=== PATIENT | female | born 1955 | race Caucasian/White ===

== ENCOUNTER 2017-12-24 10:50 | Inpatient (IN) | payer MEDICARE, MEDICAID, SELFPAY ==
[2017-12-24] VITALS (12 sets, daily range): BP systolic 110–157; BP diastolic 69–71; PULSE 71–90; RESP 15–21; TEMP 36.9–37.1; O2SAT 88–97; BMI 26.0; BMI 26.1
--- NOTE | 2017-12-24 11:08 | EKG12_ITS ---
Test Reason : SOB Blood Pressure : / mmHG Vent. Rate : 075 BPM Atrial Rate : 075 BPM P-R Int : 124 ms QRS Dur : 078 ms QT Int : 378 ms P-R-T Axes : 052 078 102 degrees QTc Int : 422 ms Normal sinus rhythm Normal ECG Confirmed by HOWARD CALDERA, ROCIO ([id number]), film or videotape editor SINDHU SCANLON ([id number]) on 12/30/2017 3:27:12 PM Referred By: HARI Confirmed By:ROCIO LAWRENCE MD
--- NOTE | 2017-12-24 11:08 | RAD_ITS ---
STUDY: X-RAY CHEST REASON FOR EXAM: Female, 62 years old. 3 week history of shortness of breath and productive cough. TECHNIQUE: PA and lateral views of the chest. COMPARISON: Comparison is made with prior study dated October 06, 2015. FINDINGS: EKG markings are seen. Focal infiltrate in the right middle lobe as well as in the lingular segment of the left lobe. There is no demonstrated pleural abnormality. Sternal cerclage wires and vascular clips are present from a prior sternotomy and coronary artery bypass graft procedure (CABG). Normal mediastinum and arlene. Normal visualized pulmonary arteries. Normal visualized aortic arch and descending thoracic aorta. Normal visualized thoracic spine. Normal visualized ribs, clavicles, and shoulders. There is no demonstrated abnormality of the visualized soft tissue structures of the upper abdomen. RAD/Chest PA and Lateral IMPRESSION: Focal infiltrate in the right middle lobe and lingular segment of the left upper lobe. Electronically Signed: Vijay Emerson MD at 12:51 EST Tel [phone], Service support ,
[2017-12-24] MEDS: Albuterol 2.5 MG/3 ML VIAL.NEB. INHALATION ×2 (11:32)
[2017-12-24] MEDS: Ipratropium/Albuterol Sulfate 3 ML AMPUL.NEB INHALATION ×3 (11:32→19:26)
[2017-12-24] MEDS: MethylPREDNISolone 125 MG/2 ML Vial IV (11:50)
[2017-12-24] MEDS: 0.9% Normal Saline 1,000 ML 150 ML IV (11:50)
[2017-12-24 11:52] LABS: Anion Gap 7 (5-15); BUN 44 mg/dL (7-18); BUN/Creat Ratio 18.3 RATIO (10-20); Calcium,Total 8.6 mg/dL (8.5-10.1); Chloride 101 mmol/L (98-107); Creatinine, Serum 2.41 mg/dL (0.55-1.02); EST Glomerular Filtration Rate 22 mL/min (>60); Est Glom Filt Rate - Afr Amer 26 mL/min (>60); Estimated Creatinine Clearance 1.76 ml/min; Glucose 425 mg/dL (74-106); Potassium 3.9 mmol/L (3.5-5.1); Sodium Level 137 mmol/L (136-145)
--- NOTE | 2017-12-24 13:06 | ED.VISSUMM ---
- ER Visit Summary Date of Service: 12/24/17 Chief Complaint: [Shortness of breath] History of Present Illness: The patient is a 62 F [presents to the emergency department with cough for 2-3 weeks. Patient coughing up brown sputum. Patient complains of chest tightness and exertional dyspnea. Patient denies fever. She denies any significant chest pain. Past medical history significant for coronary artery disease, diabetes, hypertension, chronic kidney disease, hyperkalemia.] Physical Examination: [HEENT-PERRLA, EOMI. Cranial nerves II through XII grossly intact. TMs clear. Mucous membranes moist. No adenopathy. Cardiovascular-regular rate and rhythm without murmur or ectopy Lungs-diminished bilaterally with expiratory wheezes bilaterally. There is mild tachypnea. No accessory muscle use or retractions. Abdomen-normoactive bowel sounds, soft, nontender, no rebound or rigidity, no peritoneal signs. Extremities-intact ?4, normal range of motion, normal pulses, atraumatic] Test Results: [CBC with differential pending. Chemistries unremarkable. BUN was 44 and creatinine was 2.41. Glucose is 425. Troponin was less than 0.02. EKG obtained showed a sinus rhythm with a ventricular rate of 75 bpm with no acute is 7 changes. Chest x-ray showed infiltrates right lower lobe and left upper lobe.] Emergency Department Course and Treatment: Patient was given DuoNeb aerosol and Solu-Medrol. Blood cultures ordered and patient was started on Rocephin and Zithromax IV.] Treatment Plan: Admit for hypoxemia and bilateral pneumonia [] Disposition: [Admit] Impression: [Bilateral pneumonia Hypoxemia] This note was generated with [employer] dictation software. It may contain incorrect words, spelling, and punctuation that were not noted in review of the chart prior to signing ED Disposition - Plan for ED Patient: Chief Complaint: Shortness of Breath Referrals: Sergio Maxwell DO [Primary Care Provider] -
[2017-12-24 13:30] LABS: Absolute Lymphocyte Count 0.62 X10^3/ul (0.83-4.51); Absolute Neutrophil Count 15.3 X10^3/uL (2.0-7.7); Basophil# 0.02 X10^3/uL; Basophil% 0.1 % (0-1); Eosinophil# 0.01 X10^3/uL; Eosinophils% 0.1 % (0-5); Hematocrit 36.4 % (37-47); Lymphocyte # 0.62 X10^3/ul (4.0); Lymphocyte % 3.7 % (19-41); Mean Corpuscular Hgb 29.1 pg (27.0-32.0); Mean Corpuscular Volume 88.3 fL (81-99); Mean Platelet Vol. 10.9 fl (6.2-12.0); Monocyte# 0.92 X10^3/uL; Monocyte% 5.4 % (0-10); Neutrophil # 15.27 X10^3/uL (2.7-7.7); Neutrophil % 90.4 % (47-70); Platelet Count 220 K/mm3 (150-450); RBC Distribution Width CV 12.4 % (11.6-14.6); RBC Distribution Width SD 39.3 fl (35.1-43.9); Red Blood Count 4.12 M/mm3 (4.2-5.4); White Blood Count 16.9 K/mm3 (4.4-11.0)
--- NOTE | 2017-12-24 13:30 | HP.PCM_ITS ---
Problem List (1) Coronary artery disease Status: Chronic Comment: Status post CABG in 2005 (2) Diabetes mellitus type 1 Status: Chronic Qualifiers: Diabetes mellitus complication status: without complication Qualified Code( s): E10.9 - Type 1 diabetes mellitus without complications (3) Hypertension Status: Chronic (4) CAD (coronary artery disease) Status: Chronic Qualifiers: Coronary Disease-Associated Artery/Lesion type: unspecified vessel or lesion type [place] vs. transplanted heart: [place] heart Associated angina: without angina Qualified Code(s): I25.10 - Atherosclerotic heart disease of [place] coronary artery without angina pectoris (5) CAP (community acquired pneumonia) Status: Chronic History of Present Illness Date of Admission: 12/24/17 Chief Complaint: SOB, chest pain The patient is a 62 year old F with PMHx of type 1 DM, hypertension, hyperlipidemia, CAD s/p CABG comes in with complaints of cough and shortness of breath, ongoing for 2-3 weeks. She has been coughing up brownish sputum. Also complains of exertional dyspnea with chest tightness which has been ongoing for the same time. She admits to orthopnea and sleeps on a wedge with 4 pillows, PND, but denies any leg swelling. She denies any fever or chills or dizziness or palpitations. Vitals in the ED of 98.7F, heart rate of 84, blood pressure 147/91, respiratory rate of 20, SPO2 is 88% on room air. W BC count of 16.7, hemoglobin of 12.0, platelet 220, BUN is 44, creatinine is 2.41(baseline creatinine is around 2.1). BNPep is 311. Past Medical History Past Medical History (Chronic Problems): Chronic Problems CAD (coronary artery disease) (Chronic) CAP (community acquired pneumonia) (Chronic) Elevated troponin (Chronic) Hypertension (Chronic) Coronary artery disease (Chronic) Status post CABG in 2005 Diabetes mellitus type 1 (Chronic) Hx of CABG (Chronic) Allergies No Known Allergies Allergy (Verified 12/24/17 10:52) Home Medications: Ambulatory Orders Medication Instructions Recorded Aspirin [Aspirin, Baby] 81 mg PO DAILY 04/09/15 Carvedilol [Coreg (Beta Janett)] 3.12 tab PO BID 10/01/15 Furosemide [Lasix] 10 mg PO DAILY 10/01/15 Isosorbide Mononitrate [Imdur] 30 mg PO QHS 10/02/15 Atorvastatin Calcium [Lipitor] 40 mg PO QHS 03/18/17 Insulin Aspart [Novolog Flexpen] 5 units SC LUNCH 03/18/17 Insulin Aspart [Novolog Flexpen] 8 units SC SUPPER 03/18/17 Insulin Aspart [Novolog Flexpen] 23 units SC BREAKFAST 03/18/17 Insulin Detemir [Levemir FlexPen] 4 units SC QHS 03/18/17 Surgical History: coronary bypass surgery, - - carpal tunnel, eye surgery Psychiatric History: No pertinent psych hx HEALTH ADMINISTRATOR History: No pertinent HEALTH ADMINISTRATOR history Lives: Spouse/ Significant Other Smoking Status: Never smoker Tobacco Use: Non-smoker Alcohol: None Drugs: None - *Family History Maternal History Items: No pertinent history Paternal History Items: Stroke Review of Systems Constitutional: Reports: Weakness. Denies: Anorexia, Chills, Fever, Weight Change Eyes: Denies: Blurred vision, Cataracts, Conjunctivae Inflammation, Pain, Redness, Vision Change HEENT: Denies: Difficulty Hearing, Difficulty Swallowing, Head Aches, Hearing Changes, Sinus Congestion, Sinus Drainage Cardiovascular: Reports: Chest Pressure, Orthopnea, Paroxysmal Noc. Dyspnea. Denies: Chest Pain, Edema, Heaviness, Light Headedness, Palpitations, Syncope Respiratory: Reports: Cough, Shortness of breath at rest, Shortness of breath upon exertion. Denies: Pleuritic Pain, Sputum production Gastrointestinal: Reports: Diarrhea - chronic, ongoing for 5 years. Denies: Abdominal Pain, Hematemesis, Hematochezia, Nausea, Vomiting Genitourinary: Denies: Dysuria, Frequency, Incontinence, Nocturia Musculoskeletal: Denies: Joint Pain, Joint swelling, Joint Tenderness Skin: Denies: Dryness, Pruritis, Rash, Wounds Neurological: Denies: Difficulty swallowing, Focal weakness, Numbness, Tingling Psychiatric: Denies: Anxiety, Depression, Homicidal Ideations, Suicidal Ideations Hematologic/ Lymphatic: Denies: Easy Bruising, Easy Bleeding VTE Information - Inpt Only VTE Present on Admission: No VTE Pharm Prophylaxis ordered?: Yes - Physical Exam General: Alert, Oriented x3, Cooperative, No apparent distress, - - looks comfortable, on 3L of oxygen HEENT: Atraumatic, PERRLA, EOMI, Normocephalic Oral: Dry Mucosa, Ulcerations Present - on the lips Neck: Supple Lungs: Diminished, - - Bronchial breath sounds at the lung bases Cardiovascular: Regular rate, Regular Rhythm, Normal S1, Normal S2, No murmurs Abdomen: Bowel Sounds Present, Soft, Non Tender, Non-Distended, No Hepato- splenomegaly Extremities: No edema Skin: No rashes Musculoskeletal: No Tenderness to Palpation of Joints or Extremities Neurological: Cranial nerves II-XII grossly intact Psych/Mental Status: Normal Affect, Appropriate Vital Signs Temp Pulse Resp BP Pulse Ox 98.7 F 71 21 H 147/71 H 94 12/24/17 10:52 12/24/17 11:35 12/24/17 11:35 12/24/17 10:52 12/24/17 10:57 Oxygen Flow Rate 2 Oxygen Delivery Method Nasal Cannula Weight: 4.536 kg Body Mass Index (BMI) 2.1 Finger Stick Blood Glucose 473 Microbiology Past 72 Hours 12/24/17 11:35 Influenza Types A,B Direct FA (NIGEL) - Final Mucosa - Nose Laboratory Tests Past 24 Hrs 12/24/17 12/24/17 12/24/17 11:30 11:30 11:30 WBC Cancelled Corrected WBC Cancelled RBC Cancelled Hgb Cancelled Hct Cancelled MCV Cancelled MCH Cancelled MCHC Cancelled RDW Cancelled RDW Differential Cancelled Plt Count Cancelled MPV Cancelled Immature Gran % (Auto) Cancelled Neut % (Auto) Cancelled Lymph % (Auto) Cancelled [place] % (Auto) Cancelled Eos % (Auto) Cancelled Baso % (Auto) Cancelled Immature Gran # (Auto) Cancelled Absolute Neuts (auto) Cancelled Absolute Lymphs (auto) Cancelled Absolute Monos (auto) Cancelled Total Counted Cancelled Neutrophils % (Manual) Cancelled Band Neutrophils % Cancelled Lymphocytes % (Manual) Cancelled Monocytes % (Manual) Cancelled Eosinophils % (Manual) Cancelled Basophils % (Manual) Cancelled Metamyelocytes % Cancelled Myelocytes % Cancelled Promyelocytes % Cancelled Blast Cells % Cancelled Plasma Cell % (Manual) Cancelled Other Cells % Cancelled Lymphocytes # Cancelled Nucleated RBCs/100 WBC Cancelled Differential Comment Cancelled Diff Path Review Cancelled Hypersegmented Neuts Cancelled Atypical Lymphocytes Cancelled Reactive Lymphocytes Cancelled Smudge Cells Cancelled Eosinophilia # Cancelled Basophilia # Cancelled Toxic Granulation Cancelled Dohle Bodies Cancelled Rafaela Rods Cancelled Platelet Estimate Cancelled Plt Morphology Comment Cancelled RBC Morphology Cancelled Polychromasia Cancelled Hypochromasia Cancelled Poikilocytosis Cancelled Basophilic Stippling Cancelled Anisocytosis Cancelled Microcytosis Cancelled Macrocytosis Cancelled Spherocytes Cancelled Sickle Cells Cancelled Target Cells Cancelled Tear Drop Cells Cancelled Ovalocytes Cancelled Stomatocytes Cancelled [place] Bodies Cancelled Miguelangel Cells Cancelled Bite Cells Cancelled Acanthocytes (Spur) Cancelled Rouleaux Cancelled Schistocytes Cancelled Sodium 137 Potassium 3.9 Chloride 101 Carbon Dioxide 29.0 Anion Gap 7 BUN 44 H Creatinine 2.41 H Estim Creat Clear Calc 1.76 Est GFR (MDRD) Af Amer 26 L Est GFR (MDRD) Non-Af 22 L BUN/Creatinine Ratio 18.3 Glucose 425 H Calcium 8.6 B-Natriuretic Peptide 311.0 H 12/24/17 13:21 WBC Pending Corrected WBC RBC Pending Hgb Pending Hct Pending MCV Pending MCH Pending MCHC Pending RDW Pending RDW Differential Pending Plt Count Pending MPV Immature Gran % (Auto) Neut % (Auto) Pending Lymph % (Auto) [place] % (Auto) Eos % (Auto) Baso % (Auto) Immature Gran # (Auto) Absolute Neuts (auto) Pending Absolute Lymphs (auto) Absolute Monos (auto) Total Counted Pending Neutrophils % (Manual) Band Neutrophils % Lymphocytes % (Manual) Monocytes % (Manual) Eosinophils % (Manual) Basophils % (Manual) Metamyelocytes % Myelocytes % Promyelocytes % Blast Cells % Plasma Cell % (Manual) Other Cells % Lymphocytes # Nucleated RBCs/100 WBC Differential Comment Diff Path Review Hypersegmented Neuts Atypical Lymphocytes Reactive Lymphocytes Smudge Cells Eosinophilia # Basophilia # Toxic Granulation Dohle Bodies Rafaela Rods Platelet Estimate Plt Morphology Comment RBC Morphology Polychromasia Hypochromasia Poikilocytosis Basophilic Stippling Anisocytosis Microcytosis Macrocytosis Spherocytes Sickle Cells Target Cells Tear Drop Cells Ovalocytes Stomatocytes [place] Bodies Miguelangel Cells Bite Cells Acanthocytes (Spur) Rouleaux Schistocytes Sodium Potassium Chloride Carbon Dioxide Anion Gap BUN Creatinine Estim Creat Clear Calc Est GFR (MDRD) Af Amer Est GFR (MDRD) Non-Af BUN/Creatinine Ratio Glucose Calcium B-Natriuretic Peptide Assessment/Plan 62 year old F with PMHx of type 1 DM, hypertension, hyperlipidemia, CAD s/p CABG comes in with complaints of cough and shortness of breath, ongoing for 2-3 weeks. Associated with sputum production without fever or chills and chest tightness and exertional dyspnea. Chest X-ray shows focal infiltrate in the right middle lobe and lingular segment of the left upper lobe. 1. Acute hypoxic respiratory insufficiency secondary to community-acquired pneumonia, patient was found to be hypoxic at 88% on room air Plan: Admit to PCU, continue on oxygen per protocol, continue on breathing treatment, wean off for SPO2 more than 94%, continue IV antibiotics per protocol , incentive spirometer 2. CAP, no signs of sepsis, influenza screen negative, will get respiratory panel, IV ceftriaxone and azithromycin, urine streptococcal and Legionella antigen, continue breathing treatment 3. Hypertension, controlled, continue on carvedilol, monitor vitals closely, with holding parameters 4. Type 1DM, on insulin, last HbA1 C in 2015 was 7.4, check Hgba1c continue home insulin regimen with Accu-Cheks and insulin sliding scale 5. EMPERATRIZ on CKD stage 3, admitting Cr 2.4, will continue on IVF, hold lasix for now, repeat lab in am. 6. CAD s/p CABG, on aspirin, statin, beta-janett 7. Chronic diastolic CHF, pulmonary hypertension(last RVSP 43mmHg), admitting BNPep is 311, clinically in acute exacerbation, on lasix 10mg daily, will hold that for now in light of EMPERATRIZ. 8. DVT PPx - Heparin SC Code Visit Inpatient E&M: 38517 Init Hosp L3
[2017-12-24 13:32] LABS: POSITIVE COUNT NO; POSITIVE DIFFERENTIAL NO; POSITIVE MORPHOLOGY NO
[2017-12-24 16:45] LABS: Bedside Glucose 424 mg/dL (70-110)
[2017-12-24] MEDS: Glucerna Shake 120 ML LIQUID PO (16:54)
[2017-12-24] MEDS: Isosorbide Mononitrate 30 MG Tablet PO (22:46)
[2017-12-24] MEDS: Heparin Injection 5,000 UNITS/ML Syringe 5000 UNITS SC (22:46)
[2017-12-24] MEDS: guaiFENesin 1,200 MG Tablet 1200 MG PO (22:46)
[2017-12-25] VITALS (8 sets, daily range): BP systolic 151–169; BP diastolic 62–121; PULSE 61–108; RESP 16–20; TEMP 36.3–37; O2SAT 92–98
[2017-12-25 00:09] LABS: Glucose 645 mg/dL (74-106)
[2017-12-25 02:31] LABS: Bedside Glucose > 500 mg/dL (70-110)
[2017-12-25 04:11] LABS: Bedside Glucose 441 mg/dL (70-110)
[2017-12-25 05:58] LABS: Absolute Lymphocyte Count 0.45 X10^3/ul (0.83-4.51); Absolute Neutrophil Count 9.4 X10^3/uL (2.0-7.7); Hematocrit 34.1 % (37-47); Hemoglobin 11.2 g/dl (12.0-15.0); Lymphocyte # 0.45 X10^3/ul (4.0); Lymphocyte % 4.3 % (19-41); Mean Corp Hgb Conc 32.8 g/gl (32-36); Mean Corpuscular Hgb 28.9 pg (27.0-32.0); Mean Corpuscular Volume 88.1 fL (81-99); Mean Platelet Vol. 11.3 fl (6.2-12.0); Monocyte# 0.56 X10^3/uL; Monocyte% 5.3 % (0-10); Neutrophil # 9.43 X10^3/uL (2.7-7.7); Platelet Count 207 K/mm3 (150-450); RBC Distribution Width CV 12.2 % (11.6-14.6); Red Blood Count 3.87 M/mm3 (4.2-5.4); White Blood Count 10.5 K/mm3 (4.4-11.0)
[2017-12-25 06:00] LABS: Differential Indicated SCAN CRITERIA MET; POSITIVE COUNT NO; POSITIVE DIFFERENTIAL YES; POSITIVE MORPHOLOGY NO
[2017-12-25 06:04] LABS: Anion Gap 8 (5-15); BUN 53 mg/dL (7-18); Calcium,Total 8.3 mg/dL (8.5-10.1); Chloride 103 mmol/L (98-107); Creatinine, Serum 2.41 mg/dL (0.55-1.02); EST Glomerular Filtration Rate 22 mL/min (>60); Est Glom Filt Rate - Afr Amer 26 mL/min (>60); Estimated Creatinine Clearance 21.15 ml/min; Glucose 450 mg/dL (74-106); Potassium 3.6 mmol/L (3.5-5.1); Sodium Level 136 mmol/L (136-145)
[2017-12-25] MEDS: 0.9% Normal Saline 1,000 ML 50 ML IV (07:00)
[2017-12-25 07:06] LABS: Bedside Glucose > 500 mg/dL (70-110)
[2017-12-25 07:06] LABS: Bedside Glucose > 500 mg/dL (70-110)
[2017-12-25] MEDS: Ipratropium/Albuterol Sulfate 3 ML AMPUL.NEB INHALATION ×4 (07:08→19:51)
[2017-12-25 07:11] LABS: Bedside Glucose 373 mg/dL (70-110)
[2017-12-25] MEDS: Aspirin 81 MG TAB.CHEW PO (08:26)
--- NOTE | 2017-12-25 08:59 | PCM.PN.HOSP ---
Subjective: Patient is a 62-year-old lady with multiple comorbidities including diabetes mellitus type 1 who presented with progressive shortness of breath as well as productive cough over 3 week duration. Imaging studies obtained on admission demonstrated Focal infiltrate in the right middle lobe and lingular segment of the left upper lobe Objective: GENERAL: cooperativevbut ill looking HEENT: Clear conjunctiva, moist oral mucosa NECK; supple, normal thyroid, no distended JVD. CHEST: Diminished to auscultation bilaterally, rales on the right HEART: Regular S1 S2, no audible murmurs ABDOMEN: soft, non-tender, normoactive bowel sounds, RECTAL: deferred EXTREMITIES: No edema, no clubbing, no cyanosis. MENTAL HEALTH WORKER: Awake, a no lateralizing signs. SKIN: No rash Vitals/I&O's: Vital Signs Temp Pulse Resp BP Pulse Ox 98.6 F 108 H 18 157/121 H 92 12/25/17 02:36 12/25/17 07:10 12/25/17 07:10 12/25/17 02:36 12/25/17 07:10 Oxygen Flow Rate 2 Oxygen Delivery Method Nasal Cannula Weight: 55.2 kg Body Mass Index (BMI) 26.0 Intake and Output for Last 24 Hours 12/23/17 12/24/17 12/25/17 23:59 23:59 23:59 Intake Total 1097 / 1097 1133 / 1133 Output Total 300 / 300 Balance 1097 / 1097 833 / 833 Microbiology Past 72 Hours 12/24/17 15:20 Mucosa - Nasopharyngeal Respiratory Panel (PCR) - Final 12/24/17 15:45 Urine, Clean Catch Streptococcus pneumoniae Antigen (M - Final 12/24/17 15:45 Urine, Clean Catch Legionella Antigen - Final Laboratory Results 12/24/17 13:21: WBC 16.9 H, RBC 4.12 L, Hgb 12.0, Hct 36.4 L, MCV 88.3, MCH 29.1, MCHC 33.0, RDW 12.4, RDW Differential 39.3, Plt Count 220, MPV 10.9, Immature Gran % (Auto) 0.300, Neut % (Auto) 90.4 H, Lymph % (Auto) 3.7 L, [place] % (Auto) 5.4, Eos % (Auto) 0.1, Baso % (Auto) 0.1, Absolute Neuts (auto) 15.3 H, Absolute Lymphs (auto) 0.62 L, Total Counted Not Reportable 12/24/17 14:58: Troponin I 0.07 H 12/24/17 16:38: POC Glucose 424 H 12/24/17 22:38: POC Glucose > 500 H* 12/24/17 22:51: POC Glucose > 500 H* 12/24/17 23:36: Glucose 645 H* 12/25/17 02:23: POC Glucose > 500 H* 12/25/17 04:03: POC Glucose 441 H 12/25/17 05:26: WBC 10.5, RBC 3.87 L, Hgb 11.2 L, Hct 34.1 L, MCV 88.1, MCH 28.9, MCHC 32.8, RDW 12.2, RDW Differential 39.0, Plt Count 207, MPV 11.3, Immature Gran % (Auto) 0.400, Neut % (Auto) 90.0 H, Lymph % (Auto) 4.3 L, [place] % (Auto) 5.3, Eos % (Auto) 0.0, Baso % (Auto) 0.0, Absolute Neuts (auto) 9.4 H, Absolute Lymphs (auto) 0.45 L, Total Counted Not Reportable 12/25/17 05:26: Sodium 136, Potassium 3.6, Chloride 103, Carbon Dioxide 25.0, Anion Gap 8, BUN 53 H, Creatinine 2.41 H, Estim Creat Clear Calc 21.15, Est GFR (MDRD) Af Amer 26 L, Est GFR (MDRD) Non-Af 22 L, BUN/Creatinine Ratio 22.0 H, Glucose 450 H, Calcium 8.3 L 12/25/17 05:26: Troponin I 0.04 12/25/17 07:04: POC Glucose 373 H Current Medications Acetaminophen (Tylenol) 650 mg PO Q6H PRN PRN PRN Reason: Mild Pain (1-3)/Temp > 100.7 F Albuterol Sulfate (Ventolin Aerosols) 2.5 mg INHALATION Q2H.RT PRN PRN Reason: SOB &/OR WHEEZING Albuterol/Ipratropium (Duoneb) 3 ml INHALATION Q4HWA.RT MOLLY Last Admin: 12/25/17 07:08 Dose: 3 ml Aspirin (Aspirin, Baby) 81 mg PO DAILY@0800 [facility] Last Admin: 12/25/17 08:26 Dose: 81 mg Atorvastatin Calcium (Lipitor) 40 mg PO QHS [facility] Carvedilol (Coreg) mg PO BID [facility] Dextrose (D50w Syringe) 0 gm IV X1 PRN; Protocol PRN Reason: Hypoglycemia Furosemide (Lasix) 10 mg PO DAILY [facility] Glucagon () 1 mg IM .X1 PRN PRN Reason: Hypoglycemia Guaifenesin (Mucinex) 1,200 mg PO BID [facility] Last Admin: 12/24/17 22:46 Dose: 1,200 mg Heparin Sodium (Porcine) () 5,000 units SC BID [facility] Last Admin: 12/24/17 22:46 Dose: 5,000 units Sodium Chloride () 1,000 mls @ 50 mls/hr IV .Q20H [facility] Stop: 12/26/17 06:32 Last Admin: 12/25/17 07:00 Dose: 50 mls/hr Ceftriaxone Sodium (Rocephin) 1 gm in 50 mls @ 100 mls/hr IV Q24H [facility] Azithromycin 500 mg/ Dextrose 255 mls @ 250 mls/hr IV Q24 [facility] Stop: 12/26/17 11:02 Last Admin: 12/24/17 15:36 Dose: 250 mls/hr Insulin Aspart (Novolog Flexpen (Bkc)) 23 units SC BREAKFAST [facility] Last Admin: 12/25/17 08:22 Dose: 23 u Insulin Aspart (Novolog Flexpen (Bkc)) 0 units SC ACHS [facility] PRN Reason: Protocol Last Admin: 12/25/17 08:23 Dose: 3 units Insulin Aspart (Novolog Flexpen (Bkc)) 15 units SC SUPPER [facility] Insulin Aspart (Novolog Flexpen (Bkc)) 10 units SC LUNCH [facility] Insulin Detemir (Levemir (Bkc)) 15 units SC QHS [facility] Last Admin: 12/25/17 02:44 Dose: 15 units Isosorbide Mononitrate (Imdur) 30 mg PO QHS [facility] Last Admin: 12/24/17 22:46 Dose: 30 mg Magnesium Hydroxide (Milk Of Magnesia) 30 ml PO DAILY PRN PRN PRN Reason: Constipation Nutritional Formula (Lactose Free) (Glucerna Shake) 120 ml PO 4X/DAY [facility] Last Admin: 12/24/17 23:36 Dose: Not Given Ondansetron HCl (Zofran) 4 mg IV Q8H PRN PRN PRN Reason: NAUSEA Sodium Chloride () 5 - 30 ml IV UD PRN PRN Reason: SALINE FLUSH Assessment/Plan Patient is a 62-year-old lady with multiple comorbidities including diabetes mellitus type 1 who presented with progressive shortness of breath as well as productive cough over 3 week duration. Imaging studies obtained on admission demonstrated Focal infiltrate in the right middle lobe and lingular segment of the left upper lobe 1. Acute hypoxic respiratory insufficiency secondary to community-acquired pneumonia: Placed on aerosols, antibiotics - Rocephin and Zithromax; Oxygen titrated to keep pulse ox >90%. Blood and sputum cultures sent results pending 2. Hypertension-blood pressure controlled, home medications continued with dose adjustment as needed 3. CAD with previous CABG 4. Dyslipidemia-patient is on statin therapy, continued at home dose 5. Diabetes mellitus type 1 did continue with home regimen in addition to Accu-Cheks before meals and at bedtime with sliding scale coverage 6. Chronic diastolic congestive heart failure; stable 7. Pulmonary hypertension 8. Chronic kidney disease stage IV secondary to diabetic nephropathy patient kidney function appears to be at baseline 9. DVT prophylaxis SC heparin Clinical Impression(s) from Imaging Studies Chest X-Ray 12/24/17 11:08 IMPRESSION: Focal infiltrate in the right middle lobe and lingular segment of the left upper lobe. Electronically Signed: Vijay Emerson MD at 12:51 EST Tel [phone], Service support , Code Visit Inpatient E&M: 36914 Subs Hosp L3
--- NOTE | 2017-12-25 09:09 | PN_ITS ---
Subjective: Patient is a 62-year-old lady with multiple comorbidities including diabetes mellitus type 1 who presented with progressive shortness of breath as well as productive cough over 3 week duration. Imaging studies obtained on admission demonstrated Focal infiltrate in the right middle lobe and lingular segment of the left upper lobe Objective: GENERAL: cooperativevbut ill looking HEENT: Clear conjunctiva, moist oral mucosa NECK; supple, normal thyroid, no distended JVD. CHEST: Diminished to auscultation bilaterally, rales on the right HEART: Regular S1 S2, no audible murmurs ABDOMEN: soft, non-tender, normoactive bowel sounds, RECTAL: deferred EXTREMITIES: No edema, no clubbing, no cyanosis. 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 SKIN: No rash Vitals/I&O's: Vital Signs Temp Pulse Resp BP Pulse Ox 98.6 F 108 H 18 157/121 H 92 12/25/17 02:36 12/25/17 07:10 12/25/17 07:10 12/25/17 02:36 12/25/17 07:10 Oxygen Flow Rate 2 Oxygen Delivery Method Nasal Cannula Weight: 55.2 kg Body Mass Index (BMI) 26.0 Intake and Output for Last 24 Hours 12/23/17 12/24/17 12/25/17 23:59 23:59 23:59 Intake Total 1097 / 1097 1133 / 1133 Output Total 300 / 300 Balance 1097 / 1097 833 / 833 Microbiology Past 72 Hours 12/24/17 15:20 Mucosa - Nasopharyngeal Respiratory Panel (PCR) - Final 12/24/17 15:45 Urine, Clean Catch Streptococcus pneumoniae Antigen (M - Final 12/24/17 15:45 Urine, Clean Catch Legionella Antigen - Final Laboratory Results 12/24/17 13:21: WBC 16.9 H, RBC 4.12 L, Hgb 12.0, Hct 36.4 L, MCV 88.3, MCH 29.1 , MCHC 33.0, RDW 12.4, RDW Differential 39.3, Plt Count 220, MPV 10.9, Immature Gran % (Auto) 0.300, Neut % (Auto) 90.4 H, Lymph % (Auto) 3.7 L, [place] % (Auto) 5.4, Eos % (Auto) 0.1, Baso % (Auto) 0.1, Absolute Neuts (auto) 15.3 H, Absolute Lymphs (auto) 0.62 L, Total Counted Not Reportable 12/24/17 14:58: Troponin I 0.07 H 12/24/17 16:38: POC Glucose 424 H 12/24/17 22:38: POC Glucose > 500 H* 12/24/17 22:51: POC Glucose > 500 H* 12/24/17 23:36: Glucose 645 H* 12/25/17 02:23: POC Glucose > 500 H* 12/25/17 04:03: POC Glucose 441 H 12/25/17 05:26: WBC 10.5, RBC 3.87 L, Hgb 11.2 L, Hct 34.1 L, MCV 88.1, MCH 28.9 , MCHC 32.8, RDW 12.2, RDW Differential 39.0, Plt Count 207, MPV 11.3, Immature Gran % (Auto) 0.400, Neut % (Auto) 90.0 H, Lymph % (Auto) 4.3 L, [place] % (Auto) 5.3, Eos % (Auto) 0.0, Baso % (Auto) 0.0, Absolute Neuts (auto) 9.4 H, Absolute Lymphs (auto) 0.45 L, Total Counted Not Reportable 12/25/17 05:26: Sodium 136, Potassium 3.6, Chloride 103, Carbon Dioxide 25.0, Anion Gap 8, BUN 53 H, Creatinine 2.41 H, Estim Creat Clear Calc 21.15, Est GFR (MDRD) Af Amer 26 L, Est GFR (MDRD) Non-Af 22 L, BUN/Creatinine Ratio 22.0 H, Glucose 450 H, Calcium 8.3 L 12/25/17 05:26: Troponin I 0.04 12/25/17 07:04: POC Glucose 373 H Current Medications Acetaminophen (Tylenol) 650 mg PO Q6H PRN PRN PRN Reason: Mild Pain (1-3)/Temp > 100.7 F Albuterol Sulfate (Ventolin Aerosols) 2.5 mg INHALATION Q2H.RT PRN PRN Reason: SOB &/OR WHEEZING Albuterol/Ipratropium (Duoneb) 3 ml INHALATION Q4HWA.RT [facility] Last Admin: 12/25/17 07:08 Dose: 3 ml Aspirin (Aspirin, Baby) 81 mg PO DAILY@0800 [facility] Last Admin: 12/25/17 08:26 Dose: 81 mg Atorvastatin Calcium (Lipitor) 40 mg PO QHS [facility] Carvedilol (Coreg) mg PO BID [facility] Dextrose (D50w Syringe) 0 gm IV X1 PRN; Protocol PRN Reason: Hypoglycemia Furosemide (Lasix) 10 mg PO DAILY [facility] Glucagon () 1 mg IM .X1 PRN PRN Reason: Hypoglycemia Guaifenesin (Mucinex) 1,200 mg PO BID [facility] Last Admin: 12/24/17 22:46 Dose: 1,200 mg Heparin Sodium (Porcine) () 5,000 units SC BID [facility] Last Admin: 12/24/17 22:46 Dose: 5,000 units Sodium Chloride () 1,000 mls @ 50 mls/hr IV .Q20H [facility] Stop: 12/26/17 06:32 Last Admin: 12/25/17 07:00 Dose: 50 mls/hr Ceftriaxone Sodium (Rocephin) 1 gm in 50 mls @ 100 mls/hr IV Q24H [facility] Azithromycin 500 mg/ Dextrose 255 mls @ 250 mls/hr IV Q24 [facility] Stop: 12/26/17 11:02 Last Admin: 12/24/17 15:36 Dose: 250 mls/hr Insulin Aspart (Novolog Flexpen (Bkc)) 23 units SC BREAKFAST [facility] Last Admin: 12/25/17 08:22 Dose: 23 u Insulin Aspart (Novolog Flexpen (Bkc)) 0 units SC ACHS [facility] PRN Reason: Protocol Last Admin: 12/25/17 08:23 Dose: 3 units Insulin Aspart (Novolog Flexpen (Bkc)) 15 units SC SUPPER [facility] Insulin Aspart (Novolog Flexpen (Bkc)) 10 units SC LUNCH [facility] Insulin Detemir (Levemir (Bkc)) 15 units SC QHS [facility] Last Admin: 12/25/17 02:44 Dose: 15 units Isosorbide Mononitrate (Imdur) 30 mg PO QHS [facility] Last Admin: 12/24/17 22:46 Dose: 30 mg Magnesium Hydroxide (Milk Of Magnesia) 30 ml PO DAILY PRN PRN PRN Reason: Constipation Nutritional Formula (Lactose Free) (Glucerna Shake) 120 ml PO 4X/DAY [facility] Last Admin: 12/24/17 23:36 Dose: Not Given Ondansetron HCl (Zofran) 4 mg IV Q8H PRN PRN PRN Reason: NAUSEA Sodium Chloride () 5 - 30 ml IV UD PRN PRN Reason: SALINE FLUSH Assessment/Plan Patient is a 62-year-old lady with multiple comorbidities including diabetes mellitus type 1 who presented with progressive shortness of breath as well as productive cough over 3 week duration. Imaging studies obtained on admission demonstrated Focal infiltrate in the right middle lobe and lingular segment of the left upper lobe 1. Acute hypoxic respiratory insufficiency secondary to community-acquired pneumonia: Placed on aerosols, antibiotics - Rocephin and Zithromax; Oxygen titrated to keep pulse ox >90%. Blood and sputum cultures sent results pending 2. Hypertension-blood pressure controlled, home medications continued with dose adjustment as needed 3. CAD with previous CABG 4. Dyslipidemia-patient is on statin therapy, continued at home dose 5. Diabetes mellitus type 1 did continue with home regimen in addition to Accu- Cheks before meals and at bedtime with sliding scale coverage 6. Chronic diastolic congestive heart failure; stable 7. Pulmonary hypertension 8. Chronic kidney disease stage IV secondary to diabetic nephropathy patient kidney function appears to be at baseline 9. DVT prophylaxis SC heparin Clinical Impression(s) from Imaging Studies Chest X-Ray 12/24/17 11:08 IMPRESSION: Focal infiltrate in the right middle lobe and lingular segment of the left upper lobe. Electronically Signed: Vijay Emerson MD at 12:51 EST Tel [phone], Service support , Code Visit Inpatient E&M: 62842 Subs Hosp L3
[2017-12-25] MEDS: Heparin Injection 5,000 UNITS/ML Syringe 5000 UNITS SC ×2 (10:25→21:29)
[2017-12-25] MEDS: Furosemide 20 MG Tablet 10 MG PO (10:26)
[2017-12-25] MEDS: Ceftriaxone 1 GM/50 ML BAG IV (10:27)
[2017-12-25] MEDS: guaiFENesin 1,200 MG Tablet 1200 MG PO ×2 (10:27→22:01)
[2017-12-25] MEDS: Carvedilol 3.125 MG TABLET PO (11:39)
[2017-12-25 11:50] LABS: Bedside Glucose 443 mg/dL (70-110)
--- NOTE | 2017-12-25 13:37 | CASEMGMT ---
RN CM Face to Face with patient for initial transition planning/care coordination assessment. RN CM introduced self and role at [facility]. Patient sitting in chair, alert and oriented. Patient willing to participate in assessment and is able to answer all questions appropriately. Care providers, pharmacy, and demographics verified. See link attached. Patient wishes to discharge home with family, and does not anticipate any need at discharge. Patient has had [facility] in the past. Patient states she has no further needs or concerns at this time. RN CM will continue to monitor patient for need for home oxygen and HHC. CM to follow for discharge planning needs that may arise. Disposition Plan: Patient to discharge home with family support and follow-up plans in place.
[2017-12-25] MEDS: Glucerna Shake 120 ML LIQUID PO ×3 (14:49→21:28)
--- NOTE | 2017-12-25 16:55 | CHAPLAIN ---
Type of Pastoral Visit _x__ Initial Visit ___ Follow-up Visit ___ On-call Visit ___ General Patient Visit ___ Spiritual Assessment ___ Family Conference ___ Bereavement ___ Rapid Response ___ Code Blue ___ Other (describe below) Pastoral Care Referral From _x__ Patient ___ Family ___ Nurse ___ Physician ___ Data Management Consultant ___ Form Setter [employer] Forms ___ Other (describe below) Sacrament/Intervention _x__ Active listening ___ Anointing ___ Jehovah'S Witness ___ Bereavement ___ Communion ___ Jennyfer exploration ___ _x__ Life review _x__ Prayer ___ Reconciliation ___ Sacrament of Sick ___ Supportive presence ___ Wedding ___ Other (describe below) Pastoral Comments
[2017-12-25 17:41] LABS: Bedside Glucose 402 mg/dL (70-110)
--- NOTE | 2017-12-25 18:29 | NURSING ---
sitting up in chair denies any needs at this time.
[2017-12-25 21:11] LABS: Bedside Glucose 381 mg/dL (70-110)
[2017-12-25] MEDS: Atorvastatin Calcium 40 MG Tablet PO (21:29)
[2017-12-25] MEDS: Isosorbide Mononitrate 30 MG Tablet PO (22:01)
[2017-12-26] VITALS (12 sets, daily range): BP systolic 141–186; BP diastolic 54–76; PULSE 65–77; RESP 16–21; TEMP 36.2–36.7; O2SAT 94–99
[2017-12-26] MEDS: 0.9% Normal Saline 1,000 ML 50 ML IV (01:38)
--- NOTE | 2017-12-26 01:46 | NURSING ---
Pt has a very harsh cough. tea given. Resp called for a breathing treatment.
[2017-12-26] MEDS: Ipratropium/Albuterol Sulfate 3 ML AMPUL.NEB INHALATION ×5 (02:09→19:31)
[2017-12-26 06:56] LABS: Bedside Glucose > 500 mg/dL (70-110)
[2017-12-26 07:34] LABS: Glucose 573 mg/dL (74-106)
--- NOTE | 2017-12-26 07:48 | PN_ITS ---
Subjective: Patient seen breathing still remains significantly labored. She also has significant hyperglycemia with blood glucose in the 500s. Her insulin dose subsequently adjusted Objective: GENERAL: cooperative but ill looking HEENT: Clear conjunctiva, moist oral mucosa NECK; supple, normal thyroid, no distended JVD. CHEST: Diminished to auscultation bilaterally, rales on the right HEART: Regular S1 S2, no audible murmurs ABDOMEN: soft, non-tender, normoactive bowel sounds, RECTAL: deferred EXTREMITIES: No edema, no clubbing, no cyanosis. 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 SKIN: No rash Vitals/I&O's: Vital Signs Temp Pulse Resp BP Pulse Ox 97.7 F L 72 18 161/76 H 94 12/26/17 06:13 12/26/17 07:10 12/26/17 07:10 12/26/17 06:13 12/26/17 07:22 Oxygen Flow Rate 2 Oxygen Delivery Method Nasal Cannula Weight: 56.7 kg Body Mass Index (BMI) 26.0 Intake and Output for Last 24 Hours 12/24/17 12/25/17 12/26/17 23:59 23:59 23:59 Intake Total 1097 / 1097 3383 / 3383 415 / 415 Output Total 500 / 500 Balance 1097 / 1097 2883 / 2883 415 / 415 Microbiology Past 72 Hours 12/24/17 15:20 Mucosa - Nasopharyngeal Respiratory Panel (PCR) - Final 12/24/17 15:45 Urine, Clean Catch Streptococcus pneumoniae Antigen (M - Final 12/24/17 15:45 Urine, Clean Catch Legionella Antigen - Final Laboratory Results 12/25/17 11:37: POC Glucose 443 H 12/25/17 16:56: POC Glucose 402 H 12/25/17 20:55: POC Glucose 381 H 12/26/17 06:51: POC Glucose > 500 H* 12/26/17 07:06: Glucose 573 H* Current Medications Acetaminophen (Tylenol) 650 mg PO Q6H PRN PRN PRN Reason: Mild Pain (1-3)/Temp > 100.7 F Albuterol Sulfate (Ventolin Aerosols) 2.5 mg INHALATION Q2H.RT PRN PRN Reason: SOB &/OR WHEEZING Albuterol/Ipratropium (Duoneb) 3 ml INHALATION Q4HWA.RT [facility] Last Admin: 12/26/17 06:49 Dose: 3 ml Aspirin (Aspirin, Baby) 81 mg PO DAILY@0800 [facility] Last Admin: 12/25/17 08:26 Dose: 81 mg Atorvastatin Calcium (Lipitor) 40 mg PO QHS [facility] Last Admin: 12/25/17 21:29 Dose: 40 mg Carvedilol (Coreg) 3.125 mg PO DAILY [facility] Last Admin: 12/25/17 11:39 Dose: 3.125 mg Dextrose (D50w Syringe) 0 gm IV X1 PRN; Protocol PRN Reason: Hypoglycemia Furosemide (Lasix) 10 mg PO DAILY [facility] Last Admin: 12/25/17 10:26 Dose: 10 mg Glucagon () 1 mg IM .X1 PRN PRN Reason: Hypoglycemia Guaifenesin (Mucinex) 1,200 mg PO BID [facility] Last Admin: 12/25/17 22:01 Dose: 1,200 mg Heparin Sodium (Porcine) (Heparin Na) 5,000 unit SC BID [facility] Last Admin: 12/25/17 21:32 Dose: Not Given Ceftriaxone Sodium (Rocephin) 1 gm in 50 mls @ 100 mls/hr IV Q24H [facility] Last Admin: 12/25/17 10:27 Dose: 100 mls/hr Azithromycin 500 mg/ Dextrose 255 mls @ 250 mls/hr IV Q24 [facility] Stop: 12/26/17 11:02 Last Admin: 12/25/17 11:42 Dose: 250 mls/hr Insulin Aspart (Novolog Flexpen (Bkc)) 23 units SC BREAKFAST [facility] Last Admin: 12/25/17 08:22 Dose: 23 u Insulin Aspart (Novolog Flexpen (Bkc)) 0 units SC ACHS [facility] PRN Reason: Protocol Last Admin: 12/25/17 21:31 Dose: 4 units Insulin Aspart (Novolog Flexpen (Bkc)) 15 units SC SUPPER [facility] Last Admin: 12/25/17 17:12 Dose: 15 u Insulin Aspart (Novolog Flexpen (Bkc)) 15 units SC LUNCH [facility] Insulin Detemir (Levemir (Bkc)) 30 units SC BID [facility] Isosorbide Mononitrate (Imdur) 30 mg PO QHS [facility] Last Admin: 12/25/17 22:01 Dose: 30 mg Magnesium Hydroxide (Milk Of Magnesia) 30 ml PO DAILY PRN PRN PRN Reason: Constipation Nutritional Formula (Lactose Free) (Glucerna Shake) 120 ml PO 4X/DAY [facility] Last Admin: 12/25/17 21:28 Dose: 120 ml Ondansetron HCl (Zofran) 4 mg IV Q8H PRN PRN PRN Reason: NAUSEA Sodium Chloride () 5 - 30 ml IV UD PRN PRN Reason: SALINE FLUSH Assessment/Plan Patient is a 62-year-old lady with multiple comorbidities including diabetes mellitus type 1 who presented with progressive shortness of breath as well as productive cough over 3 week duration. Imaging studies obtained on admission demonstrated Focal infiltrate in the right middle lobe and lingular segment of the left upper lobe 1. Acute hypoxic respiratory insufficiency secondary to community-acquired pneumonia: Placed on aerosols, antibiotics - Rocephin and Zithromax; Oxygen titrated to keep pulse ox >90%. Blood and sputum cultures sent results pending 2. Hypertension-blood pressure controlled, home medications continued with dose adjustment as needed 3. CAD with previous CABG 4. Dyslipidemia-patient is on statin therapy, continued at home dose 5. Diabetes mellitus type 1 did continue with home regimen in addition to Accu- Cheks before meals and at bedtime with sliding scale coverage 6. Chronic diastolic congestive heart failure; stable 7. Pulmonary hypertension 8. Chronic kidney disease stage IV secondary to diabetic nephropathy patient kidney function appears to be at baseline 9. DVT prophylaxis SC heparin Clinical Impression(s) from Imaging Studies Chest X-Ray 12/24/17 11:08 IMPRESSION: Focal infiltrate in the right middle lobe and lingular segment of the left upper lobe. Electronically Signed: Vijay Emerson MD at 12:51 EST Tel [phone], Service support , Code Visit Inpatient E&M: 48540 Subs Hosp L3
[2017-12-26 08:28] LABS: Hematocrit 34.8 % (37-47); Hemoglobin 11.4 g/dl (12.0-15.0); Mean Corp Hgb Conc 32.8 g/gl (32-36); Mean Corpuscular Hgb 29.2 pg (27.0-32.0); Mean Corpuscular Volume 89.2 fL (81-99); Mean Platelet Vol. 11.4 fl (6.2-12.0); Platelet Count 222 K/mm3 (150-450); RBC Distribution Width CV 12.3 % (11.6-14.6); RBC Distribution Width SD 39.5 fl (35.1-43.9); White Blood Count 12.3 K/mm3 (4.4-11.0)
[2017-12-26] MEDS: Aspirin 81 MG TAB.CHEW PO (08:28)
[2017-12-26 08:30] LABS: Scan Indicated on CBC? Y/N NO
[2017-12-26 08:38] LABS: Anion Gap 8 (5-15); BUN 59 mg/dL (7-18); BUN/Creat Ratio 26.6 RATIO (10-20); Calcium,Total 8.4 mg/dL (8.5-10.1); Chloride 104 mmol/L (98-107); Creatinine, Serum 2.22 mg/dL (0.55-1.02); EST Glomerular Filtration Rate 24 mL/min (>60); Est Glom Filt Rate - Afr Amer 29 mL/min (>60); Estimated Creatinine Clearance 23.82 ml/min; Glucose 567 mg/dL (74-106); Magnesium 1.7 mg/dL (1.6-2.6); Potassium 4.5 mmol/L (3.5-5.1); Sodium Level 135 mmol/L (136-145)
[2017-12-26] MEDS: Furosemide 20 MG Tablet 10 MG PO (09:25)
[2017-12-26] MEDS: Carvedilol 3.125 MG TABLET PO (09:25)
[2017-12-26] MEDS: Glucerna Shake 120 ML LIQUID PO ×2 (09:25→15:22)
[2017-12-26] MEDS: Ceftriaxone 1 GM/50 ML BAG IV (09:26)
[2017-12-26] MEDS: guaiFENesin 1,200 MG Tablet 1200 MG PO ×2 (09:26→22:55)
[2017-12-26 11:26] LABS: Bedside Glucose > 500 mg/dL (70-110)
[2017-12-26] MEDS: Acetaminophen 325 MG Tablet 650 MG PO (11:31)
[2017-12-26 16:56] LABS: Bedside Glucose 284 mg/dL (70-110)
[2017-12-26] MEDS: Isosorbide Mononitrate 30 MG Tablet PO (22:55)
[2017-12-26] MEDS: Atorvastatin Calcium 40 MG Tablet PO (22:55)
[2017-12-26 23:21] LABS: Bedside Glucose 138 mg/dL (70-110)
[2017-12-27] VITALS (12 sets, daily range): BP systolic 151–183; BP diastolic 58–73; PULSE 71–98; RESP 16–18; TEMP 36.4–36.9; O2SAT 92–98
--- NOTE | 2017-12-27 03:45 | NURSING ---
Pt was up to bathroom with NATHAN Gomez and reported to her that she felt funny. This nurse assessed patient and checked blood sugar, and it registered 36. Four oz of OJ provided, and stat lab back up ordered. Will recheck blood sugar in 15 minutes.
--- NOTE | 2017-12-27 03:53 | NURSING ---
Called lab for stat backup for glucose of 36.
[2017-12-27] MEDS: Dextrose 50%-Water 25 GM/50 ML DISP.SYRIN IV ×2 (04:20→17:46)
[2017-12-27] MEDS: 0.9% NaCl Peripheral Flush Adult/Peds IV ×2 (04:22→17:47)
--- NOTE | 2017-12-27 04:22 | NURSING ---
Addendum entered by Sierra Kruse 12/27/17 04:28: Pt was alert during the hypoglycemia episode. Original Note: Three blood sugar were done as per protocol with OJ given in between first two blood sugars. First blood sugar 36, OJ given, 15 minutes later blood sugar 32, OJ given, and 15 minutes later blood sugar was 35. Dr. Hyde called and ordered D50 IV to be given. This was administered by Lisa Rowe, charge nurse.
[2017-12-27 04:25] LABS: Hemoglobin 12.2 g/dl (12.0-15.0); Mean Corp Hgb Conc 32.1 g/gl (32-36); Mean Corpuscular Hgb 28.7 pg (27.0-32.0); Mean Corpuscular Volume 89.4 fL (81-99); Mean Platelet Vol. 10.9 fl (6.2-12.0); Platelet Count 297 K/mm3 (150-450); RBC Distribution Width CV 12.5 % (11.6-14.6); RBC Distribution Width SD 40.6 fl (35.1-43.9); Red Blood Count 4.25 M/mm3 (4.2-5.4); White Blood Count 14.5 K/mm3 (4.4-11.0)
[2017-12-27 04:29] LABS: Scan Indicated on CBC? Y/N NO
[2017-12-27 04:47] LABS: Anion Gap 7 (5-15); BUN 63 mg/dL (7-18); BUN/Creat Ratio 26.9 RATIO (10-20); Calcium,Total 8.7 mg/dL (8.5-10.1); Chloride 106 mmol/L (98-107); Creatinine, Serum 2.34 mg/dL (0.55-1.02); EST Glomerular Filtration Rate 23 mL/min (>60); Est Glom Filt Rate - Afr Amer 27 mL/min (>60); Glucose 37 mg/dL (74-106); Potassium 3.7 mmol/L (3.5-5.1); Sodium Level 141 mmol/L (136-145)
[2017-12-27 06:26] LABS: Bedside Glucose 172 mg/dL (70-110)
[2017-12-27 06:26] LABS: Bedside Glucose 36 mg/dL (70-110)
[2017-12-27 06:41] LABS: Bedside Glucose 156 mg/dL (70-110)
[2017-12-27 07:06] LABS: Bedside Glucose 35 mg/dL (70-110)
[2017-12-27 07:06] LABS: Bedside Glucose 32 mg/dL (70-110)
[2017-12-27] MEDS: Ipratropium/Albuterol Sulfate 3 ML AMPUL.NEB INHALATION ×4 (07:33→23:46)
--- NOTE | 2017-12-27 08:12 | PCM.PN.HOSP ---
Subjective: Patient evening complicated by episodes of hyper and hypoglycemia did adjust her insulin regimen once again. Objective: GENERAL: cooperative but ill looking HEENT: Clear conjunctiva, moist oral mucosa NECK; supple, normal thyroid, no distended JVD. CHEST: Diminished to auscultation bilaterally, rales on the right HEART: Regular S1 S2, no audible murmurs ABDOMEN: soft, non-tender, normoactive bowel sounds, RECTAL: deferred EXTREMITIES: No edema, no clubbing, no cyanosis. FRONT MAN: Awake, a no lateralizing signs. SKIN: No rash Vitals/I&O's: Vital Signs Temp Pulse Resp BP Pulse Ox 98.0 F 83 18 156/58 H 96 12/27/17 08:07 12/27/17 08:07 12/27/17 08:07 12/27/17 08:07 12/27/17 08:07 Oxygen Flow Rate 1 Oxygen Delivery Method Nasal Cannula Weight: 57.9 kg Body Mass Index (BMI) 26.0 Intake and Output for Last 24 Hours 12/25/17 12/26/17 12/27/17 23:59 23:59 23:59 Intake Total 3383 / 3383 2193 / 2193 873 / 873 Output Total 500 / 500 1800 / 1800 300 / 300 Balance 2883 / 2883 393 / 393 573 / 573 Microbiology Past 72 Hours 12/24/17 13:21 Blood Culture (Wb) #2 - Left Hand Blood Culture - Preliminary No growth in 48 hours. 12/24/17 15:20 Mucosa - Nasopharyngeal Respiratory Panel (PCR) - Final 12/24/17 15:45 Urine, Clean Catch Streptococcus pneumoniae Antigen (M - Final 12/24/17 15:45 Urine, Clean Catch Legionella Antigen - Final Laboratory Results 12/26/17 08:10: WBC 12.3 H, RBC 3.90 L, Hgb 11.4 L, Hct 34.8 L, MCV 89.2, MCH 29.2, MCHC 32.8, RDW 12.3, RDW Differential 39.5, Plt Count 222, MPV 11.4 12/26/17 08:10: Sodium 135 L, Potassium 4.5, Chloride 104, Carbon Dioxide 23.0, Anion Gap 8, BUN 59 H, Creatinine 2.22 H, Estim Creat Clear Calc 23.82, Est GFR (MDRD) Af Amer 29 L, Est GFR (MDRD) Non-Af 24 L, BUN/Creatinine Ratio 26.6 H, Glucose 567 H*, Calcium 8.4 L, Magnesium 1.7 12/26/17 11:18: POC Glucose > 500 H* 12/26/17 16:47: POC Glucose 284 H 12/26/17 22:42: POC Glucose 138 H 12/27/17 03:48: POC Glucose 36 L* 12/27/17 04:05: POC Glucose 32 L* 12/27/17 04:08: WBC 14.5 H, RBC 4.25, Hgb 12.2, Hct 38.0, MCV 89.4, MCH 28.7, MCHC 32.1, RDW 12.5, RDW Differential 40.6, Plt Count 297, MPV 10.9 12/27/17 04:08: Sodium Cancelled, Potassium Cancelled, Chloride Cancelled, Carbon Dioxide Cancelled, Anion Gap Cancelled, BUN Cancelled, Creatinine Cancelled, Estim Creat Clear Calc Cancelled, Est GFR (MDRD) Af Amer Cancelled, Est GFR (MDRD) Non-Af Cancelled, BUN/Creatinine Ratio Cancelled, Glucose Cancelled, Calcium Cancelled 12/27/17 04:08: Sodium 141, Potassium 3.7, Chloride 106, Carbon Dioxide 28.0, Anion Gap 7, BUN 63 H, Creatinine 2.34 H, Estim Creat Clear Calc 22.60, Est GFR (MDRD) Af Amer 27 L, Est GFR (MDRD) Non-Af 23 L, BUN/Creatinine Ratio 26.9 H, Glucose 37 L*, Calcium 8.7 12/27/17 04:15: POC Glucose 35 L* 12/27/17 04:53: POC Glucose 172 H 12/27/17 06:26: POC Glucose 156 H Current Medications Acetaminophen (Tylenol) 650 mg PO Q6H PRN PRN PRN Reason: Mild Pain (1-3)/Temp > 100.7 F Last Admin: 12/26/17 11:31 Dose: 650 mg Albuterol Sulfate (Ventolin Aerosols) 2.5 mg INHALATION Q2H.RT PRN PRN Reason: SOB &/OR WHEEZING Albuterol/Ipratropium (Duoneb) 3 ml INHALATION Q4HWA.RT [facility] Last Admin: 12/27/17 07:33 Dose: 3 ml Aspirin (Aspirin, Baby) 81 mg PO DAILY@0800 [facility] Last Admin: 12/26/17 08:28 Dose: 81 mg Atorvastatin Calcium (Lipitor) 40 mg PO QHS [facility] Last Admin: 12/26/17 22:55 Dose: 40 mg Carvedilol (Coreg) 3.125 mg PO DAILY [facility] Last Admin: 12/26/17 09:25 Dose: 3.125 mg Dextrose (D50w Syringe) 0 gm IV X1 PRN; Protocol PRN Reason: Hypoglycemia Last Admin: 12/27/17 04:20 Dose: 25 gm Furosemide (Lasix) 10 mg PO DAILY [facility] Last Admin: 12/26/17 09:25 Dose: 10 mg Glucagon () 1 mg IM .X1 PRN PRN Reason: Hypoglycemia Guaifenesin (Mucinex) 1,200 mg PO BID [facility] Last Admin: 12/26/17 22:55 Dose: 1,200 mg Heparin Sodium (Porcine) (Heparin Na) 5,000 unit SC BID [facility] Last Admin: 12/26/17 22:54 Dose: 5,000 u Ceftriaxone Sodium (Rocephin) 1 gm in 50 mls @ 100 mls/hr IV Q24H [facility] Last Admin: 12/26/17 09:26 Dose: 100 mls/hr Insulin Aspart (Novolog Flexpen (Bkc)) 23 units SC BREAKFAST [facility] Last Admin: 12/26/17 08:30 Dose: 23 u Insulin Aspart (Novolog Flexpen (Bkc)) 0 units SC ACHS [facility] PRN Reason: Protocol Last Admin: 12/26/17 22:55 Dose: Not Given Insulin Aspart (Novolog Flexpen (Bkc)) 5 units SC LUNCH [facility] Insulin Aspart (Novolog Flexpen (Bkc)) 5 units SC SUPPER [facility] Insulin Detemir (Levemir (Bkc)) 10 units SC BID [facility] Isosorbide Mononitrate (Imdur) 30 mg PO QHS [facility] Last Admin: 12/26/17 22:55 Dose: 30 mg Magnesium Hydroxide (Milk Of Magnesia) 30 ml PO DAILY PRN PRN PRN Reason: Constipation Nutritional Formula (Lactose Free) (Glucerna Shake) 120 ml PO 4X/DAY [facility] Last Admin: 12/26/17 22:55 Dose: Not Given Ondansetron HCl (Zofran) 4 mg IV Q8H PRN PRN PRN Reason: NAUSEA Sodium Chloride () 5 - 30 ml IV UD PRN PRN Reason: SALINE FLUSH Last Admin: 12/27/17 04:22 Dose: 10 ml Assessment/Plan Patient is a 62-year-old lady with multiple comorbidities including diabetes mellitus type 1 who presented with progressive shortness of breath as well as productive cough over 3 week duration. Imaging studies obtained on admission demonstrated Focal infiltrate in the right middle lobe and lingular segment of the left upper lobe 1. Acute hypoxic respiratory insufficiency secondary to community-acquired pneumonia: Placed on aerosols, antibiotics - Rocephin and Zithromax; Oxygen titrated to keep pulse ox >90%. Blood and sputum cultures sent results pending 2. Hypertension-blood pressure controlled, home medications continued with dose adjustment as needed 3. CAD with previous CABG 4. Dyslipidemia-patient is on statin therapy, continued at home dose 5. Diabetes mellitus type 1 did continue with home regimen in addition to Accu-Cheks before meals and at bedtime with sliding scale coverage 6. Chronic diastolic congestive heart failure; stable 7. Pulmonary hypertension 8. Chronic kidney disease stage IV secondary to diabetic nephropathy patient kidney function appears to be at baseline 9. DVT prophylaxis SC heparin Clinical Impression(s) from Imaging Studies Chest X-Ray 12/24/17 11:08 IMPRESSION: Focal infiltrate in the right middle lobe and lingular segment of the left upper lobe. Electronically Signed: Vijay Emerson MD at 12:51 EST Tel [phone], Service support , Code Visit Inpatient E&M: [id number] Subs Hosp L3
[2017-12-27] MEDS: Aspirin 81 MG TAB.CHEW PO (08:18)
[2017-12-27] MEDS: Carvedilol 3.125 MG TABLET PO (08:19)
[2017-12-27] MEDS: Furosemide 20 MG Tablet 10 MG PO (08:19)
[2017-12-27] MEDS: guaiFENesin 1,200 MG Tablet 1200 MG PO ×2 (08:20→21:31)
[2017-12-27] MEDS: Glucerna Shake 120 ML LIQUID PO ×4 (08:22→21:39)
[2017-12-27] MEDS: Acetaminophen 325 MG Tablet 650 MG PO ×2 (08:24→20:24)
[2017-12-27] MEDS: Ceftriaxone 1 GM/50 ML BAG IV (08:24)
[2017-12-27 08:36] LABS: Bedside Glucose 122 mg/dL (70-110)
[2017-12-27 12:06] LABS: Bedside Glucose 120 mg/dL (70-110)
--- NOTE | 2017-12-27 13:22 | EKG12_ITS ---
Test Reason : Blood Pressure : / mmHG Vent. Rate : 077 BPM Atrial Rate : 077 BPM P-R Int : 128 ms QRS Dur : 078 ms QT Int : 372 ms P-R-T Axes : 037 065 091 degrees QTc Int : 420 ms Normal sinus rhythm Normal ECG When compared with ECG of 24-DEC-2017 11:30, MANUAL COMPARISON REQUIRED, DATA IS UNCONFIRMED Confirmed by HOWARD CALDERA, ROCIO ([id number]), avid editor SINDHU SCANLON ([id number]) on 01/07/2018 4:18:29 PM Referred By: TIGRE Confirmed By:ROCIO LAWRENCE MD
[2017-12-27 13:56] LABS: Bedside Glucose 99 mg/dL (70-110)
[2017-12-27 14:48] LABS: D-Dimer Quantitative (DVT/PE) 2.74 FEU/ug/m (0.27-0.49)
--- NOTE | 2017-12-27 14:54 | CT_ITS ---
STUDY: CT CHEST WITHOUT CONTRAST REASON FOR EXAM: Female, 62 years old. Shortness of breath and cough RADIATION DOSAGE (If Supplied By Facility): CTDIvol = ( 11.02 ) mGy, DLP = ( 369.03 ) mGycm TECHNIQUE: Transaxial imaging was performed without the administration of intravenous contrast material. Individualized dose optimization techniques were used for this CT. COMPARISON: December 24, 2017 chest radiograph FINDINGS: Prominent axillary lymph nodes.. Borderline enlarged mediastinal lymph nodes seen. Coronary vascular calcifications. Prior CABG with midline sternotomy wires. Atherosclerotic calcifications of the thoracic aorta is seen. No pneumothorax. Scattered bilateral centrilobular nodules predominantly in the right upper lobe with partially solid and groundglass nodule in the superior segment of the right lower lobe. Infiltrates in the right lower lobe also seen with airspace disease. Patchy groundglass opacities in the right upper lobe also seen. Findings may relate with pneumonia however follow-up imaging after resolution is suggested of the dominant nodule in the superior segment of the right upper lobe measuring approximately 9 Degenerative changes in the cervical spine. Heterogeneous density of the cervical spine noted may relate with osteopenia, marrow infiltrative processes or renal failure which can be assessed with dedicated MR examination. Extensive vascular calcifications of the upper abdominal vasculature seen. Left kidney appear atrophic IMPRESSION: Centrilobular nodules as well as patchy groundglass opacities noted bilaterally predominantly in the right upper lobe with airspace disease in the right lower lobe likely related with bronchiolitis with superimposed pneumonia. Partially solid and groundglass nodule in the right upper lobe which needs further assessment with chest CT in approximately 3-6 months. Borderline-enlarged axillary and mediastinal lymph nodes Electronically Signed: Giancarlo Lee, at 15:51 EST Tel , Service support , CT/Chest without Contrast
--- NOTE | 2017-12-27 14:54 | NURSING ---
lab called as no results for Trop. yet
--- NOTE | 2017-12-27 15:10 | CT_ITS ---
STUDY: CT BRAIN WITHOUT CONTRAST REASON FOR EXAM: Female, 62 years old. Headaches RADIATION DOSAGE (If Supplied By Facility): CTDIvol = ( 44.99 ) mGy, DLP = ( 666.75 ) mGycm TECHNIQUE: Transaxial CT imaging of the brain was performed without administration of intravenous contrast material. Individualized dose optimization techniques were used for this CT. COMPARISON: None. FINDINGS: No evidence for shift of midline structures, mass effect or compression of ventricles noted. No acute intra or extra-axial hemorrhage is seen. No abnormal intracranial fluid collections identified. The ventricular system appears somewhat dilated out of proportion to patient's cerebral fine loss. Normal pressure hydrocephalus is a diagnostic consideration in appropriate clinical setting. Bilateral basal ganglia mineralization is seen. Scattered and confluent areas of low-attenuation in the periventricular and subcortical white matter noted which are nonspecific in imaging appearance however likely related with chronic small vessel disease. The basal cisterns are patent. No discrete mass in the posterior fossa. Extensive atherosclerotic vascular calcifications are seen. Air-fluid levels in the left maxillary sinus may relate with acute on chronic sinusitis. Partial opacification of the ethmoid air cells. Opacification of the left frontal sinus also seen. Partial opacification of the mastoid air cells. CT/Brain/Head without Contrast IMPRESSION: No evidence for acute intracranial hemorrhage, mass effect or acute large territory infarcts. Dilated ventricular system somewhat out of proportion to patient's cerebral fine loss. Mild normal pressure hydrocephalus is a diagnostic consideration in an appropriate clinical setting. Chronic small vessel disease. Intracranial atherosclerotic vascular calcifications. Paranasal sinus disease as described above. Electronically Signed: Giancarlo Lee, at 15:44 EST Tel , Service support ,
[2017-12-27] MEDS: Furosemide 40 MG/4 ML Vial IV (15:42)
[2017-12-27 18:16] LABS: Bedside Glucose 191 mg/dL (70-110)
[2017-12-27 18:16] LABS: Bedside Glucose 43 mg/dL (70-110)
[2017-12-27 18:16] LABS: Bedside Glucose 42 mg/dL (70-110)
[2017-12-27] MEDS: Isosorbide Mononitrate 30 MG Tablet PO (21:32)
[2017-12-27] MEDS: Atorvastatin Calcium 40 MG Tablet PO (21:32)
[2017-12-27 22:26] LABS: Bedside Glucose 255 mg/dL (70-110)
[2017-12-28] VITALS (10 sets, daily range): BP systolic 148–161; BP diastolic 65–89; PULSE 75–99; RESP 16–20; TEMP 36.6–36.7; O2SAT 95–98
[2017-12-28 06:46] LABS: Bedside Glucose 373 mg/dL (70-110)
[2017-12-28 07:08] LABS: Hematocrit 35.6 % (37-47); Hemoglobin 11.4 g/dl (12.0-15.0); Mean Corpuscular Hgb 28.6 pg (27.0-32.0); Mean Corpuscular Volume 89.2 fL (81-99); Mean Platelet Vol. 11.9 fl (6.2-12.0); Platelet Count 226 K/mm3 (150-450); RBC Distribution Width CV 12.9 % (11.6-14.6); RBC Distribution Width SD 41.4 fl (35.1-43.9); Red Blood Count 3.99 M/mm3 (4.2-5.4); White Blood Count 10.3 K/mm3 (4.4-11.0)
[2017-12-28] MEDS: Ipratropium/Albuterol Sulfate 3 ML AMPUL.NEB INHALATION ×4 (07:13→18:58)
--- NOTE | 2017-12-28 07:25 | PCM.PN.HOSP ---
Subjective: Glucose level continues to remain labile. Her clinical condition much improved compared to the day prior. Consultation was placed to nephrology in view of worsening azotemia Objective: GENERAL: cooperative but ill looking HEENT: Clear conjunctiva, moist oral mucosa NECK; supple, normal thyroid, no distended JVD. CHEST: Diminished to auscultation bilaterally, rales on the right HEART: Regular S1 S2, no audible murmurs ABDOMEN: soft, non-tender, normoactive bowel sounds, RECTAL: deferred EXTREMITIES: No edema, no clubbing, no cyanosis. BUS ATTENDANT: Awake, a no lateralizing signs. SKIN: No rash Vitals/I&O's: Vital Signs Temp Pulse Resp BP Pulse Ox 97.9 F 85 16 161/65 H 98 12/28/17 02:08 12/28/17 02:08 12/28/17 02:08 12/28/17 02:08 12/28/17 04:00 Oxygen Flow Rate 1 Oxygen Delivery Method Room Air Weight: 57.6 kg Body Mass Index (BMI) 26.0 Intake and Output for Last 24 Hours 12/26/17 12/27/17 12/28/17 23:59 23:59 23:59 Intake Total 2193 / 2193 1703 / 1703 700 / 700 Output Total 1800 / 1800 950 / 950 1400 / 1400 Balance 393 / 393 753 / 753 -700 / -700 Microbiology Past 72 Hours 12/24/17 13:21 Blood Culture (Wb) #2 - Left Hand Blood Culture - Preliminary No growth in 48 hours. 12/24/17 15:20 Mucosa - Nasopharyngeal Respiratory Panel (PCR) - Final Laboratory Results 12/27/17 08:04: POC Glucose 122 H 12/27/17 11:56: POC Glucose 120 H 12/27/17 13:49: POC Glucose 99 12/27/17 14:25: D-Dimer Quant (PE/DVT) 2.74 H* 12/27/17 14:25: Troponin I 0.03 12/27/17 17:18: POC Glucose 43 L* 12/27/17 17:40: POC Glucose 42 L* 12/27/17 18:09: POC Glucose 191 H 12/27/17 21:30: POC Glucose 255 H 12/28/17 05:03: WBC Pending, RBC Pending, Hgb Pending, Hct Pending, MCV Pending, MCH Pending, MCHC Pending, RDW Pending, RDW Differential Pending, Plt Count Pending 12/28/17 05:03: Sodium Pending, Potassium Pending, Chloride Pending, Carbon Dioxide Pending, Anion Gap Pending, BUN Pending, Creatinine Pending, Est GFR (MDRD) Af Amer Pending, Est GFR (MDRD) Non-Af Pending, BUN/Creatinine Ratio Pending, Glucose Pending, Calcium Pending 12/28/17 06:09: POC Glucose 373 H Current Medications Acetaminophen (Tylenol) 650 mg PO Q6H PRN PRN PRN Reason: Mild Pain (1-3)/Temp > 100.7 F Last Admin: 12/27/17 20:24 Dose: 650 mg Albuterol Sulfate (Ventolin Aerosols) 2.5 mg INHALATION Q2H.RT PRN PRN Reason: SOB &/OR WHEEZING Albuterol/Ipratropium (Duoneb) 3 ml INHALATION Q4HWA.RT [facility] Last Admin: 12/28/17 07:13 Dose: 3 ml Aspirin (Aspirin, Baby) 81 mg PO DAILY@0800 [facility] Last Admin: 12/27/17 08:18 Dose: 81 mg Atorvastatin Calcium (Lipitor) 40 mg PO QHS [facility] Last Admin: 12/27/17 21:32 Dose: 40 mg Carvedilol (Coreg) 3.125 mg PO DAILY [facility] Last Admin: 12/27/17 08:19 Dose: 3.125 mg Dextrose (D50w Syringe) 0 gm IV X1 PRN; Protocol PRN Reason: Hypoglycemia Last Admin: 12/27/17 17:46 Dose: 25 gm Furosemide (Lasix) 10 mg PO DAILY [facility] Last Admin: 12/27/17 08:19 Dose: 10 mg Glucagon () 1 mg IM .X1 PRN PRN Reason: Hypoglycemia Guaifenesin (Mucinex) 1,200 mg PO BID [facility] Last Admin: 12/27/17 21:31 Dose: 1,200 mg Heparin Sodium (Porcine) (Heparin Na) 5,000 unit SC BID [facility] Last Admin: 12/27/17 21:40 Dose: Not Given Hydralazine HCl (Apresoline) 10 mg IV Q4H PRN PRN PRN Reason: blood pressure Last Admin: 12/27/17 20:23 Dose: 10 mg Ceftriaxone Sodium (Rocephin) 1 gm in 50 mls @ 100 mls/hr IV Q24H [facility] Last Admin: 12/27/17 08:24 Dose: 100 mls/hr Insulin Aspart (Novolog Flexpen (Bkc)) 0 units SC ACHS [facility] PRN Reason: Protocol Last Admin: 12/28/17 06:20 Dose: 3 units Insulin Aspart (Novolog Flexpen (Bkc)) 5 units SC LUNCH [facility] Last Admin: 12/27/17 12:02 Dose: 5 units Insulin Aspart (Novolog Flexpen (Bkc)) 5 units SC SUPPER [facility] Last Admin: 12/27/17 17:23 Dose: Not Given Insulin Aspart (Novolog Flexpen (Bkc)) 5 units SC BREAKFAST [facility] Insulin Detemir (Levemir (Bkc)) 10 units SC DAILY [facility] Isosorbide Mononitrate (Imdur) 30 mg PO QHS [facility] Last Admin: 12/27/17 21:32 Dose: 30 mg Magnesium Hydroxide (Milk Of Magnesia) 30 ml PO DAILY PRN PRN PRN Reason: Constipation Nutritional Formula (Lactose Free) (Glucerna Shake) 120 ml PO 4X/DAY [facility] Last Admin: 12/27/17 21:39 Dose: 120 ml Ondansetron HCl (Zofran) 4 mg IV Q8H PRN PRN PRN Reason: NAUSEA Sodium Chloride () 5 - 30 ml IV UD PRN PRN Reason: SALINE FLUSH Last Admin: 12/27/17 17:47 Dose: 10 ml Assessment/Plan Patient is a 62-year-old lady with multiple comorbidities including diabetes mellitus type 1 who presented with progressive shortness of breath as well as productive cough over 3 week duration. Imaging studies obtained on admission demonstrated Focal infiltrate in the right middle lobe and lingular segment of the left upper lobe 1. Acute hypoxic respiratory insufficiency secondary to community-acquired pneumonia: Placed on aerosols, antibiotics - Rocephin and Zithromax (completed 3 days of Zithromax); Oxygen titrated to keep pulse ox >90%. Her clinical progress has rather been slow 2. Hypertension-blood pressure controlled, home medications continued with dose adjustment as needed 3. CAD with previous CABG 4. Dyslipidemia-patient is on statin therapy, continued at home dose 5. Diabetes mellitus type 1 did continue with home regimen in addition to Accu-Cheks before meals and at bedtime with sliding scale coverage 6. Chronic diastolic congestive heart failure; stable 7. Pulmonary hypertension 8. 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 DVT prophylaxis SC heparin 10. Elevated d-dimer patient did receive one therapeutic dose of Lovenox (60 mg which should last for 24 hours) as well as waiting for results of VQ scan and venous duplex ordered the results Clinical Impression(s) from Imaging Studies Chest X-Ray 12/24/17 11:08 IMPRESSION: Focal infiltrate in the right middle lobe and lingular segment of the left upper lobe. Electronically Signed: Vijay Emerson MD at 12:51 EST Tel [phone], Service support , Chest CT 12/27/17 14:[address] 12/27/17 15:10 IMPRESSION: No evidence for acute intracranial hemorrhage, mass effect or acute large territory infarcts. Dilated ventricular system somewhat out of proportion to patient's cerebral fine loss. Mild normal pressure hydrocephalus is a diagnostic consideration in an appropriate clinical setting. Chronic small vessel disease. Intracranial atherosclerotic vascular calcifications. Paranasal sinus disease as described above. Electronically Signed: Giancarlo Lee, at 15:44 EST Tel , Service support , Code Visit Inpatient E&M: 68252 Subs Hosp L2
[2017-12-28 07:30] LABS: Scan Indicated on CBC? Y/N NO
[2017-12-28] MEDS: Aspirin 81 MG TAB.CHEW PO (07:31)
[2017-12-28] MEDS: Carvedilol 3.125 MG TABLET PO (07:31)
[2017-12-28] MEDS: Furosemide 20 MG Tablet 10 MG PO (07:31)
[2017-12-28] MEDS: guaiFENesin 1,200 MG Tablet 1200 MG PO ×2 (07:31→21:36)
[2017-12-28 08:30] LABS: Anion Gap 10 (5-15); BUN 70 mg/dL (7-18); BUN/Creat Ratio 26.7 RATIO (10-20); Calcium,Total 8.2 mg/dL (8.5-10.1); Chloride 105 mmol/L (98-107); Creatinine, Serum 2.62 mg/dL (0.55-1.02); EST Glomerular Filtration Rate 20 mL/min (>60); Est Glom Filt Rate - Afr Amer 24 mL/min (>60); Glucose 360 mg/dL (74-106); Potassium 4.4 mmol/L (3.5-5.1); Sodium Level 140 mmol/L (136-145)
[2017-12-28] MEDS: Glucerna Shake 120 ML LIQUID PO ×2 (10:07→21:35)
[2017-12-28] MEDS: Ceftriaxone 1 GM/50 ML BAG IV (10:07)
--- NOTE | 2017-12-28 10:07 | VDLE_ITS ---
Reason For Study: Elevated D-Dimer RIGHT LEFT GSV is normal. CFV is compressible, spontaneous, phasic, CFV is compressible, spontaneous, phasic, competent, and demonstrates normal competent and demonstrates normal augmentation. augmentation. FV is compressible, spontaneous, phasic, FV is compressible, spontaneous, phasic, competent and demonstrates normal competent and demonstrates normal augmentation. augmentation. POP V is compressible, spontaneous, phasic, POP V is compressible, spontaneous, phasic, competent and demonstrates normal competent and demonstrates normal augmentation. augmentation. T/P Trunk is compressible. T/P Trunk is compressible. PTV is compressible. PTV is compressible. LT PerV is compressible. RT PerV is compressible. LT GSV harvested for CABG. Procedure Exam performed portable in patient room. The study was technically difficult. The exam was diagnostic. A preliminary report was called and/or faxed to [place] 3 charge account identification clerk. Interpretation Summary Deep veins of the lower extremities are bilaterally patent and compressible segmentally. There is no evidence of deep vein thrombosis on either side. Valvular competence appears intact within the proximal deep venous systems bilaterally. The right greater saphenous vein appears patent and compressible segmentally. The left greater saphenous vein is absent, having been previously harvested. Ordering Physician: Chilo Fortune Referring Physician: Sergio Maxwell Performed By: Roshni Underwood, RDCS, RVT
[2017-12-28 11:56] LABS: Bedside Glucose > 500 mg/dL (70-110)
--- NOTE | 2017-12-28 12:02 | NURSING ---
LOVENOX NOT HERE FOR PT ADMINISTRATION-rX NOTIFIED TO SEND
--- NOTE | 2017-12-28 12:02 | NURSING ---
DR FORD NOTIFIED OF ELEVATED BLOOD GLUCOSE OVER 500, STAT LAB BACK UP ORDERED-AWAITING INSULIN ORDER TO COVER
[2017-12-28 12:24] LABS: Glucose 606 mg/dL (74-106)
[2017-12-28] MEDS: Enoxaparin 60 MG/0.6 ML Syringe SC (12:42)
[2017-12-28 12:51] LABS: Bedside Glucose > 500 mg/dL (70-110)
[2017-12-28 14:05] LABS: Bedside Glucose > 500 mg/dL (70-110)
[2017-12-28 15:12] LABS: Glucose 488 mg/dL (74-106)
[2017-12-28 16:16] LABS: Bedside Glucose 237 mg/dL (70-110)
[2017-12-28] MEDS: Isosorbide Mononitrate 30 MG Tablet PO (21:36)
[2017-12-28] MEDS: Atorvastatin Calcium 40 MG Tablet PO (21:36)
[2017-12-28 22:06] LABS: Bedside Glucose 96 mg/dL (70-110)
[2017-12-29] VITALS (8 sets, daily range): BP systolic 145–173; BP diastolic 69–72; PULSE 78–87; RESP 16–21; TEMP 36.6; O2SAT 93–98
[2017-12-29 00:11] LABS: Bedside Glucose 228 mg/dL (70-110)
[2017-12-29] MEDS: Enoxaparin 30 MG/0.3 ML Syringe SC (06:19)
[2017-12-29 06:24] LABS: Anion Gap 9 (5-15); BUN 69 mg/dL (7-18); Calcium,Total 8.7 mg/dL (8.5-10.1); Chloride 105 mmol/L (98-107); Creatinine, Serum 2.38 mg/dL (0.55-1.02); EST Glomerular Filtration Rate 22 mL/min (>60); Est Glom Filt Rate - Afr Amer 27 mL/min (>60); Estimated Creatinine Clearance 22.73 ml/min; Glucose 346 mg/dL (74-106); Potassium 4.7 mmol/L (3.5-5.1); Sodium Level 141 mmol/L (136-145)
[2017-12-29] MEDS: Ipratropium/Albuterol Sulfate 3 ML AMPUL.NEB INHALATION ×3 (06:41→15:13)
[2017-12-29 06:56] LABS: Bedside Glucose 363 mg/dL (70-110)
--- NOTE | 2017-12-29 08:00 | NM_ITS ---
CLINICAL: Female, 62 years old. Hypoxia. Cough. Pneumonia. NUCLEAR VENTILATION/PERFUSION - LUNG TECHNIQUE: The patient was administered 5 mCi of Tc MAA followed by a perfusion lung scan. The patient was administered 50 mCi of Tc DTPA aerosol followed by a ventilation lung scan. Comparison made to prior chest radiograph dated . COMPARISON STUDIES : Comparison is made with prior chest radiograph dated December 29, 2017. FINDINGS: The pulmonary perfusion study demonstrates uniform perfusion throughout both lung klein. There are no demonstrated segmental or subsegmental perfusion defects The ventilation study demonstrates uniform ventilation throughout both lung klein. There are no segmental or subsegmental ventilation abnormalities. NM/Lung Scan Vent/Perf IMPRESSION: Normal 99m Tc MAA pulmonary perfusion ventilation imaging survey, according to revised PIOPED interpretive criteria. Electronically Signed: Vijay Emerson MD at 10:08 EST Tel [phone], Service support ,
--- NOTE | 2017-12-29 08:02 | PCM.PN.HOSP ---
Subjective: 62 y/o female with multiple comorbidities including type I DM, admitted on 12/24/2017 with chest pain, shortness of breath, cough for 3 weeks and managed as acute hypoxic respiratory insufficiency secondary to community-acquired pneumonia. Patient was seen and examined. Going for VQ scan today. Still has cough but denies any fever or chills. Improved, on room air. Vitals/I&O's: Vital Signs Temp Pulse Resp BP Pulse Ox 97.9 F 81 18 151/72 H 93 12/29/17 04:00 12/29/17 07:00 12/29/17 07:00 12/29/17 04:00 12/29/17 07:13 Oxygen Flow Rate 1 Oxygen Delivery Method Room Air Weight: 58 kg Body Mass Index (BMI) 26.0 Intake and Output for Last 24 Hours 12/27/17 12/28/17 12/29/17 23:59 23:59 23:59 Intake Total 1703 / 1703 700 / 700 Output Total 950 / 950 1400 / 1400 Balance 753 / 753 -700 / -700 General: Alert, Oriented x3, Cooperative, No apparent distress, - - appears comfortable on room air HEENT: Atraumatic, PERRLA, EOMI, Normocephalic Oral: Moist Mucosa Neck: Supple Lungs: Normal air movement, Diminished, - - bronchial breathsounds in right lower lung zones Cardiovascular: Regular rate, Regular Rhythm, Normal S1, Normal S2, No murmurs Abdomen: Bowel Sounds Present, Soft, Non Tender, Non-Distended, No Hepato-splenomegaly Extremities: No edema Skin: No rashes Musculoskeletal: No Tenderness to Palpation of Joints or Extremities Lymphatic: No Cervical, Supraclavicular, or Inguinal Adenopathy Neurological: Cranial nerves II-XII grossly intact, Neuro grossly intact Psych/Mental Status: Normal Affect, Appropriate Microbiology Past 72 Hours 12/24/17 13:21 Blood Culture (Wb) #2 - Left Hand Blood Culture - Preliminary No growth in 48 hours. Laboratory Results 12/28/17 05:03: Sodium 140, Potassium 4.4, Chloride 105, Carbon Dioxide 25.0, Anion Gap 10, BUN 70 H, Creatinine 2.62 H, Estim Creat Clear Calc 20.50, Est GFR (MDRD) Af Amer 24 L, Est GFR (MDRD) Non-Af 20 L, BUN/Creatinine Ratio 26.7 H, Glucose 360 H, Calcium 8.2 L 12/28/17 11:49: POC Glucose > 500 H* 12/28/17 12:03: Glucose 606 H* 12/28/17 12:39: POC Glucose > 500 H* 12/28/17 13:59: POC Glucose > 500 H* 12/28/17 14:30: Glucose 488 H* 12/28/17 16:07: POC Glucose 237 H 12/28/17 21:35: POC Glucose 96 12/28/17 23:58: POC Glucose 228 H 12/29/17 05:25: Sodium 141, Potassium 4.7, Chloride 105, Carbon Dioxide 27.0, Anion Gap 9, BUN 69 H, Creatinine 2.38 H, Estim Creat Clear Calc 22.73, Est GFR (MDRD) Af Amer 27 L, Est GFR (MDRD) Non-Af 22 L, BUN/Creatinine Ratio 29.0 H, Glucose 346 H, Calcium 8.7 12/29/17 06:16: POC Glucose 363 H Current Medications Acetaminophen (Tylenol) 650 mg PO Q6H PRN PRN PRN Reason: Mild Pain (1-3)/Temp > 100.7 F Last Admin: 12/27/17 20:24 Dose: 650 mg Albuterol Sulfate (Ventolin Aerosols) 2.5 mg INHALATION Q2H.RT PRN PRN Reason: SOB &/OR WHEEZING Albuterol/Ipratropium (Duoneb) 3 ml INHALATION Q4HWA.RT [facility] Last Admin: 12/29/17 06:41 Dose: 3 ml Aspirin (Aspirin, Baby) 81 mg PO DAILY@0800 [facility] Last Admin: 12/28/17 07:31 Dose: 81 mg Atorvastatin Calcium (Lipitor) 40 mg PO QHS [facility] Last Admin: 12/28/17 21:36 Dose: 40 mg Carvedilol (Coreg) 3.125 mg PO DAILY [facility] Last Admin: 12/28/17 07:31 Dose: 3.125 mg Dextrose (D50w Syringe) 0 gm IV X1 PRN; Protocol PRN Reason: Hypoglycemia Last Admin: 12/27/17 17:46 Dose: 25 gm Enoxaparin Sodium (Lovenox) 30 mg SC DAILY@0600 [facility] Last Admin: 12/29/17 06:19 Dose: 30 mg Furosemide (Lasix) 10 mg PO DAILY [facility] Last Admin: 12/28/17 07:31 Dose: 10 mg Glucagon () 1 mg IM .X1 PRN PRN Reason: Hypoglycemia Guaifenesin (Mucinex) 1,200 mg PO BID [facility] Last Admin: 12/28/17 21:36 Dose: 1,200 mg Hydralazine HCl (Apresoline) 10 mg IV Q4H PRN PRN PRN Reason: blood pressure Last Admin: 12/27/17 20:23 Dose: 10 mg Ceftriaxone Sodium (Rocephin) 1 gm in 50 mls @ 100 mls/hr IV Q24H [facility] Last Admin: 12/28/17 10:07 Dose: 100 mls/hr Insulin Aspart (Novolog Flexpen (Bkc)) 0 units SC ACHS [facility] PRN Reason: Protocol Last Admin: 12/29/17 06:19 Dose: 3 units Insulin Aspart (Novolog Flexpen (Bkc)) 5 units SC LUNCH [facility] Last Admin: 12/28/17 12:10 Dose: 5 units Insulin Aspart (Novolog Flexpen (Bkc)) 5 units SC SUPPER [facility] Last Admin: 12/28/17 17:13 Dose: 5 u Insulin Aspart (Novolog Flexpen (Bkc)) 5 units SC BREAKFAST [facility] Last Admin: 12/28/17 08:10 Dose: 5 u Insulin Detemir (Levemir (Bkc)) 10 units SC DAILY [facility] Last Admin: 12/28/17 10:07 Dose: 10 u Isosorbide Mononitrate (Imdur) 30 mg PO QHS [facility] Last Admin: 12/28/17 21:36 Dose: 30 mg Magnesium Hydroxide (Milk Of Magnesia) 30 ml PO DAILY PRN PRN PRN Reason: Constipation Nutritional Formula (Lactose Free) (Glucerna Shake) 120 ml PO 4X/DAY [facility] Last Admin: 12/28/17 21:35 Dose: 120 ml Ondansetron HCl (Zofran) 4 mg IV Q8H PRN PRN PRN Reason: NAUSEA Sodium Chloride () 5 - 30 ml IV UD PRN PRN Reason: SALINE FLUSH Last Admin: 12/27/17 17:47 Dose: 10 ml Assessment/Plan 62 y/o female with multiple comorbidities including type I DM, admitted on 12/24/2017 with chest pain, shortness of breath, cough for 3 weeks and managed as acute hypoxic respiratory insufficiency secondary to community-acquired pneumonia. 1. Acute hypoxic respiratory insufficiency secondary to community-acquired pneumonia, improved, on room air 2. Elevated D-dimer, given 1 dose of Lovenox, V/Q scan negative 3. Community acquired pneumonia, on day 6 of ceftriaxone, completed azithromycin, would aim for 10 days total of antibiotics considering patient's clinical course in the hospital. Will discharge on augmentin to complete 10 days 4. Hypertension, controlled, 5. Type 1DM, on insulin, labile blood sugars, Levemir 10 units subcu daily, with 5 units NovoLog pre-meal as well as insulin sliding scale with Accu-Cheks and insulin sliding scale 6. EMPERATRIZ on CKD stage 3, admitting Cr 2.4, currently 2.38, nephrology consulted, will follow-up in the outpatient 7. CAD s/p CABG, on aspirin, statin, beta-rufus 8. Chronic diastolic CHF, pulmonary hypertension 9. DVT PPx - Lovenox SC
--- NOTE | 2017-12-29 08:09 | PN_ITS ---
Subjective: 62 y/o female with multiple comorbidities including type I DM, admitted on 12/24 with chest pain, shortness of breath, cough for 3 weeks and managed as acute hypoxic respiratory insufficiency secondary to community-acquired pneumonia. Patient was seen and examined. Going for VQ scan today. Still has cough but denies any fever or chills. Improved, on room air. Vitals/I&O's: Vital Signs Temp Pulse Resp BP Pulse Ox 97.9 F 81 18 151/72 H 93 12/29/17 04:00 12/29/17 07:00 12/29/17 07:00 12/29/17 04:00 12/29/17 07:13 Oxygen Flow Rate 1 Oxygen Delivery Method Room Air Weight: 58 kg Body Mass Index (BMI) 26.0 Intake and Output for Last 24 Hours 12/27/17 12/28/17 12/29/17 23:59 23:59 23:59 Intake Total 1703 / 1703 700 / 700 Output Total 950 / 950 1400 / 1400 Balance 753 / 753 -700 / -700 General: Alert, Oriented x3, Cooperative, No apparent distress, - - appears comfortable on room air HEENT: Atraumatic, PERRLA, EOMI, Normocephalic Oral: Moist Mucosa Neck: Supple Lungs: Normal air movement, Diminished, - - bronchial breathsounds in right lower lung zones Cardiovascular: Regular rate, Regular Rhythm, Normal S1, Normal S2, No murmurs Abdomen: Bowel Sounds Present, Soft, Non Tender, Non-Distended, No Hepato- splenomegaly Extremities: No edema Skin: No rashes Musculoskeletal: No Tenderness to Palpation of Joints or Extremities Lymphatic: No Cervical, Supraclavicular, or Inguinal Adenopathy Neurological: Cranial nerves II-XII grossly intact, Neuro grossly intact Psych/Mental Status: Normal Affect, Appropriate Microbiology Past 72 Hours 12/24/17 13:21 Blood Culture (Wb) #2 - Left Hand Blood Culture - Preliminary No growth in 48 hours. Laboratory Results 12/28/17 05:03: Sodium 140, Potassium 4.4, Chloride 105, Carbon Dioxide 25.0, Anion Gap 10, BUN 70 H, Creatinine 2.62 H, Estim Creat Clear Calc 20.50, Est GFR (MDRD) Af Amer 24 L, Est GFR (MDRD) Non-Af 20 L, BUN/Creatinine Ratio 26.7 H , Glucose 360 H, Calcium 8.2 L 12/28/17 11:49: POC Glucose > 500 H* 12/28/17 12:03: Glucose 606 H* 12/28/17 12:39: POC Glucose > 500 H* 12/28/17 13:59: POC Glucose > 500 H* 12/28/17 14:30: Glucose 488 H* 12/28/17 16:07: POC Glucose 237 H 12/28/17 21:35: POC Glucose 96 12/28/17 23:58: POC Glucose 228 H 12/29/17 05:25: Sodium 141, Potassium 4.7, Chloride 105, Carbon Dioxide 27.0, Anion Gap 9, BUN 69 H, Creatinine 2.38 H, Estim Creat Clear Calc 22.73, Est GFR (MDRD) Af Amer 27 L, Est GFR (MDRD) Non-Af 22 L, BUN/Creatinine Ratio 29.0 H, Glucose 346 H, Calcium 8.7 12/29/17 06:16: POC Glucose 363 H Current Medications Acetaminophen (Tylenol) 650 mg PO Q6H PRN PRN PRN Reason: Mild Pain (1-3)/Temp > 100.7 F Last Admin: 12/27/17 20:24 Dose: 650 mg Albuterol Sulfate (Ventolin Aerosols) 2.5 mg INHALATION Q2H.RT PRN PRN Reason: SOB &/OR WHEEZING Albuterol/Ipratropium (Duoneb) 3 ml INHALATION Q4HWA.RT [facility] Last Admin: 12/29/17 06:41 Dose: 3 ml Aspirin (Aspirin, Baby) 81 mg PO DAILY@0800 [facility] Last Admin: 12/28/17 07:31 Dose: 81 mg Atorvastatin Calcium (Lipitor) 40 mg PO QHS [facility] Last Admin: 12/28/17 21:36 Dose: 40 mg Carvedilol (Coreg) 3.125 mg PO DAILY [facility] Last Admin: 12/28/17 07:31 Dose: 3.125 mg Dextrose (D50w Syringe) 0 gm IV X1 PRN; Protocol PRN Reason: Hypoglycemia Last Admin: 12/27/17 17:46 Dose: 25 gm Enoxaparin Sodium (Lovenox) 30 mg SC DAILY@0600 [facility] Last Admin: 12/29/17 06:19 Dose: 30 mg Furosemide (Lasix) 10 mg PO DAILY [facility] Last Admin: 12/28/17 07:31 Dose: 10 mg Glucagon () 1 mg IM .X1 PRN PRN Reason: Hypoglycemia Guaifenesin (Mucinex) 1,200 mg PO BID [facility] Last Admin: 12/28/17 21:36 Dose: 1,200 mg Hydralazine HCl (Apresoline) 10 mg IV Q4H PRN PRN PRN Reason: blood pressure Last Admin: 12/27/17 20:23 Dose: 10 mg Ceftriaxone Sodium (Rocephin) 1 gm in 50 mls @ 100 mls/hr IV Q24H [facility] Last Admin: 12/28/17 10:07 Dose: 100 mls/hr Insulin Aspart (Novolog Flexpen (Bkc)) 0 units SC ACHS [facility] PRN Reason: Protocol Last Admin: 12/29/17 06:19 Dose: 3 units Insulin Aspart (Novolog Flexpen (Bkc)) 5 units SC LUNCH [facility] Last Admin: 12/28/17 12:10 Dose: 5 units Insulin Aspart (Novolog Flexpen (Bkc)) 5 units SC SUPPER [facility] Last Admin: 12/28/17 17:13 Dose: 5 u Insulin Aspart (Novolog Flexpen (Bkc)) 5 units SC BREAKFAST [facility] Last Admin: 12/28/17 08:10 Dose: 5 u Insulin Detemir (Levemir (Bkc)) 10 units SC DAILY [facility] Last Admin: 12/28/17 10:07 Dose: 10 u Isosorbide Mononitrate (Imdur) 30 mg PO QHS [facility] Last Admin: 12/28/17 21:36 Dose: 30 mg Magnesium Hydroxide (Milk Of Magnesia) 30 ml PO DAILY PRN PRN PRN Reason: Constipation Nutritional Formula (Lactose Free) (Glucerna Shake) 120 ml PO 4X/DAY [facility] Last Admin: 12/28/17 21:35 Dose: 120 ml Ondansetron HCl (Zofran) 4 mg IV Q8H PRN PRN PRN Reason: NAUSEA Sodium Chloride () 5 - 30 ml IV UD PRN PRN Reason: SALINE FLUSH Last Admin: 12/27/17 17:47 Dose: 10 ml Assessment/Plan 62 y/o female with multiple comorbidities including type I DM, admitted on 12/24 with chest pain, shortness of breath, cough for 3 weeks and managed as acute hypoxic respiratory insufficiency secondary to community-acquired pneumonia. 1. Acute hypoxic respiratory insufficiency secondary to community-acquired pneumonia, improved, on room air 2. Elevated D-dimer, given 1 dose of Lovenox, V/Q scan negative 3. Community acquired pneumonia, on day 6 of ceftriaxone, completed azithromycin , would aim for 10 days total of antibiotics considering patient's clinical course in the hospital. Will discharge on augmentin to complete 10 days 4. Hypertension, controlled, 5. Type 1DM, on insulin, labile blood sugars, Levemir 10 units subcu daily, with 5 units NovoLog pre-meal as well as insulin sliding scale with Accu-Cheks and insulin sliding scale 6. EMPERATRIZ on CKD stage 3, admitting Cr 2.4, currently 2.38, nephrology consulted, will follow-up in the outpatient 7. CAD s/p CABG, on aspirin, statin, beta-rufus 8. Chronic diastolic CHF, pulmonary hypertension 9. DVT PPx - Lovenox SC
[2017-12-29] MEDS: Carvedilol 3.125 MG TABLET PO (08:20)
[2017-12-29] MEDS: Glucerna Shake 120 ML LIQUID PO (08:20)
[2017-12-29] MEDS: Furosemide 20 MG Tablet 10 MG PO (08:20)
[2017-12-29] MEDS: Aspirin 81 MG TAB.CHEW PO (08:20)
--- NOTE | 2017-12-29 08:20 | RAD_ITS ---
STUDY: X-RAY CHEST REASON FOR EXAM: Female, 62 years old. 3 week history of cough. TECHNIQUE: Single AP portable view of the chest. COMPARISON: Comparison is made with prior study dated December 24, 2015. FINDINGS: The previously seen infiltrates in the right middle lobe and lingular segment of the left upper lobe have improved. Minimal residual changes persist. There is no demonstrated pleural abnormality. Sternal cerclage wires are present from a prior sternotomy. Normal mediastinum and arlene. Normal visualized pulmonary arteries. Normal visualized aortic arch and descending thoracic aorta. Normal visualized thoracic spine. Normal visualized ribs, clavicles, and shoulders. There is no demonstrated abnormality of the visualized soft tissue structures of the upper abdomen. RAD/Chest 1 View (Portable) IMPRESSION: Since prior study, there has been improved aeration of the right middle lobe and lingular segment of the left upper lobe. Further follow-up is recommended. Electronically Signed: Vijay Emerson MD at 8:44 EST Tel [phone], Service support ,
[2017-12-29] MEDS: guaiFENesin 1,200 MG Tablet 1200 MG PO (08:21)
--- NOTE | 2017-12-29 09:07 | PCM.DC ---
- Discharge Diagnoses Current Active Problems: Current Active and Chronic Problems CAD (coronary artery disease) (Chronic) CAP (community acquired pneumonia) (Chronic) Reason(s) for Visit for Discharge Instructions: COUGH, SHORTNESS OF BREATH You will use the following diet at home:: Calorie/Carbohydrate Controlled (specify 1200, 1400, etc), Cardiac Your food should be the consistency of: Regular Your liquids should be the consistency of: Regular/Thin Discharge Activity: Return to Normal Activity Allergies/Adverse Reactions: Allergies No Known Allergies Allergy (Verified 12/24/17 10:52) Medications to take at Discharge Aspirin [Aspirin, Baby] 81 mg PO DAILY 04/09/15 Furosemide [Lasix] 10 mg PO DAILY 10/01/15 Isosorbide Mononitrate [Imdur] 30 mg PO DAILY 10/02/15 Atorvastatin Calcium [Lipitor] 40 mg PO DAILY 03/18/17 Insulin Aspart [Novolog Flexpen] 5 units SC LUNCH 03/18/17 Carvedilol [Coreg (Beta Janett)] 3.125 mg PO DAILY 12/24/17 Albuterol Inhaler [Ventolin Hfa] 1 puff INHALATION Q4H PRN PRN #1 inhaler 12/29/17 Amoxicillin/Potassium Clav [Augmentin 875-125 Tablet] 1 ea PO BID #10 tab 12/29/17 Guaifenesin [Mucinex] 1,200 mg PO BID #20 tab 12/29/17 Insulin Aspart [Novolog Flexpen] 5 units SC BREAKFAST flexpen 12/29/17 Insulin Aspart [Novolog Flexpen] 5 units SC SUPPER flexpen 12/29/17 Insulin NPH Human [Humulin N Pen] 10 units SC QHS #0 12/29/17 The following prescriptions were given: Amoxicillin/Potassium Clav [Augmentin 875-125 Tablet] 1 ea PO BID #10 tab Guaifenesin [Mucinex] 1,200 mg PO BID #20 tab Primary Care Physician: Sergio Maxwell DO [Primary Care Provider] - Please follow up with your Primary Care Physician in: WITHIN 2 WEEKS Please Follow Up With: Alexis Thibodeaux MD When: within 2 weeks or as scheduled Proposed Discharge Date: 12/29/17
--- NOTE | 2017-12-29 09:11 | DCINST_ITS ---
- Discharge Diagnoses Current Active Problems: Current Active and Chronic Problems CAD (coronary artery disease) (Chronic) CAP (community acquired pneumonia) (Chronic) Reason(s) for Visit for Discharge Instructions: COUGH, SHORTNESS OF BREATH You will use the following diet at home:: Calorie/Carbohydrate Controlled ( specify 1200, 1400, etc), Cardiac Your food should be the consistency of: Regular Your liquids should be the consistency of: Regular/Thin Discharge Activity: Return to Normal Activity Allergies/Adverse Reactions: Allergies No Known Allergies Allergy (Verified 12/24/17 10:52) Medications to take at Discharge Aspirin [Aspirin, Baby] 81 mg PO DAILY 04/09/15 Furosemide [Lasix] 10 mg PO DAILY 10/01/15 Isosorbide Mononitrate [Imdur] 30 mg PO DAILY 10/02/15 Atorvastatin Calcium [Lipitor] 40 mg PO DAILY 03/18/17 Insulin Aspart [Novolog Flexpen] 5 units SC LUNCH 03/18/17 Carvedilol [Coreg (Beta Janett)] 3.125 mg PO DAILY 12/24/17 Albuterol Inhaler [Ventolin Hfa] 1 puff INHALATION Q4H PRN PRN #1 inhaler Amoxicillin/Potassium Clav [Augmentin 875-125 Tablet] 1 ea PO BID #10 tab Guaifenesin [Mucinex] 1,200 mg PO BID #20 tab 12/29/17 Insulin Aspart [Novolog Flexpen] 5 units SC BREAKFAST flexpen 12/29/17 Insulin Aspart [Novolog Flexpen] 5 units SC SUPPER flexpen 12/29/17 Insulin NPH Human [Humulin N Pen] 10 units SC QHS #0 12/29/17 The following prescriptions were given: Amoxicillin/Potassium Clav [Augmentin 875-125 Tablet] 1 ea PO BID #10 tab Guaifenesin [Mucinex] 1,200 mg PO BID #20 tab Primary Care Physician: Sergio Maxwell DO [Primary Care Provider] - Please follow up with your Primary Care Physician in: WITHIN 2 WEEKS Please Follow Up With: Alexis Thibodeaux MD When: within 2 weeks or as scheduled Proposed Discharge Date: 12/29/17
--- NOTE | 2017-12-29 09:11 | PCM.DC.SUM ---
Discharge Date and Diagnosis Date of Admission: 12/24/17 Date of Discharge: 12/29/17 - Primary Discharge Diagnosis CAP - Secondary Discharge Diagnosis Chronic Problems CAD (coronary artery disease) (Chronic) CAP (community acquired pneumonia) (Chronic) Elevated troponin (Chronic) Hypertension (Chronic) Coronary artery disease (Chronic) Status post CABG in 2005 Diabetes mellitus type 1 (Chronic) Hx of CABG (Chronic) Hospital Course and Treatment Imaging Results: 12/29/17 08:00 Lung Scan Vent/Perf [NM] Urgent 12/29/17 08:20 CXR [Chest 1 View (Portable)] [RAD] Urgent Nephrology Operations: None Procedures: None Summary of Care Provided: 62 y/o female with multiple comorbidities including type I DM, admitted on 12/24/2017 with chest pain, shortness of breath, cough for 3 weeks and managed as acute hypoxic respiratory insufficiency secondary to community-acquired pneumonia. 1. Acute hypoxic respiratory insufficiency secondary to community-acquired pneumonia, improved, on room air 2. Elevated D-dimer, given 1 dose of Lovenox, V/Q scan negative 3. Community acquired pneumonia, on day 6 of ceftriaxone, completed azithromycin, would aim for 10 days total of antibiotics considering patient's clinical course in the hospital. Will discharge on augmentin to complete 10 days 4. Hypertension, controlled, 5. Type 1DM, on insulin, labile blood sugars, Levemir 10 units subcu daily, with 5 units NovoLog pre-meal as well as insulin sliding scale with Accu-Cheks and insulin sliding scale 6. EMPERATRIZ on CKD stage 3, admitting Cr 2.4, currently 2.38, nephrology consulted, will follow-up in the outpatient. 7. CAD s/p CABG, on aspirin, statin, beta-janett 8. Chronic diastolic CHF, pulmonary hypertension Discharge Diet: Low fat/ Low Cholesterol, 2000 mg Sodium Diet, Carb Control Diet Discharge Activity: Return to Normal Activity Home Medications: Medications to take at Discharge Aspirin [Aspirin, Baby] 81 mg PO DAILY 04/09/15 Furosemide [Lasix] 10 mg PO DAILY 10/01/15 Isosorbide Mononitrate [Imdur] 30 mg PO DAILY 10/02/15 Atorvastatin Calcium [Lipitor] 40 mg PO DAILY 03/18/17 Insulin Aspart [Novolog Flexpen] 5 units SC LUNCH 03/18/17 Carvedilol [Coreg (Beta Janett)] 3.125 mg PO DAILY 12/24/17 Albuterol Inhaler [Ventolin Hfa] 1 puff INHALATION Q4H PRN PRN #1 inhaler 12/29/17 Amoxicillin/Potassium Clav [Augmentin 875-125 Tablet] 1 ea PO BID #10 tab 12/29/17 Guaifenesin [Mucinex] 1,200 mg PO BID #20 tab 12/29/17 Insulin Aspart [Novolog Flexpen] 5 units SC BREAKFAST flexpen 12/29/17 Insulin Aspart [Novolog Flexpen] 5 units SC SUPPER flexpen 12/29/17 Insulin NPH Human [Humulin N Pen] 10 units SC QHS #0 12/29/17 Following Prescrptions Were Given to Patient: Albuterol Inhaler [Ventolin Hfa] 1 puff INHALATION Q4H PRN PRN #1 inhaler PRN Reason: Sob &/Or Wheezing Amoxicillin/Potassium Clav [Augmentin 875-125 Tablet] 1 ea PO BID #10 tab Guaifenesin [Mucinex] 1,200 mg PO BID #20 tab Primary Care Physician: Sergio Maxwell DO [Primary Care Provider] - Please follow up with your Primary Care Physician in: WITHIN 2 WEEKS Please Follow Up With: Alexis Thibodeaux MD When: within 2 weeks or as scheduled Disposition: Home with Home Health Minutes spent on discharge:: 25 Patient Condition:: Stable Meaningful Use Info Meaningful Use Diagnoses (Choose all that apply): None applicable Code Visit Inpatient E&M: 95812 Disch Hosp
--- NOTE | 2017-12-29 10:15 | CASEMGMT ---
LAWSON OROPEZA received update from nurse that patient is requesting HHC. LAWSON OROPEZA discussed HHC with patient and is requesting [facility] for HHC. LAWSON OROPEZA placed with [facility]. LAWSON OROPEZA will continue to monitor patient and plan for a safe discharge.
--- NOTE | 2017-12-29 10:26 | PCM.CONS.R ---
Problem List (1) Chronic renal failure, stage 4 (severe) Status: Acute Consultation - Renal 12/29/17 PCP/ Referring MD: Requesting physician: Dr kathleen Primary care physician: Sergio Maxwell Reason for Consultation:: CKD stage 4 - History of Present Illness History of Present Illness: The patient is a 62 year old F well known to us. Has known history of CKD stage 4 secondary to diabetes. 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 presented to hospital with c/o dyspnea. Diagnosed and treated for pneumonia. no signs of volume overload. currently breathing is ok no complaints - Allergies Allergies: Allergies No Known Allergies Allergy (Verified 12/24/17 10:52) - Current Medications Current Medications: Current Medications Acetaminophen (Tylenol) 650 mg PO Q6H PRN PRN PRN Reason: Mild Pain (1-3)/Temp > 100.7 F Last Admin: 12/27/17 20:24 Dose: 650 mg Albuterol Sulfate (Ventolin Aerosols) 2.5 mg INHALATION Q2H.RT PRN PRN Reason: SOB &/OR WHEEZING Albuterol/Ipratropium (Duoneb) 3 ml INHALATION Q4HWA.RT [facility] Last Admin: 12/29/17 06:41 Dose: 3 ml Aspirin (Aspirin, Baby) 81 mg PO DAILY@0800 [facility] Last Admin: 12/29/17 08:20 Dose: 81 mg Atorvastatin Calcium (Lipitor) 40 mg PO QHS [facility] Last Admin: 12/28/17 21:36 Dose: 40 mg Carvedilol (Coreg) 3.125 mg PO DAILY [facility] Last Admin: 12/29/17 08:20 Dose: 3.125 mg Dextrose (D50w Syringe) 0 gm IV X1 PRN; Protocol PRN Reason: Hypoglycemia Last Admin: 12/27/17 17:46 Dose: 25 gm Enoxaparin Sodium (Lovenox) 30 mg SC DAILY@0600 [facility] Last Admin: 12/29/17 06:19 Dose: 30 mg Furosemide (Lasix) 10 mg PO DAILY [facility] Last Admin: 12/29/17 08:20 Dose: 10 mg Glucagon () 1 mg IM .X1 PRN PRN Reason: Hypoglycemia Guaifenesin (Mucinex) 1,200 mg PO BID [facility] Last Admin: 12/29/17 08:21 Dose: 1,200 mg Hydralazine HCl (Apresoline) 10 mg IV Q4H PRN PRN PRN Reason: blood pressure Last Admin: 12/27/17 20:23 Dose: 10 mg Ceftriaxone Sodium (Rocephin) 1 gm in 50 mls @ 100 mls/hr IV Q24H [facility] Last Admin: 12/28/17 10:07 Dose: 100 mls/hr Insulin Aspart (Novolog Flexpen (Bkc)) 0 units SC ACHS [facility] PRN Reason: Protocol Last Admin: 12/29/17 06:19 Dose: 3 units Insulin Aspart (Novolog Flexpen (Bkc)) 5 units SC LUNCH [facility] Last Admin: 12/28/17 12:10 Dose: 5 units Insulin Aspart (Novolog Flexpen (Bkc)) 5 units SC SUPPER [facility] Last Admin: 12/28/17 17:13 Dose: 5 u Insulin Aspart (Novolog Flexpen (Bkc)) 5 units SC BREAKFAST [facility] Last Admin: 12/29/17 08:20 Dose: 5 u Insulin Detemir (Levemir (Bkc)) 10 units SC DAILY [facility] Last Admin: 12/29/17 08:21 Dose: 10 u Isosorbide Mononitrate (Imdur) 30 mg PO QHS [facility] Last Admin: 12/28/17 21:36 Dose: 30 mg Magnesium Hydroxide (Milk Of Magnesia) 30 ml PO DAILY PRN PRN PRN Reason: Constipation Nutritional Formula (Lactose Free) (Glucerna Shake) 120 ml PO 4X/DAY [facility] Last Admin: 12/29/17 08:20 Dose: 120 ml Ondansetron HCl (Zofran) 4 mg IV Q8H PRN PRN PRN Reason: NAUSEA Sodium Chloride () 5 - 30 ml IV UD PRN PRN Reason: SALINE FLUSH Last Admin: 12/27/17 17:47 Dose: 10 ml - Past Medical History Past Medical History (Chronic Problems): Chronic Problems CAD (coronary artery disease) (Chronic) CAP (community acquired pneumonia) (Chronic) Elevated troponin (Chronic) Hypertension (Chronic) Coronary artery disease (Chronic) Status post CABG in 2005 Diabetes mellitus type 1 (Chronic) Hx of CABG (Chronic) - Past Surgical History Surgical History: coronary bypass surgery, - - carpal tunnel, eye surgery - Social History Smoking Status: Never smoker Alcohol: None Drugs: None - Family History Maternal History Items: No pertinent history Paternal History Items: Stroke Review of Systems Constitutional: Denies: Chills, Fever, Weight Change HEENT: Denies: Head Aches, Sinus Congestion, Sinus Drainage Cardiovascular: Denies: Chest Pain, Palpitations Respiratory: Denies: Cough, Shortness of breath at rest, Sputum production Gastrointestinal: Denies: Abdominal Pain, Nausea, Vomiting Genitourinary: Denies: Dysuria Musculoskeletal: Denies: Joint Pain, Joint Tenderness Skin: Denies: Rash, Wounds Neurological: Denies: Numbness, Tingling, Focal weakness Psychiatric: Denies: Anxiety, Depression, Homicidal Ideations, Suicidal Ideations Hematologic/ Lymphatic: Denies: Easy Bruising, Easy Bleeding - Physical Exam General: Alert, Oriented x3, Cooperative HEENT: Atraumatic, PERRLA, EOMI, Normocephalic Neck: Supple, No JVD, Negative Carotid Bruits Lungs: Clear to auscultation, Normal air movement Cardiovascular: Regular rate, No murmurs Abdomen: Bowel Sounds Present, Soft, Non Tender Extremities: No edema, Capillary Refill Less than 3 Seconds Skin: No rashes, No breakdown Musculoskeletal: No Tenderness to Palpation of Joints or Extremities Neurological: Cranial nerves II-XII grossly intact Psych/Mental Status: Normal Affect, Appropriate Vital Signs Temp Pulse Resp BP Pulse Ox 97.8 F 87 20 H 173/72 H 98 12/29/17 08:20 12/29/17 08:20 12/29/17 08:20 12/29/17 08:20 12/29/17 08:20 Oxygen Flow Rate 1 Oxygen Delivery Method Room Air Weight: 58 kg Body Mass Index (BMI) 26.0 Intake and Output for Last 24 Hours 12/27/17 12/28/17 12/29/17 23:59 23:59 23:59 Intake Total 1703 / 1703 700 / 700 Output Total 950 / 950 1400 / 1400 Balance 753 / 753 -700 / -700 Microbiology Past 72 Hours 12/24/17 13:21 Blood Culture - Preliminary Blood Culture (Wb) #2 - Left Hand No growth in 48 hours. Laboratory Tests Past 24 Hrs 12/28/17 12/28/17 12/29/17 12:03 14:30 05:25 Sodium 141 Potassium 4.7 Chloride 105 Carbon Dioxide 27.0 Anion Gap 9 BUN 69 H Creatinine 2.38 H Estim Creat Clear Calc 22.73 Est GFR (MDRD) Af Amer 27 L Est GFR (MDRD) Non-Af 22 L BUN/Creatinine Ratio 29.0 H Glucose 606 H* 488 H* 346 H Calcium 8.7 POC Glucose 12/29/17 12/28/17 12/28/17 06:16 23:58 21:35 POC Glucose 363 H 228 H 96 12/28/17 12/28/17 12/28/17 16:07 13:59 12:39 POC Glucose 237 H > 500 H* > 500 H* 12/28/17 11:49 POC Glucose > 500 H* Assessment/Plan CKD stage 4. Baseline creatinine is around 2.4. Related to diabetic nephropathy. Proteinuria. Neuropathy. Current creatinine values are close to baseline. HTN. BP values are on higher side. Ok to increase lasix to 20 mg daily which is the home dose Proteinuria. currently not on ACEi due to history of hyperkalemia and fluctuating renal function. will start as outpatient
[2017-12-29] MEDS: 0.9% NaCl Peripheral Flush Adult/Peds IV (10:27)
[2017-12-29] MEDS: Ceftriaxone 1 GM/50 ML BAG IV (10:27)
--- NOTE | 2017-12-29 10:35 | CON.PCM_ITS ---
Problem List (1) Chronic renal failure, stage 4 (severe) Status: Acute Consultation - Renal 12/29/17 PCP/ Referring MD: Requesting physician: Dr kathleen Primary care physician: Sergio Maxwell Reason for Consultation:: CKD stage 4 - History of Present Illness History of Present Illness: The patient is a 62 year old F well known to us. Has known history of CKD stage 4 secondary to diabetes. 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 presented to hospital with c/o dyspnea. Diagnosed and treated for pneumonia. no signs of volume overload. currently breathing is ok no complaints - Allergies Allergies: Allergies No Known Allergies Allergy (Verified 12/24/17 10:52) - Current Medications Current Medications: Current Medications Acetaminophen (Tylenol) 650 mg PO Q6H PRN PRN PRN Reason: Mild Pain (1-3)/Temp > 100.7 F Last Admin: 12/27/17 20:24 Dose: 650 mg Albuterol Sulfate (Ventolin Aerosols) 2.5 mg INHALATION Q2H.RT PRN PRN Reason: SOB &/OR WHEEZING Albuterol/Ipratropium (Duoneb) 3 ml INHALATION Q4HWA.RT [facility] Last Admin: 12/29/17 06:41 Dose: 3 ml Aspirin (Aspirin, Baby) 81 mg PO DAILY@0800 [facility] Last Admin: 12/29/17 08:20 Dose: 81 mg Atorvastatin Calcium (Lipitor) 40 mg PO QHS [facility] Last Admin: 12/28/17 21:36 Dose: 40 mg Carvedilol (Coreg) 3.125 mg PO DAILY [facility] Last Admin: 12/29/17 08:20 Dose: 3.125 mg Dextrose (D50w Syringe) 0 gm IV X1 PRN; Protocol PRN Reason: Hypoglycemia Last Admin: 12/27/17 17:46 Dose: 25 gm Enoxaparin Sodium (Lovenox) 30 mg SC DAILY@0600 [facility] Last Admin: 12/29/17 06:19 Dose: 30 mg Furosemide (Lasix) 10 mg PO DAILY [facility] Last Admin: 12/29/17 08:20 Dose: 10 mg Glucagon () 1 mg IM .X1 PRN PRN Reason: Hypoglycemia Guaifenesin (Mucinex) 1,200 mg PO BID [facility] Last Admin: 12/29/17 08:21 Dose: 1,200 mg Hydralazine HCl (Apresoline) 10 mg IV Q4H PRN PRN PRN Reason: blood pressure Last Admin: 12/27/17 20:23 Dose: 10 mg Ceftriaxone Sodium (Rocephin) 1 gm in 50 mls @ 100 mls/hr IV Q24H [facility] Last Admin: 12/28/17 10:07 Dose: 100 mls/hr Insulin Aspart (Novolog Flexpen (Bkc)) 0 units SC ACHS MOLLY PRN Reason: Protocol Last Admin: 12/29/17 06:19 Dose: 3 units Insulin Aspart (Novolog Flexpen (Bkc)) 5 units SC LUNCH [facility] Last Admin: 12/28/17 12:10 Dose: 5 units Insulin Aspart (Novolog Flexpen (Bkc)) 5 units SC SUPPER [facility] Last Admin: 12/28/17 17:13 Dose: 5 u Insulin Aspart (Novolog Flexpen (Bkc)) 5 units SC BREAKFAST [facility] Last Admin: 12/29/17 08:20 Dose: 5 u Insulin Detemir (Levemir (Bkc)) 10 units SC DAILY [facility] Last Admin: 12/29/17 08:21 Dose: 10 u Isosorbide Mononitrate (Imdur) 30 mg PO QHS [facility] Last Admin: 12/28/17 21:36 Dose: 30 mg Magnesium Hydroxide (Milk Of Magnesia) 30 ml PO DAILY PRN PRN PRN Reason: Constipation Nutritional Formula (Lactose Free) (Glucerna Shake) 120 ml PO 4X/DAY [facility] Last Admin: 12/29/17 08:20 Dose: 120 ml Ondansetron HCl (Zofran) 4 mg IV Q8H PRN PRN PRN Reason: NAUSEA Sodium Chloride () 5 - 30 ml IV UD PRN PRN Reason: SALINE FLUSH Last Admin: 12/27/17 17:47 Dose: 10 ml - Past Medical History Past Medical History (Chronic Problems): Chronic Problems CAD (coronary artery disease) (Chronic) CAP (community acquired pneumonia) (Chronic) Elevated troponin (Chronic) Hypertension (Chronic) Coronary artery disease (Chronic) Status post CABG in 2005 Diabetes mellitus type 1 (Chronic) Hx of CABG (Chronic) - Past Surgical History Surgical History: coronary bypass surgery, - - carpal tunnel, eye surgery - Social History Smoking Status: Never smoker Alcohol: None Drugs: None - Family History Maternal History Items: No pertinent history Paternal History Items: Stroke Review of Systems Constitutional: Denies: Chills, Fever, Weight Change HEENT: Denies: Head Aches, Sinus Congestion, Sinus Drainage Cardiovascular: Denies: Chest Pain, Palpitations Respiratory: Denies: Cough, Shortness of breath at rest, Sputum production Gastrointestinal: Denies: Abdominal Pain, Nausea, Vomiting Genitourinary: Denies: Dysuria Musculoskeletal: Denies: Joint Pain, Joint Tenderness Skin: Denies: Rash, Wounds Neurological: Denies: Numbness, Tingling, Focal weakness Psychiatric: Denies: Anxiety, Depression, Homicidal Ideations, Suicidal Ideations Hematologic/ Lymphatic: Denies: Easy Bruising, Easy Bleeding - Physical Exam General: Alert, Oriented x3, Cooperative HEENT: Atraumatic, PERRLA, EOMI, Normocephalic Neck: Supple, No JVD, Negative Carotid Bruits Lungs: Clear to auscultation, Normal air movement Cardiovascular: Regular rate, No murmurs Abdomen: Bowel Sounds Present, Soft, Non Tender Extremities: No edema, Capillary Refill Less than 3 Seconds Skin: No rashes, No breakdown Musculoskeletal: No Tenderness to Palpation of Joints or Extremities Neurological: Cranial nerves II-XII grossly intact Psych/Mental Status: Normal Affect, Appropriate Vital Signs Temp Pulse Resp BP Pulse Ox 97.8 F 87 20 H 173/72 H 98 12/29/17 08:20 12/29/17 08:20 12/29/17 08:20 12/29/17 08:20 12/29/17 08:20 Oxygen Flow Rate 1 Oxygen Delivery Method Room Air Weight: 58 kg Body Mass Index (BMI) 26.0 Intake and Output for Last 24 Hours 12/27/17 12/28/17 12/29/17 23:59 23:59 23:59 Intake Total 1703 / 1703 700 / 700 Output Total 950 / 950 1400 / 1400 Balance 753 / 753 -700 / -700 Microbiology Past 72 Hours 12/24/17 13:21 Blood Culture - Preliminary Blood Culture (Wb) #2 - Left Hand No growth in 48 hours. Laboratory Tests Past 24 Hrs 12/28/17 12/28/17 12/29/17 12:03 14:30 05:25 Sodium 141 Potassium 4.7 Chloride 105 Carbon Dioxide 27.0 Anion Gap 9 BUN 69 H Creatinine 2.38 H Estim Creat Clear Calc 22.73 Est GFR (MDRD) Af Amer 27 L Est GFR (MDRD) Non-Af 22 L BUN/Creatinine Ratio 29.0 H Glucose 606 H* 488 H* 346 H Calcium 8.7 POC Glucose 12/29/17 12/28/17 12/28/17 06:16 23:58 21:35 POC Glucose 363 H 228 H 96 12/28/17 12/28/17 12/28/17 16:07 13:59 12:39 POC Glucose 237 H > 500 H* > 500 H* 12/28/17 11:49 POC Glucose > 500 H* Assessment/Plan CKD stage 4. Baseline creatinine is around 2.4. Related to diabetic nephropathy. Proteinuria. Neuropathy. Current creatinine values are close to baseline. HTN. BP values are on higher side. Ok to increase lasix to 20 mg daily which is the home dose Proteinuria. currently not on ACEi due to history of hyperkalemia and fluctuating renal function. will start as outpatient
--- NOTE | 2017-12-29 13:47 | CASEMGMT ---
Received call from Bernice at [facility] that they are able to accept the patient. LAWSON OROPEZA updated RN and patient. LAWSON Connor updated that nurse that patient did not qualify for home oxygen. LAWSON OROPEZA will remain available and plan for a safe discharge.
[2017-12-30 07:10] LABS: Bedside Glucose 451 mg/dL (70-110)
[2017-12-30 07:10] LABS: Bedside Glucose 472 mg/dL (70-110)
== END 2017-12-29 17:06 | disposition home health service (06) | DRG 194 ==
LOC: ED 13:40 → MS3 13:46
PROVIDERS: Internal Medicine; Admitting Provider Internal Medicine; Emergency Provider Emergency Medicine; Family Provider Preventive Medicine Occupational Medicine; PCP Preventive Medicine Occupational Medicine; Visit Provider Internal Medicine
DX: J18.9 Pneumonia, unspecified organism (principal); N17.9 Acute kidney failure, unspecified; E10.22 Type 1 diabetes mellitus with diabetic chronic kidney disease; I27.20 Pulmonary hypertension, unspecified; I13.0 Hypertensive heart and chronic kidney disease with heart failure and stage 1 through stage 4 chronic kidney disease, or unspecified chronic kidney disease; I50.32 Chronic diastolic (congestive) heart failure; N18.3 Chronic kidney disease, stage 3 (moderate); I25.10 Atherosclerotic heart disease of native coronary artery without angina pectoris; R09.02 Hypoxemia; Z79.4 Long term (current) use of insulin; R06.89 Other abnormalities of breathing; Z95.1 Presence of aortocoronary bypass graft; E78.5 Hyperlipidemia, unspecified
CPT/HCPCS: 36415; 70450; 71045; 71046; 71250; 78582; 80048; 82947; 82962; 83735; 83880; 84484; 85025; 85027; 85379; 87040; 87449; 87633; 87804; 93005; 93970; 94640; 97110; 97116; 97162; 97166; 97530; 97535; 97802; 99251; 99285; A9500; J7030; A4216; G0463; J1940

== ENCOUNTER 2018-01-06 13:07 | Outpatient (RCR) | payer MEDICARE, SELFPAY ==
[2018-01-06 13:54] LABS: Anion Gap 9 (5-15); BUN 41 mg/dL (7-18); Calcium,Total 8.4 mg/dL (8.5-10.1); Chloride 104 mmol/L (98-107); Creatinine, Serum 2.05 mg/dL (0.55-1.02); EST Glomerular Filtration Rate 26 mL/min (>60); Est Glom Filt Rate - Afr Amer 32 mL/min (>60); Glucose 349 mg/dL (74-106); Potassium 4.4 mmol/L (3.5-5.1); Sodium Level 138 mmol/L (136-145)
== END 2018-01-24 23:59 ==
LOC: HHLAB 13:07
PROVIDERS: Family Provider Preventive Medicine Occupational Medicine; PCP Preventive Medicine Occupational Medicine; Visit Provider Internal Medicine Cardiovascular Disease
DX: R15.9 Full incontinence of feces (principal); N39.41 Urge incontinence; R30.0 Dysuria
CPT/HCPCS: 80048

== ENCOUNTER 2018-03-20 16:29 | Inpatient (IN) | payer MEDICARE, MEDICAID, SELFPAY ==
[2018-03-20 16:30] VITALS: BP 185/70; PULSE 70; RESP 16; TEMP 36.8; O2SAT 97; BMI 21.9
--- NOTE | 2018-03-20 17:01 | ED.VISSUMM ---
- ER Visit Summary Date of Service: 03/20/18 Chief Complaint: Low blood sugar History of Present Illness: The patient is a 62 F who is been having problems with intermittent low blood sugars. 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 Sister reportedly called EMS today for decreased level of consciousness. Her blood sugar was noted to be 36. She was given an amp of D50 at the time EMS report was called to the hospital her blood sugar was 181. Physical Examination: Blood pressure is 185/70, otherwise vitals are normal. Patient sitting upright in bed no acute distress. Heart is regular rate and rhythm. Lung sounds are clear. Abdomen is soft nontender. Neuro exam is unremarkable. Test Results: BGT at the time of my examination is 84. This is approximately half hour after EMS called in report. CBC is significant only for hemoglobin 11.5. Chemistry studies are significant for glucose of 68, BUN 38, creatinine 2.28. The renal failure is approximately her baseline. Emergency Department Course and Treatment: Repeat blood sugar drops down to 60 and she was given half amp D50 and D5 normal saline was started at 100/h. Most recent check a blood sugar reveals a value of 145. At this time patient be admitted for further treatment. Treatment Plan: [] Disposition: Admit Impression: Hypoglycemia This note was generated with [employer] dictation software. It may contain incorrect words, spelling, and punctuation that were not noted in review of the chart prior to signing ED Disposition - Plan for ED Patient: Chief Complaint: Hypoglycemia Referrals: Sergio Maxwell DO [Primary Care Provider] -
[2018-03-20] MEDS: Dextrose 50%-Water 25 GM/50 ML DISP.SYRIN IV (17:44)
[2018-03-20 17:45] LABS: Absolute Lymphocyte Count 0.92 X10^3/ul (0.83-4.51); Absolute Neutrophil Count 7.6 X10^3/uL (2.0-7.7); Basophil# 0.02 X10^3/uL; Basophil% 0.2 % (0-1); Eosinophil# 0.21 X10^3/uL; Eosinophils% 2.3 % (0-5); Hematocrit 36.4 % (37-47); Hemoglobin 11.5 g/dl (12.0-15.0); Lymphocyte # 0.92 X10^3/ul (4.0); Lymphocyte % 10.1 % (19-41); Mean Corp Hgb Conc 31.6 g/gl (32-36); Mean Corpuscular Hgb 28.8 pg (27.0-32.0); Mean Corpuscular Volume 91.2 fL (81-99); Mean Platelet Vol. 10.2 fl (6.2-12.0); Monocyte# 0.34 X10^3/uL; Monocyte% 3.7 % (0-10); Neutrophil # 7.58 X10^3/uL (2.7-7.7); Neutrophil % 83.5 % (47-70); Platelet Count 200 K/mm3 (150-450); RBC Distribution Width CV 13.9 % (11.6-14.6); RBC Distribution Width SD 46.2 fl (35.1-43.9); Red Blood Count 3.99 M/mm3 (4.2-5.4); White Blood Count 9.1 K/mm3 (4.4-11.0)
[2018-03-20 17:46] LABS: POSITIVE COUNT NO; POSITIVE DIFFERENTIAL NO; POSITIVE MORPHOLOGY NO
[2018-03-20 17:46] LABS: Bedside Glucose 60 mg/dL (70-110)
[2018-03-20] MEDS: Dextrose 5%/0.9% NaCl 1,000 ML 100 ML IV (18:14)
[2018-03-20 18:15] LABS: Anion Gap 8 (5-15); BUN 38 mg/dL (7-18); BUN/Creat Ratio 16.7 RATIO (10-20); Calcium,Total 8.6 mg/dL (8.5-10.1); Chloride 113 mmol/L (98-107); Creatinine, Serum 2.28 mg/dL (0.55-1.02); EST Glomerular Filtration Rate 23 mL/min (>60); Est Glom Filt Rate - Afr Amer 28 mL/min (>60); Estimated Creatinine Clearance 22.38 ml/min; Glucose 68 mg/dL (74-106); Potassium 4.5 mmol/L (3.5-5.1); Sodium Level 145 mmol/L (136-145)
[2018-03-20 19:06] VITALS: PULSE 78; RESP 20; O2SAT 96
[2018-03-20 19:11] LABS: Bedside Glucose 145 mg/dL (70-110)
[2018-03-20 19:12] LABS: Mucous, Urine 0 SEEN /hpf (<or=2+)
[2018-03-20 19:13] LABS: Color, Urine Yellow (Yellow); Glucose, Dipstick Normal (Normal); Ketone-Dipstick Negative (Negative); Leukocyte Esterase-Dipstick 25 /ul (Negative); Nitrite-Dipstick Negative (Negative); Occult Blood-Urine 10 /ul (Negative); Protein-Dipstick 30 mg/dl (Negative); Specific Gravity, Urine 1.015 (1.002-1.030); Urine Bilirubin Dipstick Negative (Negative); Urine Clarity Clear (Clear); Urine Urobilinogen Normal (Normal)
[2018-03-20 19:20] LABS: Bacteria RARE /hpf (None Seen); Red Blood Cells-Urine 0-5 SEEN /hpf (0-5); Squamous Epithelial Cells - UA 0-5 SEEN /hpf (5-10); White Blood Cells 0-5 SEEN /hpf (0-5)
[2018-03-20 19:29] VITALS: BP 161/72; PULSE 91; RESP 18; O2SAT 96
--- NOTE | 2018-03-20 19:39 | HP.PCM_ITS ---
Problem List (1) Hypoglycemia Status: Acute (2) Anemia of chronic disease Status: Chronic (3) Chronic renal failure, stage 4 (severe) Status: Chronic (4) CAD (coronary artery disease) Status: Chronic Qualifiers: Coronary Disease-Associated Artery/Lesion type: unspecified vessel or lesion type Solomon vs. transplanted heart: ione heart Associated angina: without angina Qualified Code(s): I25.10 - Atherosclerotic heart disease of ione coronary artery without angina pectoris (5) Coronary artery disease Status: Chronic Comment: Status post CABG in 2005 (6) Hx of CABG Status: Chronic (7) Hypertension Status: Chronic (8) Interstitial lung disease Status: Chronic (9) Uncontrolled type I diabetes mellitus Status: Chronic Qualifiers: Diabetes mellitus complication status: with unspecified complications Qualified Code(s): E10.8 - Type 1 diabetes mellitus with unspecified complications; E10.65 - Type 1 diabetes mellitus with hyperglycemia (10) Diabetes mellitus type 1 Status: Chronic Qualifiers: Diabetes mellitus complication status: without complication Qualified Code( s): E10.9 - Type 1 diabetes mellitus without complications History of Present Illness Date of Admission: 03/20/18 Chief Complaint: Encephalopathy The patient is a 62 y/o F w/ PMHx: CAD s/p CABG, AOCD, CKD stage IV, HTN, HLD, Interstitial Lung Disease, Diabetes mellitus type I who presents to the [facility] ED on 03/20/18 with history of recent treatment for acute bronchitis on oral antibiotic therapy as well as nasal steroid regimen with improvement with history of difficulties ongoing with labile blood sugars following with public health nutritionist in the [place] with recent decrease of her home insulin regimen however despite this she had onset of weakness, fatigue with unresponsive event with hypoglycemia witnessed per her sister while seated. Patient had noted onset of the symptoms with attempt per sister to encourage oral intake but prior to this ability she had unresponsive event secondary to severity of the hypoglycemia. Patient blood sugar less than 60 per EMS evaluation with administration of dextrose amp per EMS with repeat blood sugar 180 in the ED however repeat testing decreased again to 60. In the ED workup included T 98.2 , heart rate 70, BP 161/72, respiratory rate 18, 96% on room air, CBC with WBC 9.1, hemoglobin 11.5, platelet 200 with mild shift, BMP with chloride 113, BUN/ creatinine 38/2.28, glucose 68, urinalysis not market appearing. In the ED patient was administered additional dextrose amp as well as initiated on D5 NS drip. Patient noted mild improvement in the emergency room but still notes fatigue and weakness as well as malaise. Past Medical History Past Medical History (Chronic Problems): Chronic Problems CAD (coronary artery disease) (Chronic) CAP (community acquired pneumonia) (Chronic) Anemia of chronic disease (Chronic) Uncontrolled type I diabetes mellitus (Chronic) Elevated troponin (Chronic) Hypertension (Chronic) Coronary artery disease (Chronic) Status post CABG in 2005 Diabetes mellitus type 1 (Chronic) Hx of CABG (Chronic) Interstitial lung disease (Chronic) Chronic renal failure, stage 4 (severe) (Chronic) Allergies No Known Allergies Allergy (Verified 12/24/17 10:52) Home Medications: Ambulatory Orders Medication Instructions Recorded Aspirin [Aspirin, Baby] 81 mg PO DAILY 04/09/15 Isosorbide Mononitrate [Imdur] 30 mg PO DAILY 10/02/15 Atorvastatin Calcium [Lipitor] 40 mg PO QHS 03/18/17 Insulin Aspart [Novolog Flexpen] 0 units SC ACHS 03/18/17 Albuterol Inhaler [Ventolin Hfa] 1 puff INHALATION Q4H PRN PRN #1 12/29/17 inhaler Carvedilol [Coreg (Beta Janett)] 3.125 mg PO BID #30 12/29/17 Alendronate Sodium 35 mg PO WE 03/20/18 Furosemide [Lasix] 20 mg PO BID 03/20/18 Guaifenesin [Mucinex] 1,200 mg PO BID 03/20/18 Potassium Chloride 10 meq PO BID 03/20/18 Triamcinolone Acetonide [Nasacort] 10.8 ml NS DAILY 03/20/18 traZODone [Desyrel] 50 - 100 mg PO QHS 03/20/18 Surgical History: - - CABG ?4, bilateral carpal tunnel surgery, eye surgery. Psychiatric History: No pertinent psych hx [employer] History: No pertinent [employer] history Lives: With Family Smoking Status: Never smoker Tobacco Use: Non-smoker Alcohol: None Drugs: None - *Family History Maternal History Items: Heart Disease, Hypertension Paternal History Items: Heart Disease, Hypertension, Stroke Review of Systems Constitutional: Reports: Malaise, Weakness, Fatigue. Denies: Chills, Fever, Weight Change HEENT: Denies: Head Aches, Sinus Congestion, Sinus Drainage Cardiovascular: Reports: Edema, Light Headedness, - - Unresponsive event secondary to hypoglycemia.. Denies: Chest Pain, Palpitations Respiratory: Reports: Cough, Shortness of Breath, Sputum production. Denies: Shortness of breath at rest Gastrointestinal: Reports: Nausea. Denies: Abdominal Pain, Vomiting Genitourinary: Denies: Dysuria Musculoskeletal: Denies: Joint Pain, Joint Tenderness Skin: Denies: Rash, Wounds Neurological: Denies: Numbness, Tingling, Focal weakness Psychiatric: Denies: Anxiety, Depression, Homicidal Ideations, Suicidal Ideations Hematologic/ Lymphatic: Reports: Anemia. Denies: Easy Bruising, Easy Bleeding VTE Information - Inpt Only VTE Present on Admission: No VTE Mechan Device Prophylaxis: SCD's VTE Pharm Prophylaxis ordered?: Yes Patient Problems: Active and Suspected Problems Hypoglycemia (Acute) Subjective: Seated upright in the ED bed, fatigued appearance. Objective: Physical Examination: General: awake, alert, oriented x 3 and cooperative, seated upright in the ED bed, fatigued appearance. Skin: normal color, turgor, no icterus, cyanosis. HEENT: AT/NC, EOMI, PERRLA, moderately dry MM, no carotid bruits or JVD noted. Lungs: CTA bilaterally, moderate effort, mild decrease BL bases, no rales, ronchi or wheezing. Heart: regular rate and rhythm; no gallop, rub audible. Abdomen: soft, NTTP, ND, normal BS, no HSM. Extremities: no cyanosis, clubbing, bilateral lower extremity ankle to distal jose 2+ edema with tenderness to palpation. Neurological: patient awake, alert, oriented x 3; cognitive function intact; pupils equally reactive to light and accomodation; cranial nerves II-XII grossly normal, moving all 4 extremities, no focal deficits, strength severely globally decreased secondary to acute presentation. Psychiatric: affect appears fatigued, mildly lethargic, no acute evidence of depressive or anxiety feelings. - Physical Exam Vital Signs Temp Pulse Resp BP Pulse Ox 98.2 F 91 18 161/72 H 96 03/20/18 16:30 03/20/18 19:29 03/20/18 19:29 03/20/18 19:29 03/20/18 19:29 Oxygen Delivery Method Room Air Weight: 128 lb Body Mass Index (BMI) 21.9 Finger Stick Blood Glucose 80 Laboratory Tests Past 24 Hrs 03/20/18 03/20/18 03/20/18 16:47 17:00 17:00 WBC Cancelled Corrected WBC Cancelled RBC Cancelled Hgb Cancelled Hct Cancelled MCV Cancelled MCH Cancelled MCHC Cancelled RDW Cancelled RDW Differential Cancelled Plt Count Cancelled MPV Cancelled Immature Gran % (Auto) Cancelled Neut % (Auto) Cancelled Lymph % (Auto) Cancelled Placer % (Auto) Cancelled Eos % (Auto) Cancelled Baso % (Auto) Cancelled Immature Gran # (Auto) Cancelled Absolute Neuts (auto) Cancelled Absolute Lymphs (auto) Cancelled Absolute Monos (auto) Cancelled Total Counted Cancelled Neutrophils % (Manual) Cancelled Band Neutrophils % Cancelled Lymphocytes % (Manual) Cancelled Monocytes % (Manual) Cancelled Eosinophils % (Manual) Cancelled Basophils % (Manual) Cancelled Metamyelocytes % Cancelled Myelocytes % Cancelled Promyelocytes % Cancelled Blast Cells % Cancelled Plasma Cell % (Manual) Cancelled Other Cells % Cancelled Lymphocytes # Cancelled Nucleated RBCs/100 WBC Cancelled Differential Comment Cancelled Diff Path Review Cancelled Hypersegmented Neuts Cancelled Atypical Lymphocytes Cancelled Reactive Lymphocytes Cancelled Smudge Cells Cancelled Eosinophilia # Cancelled Basophilia # Cancelled Toxic Granulation Cancelled Dohle Bodies Cancelled Rafaela Rods Cancelled Platelet Estimate Cancelled Plt Morphology Comment Cancelled RBC Morphology Cancelled Polychromasia Cancelled Hypochromasia Cancelled Poikilocytosis Cancelled Basophilic Stippling Cancelled Anisocytosis Cancelled Microcytosis Cancelled Macrocytosis Cancelled Spherocytes Cancelled Sickle Cells Cancelled Target Cells Cancelled Tear Drop Cells Cancelled Ovalocytes Cancelled Stomatocytes Cancelled Rojas-[place]ch[place] Bodies Cancelled Gobles Cells Cancelled Bite Cells Cancelled Acanthocytes (Spur) Cancelled Rouleaux Cancelled Schistocytes Cancelled Sodium Cancelled Potassium Cancelled Chloride Cancelled Carbon Dioxide Cancelled Anion Gap Cancelled BUN Cancelled Creatinine Cancelled Estim Creat Clear Calc Cancelled Est GFR (MDRD) Af Amer Cancelled Est GFR (MDRD) Non-Af Cancelled BUN/Creatinine Ratio Cancelled Glucose Cancelled Calcium Cancelled Urine Color Yellow Urine Clarity Clear Urine pH 6.0 Ur Specific Transfer 1.015 Urine Protein 30 H Urine Glucose (UA) Normal Urine Ketones Negative Urine Occult Blood 10 H Urine Nitrite Negative Urine Bilirubin Negative Urine Urobilinogen Normal Ur Leukocyte Esterase 25 H Urine RBC 0-5 SEEN Urine WBC 0-5 SEEN Ur Squamous Epith Cells 0-5 SEEN Urine Bacteria RARE Urine Mucus 0 SEEN 03/20/18 03/20/18 17:35 17:35 WBC 9.1 Corrected WBC RBC 3.99 L Hgb 11.5 L Hct 36.4 L MCV 91.2 MCH 28.8 MCHC 31.6 L RDW 13.9 RDW Differential 46.2 H Plt Count 200 MPV 10.2 Immature Gran % (Auto) 0.200 Neut % (Auto) 83.5 H Lymph % (Auto) 10.1 L Placer % (Auto) 3.7 Eos % (Auto) 2.3 Baso % (Auto) 0.2 Immature Gran # (Auto) Absolute Neuts (auto) 7.6 Absolute Lymphs (auto) 0.92 Absolute Monos (auto) Total Counted Not Reportable Neutrophils % (Manual) Band Neutrophils % Lymphocytes % (Manual) Monocytes % (Manual) Eosinophils % (Manual) Basophils % (Manual) Metamyelocytes % Myelocytes % Promyelocytes % Blast Cells % Plasma Cell % (Manual) Other Cells % Lymphocytes # Nucleated RBCs/100 WBC Differential Comment Diff Path Review Hypersegmented Neuts Atypical Lymphocytes Reactive Lymphocytes Smudge Cells Eosinophilia # Basophilia # Toxic Granulation Dohle Bodies Rafaela Rods Platelet Estimate Plt Morphology Comment RBC Morphology Polychromasia Hypochromasia Poikilocytosis Basophilic Stippling Anisocytosis Microcytosis Macrocytosis Spherocytes Sickle Cells Target Cells Tear Drop Cells Ovalocytes Stomatocytes Rojas-[place] Bodies Miguelangel Cells Bite Cells Acanthocytes (Spur) Rouleaux Schistocytes Sodium 145 Potassium 4.5 Chloride 113 H Carbon Dioxide 24.0 Anion Gap 8 BUN 38 H Creatinine 2.28 H Estim Creat Clear Calc 22.38 Est GFR (MDRD) Af Amer 28 L Est GFR (MDRD) Non-Af 23 L BUN/Creatinine Ratio 16.7 Glucose 68 L Calcium 8.6 Urine Color Urine Clarity Urine pH Ur Specific Transfer Urine Protein Urine Glucose (UA) Urine Ketones Urine Occult Blood Urine Nitrite Urine Bilirubin Urine Urobilinogen Ur Leukocyte Esterase Urine RBC Urine WBC Ur Squamous Epith Cells Urine Bacteria Urine Mucus POC Glucose 03/20/18 03/20/18 18:34 17:32 POC Glucose 145 H 60 L Assessment/Plan Active and Suspected Problems Hypoglycemia (Acute) The patient is a 62 y/o F w/ PMHx: CAD s/p CABG, AOCD, CKD stage IV, HTN, HLD, Interstitial Lung Disease, Diabetes mellitus type I who presents to the [facility] ED on 03/20/18 with history of recent treatment for acute bronchitis on oral antibiotic therapy as well as nasal steroid regimen with improvement with history of difficulties ongoing with labile blood sugars following with public health nutritionist in the [place] with recent decrease of her home insulin regimen however despite this she had onset of weakness, fatigue with unresponsive event with hypoglycemia witnessed per her sister while seated. (1) Acute Encephalopathy and Unresponsive Event secondary to Severe Hypoglycemia w/ Labile Diabetes mellitus type I: We will admit to [facility] with telemetry monitoring, hold insulin regimen with noted recent transition from 24 units to 20 units however poor historian with pending patient reconciliation especially as this does not correspond to her prior admission usage, maintain on D5 NS drip, obtain q4 BS assessment given decreased BS despite dextrose amp administrations prior, fall precautions, aspiration precautions w/ ISS. (2) Recent Acute Bronchitis: Will continue recent oral abx augmentin regimen, encourage HOB, IS, flonase, PRN albuterol. (3) CAD: s/p CABG x 4, continue home regimen asa, statin, BB. (4) Hypertension: Continue home regimen including Coreg, Lasix, Imdur, PRN hydralazine. (5) Hyperlipidemia: Continue home statin regimen. (6) Chronic Kidney Disease Stage IV: Admission BUN/Cr 38/2.28, baseline renal function 2.2-2.5, repeat BMP in AM. (7) Chronic normocytic anemia, AOCD: Admission Hgb 11.5, stable, trend. (8) BL LE Edema, Pain: Noted several day history of BL LE edema and tenderness, especially with palpation, DVT US BL LE pending. (9) DVT Prophylaxis: SCDs, heparin. Code Visit Inpatient E&M: [id number] Init Hosp L3
[2018-03-20 20:18] VITALS: BMI 28.7
[2018-03-20 20:19] VITALS: BMI 28.7
[2018-03-20 20:36] VITALS: BP 168/63; PULSE 81; RESP 16; TEMP 36.8; O2SAT 95
[2018-03-20 20:52] LABS: Magnesium 1.6 mg/dL (1.6-2.6); Thyroid Stim Hormone (TSH) 2.07 uIU/mL (0.358-3.74)
[2018-03-20 21:11] LABS: Bedside Glucose 205 mg/dL (70-110)
[2018-03-20 21:35] VITALS: PULSE 108
[2018-03-20] MEDS: Mag Hydrox/Al Hydrox/Simeth 30 ML UDC PO (22:44)
[2018-03-20 22:47] VITALS: BP 167/62; PULSE 86; RESP 16; O2SAT 96
[2018-03-20] MEDS: Glucerna Shake 120 ML LIQUID PO (22:56)
[2018-03-20] MEDS: Carvedilol 3.125 MG TABLET PO (22:57)
[2018-03-20] MEDS: Heparin Injection (Vial) 5,000 UNIT/ML VIAL 5000 UNIT SC (22:57)
[2018-03-20] MEDS: guaiFENesin 1,200 MG Tablet 1200 MG PO (22:57)
[2018-03-20] MEDS: Amox/Clavulanate 500 MG Tablet PO (22:57)
[2018-03-20] MEDS: traZODone 50 MG Tablet PO (22:57)
[2018-03-20] MEDS: Fluticasone 0.05% 1 SPRAY NASAL.SRY NASAL (22:57)
[2018-03-20] MEDS: Insulin Lispro 100 UNIT/ML INSULN.PEN SC (22:58)
--- NOTE | 2018-03-20 23:25 | NURSING ---
pt c/o burning in throat after eating. vitals WNL. Mylanta given effective
[2018-03-21] VITALS (17 sets, daily range): BP systolic 127–169; BP diastolic 56–67; PULSE 60–96; RESP 16–18; TEMP 36.6–37.1; O2SAT 94–98
[2018-03-21 01:00] LABS: Bedside Glucose 458 mg/dL (70-110)
--- NOTE | 2018-03-21 01:11 | NURSING ---
lab notified of stat lab back up for glucose over 450
[2018-03-21] MEDS: Insulin Lispro 100 UNIT/ML INSULN.PEN 15 UNIT SC (01:36)
[2018-03-21] MEDS: 0.9% Normal Saline 1,000 ML 100 ML IV (01:38)
[2018-03-21 02:01] LABS: Glucose 490 mg/dL (74-106)
[2018-03-21] MEDS: Insulin Lispro 100 UNIT/ML INSULN.PEN SC ×6 (05:14→22:38)
[2018-03-21 06:11] LABS: Bedside Glucose 392 mg/dL (70-110)
[2018-03-21 07:03] LABS: Absolute Lymphocyte Count 0.86 X10^3/ul (0.83-4.51); Absolute Neutrophil Count 4.8 X10^3/uL (2.0-7.7); Basophil# 0.05 X10^3/uL; Basophil% 0.8 % (0-1); Eosinophil# 0.22 X10^3/uL; Eosinophils% 3.3 % (0-5); Hematocrit 31.5 % (37-47); Hemoglobin 9.9 g/dl (12.0-15.0); Lymphocyte # 0.86 X10^3/ul (4.0); Lymphocyte % 13.1 % (19-41); Mean Corp Hgb Conc 31.4 g/gl (32-36); Mean Corpuscular Hgb 29.4 pg (27.0-32.0); Mean Corpuscular Volume 93.5 fL (81-99); Mean Platelet Vol. 11.1 fl (6.2-12.0); Monocyte% 9.1 % (0-10); Neutrophil # 4.83 X10^3/uL (2.7-7.7); Neutrophil % 73.5 % (47-70); Platelet Count 175 K/mm3 (150-450); RBC Distribution Width CV 13.9 % (11.6-14.6); RBC Distribution Width SD 45.9 fl (35.1-43.9); Red Blood Count 3.37 M/mm3 (4.2-5.4); White Blood Count 6.6 K/mm3 (4.4-11.0)
[2018-03-21 07:06] LABS: POSITIVE COUNT NO; POSITIVE DIFFERENTIAL NO; POSITIVE MORPHOLOGY NO
[2018-03-21 07:35] LABS: Anion Gap 5 (5-15); BUN 36 mg/dL (7-18); BUN/Creat Ratio 17.5 RATIO (10-20); Calcium,Total 8.1 mg/dL (8.5-10.1); Chloride 113 mmol/L (98-107); Creatinine, Serum 2.06 mg/dL (0.55-1.02); EST Glomerular Filtration Rate 26 mL/min (>60); Est Glom Filt Rate - Afr Amer 31 mL/min (>60); Estimated Creatinine Clearance 26.33 ml/min; Glucose 323 mg/dL (74-106); Potassium 4.2 mmol/L (3.5-5.1); Sodium Level 141 mmol/L (136-145)
--- NOTE | 2018-03-21 07:38 | PCM.PN.HOSP ---
Patient Problems: Active and Suspected Problems Hypoglycemia (Acute) Subjective: Patient with no acute events overnight per self and per nursing report. She does note that she still has discomfort bilateral lower extremity with pending DVT ultrasound this morning. She does state that she feels improved as far as from a hypoglycemic standpoint and actually has now had elevated blood sugars with transition off dextrose fluids. Discussed plan of care and she is amenable to start of before meals and at bedtime Accu-Cheks with only low-dose scheduled short acting insulin with continued evaluation. Patient with very labile blood sugar therefore plan for continued evaluation in the hospital into tomorrow to assure no hypoglycemia overnight or in bad cloth checker. Patient denies fevers, chills, nausea, emesis, abdominal pain, chest pain or dyspnea. Objective: Physical Examination: General: awake, alert, oriented x 3 and cooperative, seated upright in the bed, improved appearance. Skin: normal color, turgor, no icterus, cyanosis. HEENT: AT/NC, EOMI, PERRLA, improved MMM. Lungs: CTA bilaterally, moderate effort, mild decrease BL bases, no rales, ronchi or wheezing. Heart: Regular rate and rhythm; no gallop, rub audible. Abdomen: soft, NTTP, ND, normal BS. Extremities: no cyanosis, clubbing, bilateral lower extremity ankle to distal jose 2+ edema with tenderness to palpation ongoing, unchanged. Neurological: patient awake, alert, oriented x 3; cognitive function intact; pupils equally reactive to light and accomodation; cranial nerves II-XII grossly normal, moving all 4 extremities, no focal deficits, strength improved, mild to moderately globally decreased secondary to acute presentation. Psychiatric: affect appears normal, no acute evidence of depressive or anxiety feelings. Vitals/I&O's: Vital Signs Temp Pulse Resp BP Pulse Ox 98.0 F 76 16 160/56 H 94 03/21/18 01:45 03/21/18 02:30 03/21/18 01:45 03/21/18 01:45 03/21/18 05:00 Oxygen Delivery Method Room Air Weight: 128 lb 3.2 oz Body Mass Index (BMI) 28.7 Intake and Output for Last 24 Hours 03/19/18 03/20/18 03/21/18 23:59 23:59 23:59 Intake Total 1273 / 1273 Balance 1273 / 1273 Laboratory Results 03/20/18 21:08: POC Glucose 205 H 03/21/18 00:52: POC Glucose 458 H* 03/21/18 01:26: Glucose 490 H* 03/21/18 05:12: POC Glucose 392 H 03/21/18 06:37: WBC 6.6, RBC 3.37 L, Hgb 9.9 L, Hct 31.5 L, MCV 93.5, MCH 29.4, MCHC 31.4 L, RDW 13.9, RDW Differential 45.9 H, Plt Count 175, MPV 11.1, Immature Gran % (Auto) 0.200, Neut % (Auto) 73.5 H, Lymph % (Auto) 13.1 L, [place] % (Auto) 9.1, Eos % (Auto) 3.3, Baso % (Auto) 0.8, Absolute Neuts (auto) 4.8, Absolute Lymphs (auto) 0.86, Total Counted Not Reportable 03/21/18 06:37: Sodium 141, Potassium 4.2, Chloride 113 H, Carbon Dioxide 23.0, Anion Gap 5, BUN 36 H, Creatinine 2.06 H, Estim Creat Clear Calc 26.33, Est GFR (MDRD) Af Amer 31 L, Est GFR (MDRD) Non-Af 26 L, BUN/Creatinine Ratio 17.5, Glucose 323 H, Calcium 8.1 L Current Medications Al Hydroxide/Mg Hydroxide (Mylanta Ii) 30 ml PO Q6H PRN PRN PRN Reason: Gastric burning Last Admin: 03/20/18 22:44 Dose: 30 ml Albuterol Sulfate (Ventolin Aerosols) 2.5 mg INHALATION Q2H PRN PRN PRN Reason: dyspnea, wheezing Amoxicillin/Clavulanate Potassium (Augmentin Tablet) 500 mg PO BID [facility] Last Admin: 03/20/18 22:57 Dose: 500 mg Aspirin (Aspirin, Baby) 81 mg PO DAILYCM [facility] Atorvastatin Calcium (Lipitor) 40 mg PO DAILY [facility] Carvedilol (Coreg) 3.125 mg PO BID [facility] Last Admin: 03/20/18 22:57 Dose: 3.125 mg Fluticasone Propionate (Flonase Nasal [place]) 1 spray NASAL BID [facility] Last Admin: 03/20/18 22:57 Dose: 1 spray Furosemide (Lasix) 20 mg PO BIDLX [facility] Guaifenesin (Mucinex) 1,200 mg PO BID [facility] Last Admin: 03/20/18 22:57 Dose: 1,200 mg Heparin Sodium (Porcine) (Heparin Na) 5,000 unit SC Q12 [facility] Last Admin: 03/20/18 22:57 Dose: 5,000 u Insulin Human Lispro (Humalog Kwikpen (Bkc)) 0 unit SC ACHS [facility] PRN Reason: Protocol Insulin Human Lispro (Humalog Kwikpen (Bkc)) 5 unit SC TIDAC [facility] Isosorbide Mononitrate (Imdur) 30 mg PO DAILY [facility] Magnesium Hydroxide (Milk Of Magnesia) 30 ml PO DAILY PRN PRN PRN Reason: Constipation Non-Formulary Medication (Alendronate Sodium [Alendronate Sodium]) 35 mg PO DAILY [facility] Nutritional Formula (Lactose Free) (Glucerna Shake) 120 ml PO 4X/DAY [facility] Last Admin: 03/20/18 22:56 Dose: 120 ml Ondansetron HCl (Zofran) 4 mg IV Q8H PRN PRN PRN Reason: NAUSEA Potassium Chloride (K-Dur) 10 meq PO BID [facility] Last Admin: 03/20/18 22:57 Dose: 10 meq Sodium Chloride () 5 - 30 ml IV UD PRN PRN Reason: SALINE FLUSH Trazodone HCl (Desyrel) 50 - 100 mg PO QHS [facility] Last Admin: 03/20/18 22:57 Dose: 100 mg Medical Necessity - Tobacco Use Smoking Status: Never smoker Tobacco Use: Non-smoker Assessment/Plan Active and Suspected Problems Hypoglycemia (Acute) The patient is a 62 y/o F w/ PMHx: CAD s/p CABG, AOCD, CKD stage IV, HTN, HLD, Interstitial Lung Disease, Diabetes mellitus type I who presents to the [facility] ED on 03/20/18 with history of recent treatment for acute bronchitis on oral antibiotic therapy as well as nasal steroid regimen with improvement with history of difficulties ongoing with labile blood sugars following with apprentice photographer in the [place] with recent decrease of her home insulin regimen however despite this she had onset of weakness, fatigue with unresponsive event with hypoglycemia witnessed per her sister while seated. (1) Acute Encephalopathy and Unresponsive Event secondary to Severe Hypoglycemia w/ Labile Diabetes mellitus type I: Admitted to [place], maintained on telemetry monitoring given unresponsive event, held insulin regimen w/ recent outpatient changes although notably more elevated than prior admissions from review. Now elevated BS, although has been labile. Given improved status, IVFs d/c dextrose component, will transition to ACHS accu checks, will transition to only 5 u short acting insulin TID w/ meals and continue to monitor given severity of lability and need to assure does not have hypoglycemic recurrent event prior to discharge. If maintains appropriate BS, would plan discharge only only short-acting lower TID dose only w/ ISS as needed w/ follow-up with Endocrinology. (2) Recent Acute Bronchitis: Will continue recent oral abx augmentin regimen, encourage HOB, IS, flonase, PRN albuterol. (3) CAD: s/p CABG x 4, continue home regimen asa, statin, BB. (4) Hypertension: Continue home regimen including Coreg, Lasix, Imdur, PRN hydralazine. (5) Hyperlipidemia: Continue home statin regimen. (6) Chronic Kidney Disease Stage IV: Admission BUN/Cr 38/2.28, baseline renal function 2.2-2.5, 03/21/18 BUN/Cr 36/2.06. (7) Chronic normocytic anemia, AOCD: Admission Hgb 11.5, repeat 03/21/18 Hgb 9.9 following hydration, trend. (8) BL LE Edema, Pain: Noted several day history of BL LE edema and tenderness, especially with palpation, DVT US BL LE pending. (9) DVT Prophylaxis: SCDs, heparin. Code Visit Inpatient E&M: 48673 Subs Hosp L2
--- NOTE | 2018-03-21 07:41 | PN_ITS ---
Patient Problems: Active and Suspected Problems Hypoglycemia (Acute) Subjective: Patient with no acute events overnight per self and per nursing report. She does note that she still has discomfort bilateral lower extremity with pending DVT ultrasound this morning. She does state that she feels improved as far as from a hypoglycemic standpoint and actually has now had elevated blood sugars with transition off dextrose fluids. Discussed plan of care and she is amenable to start of before meals and at bedtime Accu-Cheks with only low-dose scheduled short acting insulin with continued evaluation. 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 Patient denies fevers, chills, nausea, emesis, abdominal pain, chest pain or dyspnea. Objective: Physical Examination: General: awake, alert, oriented x 3 and cooperative, seated upright in the bed, improved appearance. Skin: normal color, turgor, no icterus, cyanosis. HEENT: AT/NC, EOMI, PERRLA, improved MMM. Lungs: CTA bilaterally, moderate effort, mild decrease BL bases, no rales, ronchi or wheezing. Heart: Regular rate and rhythm; no gallop, rub audible. Abdomen: soft, NTTP, ND, normal BS. Extremities: no cyanosis, clubbing, bilateral lower extremity ankle to distal jose 2+ edema with tenderness to palpation ongoing, unchanged. Neurological: patient awake, alert, oriented x 3; cognitive function intact; pupils equally reactive to light and accomodation; cranial nerves II-XII grossly normal, moving all 4 extremities, no focal deficits, strength improved, mild to moderately globally decreased secondary to acute presentation. Psychiatric: affect appears normal, no acute evidence of depressive or anxiety feelings. Vitals/I&O's: Vital Signs Temp Pulse Resp BP Pulse Ox 98.0 F 76 16 160/56 H 94 03/21/18 01:45 03/21/18 02:30 03/21/18 01:45 03/21/18 01:45 03/21/18 05:00 Oxygen Delivery Method Room Air Weight: 128 lb 3.2 oz Body Mass Index (BMI) 28.7 Intake and Output for Last 24 Hours 03/19/18 03/20/18 03/21/18 23:59 23:59 23:59 Intake Total 1273 / 1273 Balance 1273 / 1273 Laboratory Results 03/20/18 21:08: POC Glucose 205 H 03/21/18 00:52: POC Glucose 458 H* 03/21/18 01:26: Glucose 490 H* 03/21/18 05:12: POC Glucose 392 H 03/21/18 06:37: WBC 6.6, RBC 3.37 L, Hgb 9.9 L, Hct 31.5 L, MCV 93.5, MCH 29.4, MCHC 31.4 L, RDW 13.9, RDW Differential 45.9 H, Plt Count 175, MPV 11.1, Immature Gran % (Auto) 0.200, Neut % (Auto) 73.5 H, Lymph % (Auto) 13.1 L, [place] % (Auto) 9.1, Eos % (Auto) 3.3, Baso % (Auto) 0.8, Absolute Neuts (auto) 4.8, Absolute Lymphs (auto) 0.86, Total Counted Not Reportable 03/21/18 06:37: Sodium 141, Potassium 4.2, Chloride 113 H, Carbon Dioxide 23.0, Anion Gap 5, BUN 36 H, Creatinine 2.06 H, Estim Creat Clear Calc 26.33, Est GFR (MDRD) Af Amer 31 L, Est GFR (MDRD) Non-Af 26 L, BUN/Creatinine Ratio 17.5, Glucose 323 H, Calcium 8.1 L Current Medications Al Hydroxide/Mg Hydroxide (Mylanta Ii) 30 ml PO Q6H PRN PRN PRN Reason: Gastric burning Last Admin: 03/20/18 22:44 Dose: 30 ml Albuterol Sulfate (Ventolin Aerosols) 2.5 mg INHALATION Q2H PRN PRN PRN Reason: dyspnea, wheezing Amoxicillin/Clavulanate Potassium (Augmentin Tablet) 500 mg PO BID [facility] Last Admin: 03/20/18 22:57 Dose: 500 mg Aspirin (Aspirin, Baby) 81 mg PO DAILYCM [facility] Atorvastatin Calcium (Lipitor) 40 mg PO DAILY [facility] Carvedilol (Coreg) 3.125 mg PO BID [facility] Last Admin: 03/20/18 22:57 Dose: 3.125 mg Fluticasone Propionate (Flonase Nasal [place]) 1 spray NASAL BID [facility] Last Admin: 03/20/18 22:57 Dose: 1 spray Furosemide (Lasix) 20 mg PO BIDLX [facility] Guaifenesin (Mucinex) 1,200 mg PO BID [facility] Last Admin: 03/20/18 22:57 Dose: 1,200 mg Heparin Sodium (Porcine) (Heparin Na) 5,000 unit SC Q12 [facility] Last Admin: 03/20/18 22:57 Dose: 5,000 u Insulin Human Lispro (Humalog Kwikpen (Bkc)) 0 unit SC ACHS [facility] PRN Reason: Protocol Insulin Human Lispro (Humalog Kwikpen (Bkc)) 5 unit SC TIDAC [facility] Isosorbide Mononitrate (Imdur) 30 mg PO DAILY [facility] Magnesium Hydroxide (Milk Of Magnesia) 30 ml PO DAILY PRN PRN PRN Reason: Constipation Non-Formulary Medication (Alendronate Sodium [Alendronate Sodium]) 35 mg PO DAILY [facility] Nutritional Formula (Lactose Free) (Glucerna Shake) 120 ml PO 4X/DAY [facility] Last Admin: 03/20/18 22:56 Dose: 120 ml Ondansetron HCl (Zofran) 4 mg IV Q8H PRN PRN PRN Reason: NAUSEA Potassium Chloride (K-Dur) 10 meq PO BID [facility] Last Admin: 03/20/18 22:57 Dose: 10 meq Sodium Chloride () 5 - 30 ml IV UD PRN PRN Reason: SALINE FLUSH Trazodone HCl (Desyrel) 50 - 100 mg PO QHS [facility] Last Admin: 03/20/18 22:57 Dose: 100 mg Medical Necessity - Tobacco Use Smoking Status: Never smoker Tobacco Use: Non-smoker Assessment/Plan Active and Suspected Problems Hypoglycemia (Acute) The patient is a 62 y/o F w/ PMHx: CAD s/p CABG, AOCD, CKD stage IV, HTN, HLD, Interstitial Lung Disease, Diabetes mellitus type I who presents to the [facility] ED on 03/20/18 with history of recent treatment for acute bronchitis on oral antibiotic therapy as well as nasal steroid regimen with improvement with history of difficulties ongoing with labile blood sugars 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 (1) Acute Encephalopathy and Unresponsive Event secondary to Severe Hypoglycemia w/ Labile Diabetes mellitus type I: Admitted to [place], maintained on telemetry monitoring given unresponsive event, held insulin regimen w/ recent outpatient changes although notably more elevated than prior admissions from review. Now elevated BS, although has been labile. Given improved status, IVFs d /c dextrose component, will transition to ACHS accu checks, will transition to only 5 u short acting insulin TID w/ meals and continue to monitor given severity of lability and need to assure does not have hypoglycemic recurrent event prior to discharge. If maintains appropriate BS, would plan discharge only only short-acting lower TID dose only w/ ISS as needed w/ follow-up with Endocrinology. (2) Recent Acute Bronchitis: Will continue recent oral abx augmentin regimen, encourage HOB, IS, flonase, PRN albuterol. (3) CAD: s/p CABG x 4, continue home regimen asa, statin, BB. (4) Hypertension: Continue home regimen including Coreg, Lasix, Imdur, PRN hydralazine. (5) Hyperlipidemia: Continue home statin regimen. (6) Chronic Kidney Disease Stage IV: Admission BUN/Cr 38/2.28, baseline renal function 2.2-2.5, 03/21/18 BUN/Cr 36/2.06. (7) Chronic normocytic anemia, AOCD: Admission Hgb 11.5, repeat 03/21/18 Hgb 9.9 following hydration, trend. (8) BL LE Edema, Pain: Noted several day history of BL LE edema and tenderness, especially with palpation, DVT US BL LE pending. (9) DVT Prophylaxis: SCDs, heparin. Code Visit Inpatient E&M: [id number] Subs Hosp L2
[2018-03-21] MEDS: Amox/Clavulanate 500 MG Tablet PO ×2 (08:39→22:36)
[2018-03-21] MEDS: Glucerna Shake 120 ML LIQUID PO ×4 (08:39→22:35)
[2018-03-21] MEDS: guaiFENesin 1,200 MG Tablet 1200 MG PO ×2 (08:39→22:37)
[2018-03-21] MEDS: Aspirin 81 MG TAB.CHEW PO (08:39)
[2018-03-21] MEDS: Carvedilol 3.125 MG TABLET PO ×2 (08:40→22:36)
[2018-03-21] MEDS: Furosemide 20 MG Tablet PO ×2 (08:40→18:15)
[2018-03-21] MEDS: Isosorbide Mononitrate 30 MG Tablet PO (08:41)
[2018-03-21] MEDS: 0.9% NaCl Peripheral Flush Adult/Peds IV (08:41)
--- NOTE | 2018-03-21 09:34 | CASEMGMT ---
Social Work Referral: Limited Support Reviewed chart. Spoke with patient in room. Patient reporting to live with patient mother in a 2-story farm house with a 1st floor set up. Patient reporting to that patient mother does not need assistance but that patient lives with mother to offer companionship and assistance if needed. Patient reporting to have multiple siblings that check in with both patient and patient mother day. Patient reporting that family is able to provide 24hr care to either patient and patient mother if needed. Patient reporting that [facility] in [place] is primary pharmacy. Patient reporting to have a 3 wheeled rollaider at home and to utilize at times but not all the time. Patient reporting to be mostly independent prior to hospitalization. Patient reporting no transportation concerns. Patient reporting to have had home health services through [facility] back in 2017. Patient not interested in any home health therapies at this time and reporting to be planning to discharge back home with mother at time of discharge with family for support. Patient currently SBA with staff with mobility. Anticipating no needs. Support given. PLAN: Discharge home with mother and family for support. 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
[2018-03-21] MEDS: Heparin Injection (Vial) 5,000 UNIT/ML VIAL 5000 UNIT SC ×2 (10:34→22:38)
[2018-03-21] MEDS: Fluticasone 0.05% 1 SPRAY NASAL.SRY NASAL ×2 (10:34→22:35)
[2018-03-21] MEDS: Atorvastatin Calcium 40 MG Tablet PO (10:36)
[2018-03-21 11:01] LABS: Bedside Glucose 80 mg/dL (70-110)
[2018-03-21 11:01] LABS: Bedside Glucose 84 mg/dL (70-110)
[2018-03-21 11:06] LABS: Bedside Glucose 424 mg/dL (70-110)
[2018-03-21 14:36] LABS: Bedside Glucose 458 mg/dL (70-110)
[2018-03-21] MEDS: Insulin Lispro 100 UNIT/ML INSULN.PEN 10 UNIT SC (14:47)
[2018-03-21 16:35] LABS: Bedside Glucose 397 mg/dL (70-110)
[2018-03-21] MEDS: traZODone 50 MG Tablet PO (22:43)
[2018-03-21 22:56] LABS: Bedside Glucose 272 mg/dL (70-110)
[2018-03-22] VITALS (10 sets, daily range): BP systolic 149–173; BP diastolic 54–75; PULSE 68–80; RESP 16–18; TEMP 36.4–37; O2SAT 93–100
[2018-03-22] MEDS: Carvedilol 3.125 MG TABLET PO (05:01)
[2018-03-22] MEDS: Isosorbide Mononitrate 30 MG Tablet PO (05:02)
[2018-03-22 07:00] LABS: Bedside Glucose 413 mg/dL (70-110)
[2018-03-22 07:38] LABS: Absolute Lymphocyte Count 1.01 X10^3/ul (0.83-4.51); Absolute Neutrophil Count 4.8 X10^3/uL (2.0-7.7); Basophil# 0.04 X10^3/uL; Basophil% 0.6 % (0-1); Differential Indicated SCAN CRITERIA MET; Eosinophil# 0.36 X10^3/uL; Eosinophils% 5.4 % (0-5); Hematocrit 30.8 % (37-47); Hemoglobin 9.6 g/dl (12.0-15.0); Lymphocyte # 1.01 X10^3/ul (4.0); Lymphocyte % 15.1 % (19-41); Mean Corp Hgb Conc 31.2 g/gl (32-36); Mean Corpuscular Volume 93.1 fL (81-99); Mean Platelet Vol. 10.8 fl (6.2-12.0); Monocyte# 0.43 X10^3/uL; Monocyte% 6.4 % (0-10); Neutrophil # 4.81 X10^3/uL (2.7-7.7); Neutrophil % 72.2 % (47-70); POSITIVE COUNT NO; POSITIVE DIFFERENTIAL NO; POSITIVE MORPHOLOGY YES; Platelet Count 174 K/mm3 (150-450); RBC Distribution Width CV 13.9 % (11.6-14.6); RBC Distribution Width SD 47.1 fl (35.1-43.9); Red Blood Count 3.31 M/mm3 (4.2-5.4); White Blood Count 6.7 K/mm3 (4.4-11.0)
[2018-03-22] MEDS: Aspirin 81 MG TAB.CHEW PO (07:53)
[2018-03-22] MEDS: Insulin Lispro 100 UNIT/ML INSULN.PEN SC ×8 (07:54→16:51)
[2018-03-22] MEDS: Amox/Clavulanate 500 MG Tablet PO (07:54)
[2018-03-22] MEDS: guaiFENesin 1,200 MG Tablet 1200 MG PO (07:55)
[2018-03-22] MEDS: Furosemide 20 MG Tablet PO ×2 (07:55→16:59)
[2018-03-22] MEDS: Glucerna Shake 120 ML LIQUID PO (07:56)
[2018-03-22 08:01] LABS: Anion Gap 7 (5-15); BUN 39 mg/dL (7-18); BUN/Creat Ratio 18.2 RATIO (10-20); Calcium,Total 8.4 mg/dL (8.5-10.1); Chloride 110 mmol/L (98-107); Creatinine, Serum 2.14 mg/dL (0.55-1.02); EST Glomerular Filtration Rate 25 mL/min (>60); Est Glom Filt Rate - Afr Amer 30 mL/min (>60); Estimated Creatinine Clearance 25.34 ml/min; Glucose 422 mg/dL (74-106); Sodium Level 136 mmol/L (136-145)
[2018-03-22 08:16] LABS: Differential Comment SCANNED
[2018-03-22] MEDS: Acetaminophen 325 MG Tablet 650 MG PO (09:20)
[2018-03-22] MEDS: Fluticasone 0.05% 1 SPRAY NASAL.SRY NASAL (09:20)
[2018-03-22] MEDS: Heparin Injection (Vial) 5,000 UNIT/ML VIAL 5000 UNIT SC (09:21)
[2018-03-22] MEDS: Atorvastatin Calcium 40 MG Tablet PO (09:21)
--- NOTE | 2018-03-22 09:47 | PCM.DC ---
- Discharge Diagnoses Current Active Problems: Current Active and Chronic Problems (1) Acute Encephalopathy and Unresponsive Event secondary to Severe Hypoglycemia w/ Labile Diabetes mellitus type I (2) Recent Acute Bronchitis, Resolved (3) CAD s/p CABG x 4 (4) Hypertension (5) Hyperlipidemia (6) Chronic Kidney Disease Stage IV (7) Chronic normocytic anemia, AOCD (8) BL LE Edema, Pain, Chronic (negative DVT US) You will use the following diet at home:: Cardiac Your food should be the consistency of: Regular Your liquids should be the consistency of: Regular/Thin Discharge Activity: Return to Normal Activity May resume sexual activity in: No Restrictions Weight Bearing Status: Weight bearing as tolerated Call your doctor if you observe: Fever of 101 or Higher, Inability to urinate, Inability to have a bowel movement, Shortness of breath, Dizziness, Fainting spells, Chest pain, Uncontrolled pain, - - Uncontrolled blood sugars including low and high. Continue to keep log and bring with you to your endocrinology visits. Instructions: Hypoglycemia (Low Blood Sugar), What is Type 1 Diabetes?, Types of Insulin Additional Instructions: Contact your Endocrinology office upon discharge. Notify them of recent decrease in insulin amounts secondary to severe hypoglycemia with unresponsive event and hospital admission. You may slowly need to increase the regimen again. The regimen noted has been decreased broadly. Allergies/Adverse Reactions: Allergies No Known Allergies Allergy (Verified 12/24/17 10:52) Medications to take at Discharge Aspirin [Aspirin, Baby] 81 mg PO DAILY 04/09/15 Isosorbide Mononitrate [Imdur] 30 mg PO DAILY 10/02/15 Atorvastatin Calcium [Lipitor] 40 mg PO QHS 03/18/17 Albuterol Inhaler [Ventolin Hfa] 1 puff INHALATION Q4H PRN PRN #1 inhaler 12/29/17 Carvedilol [Coreg (Beta Janett)] 3.125 mg PO BID #30 12/29/17 Alendronate Sodium 35 mg PO WE 03/20/18 Furosemide [Lasix] 20 mg PO BID 03/20/18 Insulin Aspart [Novolog Flexpen] 5 units SC LUNCH 03/20/18 Potassium Chloride 10 meq PO BID 03/20/18 Triamcinolone Acetonide [Nasacort] 1 spray NS DAILY 03/20/18 traZODone [Desyrel] 50 - 100 mg PO QHS 03/20/18 Fluticasone 0.05% [Flonase Nasal [place]] 1 spray NASAL BID nasal.sry 03/22/18 Insulin Aspart [Novolog Flexpen] 5 units SC BREAKFAST #0 03/22/18 Insulin Aspart [Novolog Flexpen] 5 units SC DINNER #0 03/22/18 Insulin NPH Human Isophane [Novolin N] 3 units SC QHS #0 03/22/18 Primary Care Physician: Sergio Maxwell DO [Primary Care Provider] - Please follow up with your Primary Care Physician in: Follow-up with your PCP within 3-5 days to review admission. Please Follow Up With: Endocrinology When: Please contact their office and notify of admit, follow-up within 1 week. Proposed Discharge Date: 03/22/18
--- NOTE | 2018-03-22 10:07 | PCM.DC.SUM ---
Discharge Date and Diagnosis - Problem List Patient Problems: Active and Suspected Problems Hypoglycemia (Acute) Date of Admission: 03/20/18 Date of Discharge: 03/22/18 - Primary Discharge Diagnosis Active and Suspected Problems (1) Acute Encephalopathy and Unresponsive Event secondary to Severe Hypoglycemia w/ Labile Diabetes mellitus type I (2) Recent Acute Bronchitis, Resolved (3) CAD s/p CABG x 4 (4) Hypertension (5) Hyperlipidemia (6) Chronic Kidney Disease Stage IV (7) Chronic normocytic anemia, AOCD (8) BL LE Edema, Pain, Chronic (negative DVT US) - Secondary Discharge Diagnosis Chronic Problems CAD (coronary artery disease) (Chronic) CAP (community acquired pneumonia) (Chronic) Anemia of chronic disease (Chronic) Uncontrolled type I diabetes mellitus (Chronic) Elevated troponin (Chronic) Hypertension (Chronic) Coronary artery disease (Chronic) Status post CABG in 2005 Diabetes mellitus type 1 (Chronic) Hx of CABG (Chronic) Interstitial lung disease (Chronic) Chronic renal failure, stage 4 (severe) (Chronic) Hospital Course and Treatment Operations: None Procedures: EKG Summary of Care Provided: The patient is a 62 y/o F w/ PMHx: CAD s/p CABG, AOCD, CKD stage IV, HTN, HLD, Interstitial Lung Disease, Diabetes mellitus type I who presented to the [facility] ED on 03/20/18 with history of recent treatment for acute bronchitis on oral antibiotic therapy as well as nasal steroid regimen with improvement with history of difficulties ongoing with labile blood sugars 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 Admitted to [place], maintained on telemetry monitoring given unresponsive event, held insulin regimen w/ recent outpatient changes although notably more elevated than prior admissions from review. Improved w/ then elevated BS, although was noted to have been labile. Given improved status, IVFs d/c dextrose component, transitioned to ACHS accu checks and then to only 5 u short acting insulin TID w/ meals and continue to monitor given severity of lability and need to assure does not have hypoglycemic recurrent event prior to discharge. BS remains stable in AM as well, thus following discussions maintained on Novolin 3 u q HS (prior 6 u) and TID 5 u aspart insulin. Instructed her upon discharge to contact her endocrinology office to arrange follow-up and note recent decrease in regimen w/ possible need for slow upward increase based on her BS log. Also, requested staff to leave VM on endocrinology VM about admission and regimen changes. Patient completed recent abx for recent acute bronchitis thus discontinued upon discharge. Patient noted ongoing chronic mild BL LE edema, discomfort, DVT US negative, encouraged ALBA hose, elevation with PCP follow-up. Patient discharged to home in stable, improved condition w/ PCP and Endocrinology follow-up. DAY OF DISCHARGE PROGRESS NOTE: Subjective: Patient without acute event overnight per self and nursing report. She had no recurrent hypoglycemic events and BS remained 100-200 overnight into AM with recent changes. Patient denies fever, chills, nausea, emesis, abdominal pain, chest pain or dyspnea. Reviewed negative BL LE DVT US. Patient agreeable to discharge to home given stable BS. Patient will be discharged with follow-up with primary care physician within 3-5 days in addition to Endocrinology follow-up and office notification. Objective: T 98.3, heart rate 73, BP 156/75, respiratory rate 18, 93% on room air. Physical Examination: General: awake, alert, oriented x 3 and cooperative, seated upright in the bed, improved appearance. Skin: normal color, turgor, no icterus, cyanosis. HEENT: AT/NC, EOMI, PERRLA, improved MMM. Lungs: CTA bilaterally, moderate effort, mild decrease BL bases, no rales, ronchi or wheezing. Heart: Regular rate and rhythm; no gallop, rub audible. Abdomen: soft, NTTP, ND, normal BS. Extremities: no cyanosis, clubbing, bilateral lower extremity ankle to distal jose decreased edema, elevated, negative DVT US. Neurological: patient awake, alert, oriented x 3; cognitive function intact; pupils equally reactive to light and accomodation; cranial nerves II-XII grossly normal, moving all 4 extremities, no focal deficits, strength improved, mildly decreased. Psychiatric: affect appears normal, no acute evidence of depressive or anxiety feelings. Assessment and Plan: Please see hospital summary above. Discharge Activity: Return to Normal Activity May resume sexual activity in: No Restrictions Weight Bearing Status: Weight bearing as tolerated Call your doctor if you observe: Fever of 101 or Higher, Inability to urinate, Inability to have a bowel movement, Shortness of breath, Dizziness, Fainting spells, Chest pain, Uncontrolled pain, - - Uncontrolled blood sugars including low and high. Continue to keep log and bring with you to your endocrinology visits. Home Medications: Medications to take at Discharge Aspirin [Aspirin, Baby] 81 mg PO DAILY 04/09/15 Isosorbide Mononitrate [Imdur] 30 mg PO DAILY 10/02/15 Atorvastatin Calcium [Lipitor] 40 mg PO QHS 03/18/17 Albuterol Inhaler [Ventolin Hfa] 1 puff INHALATION Q4H PRN PRN #1 inhaler 12/29/17 Carvedilol [Coreg (Beta Janett)] 3.125 mg PO BID #30 12/29/17 Alendronate Sodium 35 mg PO WE 03/20/18 Furosemide [Lasix] 20 mg PO BID 03/20/18 Insulin Aspart [Novolog Flexpen] 5 units SC LUNCH 03/20/18 Potassium Chloride 10 meq PO BID 03/20/18 Triamcinolone Acetonide [Nasacort] 1 spray NS DAILY 03/20/18 traZODone [Desyrel] 50 - 100 mg PO QHS 03/20/18 Fluticasone 0.05% [Flonase Nasal [place]] 1 spray NASAL BID nasal.sry 03/22/18 Insulin Aspart [Novolog Flexpen] 5 units SC BREAKFAST #0 03/22/18 Insulin Aspart [Novolog Flexpen] 5 units SC DINNER #0 03/22/18 Insulin NPH Human Isophane [Novolin N] 3 units SC QHS #0 03/22/18 Primary Care Physician: Sergio Maxwell DO [Primary Care Provider] - Please follow up with your Primary Care Physician in: Follow-up with your PCP within 3-5 days to review admission. Please Follow Up With: Endocrinology When: Please contact their office and notify of admit, follow-up within 1 week. Patient Instructions: Hypoglycemia (Low Blood Sugar), What is Type 1 Diabetes?, Types of Insulin Disposition: Home Minutes spent on discharge:: 35 Patient Condition:: Fair Medical Necessity - Tobacco Use Smoking Status: Never smoker Tobacco Use: Non-smoker Meaningful Use Info Meaningful Use Diagnoses (Choose all that apply): None applicable Code Visit Inpatient E&M: 19946 Disch Hosp
--- NOTE | 2018-03-22 10:14 | DS.PCM_ITS ---
Discharge Date and Diagnosis - Problem List Patient Problems: Active and Suspected Problems Hypoglycemia (Acute) Date of Admission: 03/20/18 Date of Discharge: 03/22/18 - Primary Discharge Diagnosis Active and Suspected Problems (1) Acute Encephalopathy and Unresponsive Event secondary to Severe Hypoglycemia w/ Labile Diabetes mellitus type I (2) Recent Acute Bronchitis, Resolved (3) CAD s/p CABG x 4 (4) Hypertension (5) Hyperlipidemia (6) Chronic Kidney Disease Stage IV (7) Chronic normocytic anemia, AOCD (8) BL LE Edema, Pain, Chronic (negative DVT US) - Secondary Discharge Diagnosis Chronic Problems CAD (coronary artery disease) (Chronic) CAP (community acquired pneumonia) (Chronic) Anemia of chronic disease (Chronic) Uncontrolled type I diabetes mellitus (Chronic) Elevated troponin (Chronic) Hypertension (Chronic) Coronary artery disease (Chronic) Status post CABG in 2005 Diabetes mellitus type 1 (Chronic) Hx of CABG (Chronic) Interstitial lung disease (Chronic) Chronic renal failure, stage 4 (severe) (Chronic) Hospital Course and Treatment Operations: None Procedures: EKG Summary of Care Provided: The patient is a 62 y/o F w/ PMHx: CAD s/p CABG, AOCD, CKD stage IV, HTN, HLD, Interstitial Lung Disease, Diabetes mellitus type I who presented to the [facility] ED on 03/20/18 with history of recent treatment for acute bronchitis on oral antibiotic therapy as well as nasal steroid regimen with improvement with history of difficulties ongoing with labile blood sugars 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 Admitted to [place], maintained on telemetry monitoring given unresponsive event, held insulin regimen w/ recent outpatient changes although notably more elevated than prior admissions from review. Improved w/ then elevated BS, although was noted to have been labile. Given improved status, IVFs d/c dextrose component, transitioned to ACHS accu checks and then to only 5 u short acting insulin TID w / meals and continue to monitor given severity of lability and need to assure does not have hypoglycemic recurrent event prior to discharge. BS remains stable in AM as well, thus following discussions maintained on Novolin 3 u q HS (prior 6 u) and TID 5 u aspart insulin. Instructed her upon discharge to contact her endocrinology office to arrange follow-up and note recent decrease in regimen w/ possible need for slow upward increase based on her BS log. Also, requested staff to leave VM on endocrinology VM about admission and regimen changes. Patient completed recent abx for recent acute bronchitis thus discontinued upon discharge. Patient noted ongoing chronic mild BL LE edema, discomfort, DVT US negative, encouraged ALBA hose, elevation with PCP follow-up. Patient discharged to home in stable, improved condition w/ PCP and Endocrinology follow-up. DAY OF DISCHARGE PROGRESS NOTE: Subjective: Patient without acute event overnight per self and nursing report. She had no recurrent hypoglycemic events and BS remained 100-200 overnight into AM with recent changes. Patient denies fever, chills, nausea, emesis, abdominal pain, chest pain or dyspnea. Reviewed negative BL LE DVT US. Patient agreeable to discharge to home given stable BS. Patient will be discharged with follow-up with primary care physician within 3-5 days in addition to Endocrinology follow- up and office notification. Objective: T 98.3, heart rate 73, BP 156/75, respiratory rate 18, 93% on room air. Physical Examination: General: awake, alert, oriented x 3 and cooperative, seated upright in the bed, improved appearance. Skin: normal color, turgor, no icterus, cyanosis. HEENT: AT/NC, EOMI, PERRLA, improved MMM. Lungs: CTA bilaterally, moderate effort, mild decrease BL bases, no rales, ronchi or wheezing. Heart: Regular rate and rhythm; no gallop, rub audible. Abdomen: soft, NTTP, ND, normal BS. Extremities: no cyanosis, clubbing, bilateral lower extremity ankle to distal jose decreased edema, elevated, negative DVT US. Neurological: patient awake, alert, oriented x 3; cognitive function intact; pupils equally reactive to light and accomodation; cranial nerves II-XII grossly normal, moving all 4 extremities, no focal deficits, strength improved, mildly decreased. Psychiatric: affect appears normal, no acute evidence of depressive or anxiety feelings. Assessment and Plan: Please see hospital summary above. Discharge Activity: Return to Normal Activity May resume sexual activity in: No Restrictions Weight Bearing Status: Weight bearing as tolerated Call your doctor if you observe: Fever of 101 or Higher, Inability to urinate, Inability to have a bowel movement, Shortness of breath, Dizziness, Fainting spells, Chest pain, Uncontrolled pain, - - Uncontrolled blood sugars including low and high. Continue to keep log and bring with you to your endocrinology visits. Home Medications: Medications to take at Discharge Aspirin [Aspirin, Baby] 81 mg PO DAILY 04/09/15 Isosorbide Mononitrate [Imdur] 30 mg PO DAILY 10/02/15 Atorvastatin Calcium [Lipitor] 40 mg PO QHS 03/18/17 Albuterol Inhaler [Ventolin Hfa] 1 puff INHALATION Q4H PRN PRN #1 inhaler Carvedilol [Coreg (Beta Janett)] 3.125 mg PO BID #30 12/29/17 Alendronate Sodium 35 mg PO WE 03/20/18 Furosemide [Lasix] 20 mg PO BID 03/20/18 Insulin Aspart [Novolog Flexpen] 5 units SC LUNCH 03/20/18 Potassium Chloride 10 meq PO BID 03/20/18 Triamcinolone Acetonide [Nasacort] 1 spray NS DAILY 03/20/18 traZODone [Desyrel] 50 - 100 mg PO QHS 03/20/18 Fluticasone 0.05% [Flonase Nasal [place]] 1 spray NASAL BID nasal.sry 03/22/18 Insulin Aspart [Novolog Flexpen] 5 units SC BREAKFAST #0 03/22/18 Insulin Aspart [Novolog Flexpen] 5 units SC DINNER #0 03/22/18 Insulin NPH Human Isophane [Novolin N] 3 units SC QHS #0 03/22/18 Primary Care Physician: Sergio Maxwell DO [Primary Care Provider] - Please follow up with your Primary Care Physician in: Follow-up with your PCP within 3-5 days to review admission. Please Follow Up With: Endocrinology When: Please contact their office and notify of admit, follow-up within 1 week. Patient Instructions: Hypoglycemia (Low Blood Sugar), What is Type 1 Diabetes? , Types of Insulin Disposition: Home Minutes spent on discharge:: 35 Patient Condition:: Fair Medical Necessity - Tobacco Use Smoking Status: Never smoker Tobacco Use: Non-smoker Meaningful Use Info Meaningful Use Diagnoses (Choose all that apply): None applicable Code Visit Inpatient E&M: 30581 Disch Hosp
[2018-03-22 10:51] LABS: Bedside Glucose > 500 mg/dL (70-110)
[2018-03-22] MEDS: Insulin NPH Human 100 UNITS/ML PEN SC (11:22)
[2018-03-22 15:46] LABS: Bedside Glucose 424 mg/dL (70-110)
[2018-03-22 16:35] LABS: Bedside Glucose 440 mg/dL (70-110)
[2018-03-22 18:16] LABS: Bedside Glucose 314 mg/dL (70-110)
--- NOTE | 2018-03-26 15:51 | CASEMGMT ---
LAWSON OROPEZA Discharge Follow-up Phone Call: JES: Elaina Strata: 3 Call Date: 03/26/18 Discharge Date: 03/22/18 Time of Call: 1551 Duration: 5 Min Admitting Diagnosis: Encephalopathy, Hypoglycemia LAWSON OROPEZA completed follow-up phone call after recent hospitalization. Patient states that she is doing ok. Patient had no questions regarding discharge instructions. 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 LAWSON OROPEZA provided number for [facility]. Patient has not scheduled to PCP and was reminded to schedule appt with Dr. Lee.
== END 2018-03-22 18:58 | disposition home or self-care (01) | DRG 637 ==
LOC: ED 17:20 → MS3 19:51
PROVIDERS: Internal Medicine; Admitting Provider Family Medicine; Emergency Provider Emergency Medicine; Family Provider Preventive Medicine Occupational Medicine; PCP Preventive Medicine Occupational Medicine; Visit Provider Family Medicine
DX: E10.649 Type 1 diabetes mellitus with hypoglycemia without coma (principal); G93.41 Metabolic encephalopathy; J84.9 Interstitial pulmonary disease, unspecified; E10.22 Type 1 diabetes mellitus with diabetic chronic kidney disease; I12.9 Hypertensive chronic kidney disease with stage 1 through stage 4 chronic kidney disease, or unspecified chronic kidney disease; N18.4 Chronic kidney disease, stage 4 (severe); D63.8 Anemia in other chronic diseases classified elsewhere; E10.65 Type 1 diabetes mellitus with hyperglycemia; I25.10 Atherosclerotic heart disease of native coronary artery without angina pectoris; E78.5 Hyperlipidemia, unspecified; J20.9 Acute bronchitis, unspecified; Z79.4 Long term (current) use of insulin; Z79.82 Long term (current) use of aspirin; Z79.899 Other long term (current) drug therapy; Z87.01 Personal history of pneumonia (recurrent); Z95.1 Presence of aortocoronary bypass graft
CPT/HCPCS: 36415; 80048; 81001; 82947; 82962; 83735; 84443; 85025; 93970; 97802; 99285; J7030; A4216

== ENCOUNTER → 2018-05-21 09:28 | Outpatient (CLI) | payer MEDICARE, MEDICAID, SELFPAY ==
--- NOTE | 2018-05-27 08:37 | LEAS ---
Arterial Study - Arterial Study Arterial Study: Date of scan 05/21/[address] Louis History patient with known claudication and peripheral vascular disease. With a history of diabetes hypertension coronary artery disease. Next Interpretation: Right lower extremity has fairly normal pulsatile waveform noted at the ankle out through the digits. Duplex appears to be more biphasic flow of both vessels. With an JOHNATHAN 1.22 at the PT and 1.14 the DP. Digit brachial index 0.46. Next Left lower extremity with adequate waveform noted at the ankle out through the digits duplex again is biphasic flow both vessels. With an JOHNATHAN 0.6 and the PT 0.84 the DP. Digit brachial index 0.33. Impression: 1. Right lower extremity with normal JOHNATHAN at rest and 1.22. The flow is decreased with a poor biphasic waveform almost a monophasic waveform noted. May wish further means of evaluation as these may be falsely elevated. 2. Left lower extremity with mild arterial occlusive disease at rest at rest with an JOHNATHAN 0.84 and biphasic flow. 3. Bilateral lower extremities with evidence of small vascular disease with the digit brachial index 0.46 on the right 0.33 on the left.
--- NOTE | 2018-05-27 08:40 | LEAS_ITS ---
Arterial Study - Arterial Study Arterial Study: Date of scan 05/21/[address] Louis History patient with known claudication and peripheral vascular disease. With a history of diabetes hypertension coronary artery disease. Next Interpretation: Right lower extremity has fairly normal pulsatile waveform noted at the ankle out through the digits. Duplex appears to be more biphasic flow of both vessels. With an JOHNATHAN 1.22 at the PT and 1.14 the DP. Digit brachial index 0.46. Next Left lower extremity with adequate waveform noted at the ankle out through the digits duplex again is biphasic flow both vessels. With an JOHNATHAN 0.6 and the PT 0.84 the DP. Digit brachial index 0.33. Impression: 1. Right lower extremity with normal JOHNATHAN at rest and 1.22. The flow is decreased with a poor biphasic waveform almost a monophasic waveform noted. May wish further means of evaluation as these may be falsely elevated. 2. Left lower extremity with mild arterial occlusive disease at rest at rest with an JOHNATHAN 0.84 and biphasic flow. 3. Bilateral lower extremities with evidence of small vascular disease with the digit brachial index 0.46 on the right 0.33 on the left.
== END ==
PROVIDERS: Family Provider Preventive Medicine Occupational Medicine; PCP Preventive Medicine Occupational Medicine; Visit Provider Surgery Vascular Surgery
DX: I70.213 Atherosclerosis of native arteries of extremities with intermittent claudication, bilateral legs (principal); I51.9 Heart disease, unspecified; E11.9 Type 2 diabetes mellitus without complications; I10 Essential (primary) hypertension
CPT/HCPCS: 93922

== ENCOUNTER 2018-10-28 19:26 | Emergency (ER) | payer MEDICARE, MEDICAID, SELFPAY ==
[2018-10-28 19:28] VITALS: BP 145/103; PULSE 103; PULSE 104; RESP 17; TEMP 36.8; O2SAT 96; BMI 23.7
[2018-10-28 20:16] LABS: Bedside Glucose 299 mg/dL (70-110)
[2018-10-28 22:03] LABS: Mucous, Urine 0 SEEN /hpf (<or=2+); Red Blood Cells-Urine 0 SEEN /hpf (0-5)
[2018-10-28 22:07] LABS: Color, Urine Yellow (Yellow); Glucose, Dipstick Normal (Normal); Ketone-Dipstick 5 mg/dl (Negative); Leukocyte Esterase-Dipstick 500 /ul (Negative); Nitrite-Dipstick Negative (Negative); Occult Blood-Urine 25 /ul (Negative); Protein-Dipstick 100 mg/dl (Negative); Urine Bilirubin Dipstick Negative (Negative); Urine Clarity Sl. Cloudy (Clear); Urine Urobilinogen Normal (Normal)
[2018-10-28] MEDS: 0.9% Normal Saline 1,000 ML 1000 ML IV (22:14)
[2018-10-28 22:21] LABS: Transitional Epithelial - Ur 0-5 SEEN /hpf (0-5)
[2018-10-28 22:22] LABS: Squamous Epithelial Cells - UA 0-5 SEEN /hpf (5-10); White Blood Cells 25-50 SEEN /hpf (0-5)
[2018-10-28 22:24] LABS: Bacteria RARE /hpf (None Seen); Fine Granular Cast- Urine 0-5 SEEN /lpf (0-5)
[2018-10-28] MEDS: Ondansetron 4 MG/2 ML Vial IV (22:24)
[2018-10-28 23:36] VITALS: BP 139/59; PULSE 103; RESP 17; TEMP 37.3; O2SAT 95
[2018-10-28 23:44] LABS: Absolute Lymphocyte Count 0.49 X10^3/ul (0.83-4.51); Absolute Neutrophil Count 9.5 X10^3/uL (2.0-7.7); Basophil# 0.03 X10^3/uL; Basophil% 0.3 % (0-1); Eosinophil# 0.01 X10^3/uL; Eosinophils% 0.1 % (0-5); Hemoglobin 10.9 g/dl (12.0-15.0); Lymphocyte # 0.49 X10^3/ul (4.0); Lymphocyte % 4.5 % (19-41); Mean Corp Hgb Conc 32.1 g/gl (32-36); Mean Corpuscular Hgb 29.4 pg (27.0-32.0); Mean Corpuscular Volume 91.6 fL (81-99); Mean Platelet Vol. 11.2 fl (6.2-12.0); Monocyte# 0.78 X10^3/uL; Monocyte% 7.2 % (0-10); Neutrophil # 9.47 X10^3/uL (2.7-7.7); Neutrophil % 87.6 % (47-70); Platelet Count 169 K/mm3 (150-450); RBC Distribution Width CV 12.6 % (11.6-14.6); Red Blood Count 3.71 M/mm3 (4.2-5.4); White Blood Count 10.8 K/mm3 (4.4-11.0)
[2018-10-28] MEDS: 0.9% Normal Saline 1,000 ML 150 ML IV (23:46)
[2018-10-28 23:51] LABS: Differential Indicated SCAN CRITERIA MET; POSITIVE COUNT NO; POSITIVE DIFFERENTIAL YES; POSITIVE MORPHOLOGY NO
[2018-10-28 23:55] LABS: Anion Gap 15 (5-15); BUN 59 mg/dL (7-18); BUN/Creat Ratio 20.8 RATIO (10-20); Calcium,Total 7.6 mg/dL (8.5-10.1); Chloride 108 mmol/L (98-107); Creatinine, Serum 2.83 mg/dL (0.55-1.02); EST Glomerular Filtration Rate 18 mL/min (>60); Est Glom Filt Rate - Afr Amer 22 mL/min (>60); Estimated Creatinine Clearance 14.99 ml/min; Glucose 301 mg/dL (74-106); Potassium 3.6 mmol/L (3.5-5.1); Sodium Level 139 mmol/L (136-145)
--- NOTE | 2018-10-29 00:33 | ED.VISSUMM ---
- ER Visit Summary Date of Service: 10/29/18 Chief Complaint: Nausea, vomiting, diarrhea History of Present Illness: The patient is a 62 F reports nausea, vomiting, and diarrhea last evening. Today she has had nausea and vomiting all day. She denies fever. She states her abdomen feels queasy but she does not really have significant abdominal pain. Past history significant for coronary disease, diabetes, hypertension, chronic renal failure. Physical Examination: Vital signs significant only for heart rate of 103. Patient is afebrile. Patient sitting upright in bed no acute distress. She is nontoxic appearing. Head neck examination is unremarkable. Heart is regular rate and rhythm. Lung sounds are clear. Abdomen is soft and nontender. Hypoactive bowel sounds are noted throughout. Test Results: CBC was normal white count with hemoglobin 10.9. Chemistry studies reveal glucose of 301, BUN 59, creatinine 2.83. Renal function is only slightly worsened over baseline. Urinalysis does show 25-50 white cells with rare bacteria. Emergency Department Course and Treatment: Patient was given Zofran and IV fluids. On repeat evaluation she is tolerating p.o. Urine culture will be sent and she will be treated with a course of Keflex. Prescriptions for Keflex and Zofran have been written. Treatment Plan: [] Disposition: Discharge Impression: 1. Vomiting, improved 2. Cystitis This note was generated with [employer] dictation software. It may contain incorrect words, spelling, and punctuation that were not noted in review of the chart prior to signing ED Disposition - Plan for ED Patient: Disposition: Home or Assisted Living Chief Complaint: Nausea/Vomiting/Diarrhea Instructions: ED Diet Vomiting Diarrhea, ED UTI Cystitis Female Prescriptions: Ondansetron [Zofran Odt] 4 mg PO Q8H PRN PRN #10 tablet PRN Reason: Nausea Cephalexin [Keflex] 500 mg PO Q6 #20 capsule Referrals: Sergio Maxwell DO [Primary Care Provider] - 1 Week
--- NOTE | 2018-10-29 00:36 | DCINST.ED_ITS ---
ED Disposition - Plan for ED Patient: Disposition: Home or Assisted Living Chief Complaint: Nausea/Vomiting/Diarrhea Instructions: ED Diet Vomiting Diarrhea, ED UTI Cystitis Female Prescriptions: Ondansetron [Zofran Odt] 4 mg PO Q8H PRN PRN #10 tablet PRN Reason: Nausea Cephalexin [Keflex] 500 mg PO Q6 #20 capsule Referrals: Sergio Maxwell DO [Primary Care Provider] - 1 Week
[2018-10-29] MEDS: Cephalexin 250 MG Capsule 500 MG PO (00:42)
[2018-10-29] MEDS: Ondansetron ODT 4 MG Tablet PO (01:02)
[2018-10-29 01:08] VITALS: BP 147/61; PULSE 100; RESP 17; O2SAT 94
== END 2018-10-29 01:10 | disposition home or self-care (01) ==
PROVIDERS: Emergency Provider Emergency Medicine; Family Provider Preventive Medicine Occupational Medicine; PCP Preventive Medicine Occupational Medicine
DX: R11.2 Nausea with vomiting, unspecified (principal); N30.90 Cystitis, unspecified without hematuria; R19.7 Diarrhea, unspecified; I25.10 Atherosclerotic heart disease of native coronary artery without angina pectoris; E11.22 Type 2 diabetes mellitus with diabetic chronic kidney disease; I12.9 Hypertensive chronic kidney disease with stage 1 through stage 4 chronic kidney disease, or unspecified chronic kidney disease; N18.9 Chronic kidney disease, unspecified; Z79.82 Long term (current) use of aspirin; Z79.4 Long term (current) use of insulin; Z79.899 Other long term (current) drug therapy
CPT/HCPCS: 80048; 81001; 82962; 85025; 87077; 87086; 87088; 87186; 96361; 96374; 99285; J7030; A4216; J2405

== ENCOUNTER → 2019-08-05 10:07 | Outpatient (CLI) | payer MEDICARE, MEDICAID, SELFPAY ==
--- NOTE | 2019-08-05 10:10 | ADU_ITS ---
Reason For Study: Atherosclerosis Right Velocities Left Velocities Ext. Iliac Artery, dist = 119.8 cm./sec. Ext Iliac Artery, dist = 139.5 cm./sec. Common Femoral Artery, mid = 92.4 cm./sec. Common Femoral Artery, mid = 172.6 cm./sec. Supf Femoral Artery, prox = 77.8 cm./sec. Supf. Femoral Artery, prox = 114.3 cm./sec. Supf Femoral Artery, mid = 92.4 cm./sec. Supf. Femoral Artery, mid = 139.9 cm./sec. Supf Femoral Artery, dist. = 75.7 cm./sec. Supf. Femoral Artery, dist = 146.2 cm./sec. Profunda Femoral Artery = 61.4 cm./sec. Profunda Femoral Artery = 88.8 cm./sec. Popliteal Artery, prox. = 89.2 cm./sec. Popliteal Artery, proximal, = 111.1 cm./sec. Popliteal Artery, mid = 72 cm./sec. Popliteal Artery, mid = 80.9 cm./sec. Popliteal Artery, dist = 90.4 cm./sec. Popliteal Artery, distal = 78.7 cm./sec. Post. Tibial Artery, prox = 125.8 cm./sec. Unable to demonstrate flow in the INDUSTRIAL SERVICER and PeroA. Unable to demonstrate flow in the INDUSTRIAL SERVICER mid-distal Ant.Tibial Artery, prox = 62.2 cm./sec. and PeroA. Ant Tibial Artery, mid = 101.6 cm./sec. Ant. Tibial Artery, prox = 97.9 cm./sec. Ant. Tibial Artery, distal = 50.1 cm./sec. Ant. Tibial Artery, mid = 37.6 cm./sec. Ant. Tibial Artery, dist = 108.8 cm./sec. Procedure Exam performed in department. Interpretation Summary 1. Bilateral triphasic flow through popliteal artery with biphasic flow through anterior tibial artery. No significant stenosis seen. 2. Bilateral peroneal and posterior tibial occluded. Ordering Physician: Arturo Louis Referring Physician: MD Sergio Maxwell Performed By: Elda Velazco RVT
--- NOTE | 2019-08-05 10:11 | ART_ITS ---
Reason For Study: Atherosclerosis Procedure A bilateral lower extremity continuous wave Doppler with analog waveform analysis and ankle brachial indexes. Left Segmental Pressures Left brachial= 163mmHg. Left posterior tibial artery = 252mmHg. Left dorsalis pedis artery = 133mmHg. Left digit = 52 mmHg. The left dorsalis pedis waveforms are monophasic. The left posterior tibial artery waveforms are monophasic. Right Segmental Pressures Right brachial= 151mmHg. Right posterior tibial artery = 101mmHg. Right dorsalis pedis artery = 169mmHg. Right digit = 55 mmHg. The right dorsalis pedis waveforms are monophasic. The right posterior tibial artery waveforms are monophasic. Indices The right ankle brachial index by the dorsalis pedis is 1.04. The right ankle brachial index by the posterior tibial artery is 0.62. The right digital-brachial index is 0.34. The left ankle brachial index by the dorsalis pedis is 0.82. The left ankle brachial index by the posterior tibial artery is 1.55. The left digital-brachial index is 0.32. Interpretation Summary 1. Bilateral with biphasic flow and JOHNATHAN 1.04/1.55. This may be falsely elevated. Ordering Physician: Arturo Louis Referring Physician: MD Sergio Maxwell Performed By: Elda Velazco RVT
== END ==
PROVIDERS: Family Provider Preventive Medicine Occupational Medicine; PCP Preventive Medicine Occupational Medicine; Referring Provider Surgery Vascular Surgery; Visit Provider Surgery Vascular Surgery
DX: I70.213 Atherosclerosis of native arteries of extremities with intermittent claudication, bilateral legs (principal); I11.9 Hypertensive heart disease without heart failure; G62.9 Polyneuropathy, unspecified; E11.9 Type 2 diabetes mellitus without complications
CPT/HCPCS: 93922; 93925

== ENCOUNTER 2020-10-03 11:08 | Inpatient (IN) | payer MEDICARE, MEDICAID, SELFPAY ==
[2020-10-03] VITALS (12 sets, daily range): BP systolic 145–169; BP diastolic 66–104; PULSE 92–108; RESP 18–38; TEMP 35.9–36.7; O2SAT 86–100; BMI 24.4
--- NOTE | 2020-10-03 11:30 | EKG12_ITS ---
Test Reason : MORNING EKG Blood Pressure : / mmHG Vent. Rate : 087 BPM Atrial Rate : 087 BPM P-R Int : 148 ms QRS Dur : 094 ms QT Int : 394 ms P-R-T Axes : 063 011 180 degrees QTc Int : 474 ms Normal sinus rhythm ST & T wave abnormality, consider inferolateral ischemia Prolonged QT Abnormal ECG Confirmed by NUBIA CALDERA, DAVIS ([id number]), assignment desk editor TATIANA KIMBROUGH ([id number]) on 10/10/2020 12:42:21 PM Referred By: SURESH Confirmed By:DAVIS DELACRUZ MD
--- NOTE | 2020-10-03 11:32 | ED.DCSUM_ITS ---
History of Present Illness Chief Complaint: Shortness of Breath Informant: Patient Narrative: Patient presenting for evaluation secondary to worsening shortness of breath. Patient has an underlying history of coronary artery disease status post CABG, congestive heart failure, type 1 diabetes, and stage IV kidney disease. Patient tells me that for quite some time but worse recently she has been having issues with peripheral edema, and dyspnea. She reports that she is short of breath at all times, it is worse with laying flat. She denies any chest pain. She denies any recent infectious signs or symptoms such as fever cough nausea or vomiting. She does report that she chronically has loose stools secondary to a medication that she is on. Review of systems otherwise negative. Past Medical History - Allergies and Home Meds Allergies/Adverse Reactions: Allergies No Known Allergies Allergy (Verified 10/28/18 19:27) Primary Care Physician: Sergio Maxwell DO [Primary Care Provider] - Prior records reviewed: Yes Past Medical History: - - Coronary artery disease, congestive heart failure, anemia of chronic disease, stage IV kidney disease, type 1 diabetes Surgical History: - - CABG ?4, bilateral carpal tunnel surgery, eye surgery. Smoking Status: Never smoker Alcohol: None Drugs: None - Family History Maternal Family History: Reports: Heart Disease, Hypertension Paternal Family History: Reports: Heart Disease, Hypertension, Stroke Review of Systems All systems negative except as indicated General: Denies: Chills, Fever, Sweats Eyes: Denies: Visual changes - bilaterally, Diplopia ENT: Denies: Rhinorrhea, Sore throat Cardiovascular: Denies: Chest pain, Palpitations Respiratory: Reports: Dyspnea Gastrointestinal: Denies: Abdominal pain, Nausea, Vomiting, Diarrhea, Melena, Hematochezia Genitourinary: Denies: Dysuria, Hematuria, Frequency Musculoskeletal: Reports: Swelling Skin: Denies: Rash, Wounds Neurological: Denies: Headache, Weakness, Numbness Physical Exam Vital Signs/Narrative: Vital Signs Temp Pulse Resp BP Pulse Ox 10/03/20 11:08 97.8 F 100 20 H 145/104 H 95 Inital Vital Signs reviewed: Yes General: Well nourished, Well developed, No Acute Distress Head: Normocephalic, Atraumatic Eyes: Perrl, EOMI ENT: Moist mucous membranes, No rhinorrhea Neck: Supple, Nontender Cardiovascular: Regular rate, Regular rhythm, No murmurs, - - +1 radial pulses bilaterally symmetric Respiratory: Chest nontender, - - Patient does have mildly increased respiratory efforts, with not overt respiratory distress. There is evidence of rales in the left lung base. No retractions. Abdomen: Soft, Nontender, Nondistended, Normal bowel sounds Back: Nontender, Normal Inspection Extremities: Nontender, Edema - Patient has +2 pitting edema of the entirety of the bilateral lower extremities going all the way up to the proximal thighs Skin: Normal color, No rash Neurological: Alert, Oriented x3, Cranial nerves II-XII grossly intact, Normal Strength, Normal Sensation Psychological: Normal affect, Normal Mood Diagnostic/Tx/Re-eval Clinical Impression(s) from Imaging Studies Chest X-Ray 10/03/20 12:27 IMPRESSION: Status post CABG. Borderline cardiac megaly. Findings in keeping with the CHF and blunting of both clustering angles with atelectasis and/or infiltrate at the left lung base. Electronically Signed: Vijay Majorclinton, at 12:48 EST , Service support , Laboratory Data 10/03/20 10/03/20 10/03/20 12:58 12:58 12:58 WBC 10.4 RBC 3.44 L Hgb 9.6 L Hct 31.6 L MCV 91.9 MCH 27.9 MCHC 30.4 L RDW Std Deviation 50.9 H RDW Coeff of Andrzej 15.2 H Plt Count 239 MPV 10.2 Immature Gran % (Auto) 0.400 Neut % (Auto) 83.8 H Lymph % (Auto) 5.5 L Union % (Auto) 7.9 Eos % (Auto) 1.8 Baso % (Auto) 0.6 Absolute Neuts (auto) 8.7 H Absolute Lymphs (auto) 0.57 L Nucleated RBC % 0 Sodium 142 Potassium 4.7 Chloride 111 H Carbon Dioxide 23.0 Anion Gap 8 BUN 62 H Creatinine 3.31 H Estim Creat Clear Calc 12.50 Est GFR (MDRD) Af Amer 18 L Est GFR (MDRD) Non-Af 15 L BUN/Creatinine Ratio 18.7 Glucose 103 Calcium 8.5 Troponin I 0.446 H B-Natriuretic Peptide 2820.9 H - EKG Initial EKG Interpretation: - - Sinus rhythm [address] changes laterally in leads V5 and V6 that appear new from a prior EKG in 2018. - Medical Decision Making Patient presented with symptomatology that was concerning for CHF exacerbation. EKG demonstrates new potential ischemic changes. Chest x-ray by my personal review as well as radiology seems to show evidence of congestive heart failure. CBC demonstrates the patient to have some mild worsening of her chronic anemia with a hemoglobin 9. Chemistry shows acute kidney injury with elevation of the patient's creatinine above 3. Patient's troponin was found to be elevated to a positive level at 0.4 which could potentially be from congestive heart failure or could potentially be from the patient's renal insufficiency. BNP was also elevated. I discussed patient's case with cardiology, patient is not having active chest pain and it is uncertain of the chronicity of this elevated trop onin and EKG changes we do not feel that this is really a presentation of a NSTEMI or acute coronary syndrome but likely more evidence of renal insufficiency and congestive heart failure. Patient will not be anticoagulated. Patient will require admission however, I discussed this with the hospitalist. ED Disposition - Plan for ED Patient: Disposition: Acute Care Hospital [facility] Diagnosis: CHF exacerbation, Acute electrocardiogram changes, Elevated troponin, EMPERATRIZ (acute kidney injury)
--- NOTE | 2020-10-03 12:27 | RAD_ITS ---
STUDY: X-RAY CHEST REASON FOR EXAM: Female, 64 years old. Chest pain, shortness of breath TECHNIQUE: PA and lateral views of the chest. COMPARISON: Comparison is made with prior study dated 12/29/2017. FINDINGS: EKG electrodes are seen. Is evidence of vascular congestion and CHF. There is blunting of both costophrenic angles with the atelectasis and/or infiltrate in the left lower lobe. Sternal cerclage wires and vascular clips are present from a prior sternotomy and coronary artery bypass graft procedure (CABG). Borderline cardiomegaly. Normal mediastinum and arlene. Normal visualized pulmonary arteries. Normal visualized aortic arch and descending thoracic aorta. Normal visualized thoracic spine. Normal visualized ribs, clavicles, and shoulders. There is no demonstrated abnormality of the visualized soft tissue structures of the upper abdomen. RAD/Chest PA and Lateral IMPRESSION: Status post CABG. Borderline cardiac megaly. Findings in keeping with the CHF and blunting of both clustering angles with atelectasis and/or infiltrate at the left lung base. Electronically Signed: Vijay Emerson, at 12:48 EST , Service support ,
[2020-10-03 13:12] LABS: Absolute Lymphocyte Count 0.57 X10^3/uL (0.83-4.51); Absolute Neutrophil Count 8.7 X10^3/uL (2.0-7.7); Basophil# 0.06 X10^3/uL; Basophil% 0.6 % (0-1); Eosinophil# 0.19 X10^3/uL; Eosinophils% 1.8 % (0-5); Hematocrit 31.6 % (37-47); Hemoglobin 9.6 g/dL (12.0-15.0); Lymphocyte # 0.57 X10^3/ul (4.0); Lymphocyte % 5.5 % (19-41); Mean Corp Hgb Conc 30.4 g/dL (32-36); Mean Corpuscular Hgb 27.9 pg (27.0-32.0); Mean Corpuscular Volume 91.9 fL (81-99); Mean Platelet Vol. 10.2 fl (6.2-12.0); Monocyte# 0.82 X10^3/uL; Monocyte% 7.9 % (0-10); NRBC Flagged by Analyzer 0 % (0-5); Neutrophil # 8.68 X10^3/uL (2.7-7.7); Neutrophil % 83.8 % (47-70); POSITIVE DIFFERENTIAL YES; Platelet Count 239 K/mm3 (150-450); RBC Distribution Width CV 15.2 % (11.6-14.6); RBC Distribution Width SD 50.9 fl (35.1-43.9); Red Blood Count 3.44 M/mm3 (4.2-5.4); White Blood Count 10.4 K/mm3 (4.4-11.0)
[2020-10-03 13:15] LABS: Differential Indicated SCAN CRITERIA MET
[2020-10-03 13:31] LABS: BNP,B-Type NATRIURETIC PEPTIDE 2820.9 pg/mL (0-100)
[2020-10-03 13:32] LABS: Anion Gap 8 (5-15); BUN 62 mg/dL (7-18); BUN/Creat Ratio 18.7 RATIO (10-20); Calcium,Total 8.5 mg/dL (8.5-10.1); Chloride 111 mmol/L (98-107); Creatinine, Serum 3.31 mg/dL (0.55-1.02); EST Glomerular Filtration Rate 15 mL/min (>60); Est Glom Filt Rate - Afr Amer 18 mL/min (>60); Glucose 103 mg/dL (74-106); Potassium 4.7 mmol/L (3.5-5.1); Sodium Level 142 mmol/L (136-145)
--- NOTE | 2020-10-03 14:31 | HP.PCM_ITS ---
<Mitzi Johnson LIGHT ARMORED VEHICLE OFFICER - Last Filed: 10/03/20 15:33> Problem List (1) Anemia of chronic disease Status: Chronic (2) Chronic renal failure, stage 4 (severe) Status: Chronic (3) Coronary artery disease Status: Chronic Comment: Status post CABG in 2005 (4) Diabetes mellitus type 1 Status: Chronic Qualifiers: Diabetes mellitus complication status: without complication Qualified Code(s): E10.9 - Type 1 diabetes mellitus without complications (5) Elevated troponin Status: Acute (6) Hx of CABG Status: Chronic (7) Hypertension Status: Chronic (8) Interstitial lung disease Status: Chronic (9) Uncontrolled type I diabetes mellitus Status: Chronic History of Present Illness Date of Admission: 10/03/20 Chief Complaint: Shortness of breath. The patient is a 64 year old F who presents to the emergency room due to shortness of breath. Patient states she has had shortness of breath for the past several weeks. Also reports increased lower extremity swelling. Reports productive cough. Denies fever, chills. She does not weigh herself routinely so unknown weight gain. Patient states her sister and another family member tested positive for Covid approximately 3 weeks ago. She denies loss of taste and smell. Denies other associated symptoms. Patient follows with [facility] in [place] and states she has upcoming follow-up. She has a past medical history of CAD with history of CABG, hypertension, hyperlipidemia, chronic kidney disease stage IV, anemia of chronic disease, interstitial lung disease, type 1 diabetes mellitus Past Medical History Past Medical History (Chronic Problems): Chronic Problems Anemia of chronic disease (Chronic) CHF exacerbation (Chronic) Uncontrolled type I diabetes mellitus (Chronic) Hypertension (Chronic) Coronary artery disease (Chronic) Status post CABG in 2005 Diabetes mellitus type 1 (Chronic) Hx of CABG (Chronic) Interstitial lung disease (Chronic) Chronic renal failure, stage 4 (severe) (Chronic) Allergies No Known Allergies Allergy (Verified 10/28/18 19:27) Home Medications: Ambulatory Orders Medication Instructions Recorded Aspirin [Aspirin, Baby] 81 mg PO DAILY 04/09/15 Isosorbide Mononitrate [Imdur] 60 mg PO DAILY 10/02/15 Insulin Aspart [Novolog Flexpen] 3 units SC LUNCH 03/20/18 Insulin Aspart [Novolog Flexpen] 15 units SC BREAKFAST 10/28/18 Insulin NPH Human Isophane 5 units SC QHS 10/28/18 [Novolin N] Atorvastatin Calcium 40 mg PO DAILY 10/03/20 Carvedilol [Coreg (Beta Janett)] 6.25 mg PO BID 10/03/20 Guaifenesin [Mucinex] 1,200 mg PO BID 10/03/20 Insulin Aspart [Novolog Flexpen 5 units SC DINNER 10/03/20 ([facility])] Surgical History: - - CABG ?4, bilateral carpal tunnel surgery, eye surgery. Psychiatric History: No pertinent psych hx DIRECTOR OF STRATEGIC SALES History: No pertinent DIRECTOR OF STRATEGIC SALES history Lives: With Family Smoking Status: Never smoker Alcohol: None Drugs: None - *Family History Maternal History Items: Heart Disease, Hypertension Paternal History Items: Heart Disease, Hypertension, Stroke Review of Systems Constitutional: Denies: Chills, Fever, Weight Change HEENT: Denies: Head Aches, Sinus Congestion, Sinus Drainage Cardiovascular: Reports: Edema - Lower extremity. Denies: Chest Pain, Light Headedness, Palpitations, Syncope Respiratory: Reports: Cough, Shortness of Breath, Sputum production Gastrointestinal: Denies: Abdominal Pain, Nausea, Vomiting Genitourinary: Denies: Dysuria Musculoskeletal: Denies: Joint Pain, Joint Tenderness Skin: Denies: Rash, Wounds Neurological: Denies: Numbness, Tingling, Focal weakness Psychiatric: Denies: Anxiety, Depression, Homicidal Ideations, Suicidal Ideations Hematologic/ Lymphatic: Denies: Easy Bruising, Easy Bleeding VTE Information - Inpt Only VTE Present on Admission: No VTE Mechan Device Prophylaxis: None VTE Pharm Prophylaxis ordered?: Yes Patient Problems: Active and Suspected Problems Acute electrocardiogram changes (Acute) Elevated troponin (Acute) EMPERATRIZ (acute kidney injury) (Acute) Elevated troponin (Acute) - Physical Exam Vitals/I&O's: Vital Signs Temp Pulse Resp BP Pulse Ox 97.8 F 97 30 H 165/80 H 96 10/03/20 11:08 10/03/20 13:05 10/03/20 13:05 10/03/20 13:05 10/03/20 13:07 Oxygen Flow Rate (L/min) 2 Oxygen Delivery Method Nasal Cannula Weight: 125 lb Body Mass Index (BMI) 24.4 Finger Stick Blood Glucose 80 General: Alert, Oriented x3, Cooperative HEENT: Atraumatic, PERRLA, EOMI, Normocephalic Neck: Supple, No JVD, Negative Carotid Bruits Lungs: Diminished, Rales Cardiovascular: Regular rate, No murmurs Abdomen: Bowel Sounds Present, Soft, Non Tender, Non-Distended Extremities: No clubbing, No cyanosis, Capillary Refill Less than 3 Seconds, Edema - Bilateral lower extremity Skin: No rashes, No breakdown Musculoskeletal: No Tenderness to Palpation of Joints or Extremities Neurological: Cranial nerves II-XII grossly intact, Neuro grossly intact Psych/Mental Status: Normal Affect, Appropriate Laboratory Results 10/03/20 12:58: WBC 10.4, RBC 3.44 L, Hgb 9.6 L, Hct 31.6 L, MCV 91.9, MCH 27.9, MCHC 30.4 L, RDW Std Deviation 50.9 H, RDW Coeff of Andrzej 15.2 H, Plt Count 239, MPV 10.2, Immature Gran % (Auto) 0.400, Neut % (Auto) 83.8 H, Lymph % (Auto) 5.5 L, Flagler % (Auto) 7.9, Eos % (Auto) 1.8, Baso % (Auto) 0.6, Absolute Neuts (auto) 8.7 H, Absolute Lymphs (auto) 0.57 L, Nucleated RBC % 0 10/03/20 12:58: Sodium 142, Potassium 4.7, Chloride 111 H, Carbon Dioxide 23.0, Anion Gap 8, BUN 62 H, Creatinine 3.31 H, Estim Creat Clear Calc 12.50, Est GFR (MDRD) Af Amer 18 L, Est GFR (MDRD) Non-Af 15 L, BUN/Creatinine Ratio 18.7, Glucose 103, Calcium 8.5, Troponin I 0.446 H 10/03/20 12:58: B-Natriuretic Peptide 2820.9 H Assessment/Plan All Active Problems Acute electrocardiogram changes (Acute) Elevated troponin (Acute) EMPERATRIZ (acute kidney injury) (Acute) Elevated troponin (Acute) 1. Acute hypoxic respiratory insufficiency secondary to acute heart failure with preserved ejection fraction-BNP 2820. Chest x-ray consistent with CHF. Prior echo 2014 with EF 60%. IV Lasix. Strict I&O. Daily weight. Repeat echocardiogram. Continue supplement oxygen to maintain O2 at above 90%. 2. Recent Covid exposure-Covid PCR pending. 3. Elevated troponin-suspect demand ischemia related to #1. Trend enzymes. 4. Acute kidney injury on chronic kidney disease stage IV-plan for diuresis, trend BMP. 5. CAD with history of CABG-on aspirin, carvedilol, isosorbide. 6. Hypertension-stable, continue home regimen. 7. Hyperlipidemia-not on statin. 8. Anemia of chronic disease-at baseline, trend BMP. 9. Interstitial lung disease 10. Type 1 diabetes [id number] with sliding scale insulin. Continue home insulin regimen. DVT prophylaxis-Heparin subcu This patient was seen by JASON Elias under the supervision of Dr. Nunez. <Leesa Nunez - Last Filed: 10/03/20 21:02> History of Present Illness The patient is a 64 year old F [] Past Medical History Allergies No Known Allergies Allergy (Verified 10/28/18 19:27) - Physical Exam Vitals/I&O's: Vital Signs Temp Pulse Resp BP Pulse Ox 96.8 F L 92 25 H 150/77 H 100 10/03/20 14:49 10/03/20 14:49 10/03/20 14:49 10/03/20 14:49 10/03/20 14:49 Oxygen Flow Rate (L/min) 2 Oxygen Delivery Method Room Air Weight: 56.699 kg Body Mass Index (BMI) 24.4 Finger Stick Blood Glucose 80 Laboratory Results 10/03/20 12:58: WBC 10.4, RBC 3.44 L, Hgb 9.6 L, Hct 31.6 L, MCV 91.9, MCH 27.9, MCHC 30.4 L, RDW Std Deviation 50.9 H, RDW Coeff of Andrzej 15.2 H, Plt Count 239, MPV 10.2, Immature Gran % (Auto) 0.400, Neut % (Auto) 83.8 H, Lymph % (Auto) 5.5 L, Flagler % (Auto) 7.9, Eos % (Auto) 1.8, Baso % (Auto) 0.6, Absolute Neuts (auto) 8.7 H, Absolute Lymphs (auto) 0.57 L, Nucleated RBC % 0 10/03/20 12:58: Sodium 142, Potassium 4.7, Chloride 111 H, Carbon Dioxide 23.0, Anion Gap 8, BUN 62 H, Creatinine 3.31 H, Estim Creat Clear Calc 12.50, Est GFR (MDRD) Af Amer 18 L, Est GFR (MDRD) Non-Af 15 L, BUN/Creatinine Ratio 18.7, Glucose 103, Calcium 8.5, Troponin I 0.446 H 10/03/20 12:58: B-Natriuretic Peptide 2820.9 H 10/03/20 14:55: COVID-19 (PIETER) Pending Assessment/Plan This patient was seen in conjunction with Mitzi Johnson NP. I have i ndependently interviewed and examined the patient and reviewed pertinent historical, laboratory, and other data. Please refer to her note for patient's presentation, findings, and recommendations. 64-year-old female with past medical history of type I DM, hypertension, CAD status post CABG comes in with shortness of breath ongoing for more than 2 weeks, lower extremity swelling, and cough. Patient had a sick contact with COVID-19. COVID-19 PCR was negative Her vitals are stable, on 2 L of oxygen Physical Exam: Gen: Looks in some discomfort, not pale, not jaundiced, alert oriented x3 CVS:HS I +II, regular, no murmurs RESP: Diminished at lung bases GI: BS present and normal, nontender, no palpable organs EXT:Bilateral pitting pedal edema to the thighs, +2-3 Labs reviewed: ASSESSMENT: 1. Acute hypoxic respiratory failure secondary to acute CHF with preserved EF 2. Acute on chronic CHF with preserved EF 3. Evaded troponin likely secondary demand ischemia 4. EMPERATRIZ on CKD stage IV 5. CAD status post CABG 6. Hypertension 7. Hyperlipidemia 8. Anemia of chronic disease 9. Interstitial lung disease Meds reviewed Plan: Continue to trend troponin Continue Lasix therapy CHF protocol Continue with home insulin regimen Consider cardiology consult if troponin continues to be elevated Inpatient E&M: [id number] Init Hosp L3
--- NOTE | 2020-10-03 14:34 | NURSING ---
PCU CHF EXAC, EMPERATRIZ, ELEVATED TROP PAINTSIL
--- NOTE | 2020-10-03 14:41 | NURSING ---
PCU PAINTSIL CHF EXAC, EMPERATRIZ, ELEVATED TROP
--- NOTE | 2020-10-03 16:36 | ED.RN ---
Spoke with pt's sister, jaleesa and updated about admission.
--- NOTE | 2020-10-03 16:47 | ECHOCS_ITS ---
Version 2 Reason For Study: CHF Procedure This was a 2D Doppler, Color Flow transthoracic echocardiogram. The study was technically difficult. Contrast injection was performed. Exam performed portable in patient room. Left Ventricle Normal LV size. Moderate segmental systolic dysfunction (see wall motion). The estimated ejection fraction is 37 %. Infero-Basal: Akinetic. Basal inferoseptal: Akinetic. The rest of the wall segments are hypokinetic. Right Ventricle Normal RV size. Normal systolic function. Mitral Valve Moderate focal mitral valve calcification of the posterior leaflet. Mild (1+) eccentric mitral valve insufficiency. Tricuspid Valve Normal tricuspid valve. Mild (1+) tricuspid valve insufficiency. Pulmonary artery systolic pressure is 40 mmHg. Aortic Valve Trisinus/trileaflet aortic valve. Pulmonic Valve Normal pulmonic valve. Great Vessels Normal aortic root. The pulmonary artery is normal size. Normal inferior vena cava. Pericardium/Pleural No pericardial effusion. Moderate size left pleural effusion. Medication Diluted definity 2ml given slow IV push to enhance endocardial definition. MMode/2D Measurements & Calculations LVIDd: 3.7 cm IVSd: 1.4 cm Ao root diam: 2.6 cm LVIDs: 3.1 cm LVPWd: 1.6 cm LA dimension: 3.0 cm FS: 16.9 % LAV(MOD-bp): 43.6 ml LA A4 area: 16.2 cm2 RA A4 area: 10.6 cm2 LAV(MOD-bp) Indexed: 28.6 ml/m2 LAV(MOD-sp2): 37.8 ml LAV(MOD-sp4): 41.2 ml Time Measurements MV dec time: 0.16 sec Doppler Measurements & Calculations MV E max anoop: 141.5 cm/sec Lat Peak E' Anoop: 6.8 cm/sec Med Peak E' Anoop: 2.9 cm/sec MV A max anoop: 126.0 cm/sec E/E' lat: 20.9 E/E' med: 48.7 MV E/A: 1.1 MV V2 max: 165.7 cm/sec MV P1/2t max anoop: 165.7 cm/sec Ao V2 max: 146.4 cm/sec MV max P.0 mmHg MV P1/2t: 59.0 msec Ao max P.6 mmHg MV V2 mean: 100.4 cm/sec MV dec slope: 822.5 cm/sec2 MV mean P.9 mmHg MVA(P1/2t): 3.7 cm2 MV V2 VTI: 29.3 cm LV V1 max: 100.8 cm/sec MR max anoop: 484.9 cm/sec PA V2 max: 128.1 cm/sec LV V1 max P.1 mmHg MR max P.0 mmHg TR max anoop: 301.9 cm/sec TR max P.4 mmHg Interpretation Summary Normal LV size. Moderate segmental systolic dysfunction (see wall motion). The estimated ejection fraction is 37 %. Mild (1+) tricuspid valve insufficiency. Pulmonary artery systolic pressure is 40 mmHg. Moderate size left pleural effusion. Contrast injection was performed. Ordering Physician: Mitzi Johnson Referring Physician: Sergio Maxwell Performed By: Humberto Meza RCS
[2020-10-03] MEDS: 0.9% Saline Lock 10 ML Syringe IV ×2 (18:11→21:27)
[2020-10-03] MEDS: Furosemide 40 MG/4 ML Vial IV ×2 (18:11→21:27)
[2020-10-03 18:15] LABS: Bedside Glucose 163 mg/dL (70-110)
[2020-10-03] MEDS: Insulin Lispro 100 UNIT/ML INSULN.PEN SC ×2 (18:22→21:27)
--- NOTE | 2020-10-03 19:32 | NURSING ---
updated sister ernestina per patient request
[2020-10-03] MEDS: Atorvastatin Calcium 40 MG Tablet PO (21:27)
[2020-10-03] MEDS: Heparin Injection (Vial) 5,000 UNIT/ML VIAL 5000 UNIT SC (21:27)
[2020-10-03] MEDS: Carvedilol 6.25 MG Tablet PO (21:27)
[2020-10-03] MEDS: Insulin NPH Human 100 UNITS/ML PEN SC (21:28)
[2020-10-03 22:31] LABS: Bedside Glucose 314 mg/dL (70-110)
[2020-10-04] VITALS (7 sets, daily range): BP systolic 133–143; BP diastolic 45–74; PULSE 68–104; RESP 18; TEMP 36.7–36.8; O2SAT 92–97
[2020-10-04] MEDS: 0.9% Saline Lock 10 ML Syringe IV ×2 (05:35→14:02)
[2020-10-04] MEDS: Furosemide 40 MG/4 ML Vial IV ×2 (05:35→14:02)
[2020-10-04 05:45] LABS: Absolute Neutrophil Count 8.1 X10^3/uL (2.0-7.7); Basophil# 0.06 X10^3/uL; Basophil% 0.6 % (0-1); Eosinophil# 0.17 X10^3/uL; Eosinophils% 1.8 % (0-5); Hematocrit 27.1 % (37-47); Hemoglobin 8.6 g/dL (12.0-15.0); Lymphocyte % 6.2 % (19-41); Mean Corp Hgb Conc 31.7 g/dL (32-36); Mean Corpuscular Hgb 29.2 pg (27.0-32.0); Mean Corpuscular Volume 91.9 fL (81-99); Monocyte# 0.67 X10^3/uL; NRBC Flagged by Analyzer 0 % (0-5); Neutrophil # 8.06 X10^3/uL (2.7-7.7); Neutrophil % 83.9 % (47-70); POSITIVE DIFFERENTIAL YES; Platelet Count 235 K/mm3 (150-450); RBC Distribution Width SD 50.4 fl (35.1-43.9); Red Blood Count 2.95 M/mm3 (4.2-5.4); White Blood Count 9.6 K/mm3 (4.4-11.0)
[2020-10-04 06:10] LABS: Differential Indicated SCAN CRITERIA MET
[2020-10-04 06:12] LABS: Differential Comment SCANNED; Platelet Estimate ADEQUATE (ADEQ)
[2020-10-04 06:31] LABS: ALB/GLOB Ratio 0.6 RATIO (0.9-2.4); AST(SGOT) 20 U/L (15-37); Alanine Aminotransfer ALT/SGPT 20 U/L (13-56); Albumin, Serum 2.2 g/dL (3.2-5.0); Alkaline Phosphatase 72 U/L (45-117); Anion Gap 8 (5-15); BUN 69 mg/dL (7-18); BUN/Creat Ratio 19.4 RATIO (10-20); Calcium,Total 7.9 mg/dL (8.5-10.1); Chloride 107 mmol/L (98-107); Creatinine, Serum 3.55 mg/dL (0.55-1.02); EST Glomerular Filtration Rate 14 mL/min (>60); Est Glom Filt Rate - Afr Amer 17 mL/min (>60); Estimated Creatinine Clearance 14.44 ml/min; Globulin 3.9 g/dL (2.2-4.2); Glucose 345 mg/dL (74-106); Potassium 3.8 mmol/L (3.5-5.1); Protein, Total 6.1 g/dL (6.4-8.2); Sodium Level 139 mmol/L (136-145)
[2020-10-04] MEDS: Insulin Lispro 100 UNIT/ML INSULN.PEN SC ×6 (08:24→21:27)
[2020-10-04] MEDS: Insulin Lispro 100 UNIT/ML INSULN.PEN 15 UNIT SC (08:25)
[2020-10-04] MEDS: Aspirin 81 MG TAB.CHEW PO (08:27)
[2020-10-04 08:36] LABS: Bedside Glucose 324 mg/dL (70-110)
[2020-10-04] MEDS: Carvedilol 6.25 MG Tablet PO ×2 (11:51→21:26)
[2020-10-04] MEDS: Isosorbide Mononitrate 60 MG Tablet PO (11:51)
[2020-10-04] MEDS: Heparin Injection (Vial) 5,000 UNIT/ML VIAL 5000 UNIT SC ×2 (11:52→21:26)
[2020-10-04] MEDS: Acetaminophen 325 MG Tablet 650 MG PO (14:08)
--- NOTE | 2020-10-04 15:05 | CHAPLAIN ---
Type of Pastoral Visit _x__ Initial Visit ___ Follow-up Visit ___ On-call Visit ___ General Patient Visit ___ Spiritual Assessment ___ Family Conference ___ Bereavement ___ Rapid Response ___ Code Blue ___ Other (describe below) Pastoral Care Referral From _x__ Patient ___ Family ___ Nurse ___ Physician ___ Energy Conservation Engineer ___ Furniture Shampooer ___ Other (describe below) Sacrament/Intervention _x__ Active listening ___ Anointing ___ Anabaptism ___ Bereavement ___ Communion _x__ Jennyfer exploration ___ ___ Life review _x__ Prayer ___ Reconciliation ___ Sacrament of Sick _x__ Supportive presence ___ Wedding ___ Other (describe below) Pastoral Comments patient mentioned her reactions to people and spiritual concerns; prayer welcomed
--- NOTE | 2020-10-04 16:15 | CASEMGMT ---
RN CM POSTMASTER RELIEF CM to room to meet with patient for initial transition planning/care coordination assessment. RN JOHNNA introduced self and role at [facility]. Pt voices understanding and consents to assessment at this time. Pt sitting up in chair in no distress at this time. Pt is A/O at this time and answers all questions appropriately. Care providers, pharmacy, and demographics verified/updated at this time. PCP: Dr Sergio Maxwell Specialists: Was seeing Dr Aron Moon--cardiology. Has not seen regional liaison since, but has an appt with new regional liaison in [place] 10/13--she doesn't remember his name [facility]erred [facility]acy: [facility] Insurance: [employer] [facility], [facility] Prescription Benefit: Yes Living Will/HPOA: Has both LW and Healthcare POA, who is her sister, Guadalupe. Pt made aware these are not on file @ [facility] LNOK: 3 sisters. Living Arrangements: Lives w/her sister, Guadalupe, and their mom. Pt/Guadalupe help take care of their mom. They live in a 2-story home w/no steps to enter. [facility] is an option if needed. Independent w/ ADL's. Guadalupe/pt share home mgmt tasks. Transportation: Guadalupe or another sister. DME: States has the following DME: raised toilet seat, rails/grab bars, glucometer. Has available/but does not use: shower chair, BSC, walker. Pt states no need for further DME at this time. Does not have home O2. Provided list of local DME companies. Denies preference of DME company if qualifies for O2 @ dc HHC/SNF: No hx of SNF. Has had [facility]HC in the past. She states she would like [facility]HC at discharge. Inquired about a 2nd choice of HHC agencies [facility] and she states has no preference. Discussed option of [facility] after HHC completed and pt states would be interested. Call placed to Chuy @ [facility] and referral made. She was made aware anticipate HHC at discharge. Pt wishes to return home with HHC and states has no concerns with going home at time of discharge. CM to follow for home oxygen needs and any further discharge planning/needs. Pt voices no further concerns/needs at this time. Advised pt to ask for CM if any further questions/concerns/needs arise. Voices understanding. PLAN: Home w/HHC. Pts prefers [facility]HC. Will need referral. Follow for O2 needs at d/c. [facility] referral also made. Shadi MOURAN RN CM
[2020-10-04 16:25] LABS: Bedside Glucose 342 mg/dL (70-110)
[2020-10-04 17:40] LABS: Bedside Glucose 380 mg/dL (70-110)
--- NOTE | 2020-10-04 19:00 | PCS.PANDOC ---
PANDEMIC DOCUMENTATION INITIATED: Date: 10/04/20 Time: 1899
--- NOTE | 2020-10-04 21:06 | PCM.PN.HOSP ---
Patient Problems: Active and Suspected Problems Acute electrocardiogram changes (Acute) Elevated troponin (Acute) EMPERATRIZ (acute kidney injury) (Acute) Elevated troponin (Acute) Subjective: Doing well, no issues overnight. Still on 2 L nasal cannula Vitals/I&O's: Vital Signs Temp Pulse Resp BP Pulse Ox 98.2 F 95 18 133/45 H 97 10/04/20 19:45 10/04/20 19:45 10/04/20 19:45 10/04/20 19:45 10/04/20 19:45 Oxygen Flow Rate (L/min) 2 Oxygen Delivery Method Nasal Cannula Weight: 124 lb 5.451 oz Body Mass Index (BMI) 24.4 Finger Stick Blood Glucose 80 Intake and Output for Last 24 Hours 10/02/20 10/03/20 10/04/20 23:59 23:59 23:59 Intake Total 360 / 360 1130 / 1130 Output Total 150 / 150 1025 / 1025 Balance 210 / 210 105 / 105 General: Alert, Oriented x3, Cooperative, No apparent distress HEENT: Atraumatic, PERRLA, EOMI, Normocephalic Oral: Moist Mucosa Neck: Supple, No JVD Lungs: Normal air movement, Diminished, Rales Cardiovascular: Regular rate, Regular Rhythm, Normal S1, Normal S2, No murmurs Abdomen: Soft, Non Tender, Non-Distended, No Hepato-splenomegaly Extremities: Capillary Refill Less than 3 Seconds, Edema Skin: No rashes, No breakdown Neurological: Neuro grossly intact, Sensory exam intact to light touch and pain Psych/Mental Status: Normal Affect, Appropriate Laboratory Results 10/03/20 21:17: POC Glucose 314 H 10/03/20 23:20: Troponin I 0.395 H 10/04/20 05:15: WBC 9.6, RBC 2.95 L, Hgb 8.6 L, Hct 27.1 L, MCV 91.9, MCH 29.2, MCHC 31.7 L, RDW Std Deviation 50.4 H, RDW Coeff of Andrzej 15.0 H, Plt Count 235, MPV 11.0, Immature Gran % (Auto) 0.500, Neut % (Auto) 83.9 H, Lymph % (Auto) 6.2 L, [place] % (Auto) 7.0, Eos % (Auto) 1.8, Baso % (Auto) 0.6, Absolute Neuts (auto) 8.1 H, Absolute Lymphs (auto) 0.60 L, Nucleated RBC % 0, Differential Comment SCANNED, Platelet Estimate ADEQUATE 10/04/20 05:15: Sodium 139, Potassium 3.8, Chloride 107, Carbon Dioxide 24.0, Anion Gap 8, BUN 69 H, Creatinine 3.55 H, Estim Creat Clear Calc 14.44, Est GFR (MDRD) Af Amer 17 L, Est GFR (MDRD) Non-Af 14 L, BUN/Creatinine Ratio 19.4, Glucose 345 H, Calcium 7.9 L, Total Bilirubin 0.50, AST 20, ALT 20, Alkaline Phosphatase 72, Total Protein 6.1 L, Albumin 2.2 L, Globulin 3.9, Albumin/Globulin Ratio 0.6 L 10/04/20 08:23: POC Glucose 324 H 10/04/20 12:00: POC Glucose 342 H 10/04/20 17:29: POC Glucose 380 H Current Medications Acetaminophen (Acetaminophen 325 Mg Tablet) 650 mg PO Q6H PRN PRN PRN Reason: Pain Score 1-10/Temp > 100.7 F Last Admin: 10/04/20 14:08 Dose: 650 mg Documented by: Albuterol Sulfate (Albuterol 2.5 Mg/3 Ml Vial.Neb.) 2.5 mg INHALATION Q2H PRN PRN PRN Reason: SOB/Wheezing Aspirin (Aspirin 81 Mg Tab.Chew) 81 mg PO DAILYCM [facility] Last Admin: 10/04/20 08:27 Dose: 81 mg Documented by: Atorvastatin Calcium (Atorvastatin Calcium 40 Mg Tablet) 40 mg PO DAILY@2200 [facility] Last Admin: 10/03/20 21:27 Dose: 40 mg Documented by: Carvedilol (Carvedilol 6.25 Mg Tablet) 6.25 mg PO BID [facility] Last Admin: 10/04/20 11:51 Dose: 6.25 mg Documented by: Dextrose (Dextrose 50%-Water 25 Gm/50 Ml Disp.Syrin) 0 gm IV X1 PRN; Protocol PRN Reason: Hypoglycemia Furosemide (Furosemide 40 Mg/4 Ml Vial) 40 mg IV Q8 [facility] Last Admin: 10/04/20 14:02 Dose: 40 mg Documented by: Glucagon (Glucagon 1 Mg/Ml Syringe) 1 mg IM .X1 PRN PRN Reason: Hypoglycemia Heparin Sodium (Porcine) (Heparin Injection (Vial) 5,000 Unit/Ml Vial) 5,000 unit SC Q12 [facility] Last Admin: 10/04/20 11:52 Dose: 5,000 unit Documented by: Insulin Human Lispro (Insulin Lispro 100 Unit/Ml Insuln.Pen) 0 unit SC ACHS [facility]; Protocol Last Admin: 10/04/20 17:31 Dose: 4 unit Documented by: Insulin Human Lispro (Insulin Lispro 100 Unit/Ml Insuln.Pen) 3 unit SC LUNCH [facility] Last Admin: 10/04/20 12:01 Dose: 3 units Documented by: Insulin Human Lispro (Insulin Lispro 100 Unit/Ml Insuln.Pen) 15 unit SC BREAKFAST [facility] Last Admin: 10/04/20 08:25 Dose: 15 units Documented by: Insulin Human Lispro (Insulin Lispro 100 Unit/Ml Insuln.Pen) 5 unit SC DINNER [facility] Last Admin: 10/04/20 17:32 Dose: 5 units Documented by: Insulin Human NPH (Insulin Nph Human 100 Units/Ml Pen) 5 units SC QHS [facility] Last Admin: 10/03/20 21:28 Dose: 5 u Documented by: Isosorbide Mononitrate (Isosorbide Mononitrate 60 Mg Tablet) 60 mg PO DAILY [facility] Last Admin: 10/04/20 11:51 Dose: 60 mg Documented by: Nitroglycerin (Nitroglycerin (Inpatient Use) 0.4 Mg Tab.Subl) 0.4 mg SUBLINGUAL Q5M PRN PRN Reason: CARDIAC/CHEST PAIN Ondansetron HCl (Ondansetron 4 Mg/2 Ml Vial) 4 mg IV Q8H PRN PRN PRN Reason: NAUSEA/VOMITING Sodium Chloride (0.9% Saline Lock 10 Ml Syringe) 10 - 40 ml IV UD PRN PRN Reason: SALINE FLUSH Last Admin: 10/04/20 14:02 Dose: 20 ml Documented by: STROKE Vital Signs/Narrative: Vital Signs Temp Pulse Resp BP Pulse Ox 10/04/20 19:45 98.2 F 95 18 133/45 H 97 10/04/20 19:10 96 Medical Necessity - Tobacco Use Smoking Status: Never smoker Assessment/Plan All Active Problems Acute electrocardiogram changes (Acute) Elevated troponin (Acute) EMPERATRIZ (acute kidney injury) (Acute) Elevated troponin (Acute) 1. Acute hypoxic respiratory insufficiency secondary to acute on chronic systolic and diastolic CHF/elevated troponin/HTN/HLD/CAD status post CABG/EMPERATRIZ on CKD 4 -Continue with aggressive diuresis. Echocardiogram was obtained with an EF of 37% and a pulmonary artery pressure of 40 mmHg -Troponin is trending down -Continue with her home blood pressure medications, her blood pressure is stable -Continue with Lipitor -Baseline creatinine is around 2.5, creatinine today is 3.55 up from 3.31 that she was on admission, Will transition her Lasix to twice daily instead of 3 times daily dosing 2. Type 1 diabetes -We will continue with her home insulin and make adjustments as necessary 3. Anemia of chronic disease -Hemoglobin is stable and at baseline -We will continue to monitor DVT: Heparin Inpatient E&M: 57660 Subs Hosp L2
[2020-10-04] MEDS: Atorvastatin Calcium 40 MG Tablet PO (21:26)
[2020-10-04] MEDS: Insulin NPH Human 100 UNITS/ML PEN SC (21:27)
[2020-10-04 21:35] LABS: Bedside Glucose 468 mg/dL (70-110)
[2020-10-04] MEDS: Insulin NPH Human 100 UNITS/ML PEN 10 UNITS SC (22:01)
[2020-10-04] MEDS: Insulin Lispro 100 UNIT/ML INSULN.PEN 10 UNIT SC (22:02)
[2020-10-05] VITALS (9 sets, daily range): BP systolic 105–153; BP diastolic 43–73; PULSE 70–100; RESP 16–20; TEMP 36.4–37.1; O2SAT 94–97
[2020-10-05 06:35] LABS: Absolute Lymphocyte Count 0.79 X10^3/uL (0.83-4.51); Absolute Neutrophil Count 9.6 X10^3/uL (2.0-7.7); Basophil# 0.04 X10^3/uL; Basophil% 0.3 % (0-1); Eosinophil# 0.36 X10^3/uL; Eosinophils% 3.1 % (0-5); Hematocrit 28.7 % (37-47); Hemoglobin 9.1 g/dL (12.0-15.0); Lymphocyte # 0.79 X10^3/ul (4.0); Lymphocyte % 6.8 % (19-41); Mean Corp Hgb Conc 31.7 g/dL (32-36); Mean Corpuscular Hgb 28.7 pg (27.0-32.0); Mean Corpuscular Volume 90.5 fL (81-99); Monocyte% 6.1 % (0-10); NRBC Flagged by Analyzer 0 % (0-5); Neutrophil # 9.61 X10^3/uL (2.7-7.7); Neutrophil % 83.1 % (47-70); Platelet Count 256 K/mm3 (150-450); RBC Distribution Width CV 14.6 % (11.6-14.6); RBC Distribution Width SD 49.3 fl (35.1-43.9); Red Blood Count 3.17 M/mm3 (4.2-5.4); White Blood Count 11.6 K/mm3 (4.4-11.0)
[2020-10-05 07:04] LABS: Anion Gap 7 (5-15); BUN 84 mg/dL (7-18); Calcium,Total 8.1 mg/dL (8.5-10.1); Chloride 107 mmol/L (98-107); EST Glomerular Filtration Rate 12 mL/min (>60); Est Glom Filt Rate - Afr Amer 15 mL/min (>60); Estimated Creatinine Clearance 12.48 ml/min; Glucose 150 mg/dL (74-106); Potassium 3.9 mmol/L (3.5-5.1); Sodium Level 139 mmol/L (136-145)
[2020-10-05 08:26] LABS: Bedside Glucose 166 mg/dL (70-110)
[2020-10-05] MEDS: Insulin Lispro 100 UNIT/ML INSULN.PEN 15 UNIT SC (09:31)
[2020-10-05] MEDS: Insulin Lispro 100 UNIT/ML INSULN.PEN SC ×5 (09:32→21:30)
[2020-10-05] MEDS: Aspirin 81 MG TAB.CHEW PO (09:32)
[2020-10-05] MEDS: Carvedilol 6.25 MG Tablet PO ×2 (09:32→21:22)
[2020-10-05] MEDS: Heparin Injection (Vial) 5,000 UNIT/ML VIAL 5000 UNIT SC ×2 (09:33→21:22)
[2020-10-05] MEDS: Isosorbide Mononitrate 60 MG Tablet PO (09:33)
--- NOTE | 2020-10-05 10:12 | PCM.PN.HOSP ---
Patient Problems: Active and Suspected Problems Acute electrocardiogram changes (Acute) Elevated troponin (Acute) EMPERATRIZ (acute kidney injury) (Acute) Elevated troponin (Acute) Subjective: Doing well. Still with some shortness of breath but denies any chest pain. No issues overnight Vitals/I&O's: Vital Signs Temp Pulse Resp BP Pulse Ox 98.5 F 95 16 128/59 H 95 10/05/20 09:30 10/05/20 09:30 10/05/20 09:30 10/05/20 09:30 10/05/20 09:30 Oxygen Flow Rate (L/min) 2 Oxygen Delivery Method Room Air Weight: 121 lb 0.54 oz Body Mass Index (BMI) 24.4 Finger Stick Blood Glucose 80 Intake and Output for Last 24 Hours 10/03/20 10/04/20 10/05/20 23:59 23:59 23:59 Intake Total 360 / 360 1130 / 1130 370 / 370 Output Total 150 / 150 1025 / 1025 Balance 210 / 210 105 / 105 370 / 370 General: Alert, Oriented x3, Cooperative, No apparent distress HEENT: Atraumatic, PERRLA, EOMI, Normocephalic Oral: Moist Mucosa Neck: Supple, No JVD Lungs: Normal air movement, Diminished, no Rales, no wheezes, no rhonchi Cardiovascular: Regular rate, Regular Rhythm, Normal S1, Normal S2, No murmurs Abdomen: Soft, Non Tender, Non-Distended, No Hepato-splenomegaly Extremities: Capillary Refill Less than 3 Seconds, no edema Skin: No rashes, No breakdown Neurological: Neuro grossly intact, Sensory exam intact to light touch and pain Psych/Mental Status: Normal Affect, Appropriate Laboratory Results 10/04/20 12:00: POC Glucose 342 H 10/04/20 17:29: POC Glucose 380 H 10/04/20 21:25: POC Glucose 468 H* 10/05/20 05:55: WBC 11.6 H, RBC 3.17 L, Hgb 9.1 L, Hct 28.7 L, MCV 90.5, MCH 28.7, MCHC 31.7 L, RDW Std Deviation 49.3 H, RDW Coeff of Andrzej 14.6, Plt Count 256, MPV 11.0, Immature Gran % (Auto) 0.600, Neut % (Auto) 83.1 H, Lymph % (Auto) 6.8 L, [place] % (Auto) 6.1, Eos % (Auto) 3.1, Baso % (Auto) 0.3, Absolute Neuts (auto) 9.6 H, Absolute Lymphs (auto) 0.79 L, Nucleated RBC % 0 10/05/20 05:55: Sodium 139, Potassium 3.9, Chloride 107, Carbon Dioxide 25.0, Anion Gap 7, BUN 84 H, Creatinine 4.00 H, Estim Creat Clear Calc 12.48, Est GFR (MDRD) Af Amer 15 L, Est GFR (MDRD) Non-Af 12 L, BUN/Creatinine Ratio 21.0 H, Glucose 150 H, Calcium 8.1 L 10/05/20 08:08: POC Glucose 166 H Current Medications Acetaminophen (Acetaminophen 325 Mg Tablet) 650 mg PO Q6H PRN PRN PRN Reason: Pain Score 1-10/Temp > 100.7 F Last Admin: 10/04/20 14:08 Dose: 650 mg Documented by: Albuterol Sulfate (Albuterol 2.5 Mg/3 Ml Vial.Neb.) 2.5 mg INHALATION Q2H PRN PRN PRN Reason: SOB/Wheezing Aspirin (Aspirin 81 Mg Tab.Chew) 81 mg PO DAILYCM [facility] Last Admin: 10/05/20 09:32 Dose: 81 mg Documented by: Atorvastatin Calcium (Atorvastatin Calcium 40 Mg Tablet) 40 mg PO DAILY@2200 [facility] Last Admin: 10/04/20 21:26 Dose: 40 mg Documented by: Carvedilol (Carvedilol 6.25 Mg Tablet) 6.25 mg PO BID [facility] Last Admin: 10/05/20 09:32 Dose: 6.25 mg Documented by: Dextrose (Dextrose 50%-Water 25 Gm/50 Ml Disp.Syrin) 0 gm IV X1 PRN; Protocol PRN Reason: Hypoglycemia Glucagon (Glucagon 1 Mg/Ml Syringe) 1 mg IM .X1 PRN PRN Reason: Hypoglycemia Heparin Sodium (Porcine) (Heparin Injection (Vial) 5,000 Unit/Ml Vial) 5,000 unit SC Q12 [facility] Last Admin: 10/05/20 09:33 Dose: 5,000 unit Documented by: Insulin Human Lispro (Insulin Lispro 100 Unit/Ml Insuln.Pen) 0 unit SC [facility]; Protocol Last Admin: 10/05/20 09:32 Dose: 1 unit Documented by: Insulin Human Lispro (Insulin Lispro 100 Unit/Ml Insuln.Pen) 3 unit SC LUNCH [facility] Last Admin: 10/04/20 12:01 Dose: 3 units Documented by: Insulin Human Lispro (Insulin Lispro 100 Unit/Ml Insuln.Pen) 15 unit SC BREAKFAST [facility] Last Admin: 10/05/20 09:31 Dose: 15 units Documented by: Insulin Human Lispro (Insulin Lispro 100 Unit/Ml Insuln.Pen) 5 unit SC DINNER [facility] Last Admin: 10/04/20 17:32 Dose: 5 units Documented by: Insulin Human NPH (Insulin Nph Human 100 Units/Ml Pen) 10 units SC QHS [facility] Last Admin: 10/04/20 22:01 Dose: 5 units Documented by: Isosorbide Mononitrate (Isosorbide Mononitrate 60 Mg Tablet) 60 mg PO DAILY [facility] Last Admin: 10/05/20 09:33 Dose: 60 mg Documented by: Nitroglycerin (Nitroglycerin (Inpatient Use) 0.4 Mg Tab.Subl) 0.4 mg SUBLINGUAL Q5M PRN PRN Reason: CARDIAC/CHEST PAIN Ondansetron HCl (Ondansetron 4 Mg/2 Ml Vial) 4 mg IV Q8H PRN PRN PRN Reason: NAUSEA/VOMITING Sodium Chloride (0.9% Saline Lock 10 Ml Syringe) 10 - 40 ml IV UD PRN PRN Reason: SALINE FLUSH Last Admin: 10/04/20 14:02 Dose: 20 ml Documented by: STROKE Vital Signs/Narrative: Vital Signs Temp Pulse Resp BP Pulse Ox 10/05/20 09:30 98.5 F 95 16 128/59 H 95 10/05/20 07:02 94 Medical Necessity - Tobacco Use Smoking Status: Never smoker Assessment/Plan All Active Problems Acute electrocardiogram changes (Acute) Elevated troponin (Acute) EMPERATRIZ (acute kidney injury) (Acute) Elevated troponin (Acute) 1. Acute hypoxic respiratory insufficiency secondary to acute on chronic systolic and diastolic CHF/elevated troponin/HTN/HLD/CAD status post CABG/EMPERATRIZ on CKD 4 -Continue with aggressive diuresis. Echocardiogram was obtained with an EF of 37% and a pulmonary artery pressure of 40 mmHg -Troponin is trending down, BNP elevation is confounded by her chronic kidney disease -Continue with her home blood pressure medications, her blood pressure is stable -Continue with Lipitor -Baseline creatinine is around 2.5, creatinine has risen to about 4 -With rising creatinine unable to continue diuresis and given her new reduced EF, will consult cardiology for evaluation and possible intervention 2. Type 1 diabetes -We will continue with her home insulin and make adjustments as necessary 3. Anemia of chronic disease -Hemoglobin is stable and at baseline -We will continue to monitor DVT: Heparin Inpatient E&M: 22894 Subs Hosp L2
[2020-10-05 11:20] LABS: Bedside Glucose 285 mg/dL (70-110)
--- NOTE | 2020-10-05 15:40 | PCM.CONS.C ---
Reason for Consult Date of Consultation: 10/05/20 Reason for Consultation: CAD, CHF History of Present Illness: 64-year-old female with past medical history of coronary artery disease status post CABG in 2005 (SIMS to LAD, sequential SVG to OM and PL circumflex, SVG to diagonal), CKD coming to [facility] with shortness of breath that was going on for several weeks. She follows with a weigher production in [facility] and also with a environmental emergencies assistant in [place]. Patient was admitted to the hospital and diuresed. Her creatinine went up to 4 and her Lasix was held. Her troponin went up slightly and her EF was found to be around 37%. This is new decrease in LVEF. An echo from 2015 mentions preserved EF. Patient has noticed significant improvement after coming to the hospital. Her edema has gone down significantly and her shortness of breath is better. Review of systems: All systems reviewed. All else is negative except that in HPI Past Medical History Allergies/Adverse Reactions: Allergies No Known Allergies Allergy (Verified 10/28/18 19:27) Home Medications: Ambulatory Orders Medication Instructions Recorded Aspirin [Aspirin, Baby] 81 mg PO DAILY 04/09/15 Isosorbide Mononitrate [Imdur] 60 mg PO DAILY 10/02/15 Insulin Aspart [Novolog Flexpen] 3 units SC LUNCH 03/20/18 Insulin Aspart [Novolog Flexpen] 15 units SC BREAKFAST 10/28/18 Insulin NPH Human Isophane 5 units SC QHS 10/28/18 [Novolin N] Atorvastatin Calcium 40 mg PO DAILY 10/03/20 Carvedilol [Coreg (Beta Janett)] 6.25 mg PO BID 10/03/20 Guaifenesin [Mucinex] 1,200 mg PO BID 10/03/20 Insulin Aspart [Novolog Flexpen 5 units SC DINNER 10/03/20 ([facility])] Past Medical History (Chronic Problems): Chronic Problems Anemia of chronic disease (Chronic) CHF exacerbation (Chronic) Uncontrolled type I diabetes mellitus (Chronic) Hypertension (Chronic) Coronary artery disease (Chronic) Status post CABG in 2005 Diabetes mellitus type 1 (Chronic) Hx of CABG (Chronic) Interstitial lung disease (Chronic) Chronic renal failure, stage 4 (severe) (Chronic) Surgical History: - - CABG ?4, bilateral carpal tunnel surgery, eye surgery. Psychiatric History: No pertinent psych hx ORTHOPEDIC SHOE FITTER History: No pertinent ORTHOPEDIC SHOE FITTER history - *Family History Maternal History Items: Heart Disease, Hypertension Paternal History Items: Heart Disease, Hypertension, Stroke Lives: With Family Smoking Status: Never smoker Alcohol: None Drugs: None Objective: Vital Signs Temp Pulse Resp BP Pulse Ox 98.5 F 95 16 128/59 H 97 10/05/20 09:30 10/05/20 09:30 10/05/20 09:30 10/05/20 09:30 10/05/20 13:43 Oxygen Flow Rate (L/min) 2 Oxygen Delivery Method Room Air Weight: 121 lb 0.54 oz Body Mass Index (BMI) 24.4 Finger Stick Blood Glucose 80 Intake and Output for Last 24 Hours 10/03/20 10/04/20 10/05/20 23:59 23:59 23:59 Intake Total 360 / 360 1130 / 1130 770 / 770 Output Total 150 / 150 1025 / 1025 525 / 525 Balance 210 / 210 105 / 105 245 / 245 General: Awake, Alert, Oriented x 3 HEENT: Atraumatic Oral: Moist Mucosa Neck: Supple Lungs: Clear to auscultation Cardiovascular: Regular Rhythm Abdomen: Soft Extremities: No edema Skin: No Rashes 10/05/20 05:55: WBC 11.6 H, RBC 3.17 L, Hgb 9.1 L, Hct 28.7 L, MCV 90.5, MCH 28.7, MCHC 31.7 L, Plt Count 256, MPV 11.0, Immature Gran % (Auto) 0.600, Neut % (Auto) 83.1 H, Lymph % (Auto) 6.8 L, [place] % (Auto) 6.1, Eos % (Auto) 3.1, Baso % (Auto) 0.3, Absolute Neuts (auto) 9.6 H, Nucleated RBC % 0 10/05/20 05:55: Sodium 139, Potassium 3.9, Chloride 107, Carbon Dioxide 25.0, Anion Gap 7, BUN 84 H, Creatinine 4.00 H, Est GFR (MDRD) Af Amer 15 L, Est GFR (MDRD) Non-Af 12 L, BUN/Creatinine Ratio 21.0 H, Glucose 150 H, Calcium 8.1 L Rhythm: EKG: ECHO: Stress Test: Cardiac Cath: PCI: CT Surgery: Holter monitor: EPS: PPM: CXR: Chest CT Scan: Assessment/Plan 1. Congestive heart failure: Patient came in with decompensated heart failure with possibly new LV systolic dysfunction. The last echo we have in our system is from 2014. Patient was following up with a environmental emergencies assistant at [place]. If this drop in EF is indeed new then she would benefit from coronary angiography to evaluate this further. However patient has significant CKD and may end up with worsening kidney function requiring dialysis if he proceed with coronary angiography at this time. Her creatinine has gone up slightly since admission. We will hold her Lasix and see if creatinine improves. It will be reasonable to consult patient's weigher production as well. Coronary angiography could potentially be done as an outpatient. Continue Coreg. Not on ANA due to CKD. 2. Coronary artery disease: Status post CABG in 2005. As mentioned, if the LV dysfunction has not been evaluated further in the past with repeat coronary angiography then patient will likely need coronary angiography after consultation with weigher production and optimizing her kidney function. It would be reasonable to start the patient on Plavix.
[2020-10-05 16:45] LABS: Bedside Glucose 149 mg/dL (70-110)
[2020-10-05] MEDS: Insulin NPH Human 100 UNITS/ML PEN 10 UNITS SC (21:23)
[2020-10-05] MEDS: Atorvastatin Calcium 40 MG Tablet PO (21:33)
[2020-10-05 21:40] LABS: Bedside Glucose 278 mg/dL (70-110)
[2020-10-06] VITALS (16 sets, daily range): BP systolic 114–152; BP diastolic 42–74; PULSE 72–101; RESP 18; TEMP 36.4–37.1; O2SAT 90–98
[2020-10-06 05:14] LABS: Absolute Lymphocyte Count 1.09 X10^3/uL (0.83-4.51); Absolute Neutrophil Count 5.7 X10^3/uL (2.0-7.7); Basophil# 0.03 X10^3/uL; Basophil% 0.4 % (0-1); Eosinophil# 0.45 X10^3/uL; Eosinophils% 5.6 % (0-5); Hematocrit 28.5 % (37-47); Hemoglobin 8.8 g/dL (12.0-15.0); Lymphocyte # 1.09 X10^3/ul (4.0); Lymphocyte % 13.6 % (19-41); Mean Corp Hgb Conc 30.9 g/dL (32-36); Mean Corpuscular Hgb 28.6 pg (27.0-32.0); Mean Corpuscular Volume 92.5 fL (81-99); Mean Platelet Vol. 10.9 fl (6.2-12.0); Monocyte# 0.72 X10^3/uL; NRBC Flagged by Analyzer 0 % (0-5); Neutrophil # 5.67 X10^3/uL (2.7-7.7); Neutrophil % 70.9 % (47-70); Platelet Count 238 K/mm3 (150-450); RBC Distribution Width CV 15.1 % (11.6-14.6); RBC Distribution Width SD 51.1 fl (35.1-43.9); Red Blood Count 3.08 M/mm3 (4.2-5.4)
[2020-10-06 05:43] LABS: Anion Gap 7 (5-15); BUN 86 mg/dL (7-18); BUN/Creat Ratio 20.4 RATIO (10-20); Calcium,Total 8.3 mg/dL (8.5-10.1); Chloride 111 mmol/L (98-107); Creatinine, Serum 4.21 mg/dL (0.55-1.02); EST Glomerular Filtration Rate 11 mL/min (>60); Est Glom Filt Rate - Afr Amer 14 mL/min (>60); Estimated Creatinine Clearance 11.85 ml/min; Glucose 130 mg/dL (74-106); Potassium 4.1 mmol/L (3.5-5.1); Sodium Level 143 mmol/L (136-145); Thyroid Stim Hormone (TSH) 2.27 uIU/mL (0.358-3.74)
[2020-10-06 06:56] LABS: Bedside Glucose 127 mg/dL (70-110)
--- NOTE | 2020-10-06 08:11 | PCM.CONS.R ---
Problem List (1) Chronic renal failure, stage 4 (severe) Status: Chronic Consultation - Renal 10/06/20 PCP/ Referring MD: Requesting physician: [] Primary care physician: Dr. Sergio Maxwell DO Reason for Consultation:: CKD 4 EMPERATRIZ - History of Present Illness History of Present Illness: The patient is a 64 year old F who presented to the hospital with complaints of shortness of breath. She is well-known to us. Sees one of my associates in the office. Known history of diabetes, CKD stage IV/V, proteinuria of about 1.6 g. She was last seen in our office in July. At that time her creatinine was around 3.3. She sees a stained glass joiner in [facility]. We were in the process of access placement to start dialysis. Presented to the hospital with complaints of shortness of breath, fluid overload. Found to have decreased ejection fraction which is new. Troponins are elevated. Reviewed cardiology note. Received Lasix IV since admission. Feels better. Edema is better. No urinary complaints. - Allergies Allergies: Allergies No Known Allergies Allergy (Verified 10/28/18 19:27) - Current Medications Current Medications: Current Medications Acetaminophen (Acetaminophen 325 Mg Tablet) 650 mg PO Q6H PRN PRN PRN Reason: Pain Score 1-10/Temp > 100.7 F Last Admin: 10/04/20 14:08 Dose: 650 mg Documented by: Albuterol Sulfate (Albuterol 2.5 Mg/3 Ml Vial.Neb.) 2.5 mg INHALATION Q2H PRN PRN PRN Reason: SOB/Wheezing Aspirin (Aspirin 81 Mg Tab.Chew) [facility] Last Admin: 10/05/20 09:32 Dose: 81 mg Documented by: Atorvastatin Calcium (Atorvastatin Calcium 40 Mg Tablet) 40 mg PO DAILY@2200 [facility] Last Admin: 10/05/20 21:33 Dose: 40 mg Documented by: Carvedilol (Carvedilol 6.25 Mg Tablet) 6.25 mg PO BID [facility] Last Admin: 10/05/20 21:22 Dose: 6.25 mg Documented by: Clopidogrel Bisulfate (Clopidogrel Bisulfate 75 Mg Tablet) 75 mg PO DAILY [facility] Dextrose (Dextrose 50%-Water 25 Gm/50 Ml Disp.Syrin) 0 gm IV X1 PRN; Protocol PRN Reason: Hypoglycemia Glucagon (Glucagon 1 Mg/Ml Syringe) 1 mg IM .X1 PRN PRN Reason: Hypoglycemia Heparin Sodium (Porcine) (Heparin Injection (Vial) 5,000 Unit/Ml Vial) 5,000 unit SC Q12 [facility] Last Admin: 10/05/20 21:22 Dose: 5,000 unit Documented by: Insulin Human Lispro (Insulin Lispro 100 Unit/Ml Insuln.Pen) 0 unit SC ACHS [facility]; Protocol Last Admin: 10/05/20 21:30 Dose: 2 unit Documented by: Insulin Human Lispro (Insulin Lispro 100 Unit/Ml Insuln.Pen) 3 unit SC LUNCH [facility] Last Admin: 10/05/20 12:02 Dose: 3 units Documented by: Insulin Human Lispro (Insulin Lispro 100 Unit/Ml Insuln.Pen) 15 unit SC BREAKFAST [facility] Last Admin: 10/05/20 09:31 Dose: 15 units Documented by: Insulin Human Lispro (Insulin Lispro 100 Unit/Ml Insuln.Pen) 5 unit SC DINNER [facility] Last Admin: 10/05/20 17:24 Dose: 5 units Documented by: Insulin Human NPH (Insulin Nph Human 100 Units/Ml Pen) 10 units SC QHS [facility] Last Admin: 10/05/20 21:23 Dose: 10 units Documented by: Isosorbide Mononitrate (Isosorbide Mononitrate 60 Mg Tablet) 60 mg PO DAILY [facility] Last Admin: 10/05/20 09:33 Dose: 60 mg Documented by: Nitroglycerin (Nitroglycerin (Inpatient Use) 0.4 Mg Tab.Subl) 0.4 mg SUBLINGUAL Q5M PRN PRN Reason: CARDIAC/CHEST PAIN Ondansetron HCl (Ondansetron 4 Mg/2 Ml Vial) 4 mg IV Q8H PRN PRN PRN Reason: NAUSEA/VOMITING Sodium Chloride (0.9% Saline Lock 10 Ml Syringe) 10 - 40 ml IV UD PRN PRN Reason: SALINE FLUSH Last Admin: 10/04/20 14:02 Dose: 20 ml Documented by: - Past Medical History Past Medical History (Chronic Problems): Chronic Problems Anemia of chronic disease (Chronic) CHF exacerbation (Chronic) Uncontrolled type I diabetes mellitus (Chronic) Hypertension (Chronic) Coronary artery disease (Chronic) Status post CABG in 2005 Diabetes mellitus type 1 (Chronic) Hx of CABG (Chronic) Interstitial lung disease (Chronic) Chronic renal failure, stage 4 (severe) (Chronic) - Past Surgical History Surgical History: - - CABG ?4, bilateral carpal tunnel surgery, eye surgery. - Social History Smoking Status: Never smoker Alcohol: None Drugs: None - Family History Maternal History Items: Heart Disease, Hypertension Paternal History Items: Heart Disease, Hypertension, Stroke Review of Systems Constitutional: Denies: Chills, Fever, Weight Change HEENT: Denies: Head Aches, Sinus Congestion, Sinus Drainage Cardiovascular: Denies: Chest Pain, Palpitations Respiratory: Denies: Cough, Shortness of breath at rest, Sputum production Gastrointestinal: Denies: Abdominal Pain, Nausea, Vomiting Genitourinary: Denies: Dysuria Musculoskeletal: Denies: Joint Pain, Joint Tenderness Skin: Denies: Rash, Wounds Neurological: Denies: Numbness, Tingling, Focal weakness Psychiatric: Denies: Anxiety, Depression, Homicidal Ideations, Suicidal Ideations Hematologic/ Lymphatic: Denies: Easy Bruising, Easy Bleeding Patient Problems: Active and Suspected Problems Acute electrocardiogram changes (Acute) Elevated troponin (Acute) EMPERATRIZ (acute kidney injury) (Acute) Elevated troponin (Acute) - Physical Exam Vitals/I&O's: Vital Signs Temp Pulse Resp BP Pulse Ox 98.0 F 93 18 131/52 H 93 10/06/20 03:20 10/06/20 07:00 10/06/20 03:20 10/06/20 03:20 10/06/20 03:20 Oxygen Flow Rate (L/min) 2 Oxygen Delivery Method Room Air Weight: 54.9 kg Body Mass Index (BMI) 24.4 Finger Stick Blood Glucose 80 Intake and Output for Last 24 Hours 10/04/20 10/05/20 10/06/20 23:59 23:59 23:59 Intake Total 1130 / 1130 1010 / 1010 Output Total 1025 / 1025 525 / 525 Balance 105 / 105 485 / 485 General: Alert, Oriented x3, Cooperative HEENT: Atraumatic, PERRLA, EOMI, Normocephalic Neck: Supple, No JVD, Negative Carotid Bruits Lungs: Clear to auscultation, Normal air movement Cardiovascular: Regular rate, No murmurs Abdomen: Bowel Sounds Present, Soft, Non Tender Extremities: No edema, Capillary Refill Less than 3 Seconds Skin: No rashes, No breakdown Musculoskeletal: No Tenderness to Palpation of Joints or Extremities Neurological: Cranial nerves II-XII grossly intact Psych/Mental Status: Normal Affect, Appropriate Laboratory Results 10/05/20 08:08: POC Glucose 166 H 10/05/20 11:14: POC Glucose 285 H 10/05/20 16:34: POC Glucose 149 H 10/05/20 21:29: POC Glucose 278 H 10/06/20 05:00: WBC 8.0, RBC 3.08 L, Hgb 8.8 L, Hct 28.5 L, MCV 92.5, MCH 28.6, MCHC 30.9 L, RDW Std Deviation 51.1 H, RDW Coeff of Andrzej 15.1 H, Plt Count 238, MPV 10.9, Immature Gran % (Auto) 0.500, Neut % (Auto) 70.9 H, Lymph % (Auto) 13.6 L, [place] % (Auto) 9.0, Eos % (Auto) 5.6 H, Baso % (Auto) 0.4, Absolute Neuts (auto) 5.7, Absolute Lymphs (auto) 1.09, Nucleated RBC % 0 10/06/20 05:00: Sodium 143, Potassium 4.1, Chloride 111 H, Carbon Dioxide 25.0, Anion Gap 7, BUN 86 H, Creatinine 4.21 H, Estim Creat Clear Calc 11.85, Est GFR (MDRD) Af Amer 14 L, Est GFR (MDRD) Non-Af 11 L, BUN/Creatinine Ratio 20.4 H, Glucose 130 H, Calcium 8.3 L, Troponin I 1.070 H*, TSH 2.27 10/06/20 06:50: POC Glucose 127 H Current Medications Acetaminophen (Acetaminophen 325 Mg Tablet) 650 mg PO Q6H PRN PRN PRN Reason: Pain Score 1-10/Temp > 100.7 F Last Admin: 10/04/20 14:08 Dose: 650 mg Documented by: Albuterol Sulfate (Albuterol 2.5 Mg/3 Ml Vial.Neb.) 2.5 mg INHALATION Q2H PRN PRN PRN Reason: SOB/Wheezing Aspirin (Aspirin 81 Mg Tab.Chew) 81 mg PO DAILYCM [facility] Last Admin: 10/05/20 09:32 Dose: 81 mg Documented by: Atorvastatin Calcium (Atorvastatin Calcium 40 Mg Tablet) 40 mg PO DAILY@2200 [facility] Last Admin: 10/05/20 21:33 Dose: 40 mg Documented by: Carvedilol (Carvedilol 6.25 Mg Tablet) 6.25 mg PO BID [facility] Last Admin: 10/05/20 21:22 Dose: 6.25 mg Documented by: Clopidogrel Bisulfate (Clopidogrel Bisulfate 75 Mg Tablet) 75 mg PO DAILY [facility] Dextrose (Dextrose 50%-Water 25 Gm/50 Ml Disp.Syrin) 0 gm IV X1 PRN; Protocol PRN Reason: Hypoglycemia Glucagon (Glucagon 1 Mg/Ml Syringe) 1 mg IM .X1 PRN PRN Reason: Hypoglycemia Heparin Sodium (Porcine) (Heparin Injection (Vial) 5,000 Unit/Ml Vial) 5,000 unit SC Q12 [facility] Last Admin: 10/05/20 21:22 Dose: 5,000 unit Documented by: Insulin Human Lispro (Insulin Lispro 100 Unit/Ml Insuln.Pen) 0 unit SC ACHS [facility]; Protocol Last Admin: 10/05/20 21:30 Dose: 2 unit Documented by: Insulin Human Lispro (Insulin Lispro 100 Unit/Ml Insuln.Pen) 3 unit SC LUNCH [facility] Last Admin: 10/05/20 12:02 Dose: 3 units Documented by: Insulin Human Lispro (Insulin Lispro 100 Unit/Ml Insuln.Pen) 15 unit SC BREAKFAST [facility] Last Admin: 10/05/20 09:31 Dose: 15 units Documented by: Insulin Human Lispro (Insulin Lispro 100 Unit/Ml Insuln.Pen) 5 unit SC DINNER [facility] Last Admin: 10/05/20 17:24 Dose: 5 units Documented by: Insulin Human NPH (Insulin Nph Human 100 Units/Ml Pen) 10 units SC QHS [facility] Last Admin: 10/05/20 21:23 Dose: 10 units Documented by: Isosorbide Mononitrate (Isosorbide Mononitrate 60 Mg Tablet) 60 mg PO DAILY [facility] Last Admin: 10/05/20 09:33 Dose: 60 mg Documented by: Nitroglycerin (Nitroglycerin (Inpatient Use) 0.4 Mg Tab.Subl) 0.4 mg SUBLINGUAL Q5M PRN PRN Reason: CARDIAC/CHEST PAIN Ondansetron HCl (Ondansetron 4 Mg/2 Ml Vial) 4 mg IV Q8H PRN PRN PRN Reason: NAUSEA/VOMITING Sodium Chloride (0.9% Saline Lock 10 Ml Syringe) 10 - 40 ml IV UD PRN PRN Reason: SALINE FLUSH Last Admin: 10/04/20 14:02 Dose: 20 ml Documented by: Assessment/Plan All Active Problems Acute electrocardiogram changes (Acute) Elevated troponin (Acute) EMPERATRIZ (acute kidney injury) (Acute) Elevated troponin (Acute) Acute renal failure CKD stage IV Congestive heart failure History of diabetic nephropathy Baseline creatinine is around 3.3-3.5. Sustained acute renal failure in the setting of congestive heart failure and Lasix use. Blood pressure is acceptable. We were in the process of initiating dialysis as outpatient. She was supposed to see a surgeon for a PD catheter placement. I reviewed her old information from [facility]. She had an echocardiogram in 2018 which showed an ejection fraction of 60% with grade 1 diastolic dysfunction. Current echocardiogram shows significantly reduced ejection fraction. Most likely she will need coronary angiogram. She was in the process of starting dialysis anyway within the next few months, coronary angiogram if indicated can be done this admission. Depending on her clinical course after, will plan for dialysis. Explained this to the patient. She is agreeable. I will also reach out to her sister who usually manages her medical issues We will discuss with cardiology Discussed with hospitalist
--- NOTE | 2020-10-06 09:02 | CASEMGMT ---
According to the [facility] website, the following are in-network tertiary facilities: [facility], [facility], [facility], [facility], and . Fatoumata PATHAK CM
--- NOTE | 2020-10-06 09:10 | PN.CARD_ITS ---
Subjectve: Shortness of breath is better. Objective: Vital Signs Temp Pulse Resp BP Pulse Ox 98.0 F 93 18 131/52 H 93 10/06/20 03:20 10/06/20 07:00 10/06/20 03:20 10/06/20 03:20 10/06/20 03:20 Oxygen Flow Rate (L/min) 2 Oxygen Delivery Method Room Air Weight: 121 lb 0.54 oz Body Mass Index (BMI) 24.4 Finger Stick Blood Glucose 80 Intake and Output for Last 24 Hours 10/04/20 10/05/20 10/06/20 23:59 23:59 23:59 Intake Total 1130 / 1130 1010 / 1010 Output Total 1025 / 1025 525 / 525 Balance 105 / 105 485 / 485 General: Awake, Alert, Oriented x 3 HEENT: Atraumatic Oral: Moist Mucosa Neck: Supple Lungs: Rales - Right Base Cardiovascular: Regular Rhythm Abdomen: Soft Extremities: No edema 10/06/20 05:00: WBC 8.0, RBC 3.08 L, Hgb 8.8 L, Hct 28.5 L, MCV 92.5, MCH 28.6, MCHC 30.9 L, Plt Count 238, MPV 10.9, Immature Gran % (Auto) 0.500, Neut % (Auto) 70.9 H, Lymph % (Auto) 13.6 L, [place] % (Auto) 9.0, Eos % (Auto) 5.6 H, Baso % (Auto) 0.4, Absolute Neuts (auto) 5.7, Nucleated RBC % 0 10/06/20 05:00: Sodium 143, Potassium 4.1, Chloride 111 H, Carbon Dioxide 25.0, Anion Gap 7, BUN 86 H, Creatinine 4.21 H, Est GFR (MDRD) Af Amer 14 L, Est GFR (MDRD) Non-Af 11 L, BUN/Creatinine Ratio 20.4 H, Glucose 130 H, Calcium 8.3 L, Troponin I 1.070 H* Rhythm: EKG: ECHO: Stress Test: Cardiac Cath: PCI: CT Surgery: Holter monitor: EPS: PPM: CXR: Chest CT Scan: Medical Necessity - Tobacco Use Smoking Status: Never smoker Assessment/Plan 1. Congestive heart failure: Patient came in with decompensated heart failure with possibly new LV systolic dysfunction. The last echo we have in our system is from 2014. Patient was seen by her steam and gas turbine assembler who was able to look at her echo at [facility] from 2018. That also showed preserved EF. Patient was following up with a kilnman at [facility]. Patient's steam and gas turbine assembler feels that she is headed for dialysis whether we proceed with coronary angiography or not. We will proceed with coronary angiography to evaluate the new significant drop in LVEF. Continue Coreg. Not on ANA due to CKD. 2. Coronary artery disease: Status post CABG in 2005. Patient's troponin went up a little bit overnight. We will proceed with coronary angiography today.
[2020-10-06] MEDS: Aspirin 81 MG TAB.CHEW PO (09:20)
[2020-10-06] MEDS: Isosorbide Mononitrate 60 MG Tablet PO (09:21)
[2020-10-06] MEDS: Carvedilol 6.25 MG Tablet PO ×2 (09:21→21:49)
[2020-10-06] MEDS: Clopidogrel Bisulfate 75 MG Tablet PO (09:21)
--- NOTE | 2020-10-06 12:15 | EKG12_ITS ---
Test Reason : CHEST PRESSURE Blood Pressure : / mmHG Vent. Rate : 103 BPM Atrial Rate : 103 BPM P-R Int : 142 ms QRS Dur : 130 ms QT Int : 380 ms P-R-T Axes : 059 266 108 degrees QTc Int : 497 ms Sinus tachycardia Non-specific intra-ventricular conduction block T wave abnormality, consider lateral ischemia Abnormal ECG Confirmed by NUBIA CALDERA, DAVIS ([id number]), film and video editor TATIANA KIMBROUGH ([id number]) on 10/10/2020 12:42:40 PM Referred By: SURESH Confirmed By:DAVIS DELACRUZ MD
--- NOTE | 2020-10-06 12:36 | CL.D_ITS ---
Patient Name: KONRAD CAI Study Date: 10/06/2020 Performing: Jairon Snowden MD Ht: 60 inches 152 cm : 1955 Wt: 119.2 lbs 54 kg Age: 64 Gender: female BSA: 1.49 PROCEDURE(S) PERFORMED PN14-HKO/COR CLINICAL PROFILE AND INDICATIONS Indications: LV Dysfunction, ACS > 24 hrs Heart Failure: NYHA Class: 3, Newly Diagnosed: Yes, Heart Failure Type: Systolic Stress/Imaging Stress/Image Study Performed: No CAD Presentations: Non-STEMI. Symptom onset Date/Time: Time Not Available CONCLUSIONS severe [place] CAD as described. Patent 4/4 bypass grafts. 80% stenosis of R external iliac artery RECOMMENDATIONS Pt. should follow up in our office for her PAD DESCRIPTION OF PROCEDURE The patient arrived to the procedure lab. The risks and benefits of the procedure as well as a full d escription of our services here and current unavailability of surgical backup were fully explained to the patient and/or their significant other prior to the catheterization. The Timeout was completed, verifying the correct patient and procedure. The patient's procedural site was prepped and draped in the usual fashion. Local anesthetic was given subcutaneously to right groin region with Lidocaine 2%. Using a modified Seldinger technique, arterial access was obtained via the right femoral artery, a 5 Fr sheath was inserted. Left Coronary Artery selective angiography was performed in multiple views u sing a 5 Fr. JL4 catheter. Right Coronary Artery selective angiography was then performed in multiple views using a 5 Fr. JR 4 catheter. Saphenous Vein graft to the sequential LPL circ, om selective ang iography was performed in multiple views using a 5 Fr. JR 4 catheter. Saphenous Vein graft to the DIAG 1 selective angiography was performed in multiple views using a 5 Fr. JR 4 catheter. Left internal mammary artery graft to the LAD selective angiography was performed in multiple views using a 5 Fr. IM catheter.Contrast was injected through the sheath and the Right Iliac and Femoral artery were assessed for possible closure device.The arterial sheath was pulled and manual compression appli ed until hemostasis is achieved. CORONARY ANGIOGRAPHY DOMINANCE: Right Dominant LEFT MAIN: 40-50 % Stenosis LEFT ANTERIOR DESCENDING ARTERY: MID LAD: 100 % Stenosis CIRCUMFLEX ARTERY: PROX CIRC: 100 % Stenosis RIGHT CORONARY ARTERY: MID RCA: 99 % Stenosis. Severe diffuse disease in the distal RCA and RPDA GRAFTS: SIMS graft to the LAD is patent Saphenous Vein graft to the 1st OM is patent. Sequential graft from the OM1 to the PL LCx is patent Saphenous Vein graft to the 1st Diagonal is patent COMPLICATIONS No Complications PROCEDURE MEDICATIONS Versed 1 mg IV Dilaudid 50 mg IV Oxygen: 2 L/min via nasal cannula SUMMARY OF HEMODYNAMIC DATA Time AIR REST ECG 10:42:16 AO 125/75 (97) SA 10:58:18 Signed By Jairon Snowden MD On 10/06/2020 12:35:09 Jairon Snowden MD
[2020-10-06] MEDS: Insulin Lispro 100 UNIT/ML INSULN.PEN SC ×5 (12:43→21:48)
[2020-10-06 12:50] LABS: Bedside Glucose 217 mg/dL (70-110)
--- NOTE | 2020-10-06 13:38 | PCM.CONS.GEN ---
Problem List (1) EMPERATRIZ (acute kidney injury) Status: Acute Reason for Consult Date of Consultation: 10/06/20 Reason for Consultation: Need for vascular access for dialysis History of Present Illness: The patient is a 64 year old F had a heart catheterization today for possible NSTEMI. The patient was given a dose of aspirin and Plavix. Patient has no current complaints and is eating comfortably. Past Medical History Past Medical History (Chronic Problems): Chronic Problems Anemia of chronic disease (Chronic) CHF exacerbation (Chronic) Uncontrolled type I diabetes mellitus (Chronic) Hypertension (Chronic) Coronary artery disease (Chronic) Status post CABG in 2005 Diabetes mellitus type 1 (Chronic) Hx of CABG (Chronic) Interstitial lung disease (Chronic) Chronic renal failure, stage 4 (severe) (Chronic) Allergies No Known Allergies Allergy (Verified 10/28/18 19:27) Home Medications: Ambulatory Orders Medication Instructions Recorded Aspirin [Aspirin, Baby] 81 mg PO DAILY 04/09/15 Isosorbide Mononitrate [Imdur] 60 mg PO DAILY 10/02/15 Insulin Aspart [Novolog Flexpen] 3 units SC LUNCH 03/20/18 Insulin Aspart [Novolog Flexpen] 15 units SC BREAKFAST 10/28/18 Insulin NPH Human Isophane 5 units SC QHS 10/28/18 [Novolin N] Atorvastatin Calcium 40 mg PO DAILY 10/03/20 Carvedilol [Coreg (Beta Janett)] 6.25 mg PO BID 10/03/20 Guaifenesin [Mucinex] 1,200 mg PO BID 10/03/20 Insulin Aspart [Novolog Flexpen 5 units SC DINNER 10/03/20 ([facility])] Surgical History: - - CABG ?4, bilateral carpal tunnel surgery, eye surgery. 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 Lives: With Family Smoking Status: Never smoker Alcohol: None Drugs: None - *Family History Maternal History Items: Heart Disease, Hypertension Paternal History Items: Heart Disease, Hypertension, Stroke Review of Systems Constitutional: Denies: Anorexia, Fever HEENT: Denies: Difficulty Swallowing Respiratory: Denies: Cough, Shortness of Breath Gastrointestinal: Denies: Abdominal Pain, Nausea, Vomiting Genitourinary: Denies: Dysuria Musculoskeletal: Denies: Joint Tenderness Skin: Denies: Jaundice Patient Problems: Active and Suspected Problems Acute electrocardiogram changes (Acute) Elevated troponin (Acute) EMPERATRIZ (acute kidney injury) (Acute) Elevated troponin (Acute) - Physical Exam Vitals/I&O's: Vital Signs Temp Pulse Resp BP Pulse Ox 97.6 F L 85 18 136/53 H 96 10/06/20 11:45 10/06/20 12:46 10/06/20 12:46 10/06/20 12:46 10/06/20 12:46 Oxygen Flow Rate (L/min) 2 Oxygen Delivery Method Nasal Cannula Weight: 119 lb 7.849 oz Body Mass Index (BMI) 24.4 Finger Stick Blood Glucose 80 Intake and Output for Last 24 Hours 10/04/20 10/05/20 10/06/20 23:59 23:59 23:59 Intake Total 1130 / 1130 1010 / 1010 0 / 0 Output Total 1025 / 1025 525 / 525 Balance 105 / 105 485 / 485 0 / 0 General: Alert, Oriented x3 Neck: No JVD Lungs: Normal air movement Cardiovascular: Regular rate, Regular Rhythm Abdomen: Soft, Non Tender, Non-Distended Extremities: No clubbing Musculoskeletal: No Muscle Wasting Neurological: Cranial nerves II-XII grossly intact Psych/Mental Status: Normal Affect Laboratory Results 10/05/20 16:34: POC Glucose 149 H 10/05/20 21:29: POC Glucose 278 H 10/06/20 05:00: WBC 8.0, RBC 3.08 L, Hgb 8.8 L, Hct 28.5 L, MCV 92.5, MCH 28.6, MCHC 30.9 L, RDW Std Deviation 51.1 H, RDW Coeff of Andrzej 15.1 H, Plt Count 238, MPV 10.9, Immature Gran % (Auto) 0.500, Neut % (Auto) 70.9 H, Lymph % (Auto) 13.6 L, [place] % (Auto) 9.0, Eos % (Auto) 5.6 H, Baso % (Auto) 0.4, Absolute Neuts (auto) 5.7, Absolute Lymphs (auto) 1.09, Nucleated RBC % 0 10/06/20 05:00: Sodium 143, Potassium 4.1, Chloride 111 H, Carbon Dioxide 25.0, Anion Gap 7, BUN 86 H, Creatinine 4.21 H, Estim Creat Clear Calc 11.85, Est GFR (MDRD) Af Amer 14 L, Est GFR (MDRD) Non-Af 11 L, BUN/Creatinine Ratio 20.4 H, Glucose 130 H, Calcium 8.3 L, Troponin I 1.070 H*, TSH 2.27 10/06/20 06:50: POC Glucose 127 H 10/06/20 12:32: POC Glucose 217 H Current Medications Acetaminophen (Acetaminophen 325 Mg Tablet) 650 mg PO Q6H PRN PRN PRN Reason: Pain Score 1-10/Temp > 100.7 F Last Admin: 10/04/20 14:08 Dose: 650 mg Documented by: Albuterol Sulfate (Albuterol 2.5 Mg/3 Ml Vial.Neb.) 2.5 mg INHALATION Q2H PRN PRN PRN Reason: SOB/Wheezing Aspirin (Aspirin 81 Mg Tab.Chew) 81 mg PO DAILYCM [facility] Last Admin: 10/06/20 09:20 Dose: 81 mg Documented by: Atorvastatin Calcium (Atorvastatin Calcium 40 Mg Tablet) 40 mg PO DAILY@2200 [facility] [place] Last Admin: 10/05/20 21:33 Dose: 40 mg Documented by: Atropine Sulfate (Atropine Sulfate 1 Mg/10 Ml Syringe) 0.5 mg IV UD PRN PRN Reason: HR <50 bpm Carvedilol (Carvedilol 6.25 Mg Tablet) 6.25 mg PO BID [facility] [place] Last Admin: 10/06/20 09:21 Dose: 6.25 mg Documented by: Clopidogrel Bisulfate (Clopidogrel Bisulfate 75 Mg Tablet) 75 mg PO DAILY [facility] [place] Last Admin: 10/06/20 09:21 Dose: 75 mg Documented by: Dextrose (Dextrose 50%-Water 25 Gm/50 Ml Disp.Syrin) 0 gm IV X1 PRN; Protocol PRN Reason: Hypoglycemia Glucagon (Glucagon 1 Mg/Ml Syringe) 1 mg IM .X1 PRN PRN Reason: Hypoglycemia Heparin Sodium (Porcine) (Heparin Injection (Vial) 5,000 Unit/Ml Vial) 5,000 unit SC Q12 [facility] [place] Last Admin: 10/06/20 09:21 Dose: Not Given Documented by: Insulin Human Lispro (Insulin Lispro 100 Unit/Ml Insuln.Pen) 0 unit SC ACHS [facility] [place]; Protocol Last Admin: 10/06/20 12:43 Dose: 1 unit Documented by: Insulin Human Lispro (Insulin Lispro 100 Unit/Ml Insuln.Pen) 3 unit SC LUNCH [facility] [place] Last Admin: 10/06/20 12:44 Dose: 3 units Documented by: Insulin Human Lispro (Insulin Lispro 100 Unit/Ml Insuln.Pen) 15 unit SC BREAKFAST [facility] [place] Last Admin: 10/06/20 09:21 Dose: Not Given Documented by: Insulin Human Lispro (Insulin Lispro 100 Unit/Ml Insuln.Pen) 5 unit SC DINNER [facility] [place] Last Admin: 10/05/20 17:24 Dose: 5 units Documented by: Insulin Human NPH (Insulin Nph Human 100 Units/Ml Pen) 10 units SC QHS [facility] [place] Last Admin: 10/05/20 21:23 Dose: 10 units Documented by: Isosorbide Mononitrate (Isosorbide Mononitrate 60 Mg Tablet) 60 mg PO DAILY [facility] [place] Last Admin: 10/06/20 09:21 Dose: 60 mg Documented by: Labetalol HCl (Labetalol (Prefilled) 20 Mg/4 Ml) 5 mg IV X1 PRN PRN Reason: SBP >160 when pulling sheath Stop: 10/08/20 12:12 Nitroglycerin (Nitroglycerin (Inpatient Use) 0.4 Mg Tab.Subl) 0.4 mg SUBLINGUAL Q5M PRN PRN Reason: CARDIAC/CHEST PAIN Ondansetron HCl (Ondansetron 4 Mg/2 Ml Vial) 4 mg IV Q8H PRN PRN PRN Reason: NAUSEA/VOMITING Sodium Chloride (0.9% Saline Lock 10 Ml Syringe) 10 - 40 ml IV UD PRN PRN Reason: SALINE FLUSH Last Admin: 10/04/20 14:02 Dose: 20 ml Documented by: Sodium Chloride (0.9% Normal Saline 500 Ml Iv.Soln.) 500 ml IV BOLUS PRN PRN Reason: VASO-VAGAL PROTOCOL Assessment/Plan All Active Problems Acute electrocardiogram changes (Acute) Elevated troponin (Acute) EMPERATRIZ (acute kidney injury) (Acute) Elevated troponin (Acute) 64-year-old female with acute kidney injury 1. I was consulted for temporary dialysis catheter placement in a tunnel fashion. I discussed this with the patient in detail. I discussed placement of tunneled dialysis catheter in the operating room with mild anesthesia. I discussed removal in the office once her kidney function has returned. I discussed the risks of bleeding, infection, pneumothorax.I also explained that the patient was at an increased risk for bleeding due to Plavix and aspirin she is on. The patient understands all the risks and she is willing to proceed tomorrow morning. Plan for tunneled temporary dialysis catheter placement on the right tomorrow morning. I have made the patient n.p.o. after midnight and ordered antibiotics for the procedure. Josh Blanco MD Pager: [facility] [address] [place] [address] [address] [place] [address] Office:
[2020-10-06 16:41] LABS: Bedside Glucose 305 mg/dL (70-110)
--- NOTE | 2020-10-06 17:13 | PCM.PN.HOSP ---
Patient Problems: Active and Suspected Problems Acute electrocardiogram changes (Acute) Elevated troponin (Acute) EMPERATRIZ (acute kidney injury) (Acute) Elevated troponin (Acute) Subjective: This of breath has resolved, however she did have a rise in her troponin today. No issues overnight Vitals/I&O's: Vital Signs Temp Pulse Resp BP Pulse Ox 97.7 F L 75 18 123/42 H 94 10/06/20 14:54 10/06/20 14:54 10/06/20 14:54 10/06/20 14:54 10/06/20 14:54 Oxygen Flow Rate (L/min) 2 Oxygen Delivery Method Nasal Cannula Weight: 119 lb 7.849 oz Body Mass Index (BMI) 24.4 Finger Stick Blood Glucose 80 Intake and Output for Last 24 Hours 10/04/20 10/05/20 10/06/20 23:59 23:59 23:59 Intake Total 1130 / 1130 1010 / 1010 0 / 0 Output Total 1025 / 1025 525 / 525 Balance 105 / 105 485 / 485 0 / 0 General: Alert, Oriented x3, Cooperative, No apparent distress HEENT: Atraumatic, PERRLA, EOMI, Normocephalic Oral: Moist Mucosa Neck: Supple, No JVD Lungs: Normal air movement, Diminished, no Rales, no wheezes, no rhonchi Cardiovascular: Regular rate, Regular Rhythm, Normal S1, Normal S2, No murmurs Abdomen: Soft, Non Tender, Non-Distended, No Hepato-splenomegaly Extremities: Capillary Refill Less than 3 Seconds, no edema Skin: No rashes, No breakdown Neurological: Neuro grossly intact, Sensory exam intact to light touch and pain Psych/Mental Status: Normal Affect, Appropriate Laboratory Results 10/05/20 21:29: POC Glucose 278 H 10/06/20 05:00: WBC 8.0, RBC 3.08 L, Hgb 8.8 L, Hct 28.5 L, MCV 92.5, MCH 28.6, MCHC 30.9 L, RDW Std Deviation 51.1 H, RDW Coeff of Andrzej 15.1 H, Plt Count 238, MPV 10.9, Immature Gran % (Auto) 0.500, Neut % (Auto) 70.9 H, Lymph % (Auto) 13.6 L, [place] % (Auto) 9.0, Eos % (Auto) 5.6 H, Baso % (Auto) 0.4, Absolute Neuts (auto) 5.7, Absolute Lymphs (auto) 1.09, Nucleated RBC % 0 10/06/20 05:00: Sodium 143, Potassium 4.1, Chloride 111 H, Carbon Dioxide 25.0, Anion Gap 7, BUN 86 H, Creatinine 4.21 H, Estim Creat Clear Calc 11.85, Est GFR (MDRD) Af Amer 14 L, Est GFR (MDRD) Non-Af 11 L, BUN/Creatinine Ratio 20.4 H, Glucose 130 H, Calcium 8.3 L, Troponin I 1.070 H*, TSH 2.27 10/06/20 06:50: POC Glucose 127 H 10/06/20 12:32: POC Glucose 217 H 10/06/20 16:30: POC Glucose 305 H Current Medications Acetaminophen (Acetaminophen 325 Mg Tablet) 650 mg PO Q6H PRN PRN PRN Reason: Pain Score 1-10/Temp > 100.7 F Last Admin: 10/04/20 14:08 Dose: 650 mg Documented by: Albuterol Sulfate (Albuterol 2.5 Mg/3 Ml Vial.Neb.) 2.5 mg INHALATION Q2H PRN PRN PRN Reason: SOB/Wheezing Aspirin (Aspirin 81 Mg Tab.Chew) 81 mg PO DAILYCM [facility] Last Admin: 10/06/20 09:20 Dose: 81 mg Documented by: Atorvastatin Calcium (Atorvastatin Calcium 40 Mg Tablet) 40 mg PO DAILY@2200 [facility] Last Admin: 10/05/20 21:33 Dose: 40 mg Documented by: Atropine Sulfate (Atropine Sulfate 1 Mg/10 Ml Syringe) 0.5 mg IV UD PRN PRN Reason: HR <50 bpm Carvedilol (Carvedilol 6.25 Mg Tablet) 6.25 mg PO BID [facility] Last Admin: 10/06/20 09:21 Dose: 6.25 mg Documented by: Clopidogrel Bisulfate (Clopidogrel Bisulfate 75 Mg Tablet) 75 mg PO DAILY [facility] Last Admin: 10/06/20 09:21 Dose: 75 mg Documented by: Dextrose (Dextrose 50%-Water 25 Gm/50 Ml Disp.Syrin) 0 gm IV X1 PRN; Protocol PRN Reason: Hypoglycemia Glucagon (Glucagon 1 Mg/Ml Syringe) 1 mg IM .X1 PRN PRN Reason: Hypoglycemia Heparin Sodium (Porcine) (Heparin Injection (Vial) 5,000 Unit/Ml Vial) 5,000 unit SC Q12 [facility] Last Admin: 10/06/20 09:21 Dose: Not Given Documented by: Cefazolin Sodium 2 gm/ Sodium (Chloride) 110 mls @ 150 mls/hr IV SEND TO OR W/PATIENT ONE Stop: 10/07/20 07:43 Insulin Human Lispro (Insulin Lispro 100 Unit/Ml Insuln.Pen) 0 unit SC ACHS [facility]; Protocol Last Admin: 10/06/20 16:32 Dose: 3 unit Documented by: Insulin Human Lispro (Insulin Lispro 100 Unit/Ml Insuln.Pen) 3 unit SC LUNCH [facility] Last Admin: 10/06/20 12:44 Dose: 3 units Documented by: Insulin Human Lispro (Insulin Lispro 100 Unit/Ml Insuln.Pen) 15 unit SC BREAKFAST [facility] Last Admin: 10/06/20 09:21 Dose: Not Given Documented by: Insulin Human Lispro (Insulin Lispro 100 Unit/Ml Insuln.Pen) 5 unit SC DINNER [facility] Last Admin: 10/06/20 16:32 Dose: 5 units Documented by: Insulin Human NPH (Insulin Nph Human 100 Units/Ml Pen) 10 units SC QHS [facility] Last Admin: 10/05/20 21:23 Dose: 10 units Documented by: Isosorbide Mononitrate (Isosorbide Mononitrate 60 Mg Tablet) 60 mg PO DAILY [facility] Last Admin: 10/06/20 09:21 Dose: 60 mg Documented by: Labetalol HCl (Labetalol (Prefilled) 20 Mg/4 Ml) 5 mg IV X1 PRN PRN Reason: SBP >160 when pulling sheath Stop: 10/08/20 12:12 Nitroglycerin (Nitroglycerin (Inpatient Use) 0.4 Mg Tab.Subl) 0.4 mg SUBLINGUAL Q5M PRN PRN Reason: CARDIAC/CHEST PAIN Ondansetron HCl (Ondansetron 4 Mg/2 Ml Vial) 4 mg IV Q8H PRN PRN PRN Reason: NAUSEA/VOMITING Sodium Chloride (0.9% Saline Lock 10 Ml Syringe) 10 - 40 ml IV UD PRN PRN Reason: SALINE FLUSH Last Admin: 10/04/20 14:02 Dose: 20 ml Documented by: Sodium Chloride (0.9% Normal Saline 500 Ml Iv.Soln.) 500 ml IV BOLUS PRN PRN Reason: VASO-VAGAL PROTOCOL STROKE Vital Signs/Narrative: Vital Signs Temp Pulse Resp BP Pulse Ox 10/06/20 14:54 97.7 F L 75 18 123/42 H 94 10/06/20 14:51 97.9 F 86 18 123/42 H 97 10/06/20 13:45 84 18 132/56 H 98 10/06/20 13:15 83 18 114/49 L 96 Medical Necessity - Tobacco Use Smoking Status: Never smoker Assessment/Plan All Active Problems Acute electrocardiogram changes (Acute) Elevated troponin (Acute) EMPERATRIZ (acute kidney injury) (Acute) Elevated troponin (Acute) 1. Acute hypoxic respiratory insufficiency secondary to acute on chronic systolic and diastolic CHF/elevated troponin/HTN/HLD/CAD status post CABG/EMPERATRIZ on CKD 4 -Continue with aggressive diuresis. Echocardiogram was obtained with an EF of 37% and a pulmonary artery pressure of 40 mmHg -Pending simin to over 1 today, BNP elevation is confounded by her chronic kidney disease -Continue with her home blood pressure medications, her blood pressure is stable -Continue with Lipitor -Baseline creatinine is around 2.5, creatinine has risen to about 4 -With rising creatinine unable to continue diuresis and given her new reduced EF, will consult cardiology for evaluation and possible intervention -For heart cath today which was positive for [facility]a CAD with 80% stenosis of her right external iliac -Nephrology plans on having a tunneled dialysis catheter placed tomorrow to initiate dialysis 2. Type 1 diabetes -We will continue with her home insulin and make adjustments as necessary 3. Anemia of chronic disease -Hemoglobin is stable and at baseline -We will continue to monitor DVT: Heparin Inpatient E&M: 36847 Subs Hosp L2
[2020-10-06] MEDS: Insulin NPH Human 100 UNITS/ML PEN 15 UNITS SC (21:48)
[2020-10-06] MEDS: Atorvastatin Calcium 40 MG Tablet PO (21:49)
[2020-10-06 21:55] LABS: Bedside Glucose 409 mg/dL (70-110)
[2020-10-06] MEDS: Heparin Injection (Vial) 5,000 UNIT/ML VIAL 5000 UNIT SC (22:23)
--- NOTE | 2020-10-06 22:57 | NURSING ---
Verbal report received from Karen Armenta RN. This RN resuming care at this time.
[2020-10-07] VITALS (16 sets, daily range): BP systolic 95–157; BP diastolic 41–76; PULSE 71–98; RESP 16–24; TEMP 36.3–37; O2SAT 93–100; BMI 23.8
[2020-10-07] MEDS: Cefazolin 2 GM in 0.9% Normal Saline 100 ML IV (07:28)
[2020-10-07 07:35] LABS: International Normalized Ratio 1.1; Prothrombin Time (Protime)PT. 13.6 SECONDS (11.7-14.9)
[2020-10-07 07:36] LABS: Partial Thromboplast Time 30.7 Seconds (24.1-36.2)
[2020-10-07 07:38] LABS: Hematocrit 30.2 % (37-47); Hemoglobin 9.3 g/dL (12.0-15.0); Mean Corp Hgb Conc 30.8 g/dL (32-36); Mean Corpuscular Hgb 28.5 pg (27.0-32.0); Mean Corpuscular Volume 92.6 fL (81-99); Mean Platelet Vol. 11.3 fl (6.2-12.0); Platelet Count 243 K/mm3 (150-450); RBC Distribution Width CV 15.2 % (11.6-14.6); RBC Distribution Width SD 50.8 fl (35.1-43.9); Red Blood Count 3.26 M/mm3 (4.2-5.4); White Blood Count 8.4 K/mm3 (4.4-11.0)
--- NOTE | 2020-10-07 07:38 | NURSING ---
07:20 Report called to Irma. Pt sent to surgery with antibiotic and chart.
[2020-10-07] MEDS: Lidocaine 1% /Epi 1:100 (20ml) 20 ML Vial (07:47)
[2020-10-07] MEDS: Heparin 10,000 UNITS/10 ML Vial 10000 UNITS (07:50)
[2020-10-07 07:51] LABS: Hemoglobin A1c 6.4 % (3.8-5.6)
[2020-10-07 07:58] LABS: ALB/GLOB Ratio 0.5 RATIO (0.9-2.4); AST(SGOT) 16 U/L (15-37); Alanine Aminotransfer ALT/SGPT 17 U/L (13-56); Albumin, Serum 2.4 g/dL (3.2-5.0); Alkaline Phosphatase 72 U/L (45-117); Anion Gap 6 (5-15); BUN 90 mg/dL (7-18); BUN/Creat Ratio 21.6 RATIO (10-20); Calcium,Total 8.7 mg/dL (8.5-10.1); Chloride 112 mmol/L (98-107); Creatinine, Serum 4.17 mg/dL (0.55-1.02); EST Glomerular Filtration Rate 11 mL/min (>60); Est Glom Filt Rate - Afr Amer 14 mL/min (>60); Estimated Creatinine Clearance 12.03 ml/min; Globulin 4.4 g/dL (2.2-4.2); Glucose 276 mg/dL (74-106); Potassium 4.6 mmol/L (3.5-5.1); Protein, Total 6.8 g/dL (6.4-8.2); Sodium Level 141 mmol/L (136-145)
--- NOTE | 2020-10-07 08:43 | RAD_ITS ---
STUDY: X-RAY CHEST REASON FOR EXAM: Female, 64 years old. LINE PLACEMENT TECHNIQUE: Single AP portable view of the chest. COMPARISON: 10/03/2020 FINDINGS: Interval placement of a tunneled right internal jugular dialysis catheter with tip of the catheter overlying the superior vena cava and no pneumothorax. Status post median sternotomy. The lungs are clear and expanded. Small left pleural effusion. There is moderate cardiac enlargement. Normal mediastinum and arlene. Normal visualized pulmonary arteries. Normal visualized aortic arch and descending thoracic aorta. Normal visualized thoracic spine. Normal visualized ribs, clavicles, and shoulders. There is no demonstrated abnormality of the visualized soft tissue structures of the upper abdomen. RAD/CXR for Line Placement IMPRESSION: Interval placement of tunneled right internal jugular dialysis catheter with tip the catheter overlying the superior vena cava and no pneumothorax. Electronically Signed: Ulices Soto MD at 10:46 EST Tel , Service support ,
--- NOTE | 2020-10-07 09:15 | PCM.OPRPT ---
Problem List (1) EMPERATRIZ (acute kidney injury) Status: Acute Report of Operation Date of Procedure: 10/07/20 Pre-Operative Diagnosis: Acute kidney injury Post-Operative Diagnosis: Same Surgery/Procedure Performed:: Ultrasound and fluoroscopy guided right tunneled temporary dialysis catheter placement utilizing right IJ Description of Procedure: Patient was brought back to the operating room and moderate sedation was initiated. The patient's right neck and chest was prepped and draped in the usual sterile fashion. Ultrasound was used to localize the right IJ. An area of the skin was anesthetized over the right IJ as well as over the right chest and a tunnel between the 2. Small incision was made in the right chest as well as over the right IJ. A needle was placed into the right IJ under direct ultrasound visualization. Guidewire was placed without resistance and under fluoroscopy guidance. The needle was removed and serial dilators were placed over the guidewire and then the peel-away sheath was placed over the guidewire. The guidewire was removed and next the catheter was tunneled from the lower incision to the neck incision. The cuff was placed under the skin. The catheter was then placed through the peel-away sheath and the peel-away sheath was removed leaving the catheter in place. Fluoroscopy confirmed this and confirm that it was not kinked. The catheter was drawn and flushed and bryan and flushed easily. Then 1.5 cc of heparin were placed into each catheter. The skin incision was closed with 2 interrupted 3-0 Vicryl sutures and the catheter was sutured to the chest skin using 3-0 nylon suture. Dressings were applied and the patient was taken to PACU in chest x-ray will be obtained. Grafts/Implants Used: 19 cm curved palindrome temporary dialysis catheter - Admit VTE Documentation VTE Mechan Device Prophylaxis: SCD's
[2020-10-07 09:25] LABS: Bedside Glucose 250 mg/dL (70-110)
--- NOTE | 2020-10-07 10:00 | EKG12_ITS ---
Test Reason : AM EKG Blood Pressure : / mmHG Vent. Rate : 090 BPM Atrial Rate : 090 BPM P-R Int : 152 ms QRS Dur : 128 ms QT Int : 394 ms P-R-T Axes : 061 -75 112 degrees QTc Int : 481 ms Normal sinus rhythm Left axis deviation Non-specific intra-ventricular conduction block T wave abnormality, consider lateral ischemia Abnormal ECG Confirmed by NUBIA CALDERA, DAVIS ([id number]), editor farm journal TATIANA KIMBROUGH ([id number]) on 10/10/2020 12:34:42 PM Referred By: SURESH Confirmed By:DAVIS DELACRUZ MD
--- NOTE | 2020-10-07 11:46 | PCM.PN.HOSP ---
Patient Problems: Active and Suspected Problems Acute electrocardiogram changes (Acute) Elevated troponin (Acute) EMPERATRIZ (acute kidney injury) (Acute) Elevated troponin (Acute) Subjective: She had a tunneled dialysis catheter placed today on the right. Hopefully she can start dialysis today. She will need outpatient dialysis set up before she can be discharged Vitals/I&O's: Vital Signs Temp Pulse Resp BP Pulse Ox 98.3 F 92 20 H 147/59 H 94 10/07/20 09:13 10/07/20 09:13 10/07/20 09:13 10/07/20 09:13 10/07/20 10:09 Oxygen Flow Rate (L/min) 2 Oxygen Delivery Method Nasal Cannula Weight: 121 lb 11.123 oz Body Mass Index (BMI) 23.8 Finger Stick Blood Glucose 80 Intake and Output for Last 24 Hours 10/05/20 10/06/20 10/07/20 23:59 23:59 23:59 Intake Total 1010 / 1010 480 / 480 110 / 110 Output Total 525 / 525 Balance 485 / 485 480 / 480 110 / 110 General: Alert, Oriented x3, Cooperative, No apparent distress HEENT: Atraumatic, PERRLA, EOMI, Normocephalic Oral: Moist Mucosa Neck: Supple, No JVD Lungs: Normal air movement, Diminished, no Rales, no wheezes, no rhonchi Cardiovascular: Regular rate, Regular Rhythm, Normal S1, Normal S2, No murmurs Abdomen: Soft, Non Tender, Non-Distended, No Hepato-splenomegaly Extremities: Capillary Refill Less than 3 Seconds, no edema Skin: No rashes, No breakdown Neurological: Neuro grossly intact, Sensory exam intact to light touch and pain Psych/Mental Status: Normal Affect, Appropriate Laboratory Results 10/06/20 12:32: POC Glucose 217 H 10/06/20 16:30: POC Glucose 305 H 10/06/20 21:46: POC Glucose 409 H 10/07/20 06:55: WBC 8.4, RBC 3.26 L, Hgb 9.3 L, Hct 30.2 L, MCV 92.6, MCH 28.5, MCHC 30.8 L, RDW Std Deviation 50.8 H, RDW Coeff of Andrzej 15.2 H, Plt Count 243, MPV 11.3 10/07/20 06:55: Sodium 141, Potassium 4.6, Chloride 112 H, Carbon Dioxide 23.0, Anion Gap 6, BUN 90 H, Creatinine 4.17 H, Estim Creat Clear Calc 12.03, Est GFR (MDRD) Af Amer 14 L, Est GFR (MDRD) Non-Af 11 L, BUN/Creatinine Ratio 21.6 H, Glucose 276 H, Calcium 8.7, Total Bilirubin 0.30, AST 16, ALT 17, Alkaline Phosphatase 72, Total Protein 6.8, Albumin 2.4 L, Globulin 4.4 H, Albumin/Globulin Ratio 0.5 L 10/07/20 06:55: PT 13.6, INR 1.1, APTT 30.7 10/07/20 06:55: Hemoglobin A1c 6.4 H 10/07/20 09:12: POC Glucose 250 H Current Medications Acetaminophen (Acetaminophen 325 Mg Tablet) 650 mg PO Q6H PRN PRN PRN Reason: Pain Score 1-10/Temp > 100.7 F Last Admin: 10/04/20 14:08 Dose: 650 mg Documented by: Albuterol Sulfate (Albuterol 2.5 Mg/3 Ml Vial.Neb.) 2.5 mg INHALATION Q2H PRN PRN PRN Reason: SOB/Wheezing Aspirin (Aspirin 81 Mg Tab.Chew) 81 mg PO DAILYCM [facility] Last Admin: 10/06/20 09:20 Dose: 81 mg Documented by: Atorvastatin Calcium (Atorvastatin Calcium 40 Mg Tablet) 40 mg PO DAILY@2200 [facility] Last Admin: 10/06/20 21:49 Dose: 40 mg Documented by: Atropine Sulfate (Atropine Sulfate 1 Mg/10 Ml Syringe) 0.5 mg IV UD PRN PRN Reason: HR <50 bpm Carvedilol (Carvedilol 6.25 Mg Tablet) 6.25 mg PO BID [facility] Last Admin: 10/06/20 21:49 Dose: 6.25 mg Documented by: Clopidogrel Bisulfate (Clopidogrel Bisulfate 75 Mg Tablet) 75 mg PO DAILY [facility] Last Admin: 10/06/20 09:21 Dose: 75 mg Documented by: Dextrose (Dextrose 50%-Water 25 Gm/50 Ml Disp.Syrin) 0 gm IV X1 PRN; Protocol PRN Reason: Hypoglycemia Glucagon (Glucagon 1 Mg/Ml Syringe) 1 mg IM .X1 PRN PRN Reason: Hypoglycemia Heparin Sodium (Porcine) (Heparin Injection (Vial) 5,000 Unit/Ml Vial) 5,000 unit SC Q12 [facility] Last Admin: 10/06/20 22:23 Dose: 5,000 unit Documented by: Heparin Sodium (Porcine) (Heparin 10,000 Units/10 Ml Vial) 0 - 10,000 units IV X1 [facility] Stop: 10/07/20 23:59 Insulin Human Lispro (Insulin Lispro 100 Unit/Ml Insuln.Pen) 0 unit SC ACHS [facility]; Protocol Last Admin: 10/07/20 11:07 Dose: Not Given Documented by: Insulin Human Lispro (Insulin Lispro 100 Unit/Ml Insuln.Pen) 3 unit SC LUNCH [facility] Last Admin: 10/06/20 12:44 Dose: 3 units Documented by: Insulin Human Lispro (Insulin Lispro 100 Unit/Ml Insuln.Pen) 15 unit SC BREAKFAST [facility] Last Admin: 10/07/20 11:08 Dose: Not Given Documented by: Insulin Human Lispro (Insulin Lispro 100 Unit/Ml Insuln.Pen) 5 unit SC DINNER [facility] Last Admin: 10/06/20 16:32 Dose: 5 units Documented by: Insulin Human NPH (Insulin Nph Human 100 Units/Ml Pen) 15 units SC QHS [facility] Last Admin: 10/06/20 21:48 Dose: 15 u Documented by: Isosorbide Mononitrate (Isosorbide Mononitrate 60 Mg Tablet) 60 mg PO DAILY [facility] Last Admin: 10/06/20 09:21 Dose: 60 mg Documented by: Labetalol HCl (Labetalol (Prefilled) 20 Mg/4 Ml) 5 mg IV X1 PRN PRN Reason: SBP >160 when pulling sheath Stop: 10/08/20 12:12 Nitroglycerin (Nitroglycerin (Inpatient Use) 0.4 Mg Tab.Subl) 0.4 mg SUBLINGUAL Q5M PRN PRN Reason: CARDIAC/CHEST PAIN Ondansetron HCl (Ondansetron 4 Mg/2 Ml Vial) 4 mg IV Q8H PRN PRN PRN Reason: NAUSEA/VOMITING Sodium Chloride (0.9% Saline Lock 10 Ml Syringe) 10 - 40 ml IV UD PRN PRN Reason: SALINE FLUSH Last Admin: 10/04/20 14:02 Dose: 20 ml Documented by: Sodium Chloride (0.9% Normal Saline 500 Ml Iv.Soln.) 500 ml IV BOLUS PRN PRN Reason: VASO-VAGAL PROTOCOL STROKE Vital Signs/Narrative: Vital Signs Temp Pulse Resp BP Pulse Ox 10/07/20 10:09 94 10/07/20 09:13 98.3 F 92 20 H 147/59 H 94 10/07/20 08:30 97.7 F L 91 18 136/62 H 100 10/07/20 08:25 91 18 154/67 H 98 10/07/20 08:20 94 18 152/69 H 93 10/07/20 08:15 81 18 151/71 H 100 10/07/20 08:10 97.3 F L 98 18 157/76 H 97 Medical Necessity - Tobacco Use Smoking Status: Never smoker Assessment/Plan All Active Problems Acute electrocardiogram changes (Acute) Elevated troponin (Acute) EMPERATRIZ (acute kidney injury) (Acute) Elevated troponin (Acute) 1. Acute hypoxic respiratory insufficiency secondary to acute on chronic systolic and diastolic CHF/elevated troponin/HTN/HLD/CAD status post CABG/EMPERATRIZ on CKD 4 -Continue with aggressive diuresis. Echocardiogram was obtained with an EF of 37% and a pulmonary artery pressure of 40 mmHg -Troponin simin to over 1 today, BNP elevation is confounded by her chronic kidney disease -Continue with her home blood pressure medications, her blood pressure is stable -Continue with Lipitor -Baseline creatinine is around 2.5, creatinine has risen to about 4 -With rising creatinine unable to continue diuresis and given her new reduced EF, preceded cardiology input and assistance -For heart cath today which was positive for [place] CAD with 80% stenosis of her right external iliac -Tunneled dialysis catheter placed today. Can likely initiate dialysis later this afternoon -Discussed with case management and will need to set up outpatient dialysis prior to discharge 2. Type 1 diabetes -We will continue with her home insulin and make adjustments as necessary -A1c was obtained and 6.4 3. Anemia of chronic disease -Hemoglobin is stable and at baseline -We will continue to monitor DVT: Heparin Inpatient E&M: 19759 Subs Hosp L2
--- NOTE | 2020-10-07 11:48 | PN.CARD_ITS ---
Subjectve: This patient is seen today at bedside along with the nursing staff. She will start hemodialysis today Patient denied any symptoms of chest pain. She 64-year-old patient to have history of CAD with aorto coronary bypass surgery in 2005. She underwent cardiac catheterization by which revealed patency of her bypass graft with severe [place] coronary artery atherosclerosis. Patency of SIMS to LAD and sequential SVG graft to OM1/posterolateral branch and SVG graft to diagonal branch. Also noted she had reduced LV systolic function with ejection fraction calculated around 37% and anteroseptal hypokinesia. . Cardiac recommendations; 1. I reviewed and discussed the current medication will continue current treatment 2. Patient currently on hemodialysis. 3. This patient has severe peripheral vascular disease with high-grade stenosis of the right common femoral artery and recommendation is to evaluate further with CTA aortogram runoff once she is stable which can be set up as an outpatient. 4. Continue to monitor and follow-up as clinically. During this admission. Objective: Vital Signs Temp Pulse Resp BP Pulse Ox 98.3 F 92 20 H 147/59 H 94 10/07/20 09:13 10/07/20 09:13 10/07/20 09:13 10/07/20 09:13 10/07/20 10:09 Oxygen Flow Rate (L/min) 2 Oxygen Delivery Method Nasal Cannula Weight: 121 lb 11.123 oz Body Mass Index (BMI) 23.8 Finger Stick Blood Glucose 80 Intake and Output for Last 24 Hours 10/05/20 10/06/20 10/07/20 23:59 23:59 23:59 Intake Total 1010 / 1010 480 / 480 110 / 110 Output Total 525 / 525 Balance 485 / 485 480 / 480 110 / 110 10/07/20 06:55: WBC 8.4, RBC 3.26 L, Hgb 9.3 L, Hct 30.2 L, MCV 92.6, MCH 28.5, MCHC 30.8 L, Plt Count 243, MPV 11.3 10/07/20 06:55: Sodium 141, Potassium 4.6, Chloride 112 H, Carbon Dioxide 23.0, Anion Gap 6, BUN 90 H, Creatinine 4.17 H, Est GFR (MDRD) Af Amer 14 L, Est GFR (MDRD) Non-Af 11 L, BUN/Creatinine Ratio 21.6 H, Glucose 276 H, Calcium 8.7, Total Bilirubin 0.30 10/07/20 06:55: PT 13.6, INR 1.1, APTT 30.7 10/07/20 06:55: Hemoglobin A1c 6.4 H Rhythm: EKG: ECHO: Stress Test: Cardiac Cath: PCI: CT Surgery: Holter monitor: EPS: PPM: CXR: Chest CT Scan: Medical Necessity - Tobacco Use Smoking Status: Never smoker
[2020-10-07 13:01] LABS: Bedside Glucose 208 mg/dL (70-110)
[2020-10-07 14:00] LABS: Hepatitis B Surface Antibody Non-Reactive; Hepatitis B Surface Antigen Non-Reactive (Nonreactive)
--- NOTE | 2020-10-07 14:16 | DIALYSIS ---
Pt tolerated 2hr HD tx well. Hepatitis labs drawn and sent. Net UF EVEN. See flow record for tx data.
[2020-10-07] MEDS: Aspirin 81 MG TAB.CHEW PO (14:17)
[2020-10-07] MEDS: Carvedilol 6.25 MG Tablet PO (14:17)
[2020-10-07] MEDS: Heparin Injection (Vial) 5,000 UNIT/ML VIAL 5000 UNIT SC ×2 (14:17→21:11)
[2020-10-07] MEDS: Isosorbide Mononitrate 60 MG Tablet PO (14:18)
[2020-10-07] MEDS: Clopidogrel Bisulfate 75 MG Tablet PO (14:18)
[2020-10-07] MEDS: Heparin 10,000 UNITS/10 ML Vial IV (14:18)
[2020-10-07 16:41] LABS: Bedside Glucose 249 mg/dL (70-110)
[2020-10-07] MEDS: Insulin Lispro 100 UNIT/ML INSULN.PEN SC ×3 (17:24→21:11)
[2020-10-07] MEDS: Acetaminophen 325 MG Tablet 650 MG PO (17:27)
--- NOTE | 2020-10-07 17:38 | PN.RENAL_ITS ---
Patient Problems: Active and Suspected Problems Acute electrocardiogram changes (Acute) Elevated troponin (Acute) EMPERATRIZ (acute kidney injury) (Acute) Elevated troponin (Acute) Subjective: No SOB No chest pain edema is better had 1st HD Session earlier today - Physical Exam Vitals/I&O's: Vital Signs Temp Pulse Resp BP Pulse Ox 98.6 F 97 20 H 129/54 H 96 10/07/20 15:10 10/07/20 15:10 10/07/20 15:10 10/07/20 15:10 10/07/20 15:10 Oxygen Flow Rate (L/min) 2 Oxygen Delivery Method Nasal Cannula Weight: 55.2 kg Body Mass Index (BMI) 23.8 Finger Stick Blood Glucose 80 Intake and Output for Last 24 Hours 10/05/20 10/06/20 10/07/20 23:59 23:59 23:59 Intake Total 1010 / 1010 480 / 480 230 / 230 Output Total 525 / 525 0 / 0 Balance 485 / 485 480 / 480 230 / 230 General: Alert, Oriented x3 HEENT: Atraumatic Oral: Moist Mucosa Neck: Supple, No JVD Lungs: Clear to auscultation, Normal air movement, No rhonchi Cardiovascular: Regular rate, Regular Rhythm, Normal S1 Abdomen: Bowel Sounds Present, Soft, Non Tender, Non-Distended Extremities: No clubbing, No cyanosis, No edema Skin: No rashes Musculoskeletal: No Tenderness to Palpation of Joints or Extremities Lymphatic: No Cervical, Supraclavicular, or Inguinal Adenopathy Neurological: Cranial nerves II-XII grossly intact, Neuro grossly intact Psych/Mental Status: Appropriate Laboratory Results 10/06/20 21:46: POC Glucose 409 H 10/07/20 06:55: WBC 8.4, RBC 3.26 L, Hgb 9.3 L, Hct 30.2 L, MCV 92.6, MCH 28.5, MCHC 30.8 L, RDW Std Deviation 50.8 H, RDW Coeff of Andrzej 15.2 H, Plt Count 243, MPV 11.3 10/07/20 06:55: Sodium 141, Potassium 4.6, Chloride 112 H, Carbon Dioxide 23.0, Anion Gap 6, BUN 90 H, Creatinine 4.17 H, Estim Creat Clear Calc 12.03, Est GFR (MDRD) Af Amer 14 L, Est GFR (MDRD) Non-Af 11 L, BUN/Creatinine Ratio 21.6 H, Glucose 276 H, Calcium 8.7, Total Bilirubin 0.30, AST 16, ALT 17, Alkaline Phosphatase 72, Total Protein 6.8, Albumin 2.4 L, Globulin 4.4 H, Albumin/Globulin Ratio 0.5 L 10/07/20 06:55: PT 13.6, INR 1.1, APTT 30.7 10/07/20 06:55: Hemoglobin A1c 6.4 H 10/07/20 09:12: POC Glucose 250 H 10/07/20 11:45: Hep B Core Total Ab Pending 10/07/20 11:45: Hep Bs Antigen Non-Reactive, Hep Bs Antibody Non-Reactive 10/07/20 12:56: POC Glucose 208 H 10/07/20 16:37: POC Glucose 249 H Current Medications Acetaminophen (Acetaminophen 325 Mg Tablet) 650 mg PO Q6H PRN PRN PRN Reason: Pain Score 1-10/Temp > 100.7 F Last Admin: 10/07/20 17:27 Dose: 650 mg Documented by: Albuterol Sulfate (Albuterol 2.5 Mg/3 Ml Vial.Neb.) 2.5 mg INHALATION Q2H PRN PRN PRN Reason: SOB/Wheezing Aspirin (Aspirin 81 Mg Tab.Chew) 81 mg PO DAILYCM [facility] Last Admin: 10/07/20 14:17 Dose: 81 mg Documented by: Atorvastatin Calcium (Atorvastatin Calcium 40 Mg Tablet) 40 mg PO DAILY@2200 [facility] Last Admin: 10/06/20 21:49 Dose: 40 mg Documented by: Atropine Sulfate (Atropine Sulfate 1 Mg/10 Ml Syringe) 0.5 mg IV UD PRN PRN Reason: HR <50 bpm Carvedilol (Carvedilol 6.25 Mg Tablet) 6.25 mg PO BID [facility] Last Admin: 10/07/20 14:17 Dose: 6.25 mg Documented by: Clopidogrel Bisulfate (Clopidogrel Bisulfate 75 Mg Tablet) 75 mg PO DAILY [facility] Last Admin: 10/07/20 14:18 Dose: 75 mg Documented by: Dextrose (Dextrose 50%-Water 25 Gm/50 Ml Disp.Syrin) 0 gm IV X1 PRN; Protocol PRN Reason: Hypoglycemia Glucagon (Glucagon 1 Mg/Ml Syringe) 1 mg IM .X1 PRN PRN Reason: Hypoglycemia Heparin Sodium (Porcine) (Heparin Injection (Vial) 5,000 Unit/Ml Vial) 5,000 unit SC Q12 [facility] Last Admin: 10/07/20 14:17 Dose: 5,000 unit Documented by: Heparin Sodium (Porcine) (Heparin 10,000 Units/10 Ml Vial) 0 - 10,000 units IV X1 [facility] Stop: 10/07/20 23:59 Last Admin: 10/07/20 14:18 Dose: 3,200 units Documented by: Insulin Human Lispro (Insulin Lispro 100 Unit/Ml Insuln.Pen) 0 unit SC ACHS [facility]; Protocol Last Admin: 10/07/20 17:24 Dose: 2 unit Documented by: Insulin Human Lispro (Insulin Lispro 100 Unit/Ml Insuln.Pen) 3 unit SC LUNCH [facility] Last Admin: 10/07/20 13:01 Dose: Not Given Documented by: Insulin Human Lispro (Insulin Lispro 100 Unit/Ml Insuln.Pen) 15 unit SC BREAKFAST [facility] Last Admin: 10/07/20 11:08 Dose: Not Given Documented by: Insulin Human Lispro (Insulin Lispro 100 Unit/Ml Insuln.Pen) 5 unit SC DINNER [facility] Last Admin: 10/07/20 17:24 Dose: 5 units Documented by: Insulin Human NPH (Insulin Nph Human 100 Units/Ml Pen) 15 units SC QHS [facility] Last Admin: 10/06/20 21:48 Dose: 15 u Documented by: Isosorbide Mononitrate (Isosorbide Mononitrate 60 Mg Tablet) 60 mg PO DAILY [facility] Last Admin: 10/07/20 14:18 Dose: 60 mg Documented by: Labetalol HCl (Labetalol (Prefilled) 20 Mg/4 Ml) 5 mg IV X1 PRN PRN Reason: SBP >160 when pulling sheath Stop: 10/08/20 12:12 Nitroglycerin (Nitroglycerin (Inpatient Use) 0.4 Mg Tab.Subl) 0.4 mg SUBLINGUAL Q5M PRN PRN Reason: CARDIAC/CHEST PAIN Ondansetron HCl (Ondansetron 4 Mg/2 Ml Vial) 4 mg IV Q8H PRN PRN PRN Reason: NAUSEA/VOMITING Sodium Chloride (0.9% Saline Lock 10 Ml Syringe) 10 - 40 ml IV UD PRN PRN Reason: SALINE FLUSH Last Admin: 10/04/20 14:02 Dose: 20 ml Documented by: Sodium Chloride (0.9% Normal Saline 500 Ml Iv.Soln.) 500 ml IV BOLUS PRN PRN Reason: VASO-VAGAL PROTOCOL Medical Necessity - Tobacco Use Smoking Status: Never smoker Assessment/Plan All Active Problems Acute electrocardiogram changes (Acute) Elevated troponin (Acute) EMPERATRIZ (acute kidney injury) (Acute) Elevated troponin (Acute) 1- EMPERATRIZ on CKD stage 4 from DNP EMPERATRIZ is likely from CKD progression VS CRS S/P tunneled cath placement . Patient initiated on HD today Will arrange for 2nd HD session Friday 2- HTN: BP better. continue same medication 3- CHF exacerbation. newly reduced EF s/p cardiac cath today which reveal patent grafts Continue diuretics and UF with HD Will continue to follow
[2020-10-07] MEDS: Insulin NPH Human 100 UNITS/ML PEN 15 UNITS SC (21:12)
[2020-10-07] MEDS: Atorvastatin Calcium 40 MG Tablet PO (21:12)
[2020-10-07 22:18] LABS: Bedside Glucose 338 mg/dL (70-110)
[2020-10-08] VITALS (16 sets, daily range): BP systolic 127–157; BP diastolic 47–70; PULSE 73–104; RESP 16–18; TEMP 36.6–37.1; O2SAT 94–99
[2020-10-08 05:53] LABS: Anion Gap 6 (5-15); BUN 62 mg/dL (7-18); BUN/Creat Ratio 16.4 RATIO (10-20); Calcium,Total 8.3 mg/dL (8.5-10.1); Chloride 107 mmol/L (98-107); Creatinine, Serum 3.79 mg/dL (0.55-1.02); EST Glomerular Filtration Rate 13 mL/min (>60); Est Glom Filt Rate - Afr Amer 15 mL/min (>60); Estimated Creatinine Clearance 13.24 ml/min; Glucose 229 mg/dL (74-106); Potassium 4.5 mmol/L (3.5-5.1); Sodium Level 139 mmol/L (136-145)
[2020-10-08] MEDS: Heparin Injection (Vial) 5,000 UNIT/ML VIAL 5000 UNIT SC ×2 (08:14→21:38)
[2020-10-08] MEDS: Aspirin 81 MG TAB.CHEW PO (08:14)
[2020-10-08] MEDS: Carvedilol 6.25 MG Tablet PO ×2 (08:14→21:38)
[2020-10-08] MEDS: Clopidogrel Bisulfate 75 MG Tablet PO (08:14)
[2020-10-08] MEDS: Isosorbide Mononitrate 60 MG Tablet PO (08:14)
[2020-10-08 08:30] LABS: Bedside Glucose 161 mg/dL (70-110)
[2020-10-08] MEDS: Insulin Lispro 100 UNIT/ML INSULN.PEN SC ×6 (09:25→21:39)
[2020-10-08] MEDS: Acetaminophen 325 MG Tablet 650 MG PO (09:25)
[2020-10-08] MEDS: Insulin Lispro 100 UNIT/ML INSULN.PEN 15 UNIT SC (09:26)
--- NOTE | 2020-10-08 10:00 | EKG12_ITS ---
Test Reason : ABNL EKG Blood Pressure : / mmHG Vent. Rate : 076 BPM Atrial Rate : 076 BPM P-R Int : 134 ms QRS Dur : 090 ms QT Int : 400 ms P-R-T Axes : 058 029 199 degrees QTc Int : 450 ms Normal sinus rhythm ST & T wave abnormality, consider inferolateral ischemia Abnormal ECG Confirmed by NUBIA CALDERA, DAVIS ([id number]), managing editor TATIANA KIMBROUGH ([id number]) on 10/10/2020 12:43:25 PM Referred By: SIMONE Confirmed By:DAVIS DELACRUZ MD
--- NOTE | 2020-10-08 11:25 | PCM.PN.HOSP ---
Patient Problems: Active and Suspected Problems Acute electrocardiogram changes (Acute) Elevated troponin (Acute) EMPERATRIZ (acute kidney injury) (Acute) Elevated troponin (Acute) Subjective: Feels well today. She was seen while she was combing her hair standing at the bathroom with physical therapy. She was able to tolerate her dialysis yesterday pretty well Vitals/I&O's: Vital Signs Temp Pulse Resp BP Pulse Ox 98.6 F 94 16 157/62 H 94 10/08/20 08:22 10/08/20 08:22 10/08/20 08:22 10/08/20 08:22 10/08/20 11:03 Oxygen Flow Rate (L/min) 2 Oxygen Delivery Method Room Air Weight: 128 lb 1.417 oz Body Mass Index (BMI) 23.8 Finger Stick Blood Glucose 80 Intake and Output for Last 24 Hours 10/06/20 10/07/20 10/08/20 23:59 23:59 23:59 Intake Total 480 / 480 450 / 650 400 / 400 Output Total 0 / 0 Balance 480 / 480 450 / 650 400 / 400 General: Alert, Oriented x3, Cooperative, No apparent distress HEENT: Atraumatic, PERRLA, EOMI, Normocephalic Oral: Moist Mucosa Neck: Supple, No JVD Lungs: Normal air movement, Diminished, no Rales, no wheezes, no rhonchi Cardiovascular: Regular rate, Regular Rhythm, Normal S1, Normal S2, No murmurs Abdomen: Soft, Non Tender, Non-Distended, No Hepato-splenomegaly Extremities: Capillary Refill Less than 3 Seconds, no edema Skin: No rashes, No breakdown Neurological: Neuro grossly intact, Sensory exam intact to light touch and pain Psych/Mental Status: Normal Affect, Appropriate Laboratory Results 10/07/20 11:45: Hep B Core Total Ab Pending 10/07/20 11:45: Hep Bs Antigen Non-Reactive, Hep Bs Antibody Non-Reactive 10/07/20 12:56: POC Glucose 208 H 10/07/20 16:37: POC Glucose 249 H 10/07/20 21:09: POC Glucose 338 H 10/08/20 05:16: Sodium 139, Potassium 4.5, Chloride 107, Carbon Dioxide 26.0, Anion Gap 6, BUN 62 H, Creatinine 3.79 H, Estim Creat Clear Calc 13.24, Est GFR (MDRD) Af Amer 15 L, Est GFR (MDRD) Non-Af 13 L, BUN/Creatinine Ratio 16.4, Glucose 229 H, Calcium 8.3 L 10/08/20 08:08: POC Glucose 161 H Current Medications Acetaminophen (Acetaminophen 325 Mg Tablet) 650 mg PO Q6H PRN PRN PRN Reason: Pain Score 1-10/Temp > 100.7 F Last Admin: 10/08/20 09:25 Dose: 650 mg Documented by: Albuterol Sulfate (Albuterol 2.5 Mg/3 Ml Vial.Neb.) 2.5 mg INHALATION Q2H PRN PRN PRN Reason: SOB/Wheezing Aspirin (Aspirin 81 Mg Tab.Chew) 81 mg PO DAILYCM [facility] Last Admin: 10/08/20 08:14 Dose: 81 mg Documented by: Atorvastatin Calcium (Atorvastatin Calcium 40 Mg Tablet) 40 mg PO DAILY@2200 [facility] Last Admin: 10/07/20 21:12 Dose: 40 mg Documented by: Atropine Sulfate (Atropine Sulfate 1 Mg/10 Ml Syringe) 0.5 mg IV UD PRN PRN Reason: HR <50 bpm Carvedilol (Carvedilol 6.25 Mg Tablet) 6.25 mg PO BID [facility] Last Admin: 10/08/20 08:14 Dose: 6.25 mg Documented by: Clopidogrel Bisulfate (Clopidogrel Bisulfate 75 Mg Tablet) 75 mg PO DAILY [facility] Last Admin: 10/08/20 08:14 Dose: 75 mg Documented by: Dextrose (Dextrose 50%-Water 25 Gm/50 Ml Disp.Syrin) 0 gm IV X1 PRN; Protocol PRN Reason: Hypoglycemia Glucagon (Glucagon 1 Mg/Ml Syringe) 1 mg IM .X1 PRN PRN Reason: Hypoglycemia Heparin Sodium (Porcine) (Heparin Injection (Vial) 5,000 Unit/Ml Vial) 5,000 unit SC Q12 [facility] Last Admin: 10/08/20 08:14 Dose: 5,000 unit Documented by: Insulin Human Lispro (Insulin Lispro 100 Unit/Ml Insuln.Pen) 0 unit SC ACHS [facility]; Protocol Last Admin: 10/08/20 09:25 Dose: 1 unit Documented by: Insulin Human Lispro (Insulin Lispro 100 Unit/Ml Insuln.Pen) 3 unit SC LUNCH [facility] Last Admin: 10/07/20 13:01 Dose: Not Given Documented by: Insulin Human Lispro (Insulin Lispro 100 Unit/Ml Insuln.Pen) 15 unit SC BREAKFAST [facility] Last Admin: 10/08/20 09:26 Dose: 15 units Documented by: Insulin Human Lispro (Insulin Lispro 100 Unit/Ml Insuln.Pen) 5 unit SC DINNER [facility] Last Admin: 10/07/20 17:24 Dose: 5 units Documented by: Insulin Human NPH (Insulin Nph Human 100 Units/Ml Pen) 15 units SC QHS [facility] Last Admin: 10/07/20 21:12 Dose: 15 u Documented by: Isosorbide Mononitrate (Isosorbide Mononitrate 60 Mg Tablet) 60 mg PO DAILY [facility] Last Admin: 10/08/20 08:14 Dose: 60 mg Documented by: Labetalol HCl (Labetalol (Prefilled) 20 Mg/4 Ml) 5 mg IV X1 PRN PRN Reason: SBP >160 when pulling sheath Stop: 10/08/20 12:12 Nitroglycerin (Nitroglycerin (Inpatient Use) 0.4 Mg Tab.Subl) 0.4 mg SUBLINGUAL Q5M PRN PRN Reason: CARDIAC/CHEST PAIN Ondansetron HCl (Ondansetron 4 Mg/2 Ml Vial) 4 mg IV Q8H PRN PRN PRN Reason: NAUSEA/VOMITING Sodium Chloride (0.9% Saline Lock 10 Ml Syringe) 10 - 40 ml IV UD PRN PRN Reason: SALINE FLUSH Last Admin: 10/04/20 14:02 Dose: 20 ml Documented by: Sodium Chloride (0.9% Normal Saline 500 Ml Iv.Soln.) 500 ml IV BOLUS PRN PRN Reason: VASO-VAGAL PROTOCOL STROKE Vital Signs/Narrative: Vital Signs Temp Pulse Resp BP Pulse Ox 10/08/20 11:03 94 10/08/20 08:22 98.6 F 94 16 157/62 H 94 Medical Necessity - Tobacco Use Smoking Status: Never smoker Assessment/Plan All Active Problems Acute electrocardiogram changes (Acute) Elevated troponin (Acute) EMPERATRIZ (acute kidney injury) (Acute) Elevated troponin (Acute) 1. Acute hypoxic respiratory insufficiency secondary to acute on chronic systolic and diastolic CHF/elevated troponin/HTN/HLD/CAD status post CABG/EMPERATRIZ on CKD 4 -Continue with aggressive diuresis. Echocardiogram was obtained with an EF of 37% and a pulmonary artery pressure of 40 mmHg -Troponin simin to over 1 today, BNP elevation is confounded by her chronic kidney disease -Continue with her home blood pressure medications, her blood pressure is stable -Continue with Lipitor -Baseline creatinine is around 2.5, creatinine has risen to about 4 -With rising creatinine unable to continue diuresis and given her new reduced EF, preceded cardiology input and assistance -For heart cath today which was positive for [place] CAD with 80% stenosis of her right external iliac -Tunneled dialysis catheter placed 10/07/2020. Continue dialysis -Discussed with case management and will need to set up outpatient dialysis prior to discharge 2. Type 1 diabetes -We will continue with her home insulin and make adjustments as necessary -A1c was obtained and 6.4 3. Anemia of chronic disease -Hemoglobin is stable and at baseline -We will continue to monitor DVT: Heparin Inpatient E&M: 96606 Subs Hosp L2
--- NOTE | 2020-10-08 11:50 | EKG12_ITS ---
Test Reason : AM EKG Blood Pressure : / mmHG Vent. Rate : 091 BPM Atrial Rate : 091 BPM P-R Int : 146 ms QRS Dur : 130 ms QT Int : 400 ms P-R-T Axes : 060 168 063 degrees QTc Int : 492 ms Normal sinus rhythm Non-specific intra-ventricular conduction block Abnormal ECG When compared with ECG of 07-OCT-2020 05:45, MANUAL COMPARISON REQUIRED, DATA IS UNCONFIRMED Confirmed by KRISHNA CALDERA, FLO ([id number]), director of strategic programs TATIANA KIMBROUGH ([id number]) on 10/16/2020 9:33:01 AM Referred By: RUDOLPH Confirmed By:UMU KELLER MD
[2020-10-08 11:56] LABS: Bedside Glucose 185 mg/dL (70-110)
[2020-10-08 15:04] LABS: Hepatitis B Core Ab Total Negative (Negative)
[2020-10-08 17:01] LABS: Bedside Glucose 222 mg/dL (70-110)
[2020-10-08] MEDS: Insulin NPH Human 100 UNITS/ML PEN 15 UNITS SC (21:39)
[2020-10-08] MEDS: Atorvastatin Calcium 40 MG Tablet PO (21:41)
[2020-10-08 22:10] LABS: Bedside Glucose 347 mg/dL (70-110)
--- NOTE | 2020-10-08 22:14 | EKG12_ITS ---
Test Reason : CP Blood Pressure : / mmHG Vent. Rate : 104 BPM Atrial Rate : 104 BPM P-R Int : 148 ms QRS Dur : 136 ms QT Int : 394 ms P-R-T Axes : 074 -71 096 degrees QTc Int : 518 ms Sinus tachycardia with occasional Premature ventricular complexes Left axis deviation Non-specific intra-ventricular conduction block T wave abnormality, consider lateral ischemia Abnormal ECG Confirmed by NUBIA CALDERA, DAVIS ([id number]), society editor TATIANA KIMBROUGH ([id number]) on 10/12/2020 8:28:15 AM Referred By: SURESH Confirmed By:DAVIS DELACRUZ MD
--- NOTE | 2020-10-08 22:14 | NURSING ---
Patient is complaining of shortness of breath, she point to the center of her chest and states that it feels tight. She states that this tightness is radiating down into her lower abdomen. VSS. Patient's lungs are clear, no stridor or rhonchi. Patient's skin is pink warm and dry, MSPs intact. PRN EKG order entered, respiratory notified. Charge nurse Yuliana notified as well.
[2020-10-08] MEDS: Nitroglycerin (INPATIENT USE) 0.4 MG TAB.SUBL SUBLINGUAL ×3 (22:43→22:53)
[2020-10-09] VITALS (14 sets, daily range): BP systolic 131–165; BP diastolic 60–82; PULSE 79–106; RESP 14–20; TEMP 36.3–37.1; O2SAT 91–97
[2020-10-09 05:46] LABS: Anion Gap 8 (5-15); BUN 68 mg/dL (7-18); BUN/Creat Ratio 16.6 RATIO (10-20); Calcium,Total 8.1 mg/dL (8.5-10.1); Chloride 109 mmol/L (98-107); EST Glomerular Filtration Rate 12 mL/min (>60); Est Glom Filt Rate - Afr Amer 14 mL/min (>60); Estimated Creatinine Clearance 12.88 ml/min; Glucose 137 mg/dL (74-106); Potassium 4.4 mmol/L (3.5-5.1); Sodium Level 142 mmol/L (136-145)
[2020-10-09] MEDS: Clopidogrel Bisulfate 75 MG Tablet PO (08:57)
[2020-10-09] MEDS: Isosorbide Mononitrate 60 MG Tablet PO (08:57)
[2020-10-09] MEDS: Carvedilol 6.25 MG Tablet PO ×2 (08:57→22:37)
[2020-10-09] MEDS: Aspirin 81 MG TAB.CHEW PO (08:57)
[2020-10-09] MEDS: Heparin Injection (Vial) 5,000 UNIT/ML VIAL 5000 UNIT SC ×2 (08:57→22:37)
[2020-10-09 09:20] LABS: Bedside Glucose 98 mg/dL (70-110)
--- NOTE | 2020-10-09 10:00 | EKG12_ITS ---
Test Reason : SOB Blood Pressure : / mmHG Vent. Rate : 098 BPM Atrial Rate : 098 BPM P-R Int : 136 ms QRS Dur : 088 ms QT Int : 352 ms P-R-T Axes : 067 062 189 degrees QTc Int : 449 ms Normal sinus rhythm Septal infarct , age undetermined Nonspecific ST-T Changes Abnormal ECG Confirmed by KRISHNA CALDERA, FLO ([id number]), video news editor LUIS VILLATORO ([id number]) on 10/18/2020 9:52:00 A M Referred By: KAMILLE Confirmed By:UMU KELLER MD
--- NOTE | 2020-10-09 10:19 | PCM.PN.HOSP ---
<Calos Quinn PA - Last Filed: 10/09/20 10:19> Patient Problems: Active and Suspected Problems Acute electrocardiogram changes (Acute) Elevated troponin (Acute) EMPERATRIZ (acute kidney injury) (Acute) Elevated troponin (Acute) Reason for Visit: elevated troponin Subjective: Pt sitting upright in chair at bedside NAD. No complaints today. She had her first dialysis session Friday and had no complaints regarding that. She has no chest pain, SOB, LE edema today. She denies cough, fevers, chills. Vitals/I&O's: Vital Signs Temp Pulse Resp BP Pulse Ox 98.3 F 84 16 159/69 H 96 10/09/20 08:50 10/09/20 08:50 10/09/20 08:50 10/09/20 08:50 10/09/20 08:50 Oxygen Flow Rate (L/min) 2 Oxygen Delivery Method Room Air Weight: 119 lb 11.376 oz Body Mass Index (BMI) 23.8 Finger Stick Blood Glucose 80 Intake and Output for Last 24 Hours 10/07/20 10/08/20 10/09/20 23:59 23:59 23:59 Intake Total 450 / 650 880 / 1120 480 / 480 Output Total 0 / 0 Balance 450 / 650 880 / 1120 480 / 480 General: Alert, Oriented x3, Cooperative HEENT: Atraumatic, PERRLA, EOMI, Normocephalic Neck: Supple, No JVD, Negative Carotid Bruits Lungs: Clear to auscultation, Normal air movement Cardiovascular: Regular rate, No murmurs Abdomen: Bowel Sounds Present, Soft, Non Tender Extremities: No edema, Capillary Refill Less than 3 Seconds Skin: No rashes, No breakdown Musculoskeletal: No Tenderness to Palpation of Joints or Extremities Neurological: Cranial nerves II-XII grossly intact Psych/Mental Status: Normal Affect, Appropriate, Alert and oriented to time, place, person, mood and affect Laboratory Results 10/07/20 11:45: Hep B Core Total Ab Negative 10/08/20 11:40: POC Glucose 185 H 10/08/20 16:51: POC Glucose 222 H 10/08/20 21:37: POC Glucose 347 H 10/08/20 23:30: Troponin I 1.240 H* 10/09/20 02:00: Troponin I 1.240 H* 10/09/20 05:06: Sodium 142, Potassium 4.4, Chloride 109 H, Carbon Dioxide 25.0, Anion Gap 8, BUN 68 H, Creatinine 4.10 H, Estim Creat Clear Calc 12.88, Est GFR (MDRD) Af Amer 14 L, Est GFR (MDRD) Non-Af 12 L, BUN/Creatinine Ratio 16.6, Glucose 137 H, Calcium 8.1 L 10/09/20 05:06: Troponin I 1.260 H* 10/09/20 08:47: POC Glucose 98 Current Medications Acetaminophen (Acetaminophen 325 Mg Tablet) 650 mg PO Q6H PRN PRN PRN Reason: Pain Score 1-10/Temp > 100.7 F Last Admin: 10/08/20 09:25 Dose: 650 mg Documented by: Albuterol Sulfate (Albuterol 2.5 Mg/3 Ml Vial.Neb.) 2.5 mg INHALATION Q2H PRN PRN PRN Reason: SOB/Wheezing Aspirin (Aspirin 81 Mg Tab.Chew) 81 mg PO DAILYCM REPLACED BY [facility] Last Admin: 10/09/20 08:57 Dose: 81 mg Documented by: Atorvastatin Calcium (Atorvastatin Calcium 40 Mg Tablet) 40 mg PO DAILY@2200 REPLACED BY [facility] Last Admin: 10/08/20 21:41 Dose: 40 mg Documented by: Atropine Sulfate (Atropine Sulfate 1 Mg/10 Ml Syringe) 0.5 mg IV UD PRN PRN Reason: HR <50 bpm Carvedilol (Carvedilol 6.25 Mg Tablet) 6.25 mg PO BID REPLACED BY [facility] Last Admin: 10/09/20 08:57 Dose: 6.25 mg Documented by: Clopidogrel Bisulfate (Clopidogrel Bisulfate 75 Mg Tablet) 75 mg PO DAILY REPLACED BY [facility] Last Admin: 10/09/20 08:57 Dose: 75 mg Documented by: Dextrose (Dextrose 50%-Water 25 Gm/50 Ml Disp.Syrin) 0 gm IV X1 PRN; Protocol PRN Reason: Hypoglycemia Glucagon (Glucagon 1 Mg/Ml Syringe) 1 mg IM .X1 PRN PRN Reason: Hypoglycemia Heparin Sodium (Porcine) (Heparin Injection (Vial) 5,000 Unit/Ml Vial) 5,000 unit SC Q12 REPLACED BY [facility] Last Admin: 10/09/20 08:57 Dose: 5,000 unit Documented by: Insulin Human Lispro (Insulin Lispro 100 Unit/Ml Insuln.Pen) 0 unit SC ACHS REPLACED BY [facility]; Protocol Last Admin: 10/09/20 08:55 Dose: Not Given Documented by: Insulin Human Lispro (Insulin Lispro 100 Unit/Ml Insuln.Pen) 3 unit SC LUNCH REPLACED BY [facility] Last Admin: 10/08/20 13:04 Dose: 3 units Documented by: Insulin Human Lispro (Insulin Lispro 100 Unit/Ml Insuln.Pen) 15 unit SC BREAKFAST REPLACED BY [facility] Last Admin: 10/09/20 09:07 Dose: Not Given Documented by: Insulin Human Lispro (Insulin Lispro 100 Unit/Ml Insuln.Pen) 5 unit SC DINNER REPLACED BY [facility] Last Admin: 10/08/20 17:23 Dose: 5 units Documented by: Insulin Human NPH (Insulin Nph Human 100 Units/Ml Pen) 15 units SC QHS REPLACED BY [facility] Last Admin: 10/08/20 21:39 Dose: 347 u Documented by: Isosorbide Mononitrate (Isosorbide Mononitrate 60 Mg Tablet) 60 mg PO DAILY REPLACED BY [facility] Last Admin: 10/09/20 08:57 Dose: 60 mg Documented by: Nitroglycerin (Nitroglycerin (Inpatient Use) 0.4 Mg Tab.Subl) 0.4 mg SUBLINGUAL Q5M PRN PRN Reason: CARDIAC/CHEST PAIN Last Admin: 10/08/20 22:53 Dose: 0.4 mg Documented by: Ondansetron HCl (Ondansetron 4 Mg/2 Ml Vial) 4 mg IV Q8H PRN PRN PRN Reason: NAUSEA/VOMITING Sodium Chloride (0.9% Saline Lock 10 Ml Syringe) 10 - 40 ml IV UD PRN PRN Reason: SALINE FLUSH Last Admin: 10/04/20 14:02 Dose: 20 ml Documented by: Sodium Chloride (0.9% Normal Saline 500 Ml Iv.Soln.) 500 ml IV BOLUS PRN PRN Reason: VASO-VAGAL PROTOCOL STROKE Vital Signs/Narrative: Vital Signs Temp Pulse Resp BP Pulse Ox 10/09/20 08:50 98.3 F 84 16 159/69 H 96 10/09/20 08:18 91 10/09/20 07:16 80 Medical Necessity - Tobacco Use Smoking Status: Never smoker Assessment/Plan All Active Problems Acute electrocardiogram changes (Acute) Elevated troponin (Acute) EMPERATRIZ (acute kidney injury) (Acute) Elevated troponin (Acute) 1. Acute hypoxic respiratory failure 2/2 mixed acute on chronic CHF, complicated by pulm htn - treatment is primarily dialysis. No SOB at this time. EF 37%, PASP 40 mmHg 2. NSTEMI - hx CAD, CABG. Cath yesterday. [place] CAD, patent bypass grafts, right external iliac 80% stenosis. Continue Coreg, Aspirin, Statin, Plavix, Imdur 3. EMPERATRIZ on CKDIV, now ESRD - first dialysis Friday, planning for dialysis again today. Defer treatment to Dr. Snyder. 4. T1 DM - A1C 6.4 - continue long + short acting insulin therapy, adjust as needed. 5. PAD - 80% stenosis right external iliac per cath - Vascular referral as outpatient. DVT ppx: heparin DC planning: Pending further plans for dialysis. This patient was seen by Calos Quinn PA-C under the supervision of Dr. Fortune. <Chilo Fortune - Last Filed: 10/09/20 13:52> Vitals/I&O's: Vital Signs Temp Pulse Resp BP Pulse Ox 98.3 F 84 16 159/69 H 96 10/09/20 08:50 10/09/20 08:50 10/09/20 08:50 10/09/20 08:50 10/09/20 08:50 Oxygen Flow Rate (L/min) 2 Oxygen Delivery Method Room Air Weight: 54.3 kg Body Mass Index (BMI) 23.8 Finger Stick Blood Glucose 80 Intake and Output for Last 24 Hours 10/07/20 10/08/20 10/09/20 23:59 23:59 23:59 Intake Total 450 / 650 880 / 1120 720 / 720 Output Total 0 / 0 Balance 450 / 650 880 / 1120 720 / 720 Laboratory Results 10/07/20 11:45: Hep B Core Total Ab Negative 10/08/20 16:51: POC Glucose 222 H 10/08/20 21:37: POC Glucose 347 H 10/08/20 23:30: Troponin I 1.240 H* 10/09/20 02:00: Troponin I 1.240 H* 10/09/20 05:06: Sodium 142, Potassium 4.4, Chloride 109 H, Carbon Dioxide 25.0, Anion Gap 8, BUN 68 H, Creatinine 4.10 H, Estim Creat Clear Calc 12.88, Est GFR (MDRD) Af Amer 14 L, Est GFR (MDRD) Non-Af 12 L, BUN/Creatinine Ratio 16.6, Glucose 137 H, Calcium 8.1 L 10/09/20 05:06: Troponin I 1.260 H* 10/09/20 08:47: POC Glucose 98 10/09/20 12:08: POC Glucose 301 H Current Medications Acetaminophen (Acetaminophen 325 Mg Tablet) 650 mg PO Q6H PRN PRN PRN Reason: Pain Score 1-10/Temp > 100.7 F Last Admin: 10/08/20 09:25 Dose: 650 mg Documented by: Albuterol Sulfate (Albuterol 2.5 Mg/3 Ml Vial.Neb.) 2.5 mg INHALATION Q2H PRN PRN PRN Reason: SOB/Wheezing Aspirin (Aspirin 81 Mg Tab.Chew) 81 mg PO DAILYCM REPLACED BY [facility] Last Admin: 10/09/20 08:57 Dose: 81 mg Documented by: Atorvastatin Calcium (Atorvastatin Calcium 40 Mg Tablet) 40 mg PO DAILY@2200 REPLACED BY [facility] Last Admin: 10/08/20 21:41 Dose: 40 mg Documented by: Atropine Sulfate (Atropine Sulfate 1 Mg/10 Ml Syringe) 0.5 mg IV UD PRN PRN Reason: HR <50 bpm Carvedilol (Carvedilol 6.25 Mg Tablet) 6.25 mg PO BID REPLACED BY [facility] Last Admin: 10/09/20 08:57 Dose: 6.25 mg Documented by: Clopidogrel Bisulfate (Clopidogrel Bisulfate 75 Mg Tablet) 75 mg PO DAILY REPLACED BY [facility] Last Admin: 10/09/20 08:57 Dose: 75 mg Documented by: Dextrose (Dextrose 50%-Water 25 Gm/50 Ml Disp.Syrin) 0 gm IV X1 PRN; Protocol PRN Reason: Hypoglycemia Glucagon (Glucagon 1 Mg/Ml Syringe) 1 mg IM .X1 PRN PRN Reason: Hypoglycemia Heparin Sodium (Porcine) (Heparin Injection (Vial) 5,000 Unit/Ml Vial) 5,000 unit SC Q12 REPLACED BY [facility] Last Admin: 10/09/20 08:57 Dose: 5,000 unit Documented by: Insulin Human Lispro (Insulin Lispro 100 Unit/Ml Insuln.Pen) 0 unit SC ACHS REPLACED BY [facility]; Protocol Last Admin: 10/09/20 12:10 Dose: 3 unit Documented by: Insulin Human Lispro (Insulin Lispro 100 Unit/Ml Insuln.Pen) 3 unit SC LUNCH REPLACED BY [facility] Last Admin: 10/09/20 12:10 Dose: 3 units Documented by: Insulin Human Lispro (Insulin Lispro 100 Unit/Ml Insuln.Pen) 15 unit SC BREAKFAST REPLACED BY [facility] Last Admin: 10/09/20 09:07 Dose: Not Given Documented by: Insulin Human Lispro (Insulin Lispro 100 Unit/Ml Insuln.Pen) 5 unit SC DINNER REPLACED BY [facility] Last Admin: 10/08/20 17:23 Dose: 5 units Documented by: Insulin Human NPH (Insulin Nph Human 100 Units/Ml Pen) 15 units SC QHS REPLACED BY [facility] Last Admin: 10/08/20 21:39 Dose: 347 u Documented by: Isosorbide Mononitrate (Isosorbide Mononitrate 60 Mg Tablet) 60 mg PO DAILY REPLACED BY [facility] Last Admin: 10/09/20 08:57 Dose: 60 mg Documented by: Nitroglycerin (Nitroglycerin (Inpatient Use) 0.4 Mg Tab.Subl) 0.4 mg SUBLINGUAL Q5M PRN PRN Reason: CARDIAC/CHEST PAIN Last Admin: 10/08/20 22:53 Dose: 0.4 mg Documented by: Ondansetron HCl (Ondansetron 4 Mg/2 Ml Vial) 4 mg IV Q8H PRN PRN PRN Reason: NAUSEA/VOMITING Sodium Chloride (0.9% Saline Lock 10 Ml Syringe) 10 - 40 ml IV UD PRN PRN Reason: SALINE FLUSH Last Admin: 10/04/20 14:02 Dose: 20 ml Documented by: Sodium Chloride (0.9% Normal Saline 500 Ml Iv.Soln.) 500 ml IV BOLUS PRN PRN Reason: VASO-VAGAL PROTOCOL Assessment/Plan This patient was seen in conjunction with Calos Quinn PA-C . I have independently interviewed and examined the patient and reviewed pertinent historical, laboratory, and other data. Please refer to Calos Quinn PA-C note for details of this patient's presentation, findings, and recommendations. I have reviewed Calos Quinn PA-C note and concur with documented findings. In brief, patient 64-year-old female with multiple comorbidities admitted with shortness of breath and worsening kidney function. Patient hospital stay complicated by worsening kidney function resulting in placement of tunneled dialysis catheter with initiation of dialysis. Physical Examination: GENERAL: cooperative HEENT: Atraumatic; EYES; Anicteric, Normal Conjunctiva NECK; supple, normal thyroid, RESPIRATORY: Diminished to auscultation CARDIOVASCULAR: Regular S1 S2, NEURO: Awake; no lateralizing signs. SKIN: No Rash PSYCH; Flat affect Assessment: 1. Acute congestive heart failure with reduced ejection fraction 2. Acute non-STEMI 3. Chronic kidney disease stage IV with worsening kidney function necessitating dialysis 4. Essential hypertension 5. Dyslipidemia 6. Coronary artery disease status post CABG 7. Diabetes mellitus type 1 8. Anemia of chronic disease 9. Peripheral arterial disease Recommendations: 1. I have discussed the results of my overview and impressions with the patient 2. Options for management were reviewed Advance planning; did discuss with the patient regarding advanced directives as well as CODE STATUS. Did explain the various scenarios involved ( FULL CODE, DNR CCA, DNR CCA with no intubation, and DNR CC and what each meant) patient full code with CPR and intubation if warranted. Order was placed. Time spent on discussion 18 minutes. Inpatient E&M: 95514 [facility] Procedures: 44670 Advncd Care Plan 30 Min
--- NOTE | 2020-10-09 10:26 | CASEMGMT ---
Pt had 1st dialysis on 10/07/2020 after tunnel cath placed. Pt states she has already started with informative session at [facility] and would like to continue with them as OP dialysis center. Pt is a pt of Dr. Mcginnis as OP. Referral for OP dialysis faxed to [facility] and [facility] at this time. Per Dr. Mcginnis, sister helps pt with decision-making and states to update her on all at this time. Pt is agreeable to this RN CM calling sister at this time. Call to sister, Guadalupejaxon Prarabritton, and she is updated on OP dialysis set up and all questions answered. Sister also states she would like [facility] set up for pt at discharge as pt has had this in the past. Pt is agreeable. Call to Soledad at [facility] and she is updated on referral for PT/OT at this time, voices understanding and states they can take pt at this time. Order placed for PT/OT at this time. CM to follow for any further discharge planning/needs. Call to Octavia at [facility] to update on referral and that pt/sister would like [facility] at this time, voices understanding. Fatoumata RN CM
--- NOTE | 2020-10-09 10:36 | PN.RENAL_ITS ---
Patient Problems: Active and Suspected Problems Acute electrocardiogram changes (Acute) Elevated troponin (Acute) EMPERATRIZ (acute kidney injury) (Acute) Elevated troponin (Acute) Subjective: No chest pain or shortness of breath no complaints today. - Physical Exam Vitals/I&O's: Vital Signs Temp Pulse Resp BP Pulse Ox 98.3 F 84 16 159/69 H 96 10/09/20 08:50 10/09/20 08:50 10/09/20 08:50 10/09/20 08:50 10/09/20 08:50 Oxygen Flow Rate (L/min) 2 Oxygen Delivery Method Room Air Weight: 54.3 kg Body Mass Index (BMI) 23.8 Finger Stick Blood Glucose 80 Intake and Output for Last 24 Hours 10/07/20 10/08/20 10/09/20 23:59 23:59 23:59 Intake Total 450 / 650 880 / 1120 480 / 480 Output Total 0 / 0 Balance 450 / 650 880 / 1120 480 / 480 General: Alert, Cooperative HEENT: Atraumatic, Normocephalic Neck: Supple, Trachea Midline Lungs: Clear to auscultation, Normal air movement Cardiovascular: Regular rate, Regular Rhythm, Normal S1, Normal S2 Abdomen: Soft, Non Tender Extremities: No edema - Right IJ tunneled dialysis catheter. Laboratory Results 10/07/20 11:45: Hep B Core Total Ab Negative 10/08/20 11:40: POC Glucose 185 H 10/08/20 16:51: POC Glucose 222 H 10/08/20 21:37: POC Glucose 347 H 10/08/20 23:30: Troponin I 1.240 H* 10/09/20 02:00: Troponin I 1.240 H* 10/09/20 05:06: Sodium 142, Potassium 4.4, Chloride 109 H, Carbon Dioxide 25.0, Anion Gap 8, BUN 68 H, Creatinine 4.10 H, Estim Creat Clear Calc 12.88, Est GFR (MDRD) Af Amer 14 L, Est GFR (MDRD) Non-Af 12 L, BUN/Creatinine Ratio 16.6, Glucose 137 H, Calcium 8.1 L 10/09/20 05:06: Troponin I 1.260 H* 10/09/20 08:47: POC Glucose 98 Current Medications Acetaminophen (Acetaminophen 325 Mg Tablet) 650 mg PO Q6H PRN PRN PRN Reason: Pain Score 1-10/Temp > 100.7 F Last Admin: 10/08/20 09:25 Dose: 650 mg Documented by: Albuterol Sulfate (Albuterol 2.5 Mg/3 Ml Vial.Neb.) 2.5 mg INHALATION Q2H PRN PRN PRN Reason: SOB/Wheezing Aspirin (Aspirin 81 Mg Tab.Chew) 81 mg PO DAILYCM [facility] Last Admin: 10/09/20 08:57 Dose: 81 mg Documented by: Atorvastatin Calcium (Atorvastatin Calcium 40 Mg Tablet) 40 mg PO DAILY@2200 [facility] Last Admin: 10/08/20 21:41 Dose: 40 mg Documented by: Atropine Sulfate (Atropine Sulfate 1 Mg/10 Ml Syringe) 0.5 mg IV UD PRN PRN Reason: HR <50 bpm Carvedilol (Carvedilol 6.25 Mg Tablet) 6.25 mg PO BID [facility] Last Admin: 10/09/20 08:57 Dose: 6.25 mg Documented by: Clopidogrel Bisulfate (Clopidogrel Bisulfate 75 Mg Tablet) 75 mg PO DAILY [facility] Last Admin: 10/09/20 08:57 Dose: 75 mg Documented by: Dextrose (Dextrose 50%-Water 25 Gm/50 Ml Disp.Syrin) 0 gm IV X1 PRN; Protocol PRN Reason: Hypoglycemia Glucagon (Glucagon 1 Mg/Ml Syringe) 1 mg IM .X1 PRN PRN Reason: Hypoglycemia Heparin Sodium (Porcine) (Heparin Injection (Vial) 5,000 Unit/Ml Vial) 5,000 unit SC Q12 [facility] Last Admin: 10/09/20 08:57 Dose: 5,000 unit Documented by: Insulin Human Lispro (Insulin Lispro 100 Unit/Ml Insuln.Pen) 0 unit SC ACHS [facility]; Protocol Last Admin: 10/09/20 08:55 Dose: Not Given Documented by: Insulin Human Lispro (Insulin Lispro 100 Unit/Ml Insuln.Pen) 3 unit SC LUNCH [facility] Last Admin: 10/08/20 13:04 Dose: 3 units Documented by: Insulin Human Lispro (Insulin Lispro 100 Unit/Ml Insuln.Pen) 15 unit SC BREAKFAST [facility] Last Admin: 10/09/20 09:07 Dose: Not Given Documented by: Insulin Human Lispro (Insulin Lispro 100 Unit/Ml Insuln.Pen) 5 unit SC DINNER S Last Admin: 10/08/20 17:23 Dose: 5 units Documented by: Insulin Human NPH (Insulin Nph Human 100 Units/Ml Pen) 15 units SC QHS [facility] Last Admin: 10/08/20 21:39 Dose: 347 u Documented by: Isosorbide Mononitrate (Isosorbide Mononitrate 60 Mg Tablet) 60 mg PO DAILY [facility] Last Admin: 10/09/20 08:57 Dose: 60 mg Documented by: Nitroglycerin (Nitroglycerin (Inpatient Use) 0.4 Mg Tab.Subl) 0.4 mg SUBLINGUAL Q5M PRN PRN Reason: CARDIAC/CHEST PAIN Last Admin: 10/08/20 22:53 Dose: 0.4 mg Documented by: Ondansetron HCl (Ondansetron 4 Mg/2 Ml Vial) 4 mg IV Q8H PRN PRN PRN Reason: NAUSEA/VOMITING Sodium Chloride (0.9% Saline Lock 10 Ml Syringe) 10 - 40 ml IV UD PRN PRN Reason: SALINE FLUSH Last Admin: 10/04/20 14:02 Dose: 20 ml Documented by: Sodium Chloride (0.9% Normal Saline 500 Ml Iv.Soln.) 500 ml IV BOLUS PRN PRN Reason: VASO-VAGAL PROTOCOL Medical Necessity - Tobacco Use Smoking Status: Never smoker Assessment/Plan All Active Problems Acute electrocardiogram changes (Acute) Elevated troponin (Acute) EMPERATRIZ (acute kidney injury) (Acute) Elevated troponin (Acute) 1- EMPERATRIZ on CKD stage 4 EMPERATRIZ is likely from CKD progression VS CRS S/P tunneled cath placement . For dialysis today. 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 2- HTN: Reevaluate blood pressure after dialysis. If persistent elevation will need to adjust her BP meds. 3- CHF exacerbation. newly reduced EF s/p cardiac cath Continue diuretics and UF with HD
[2020-10-09] MEDS: Insulin Lispro 100 UNIT/ML INSULN.PEN SC ×5 (12:10→22:38)
[2020-10-09 12:25] LABS: Bedside Glucose 301 mg/dL (70-110)
[2020-10-09 17:35] LABS: Bedside Glucose 434 mg/dL (70-110)
[2020-10-09] MEDS: Heparin 10,000 UNITS/10 ML Vial IV (21:27)
[2020-10-09] MEDS: Epoetin Alfa epbx 10,000 UNITS/ML 5000 UNIT IV (21:28)
[2020-10-09] MEDS: Atorvastatin Calcium 40 MG Tablet PO (22:37)
[2020-10-09] MEDS: Insulin NPH Human 100 UNITS/ML PEN 15 UNITS SC (22:38)
--- NOTE | 2020-10-09 22:40 | DIALYSIS ---
HD x 3 hours complete. Tolerated tx well. UF of 1000ml. Used right chest wall dialysis catheter. Catheter closed with heparin per fill volume. Caps placed. Report was given to LAWSON Schroeder.
[2020-10-09] MEDS: Nitroglycerin (INPATIENT USE) 0.4 MG TAB.SUBL SUBLINGUAL ×2 (22:44→22:53)
--- NOTE | 2020-10-09 23:03 | EKG12_ITS ---
Test Reason : POST-CATH EKG Blood Pressure : / mmHG Vent. Rate : 081 BPM Atrial Rate : 081 BPM P-R Int : 136 ms QRS Dur : 092 ms QT Int : 388 ms P-R-T Axes : 055 -11 190 degrees QTc Int : 450 ms Normal sinus rhythm Septal infarct , age undetermined T wave abnormality, consider inferolateral ischemia Abnormal ECG No previous ECGs available Confirmed by KRISHNA CALDERA, FLO ([id number]), legal editor LUIS VILLATORO ([id number]) on 10/18/2020 10:36:38 AM Referred By: Confirmed By:UMU KELLER MD
--- NOTE | 2020-10-09 23:03 | NURSING ---
Pt c/o chest tightness after completing dialysis. Pt given nitro x2 with resolution of tightness. Charge nurse aware and CPS aware of order for EKG.
[2020-10-09 23:11] LABS: Bedside Glucose 256 mg/dL (70-110)
[2020-10-10] VITALS (8 sets, daily range): BP systolic 121–146; BP diastolic 46–58; PULSE 66–95; RESP 16–18; TEMP 36.7–36.9; O2SAT 95–98
[2020-10-10 07:00] LABS: Bedside Glucose 224 mg/dL (70-110)
[2020-10-10 07:11] LABS: Absolute Lymphocyte Count 1.07 X10^3/uL (0.83-4.51); Absolute Neutrophil Count 4.4 X10^3/uL (2.0-7.7); Basophil# 0.06 X10^3/uL; Basophil% 0.9 % (0-1); Eosinophil# 0.43 X10^3/uL; Eosinophils% 6.5 % (0-5); Hematocrit 28.3 % (37-47); Lymphocyte # 1.07 X10^3/ul (4.0); Lymphocyte % 16.3 % (19-41); Mean Corp Hgb Conc 31.8 g/dL (32-36); Mean Corpuscular Hgb 29.1 pg (27.0-32.0); Mean Corpuscular Volume 91.6 fL (81-99); Mean Platelet Vol. 11.5 fl (6.2-12.0); Monocyte# 0.56 X10^3/uL; Monocyte% 8.5 % (0-10); NRBC Flagged by Analyzer 0 % (0-5); Platelet Count 197 K/mm3 (150-450); RBC Distribution Width SD 50.1 fl (35.1-43.9); Red Blood Count 3.09 M/mm3 (4.2-5.4); White Blood Count 6.6 K/mm3 (4.4-11.0)
[2020-10-10 07:52] LABS: Anion Gap 6 (5-15); BUN 25 mg/dL (7-18); BUN/Creat Ratio 11.6 RATIO (10-20); Calcium,Total 8.4 mg/dL (8.5-10.1); Chloride 104 mmol/L (98-107); Creatinine, Serum 2.15 mg/dL (0.55-1.02); EST Glomerular Filtration Rate 25 mL/min (>60); Est Glom Filt Rate - Afr Amer 30 mL/min (>60); Estimated Creatinine Clearance 22.15 ml/min; Glucose 222 mg/dL (74-106); Sodium Level 139 mmol/L (136-145)
[2020-10-10] MEDS: Isosorbide Mononitrate 60 MG Tablet PO (09:03)
[2020-10-10] MEDS: Aspirin 81 MG TAB.CHEW PO (09:03)
[2020-10-10] MEDS: Clopidogrel Bisulfate 75 MG Tablet PO (09:03)
[2020-10-10] MEDS: Carvedilol 6.25 MG Tablet PO (09:03)
[2020-10-10] MEDS: Insulin Lispro 100 UNIT/ML INSULN.PEN SC ×3 (09:03→11:32)
[2020-10-10] MEDS: Heparin Injection (Vial) 5,000 UNIT/ML VIAL 5000 UNIT SC (09:03)
[2020-10-10] MEDS: Insulin Lispro 100 UNIT/ML INSULN.PEN 15 UNIT SC (09:03)
[2020-10-10 09:16] LABS: Bedside Glucose 244 mg/dL (70-110)
--- NOTE | 2020-10-10 09:58 | CASEMGMT ---
Addendum entered by Elda Cobb 10/10/20 11:53: Call to [facility] and Sarina aware of referral and that pt to be discharged today, voices understanding. Fatoumata PATHAK CM Addendum entered by Elda Cobb 10/10/20 11:09: Per therapy, pt needs a WW at discharge and pt states no preference for [employer] at this time. Order to be faxed to [facility] once signed by hospitalist. Fatoumata PATHAK CM Original Note: Per Octavia at [facility], pt has been cleared financially and medically for OP dialysis. This LAWSON ROOPEZA did receive a schedule letter from [email or web address] yesterday and pt is scheduled MWF at 1230. Schedule letter to pt with arrival time of 45 minutes ahead of time. Pt/sister updated on all, voice understanding. Call to Soledad at [facility] to update on pt discharge and dialysis schedule at this time, voices understanding. Pt/sister voice no further questions/concerns/needs at this time. Fatoumata PATHAK CM
--- NOTE | 2020-10-10 09:59 | PCM.PN.REN ---
Patient Problems: Active and Suspected Problems Acute electrocardiogram changes (Acute) Elevated troponin (Acute) EMPERATRIZ (acute kidney injury) (Acute) Elevated troponin (Acute) Subjective: no sob/cp no c/o - Physical Exam Vitals/I&O's: Vital Signs Temp Pulse Resp BP Pulse Ox 98.4 F 77 18 146/58 H 96 10/10/20 09:00 10/10/20 09:00 10/10/20 09:00 10/10/20 09:00 10/10/20 09:00 Oxygen Flow Rate (L/min) 2 Oxygen Delivery Method Room Air Weight: 52.4 kg Body Mass Index (BMI) 23.8 Finger Stick Blood Glucose 80 Intake and Output for Last 24 Hours 10/08/20 10/09/20 10/10/20 23:59 23:59 23:59 Intake Total 880 / 1120 960 / 960 Output Total 1000 / 1000 Balance 880 / 1120 -40 / -40 General: Alert, Cooperative HEENT: Atraumatic, EOMI Oral: Moist Mucosa Neck: Supple, Trachea Midline Lungs: Clear to auscultation, Normal air movement Cardiovascular: Regular rate, Regular Rhythm Abdomen: Bowel Sounds Present, Soft Laboratory Results 10/09/20 12:08: POC Glucose 301 H 10/09/20 16:57: POC Glucose 434 H 10/09/20 22:28: POC Glucose 256 H 10/10/20 05:40: WBC 6.6, RBC 3.09 L, Hgb 9.0 L, Hct 28.3 L, MCV 91.6, MCH 29.1, MCHC 31.8 L, RDW Std Deviation 50.1 H, RDW Coeff of Andrzej 15.0 H, Plt Count 197, MPV 11.5, Immature Gran % (Auto) 0.800, Neut % (Auto) 67.0, Lymph % (Auto) 16.3 L, Cass % (Auto) 8.5, Eos % (Auto) 6.5 H, Baso % (Auto) 0.9, Absolute Neuts (auto) 4.4, Absolute Lymphs (auto) 1.07, Nucleated RBC % 0 10/10/20 05:40: Sodium 139, Potassium 4.0, Chloride 104, Carbon Dioxide 29.0, Anion Gap 6, BUN 25 H, Creatinine 2.15 H, Estim Creat Clear Calc 22.15, Est GFR (MDRD) Af Amer 30 L, Est GFR (MDRD) Non-Af 25 L, BUN/Creatinine Ratio 11.6, Glucose 222 H, Calcium 8.4 L 10/10/20 06:50: POC Glucose 224 H 10/10/20 08:59: POC Glucose 244 H Current Medications Acetaminophen (Acetaminophen 325 Mg Tablet) 650 mg PO Q6H PRN PRN PRN Reason: Pain Score 1-10/Temp > 100.7 F Last Admin: 10/08/20 09:25 Dose: 650 mg Documented by: Albuterol Sulfate (Albuterol 2.5 Mg/3 Ml Vial.Neb.) 2.5 mg INHALATION Q2H PRN PRN PRN Reason: SOB/Wheezing Aspirin (Aspirin 81 Mg Tab.Chew) 81 mg PO DAILYCM [facility] Last Admin: 10/10/20 09:03 Dose: 81 mg Documented by: Atorvastatin Calcium (Atorvastatin Calcium 40 Mg Tablet) 40 mg PO DAILY@2200 [facility] Last Admin: 10/09/20 22:37 Dose: 40 mg Documented by: Atropine Sulfate (Atropine Sulfate 1 Mg/10 Ml Syringe) 0.5 mg IV UD PRN PRN Reason: HR <50 bpm Carvedilol (Carvedilol 6.25 Mg Tablet) 6.25 mg PO BID [facility] Last Admin: 10/10/20 09:03 Dose: 6.25 mg Documented by: Clopidogrel Bisulfate (Clopidogrel Bisulfate 75 Mg Tablet) 75 mg PO DAILY [facility] Last Admin: 10/10/20 09:03 Dose: 75 mg Documented by: Dextrose (Dextrose 50%-Water 25 Gm/50 Ml Disp.Syrin) 0 gm IV X1 PRN; Protocol PRN Reason: Hypoglycemia Glucagon (Glucagon 1 Mg/Ml Syringe) 1 mg IM .X1 PRN PRN Reason: Hypoglycemia Heparin Sodium (Porcine) (Heparin Injection (Vial) 5,000 Unit/Ml Vial) 5,000 unit SC Q12 [facility] Last Admin: 10/10/20 09:03 Dose: 5,000 unit Documented by: Insulin Human Lispro (Insulin Lispro 100 Unit/Ml Insuln.Pen) 0 unit SC ACHS [facility]; Protocol Last Admin: 10/10/20 09:03 Dose: 2 unit Documented by: Insulin Human Lispro (Insulin Lispro 100 Unit/Ml Insuln.Pen) 3 unit SC LUNCH [facility] Last Admin: 10/09/20 12:10 Dose: 3 units Documented by: Insulin Human Lispro (Insulin Lispro 100 Unit/Ml Insuln.Pen) 15 unit SC BREAKFAST [facility] Last Admin: 10/10/20 09:03 Dose: 15 units Documented by: Insulin Human Lispro (Insulin Lispro 100 Unit/Ml Insuln.Pen) 5 unit SC DINNER [facility] Last Admin: 10/09/20 17:04 Dose: 5 units Documented by: Insulin Human NPH (Insulin Nph Human 100 Units/Ml Pen) 15 units SC QHS [facility] Last Admin: 10/09/20 22:38 Dose: 15 u Documented by: Isosorbide Mononitrate (Isosorbide Mononitrate 60 Mg Tablet) 60 mg PO DAILY [facility] Last Admin: 10/10/20 09:03 Dose: 60 mg Documented by: Nitroglycerin (Nitroglycerin (Inpatient Use) 0.4 Mg Tab.Subl) 0.4 mg SUBLINGUAL Q5M PRN PRN Reason: CARDIAC/CHEST PAIN Last Admin: 10/09/20 22:53 Dose: 0.4 mg Documented by: Ondansetron HCl (Ondansetron 4 Mg/2 Ml Vial) 4 mg IV Q8H PRN PRN PRN Reason: NAUSEA/VOMITING Sodium Chloride (0.9% Saline Lock 10 Ml Syringe) 10 - 40 ml IV UD PRN PRN Reason: SALINE FLUSH Last Admin: 10/04/20 14:02 Dose: 20 ml Documented by: Sodium Chloride (0.9% Normal Saline 500 Ml Iv.Soln.) 500 ml IV BOLUS PRN PRN Reason: VASO-VAGAL PROTOCOL Medical Necessity - Tobacco Use Smoking Status: Never smoker Assessment/Plan All Active Problems Acute electrocardiogram changes (Acute) Elevated troponin (Acute) EMPERATRIZ (acute kidney injury) (Acute) Elevated troponin (Acute) 1- EMPERATRIZ on CKD stage 4 EMPERATRIZ is likely from CKD progression VS CRS S/P tunneled cath placement .[facility] 2- HTN: Reevaluate blood pressure after dialysis. If persistent elevation will need to adjust her BP meds. 3- CHF exacerbation. newly reduced EF s/p cardiac cath Continue diuretics and UF with HD
--- NOTE | 2020-10-10 10:10 | DIALYSIS ---
Pt was planned for 3rd HD session today. Dr Mcginnis in to see pt and it has been decided no HD TX today. Pt has a planned d/c today with dialysis scheduled at chronic unit tomorrow.
[2020-10-10 11:36] LABS: Bedside Glucose 208 mg/dL (70-110)
--- NOTE | 2020-10-10 11:48 | DCINST_ITS ---
- Discharge Diagnoses Current Active Problems: Current Active and Chronic Problems Anemia of chronic disease (Chronic) CHF exacerbation (Chronic) Acute electrocardiogram changes (Acute) Elevated troponin (Acute) EMPERATRIZ (acute kidney injury) (Acute) Uncontrolled type I diabetes mellitus (Chronic) Elevated troponin (Acute) Hypertension (Chronic) Coronary artery disease (Chronic) Status post CABG in 2005 Diabetes mellitus type 1 (Chronic) Hx of CABG (Chronic) Interstitial lung disease (Chronic) Chronic renal failure, stage 4 (severe) (Chronic) You will use the following diet at home:: Cardiac, Renal (restricted protein/sodium) Your food should be the consistency of: Regular Your liquids should be the consistency of: Regular/Thin Discharge Activity: Return to Normal Activity Allergies/Adverse Reactions: Allergies No Known Allergies Allergy (Verified 10/28/18 19:27) Medications to take at Discharge Aspirin [Aspirin, Baby] 81 mg PO DAILY 04/09/15 Isosorbide Mononitrate [Imdur] 60 mg PO DAILY 10/02/15 Insulin Aspart [Novolog Flexpen] 3 units SC LUNCH 03/20/18 Insulin Aspart [Novolog Flexpen] 15 units SC BREAKFAST 10/28/18 Insulin NPH Human Isophane [Novolin N] 5 units SC QHS 10/28/18 Atorvastatin Calcium 40 mg PO DAILY 10/03/20 Carvedilol [Coreg (Beta Janett)] 6.25 mg PO BID 10/03/20 Insulin Aspart [Novolog Flexpen] 5 units SC DINNER 10/03/20 Acetaminophen [Tylenol Tablet] 650 mg PO Q6H PRN PRN tablet 10/10/20 Clopidogrel Bisulfate [Plavix] 75 mg PO DAILY #30 tab 10/10/20 The following prescriptions were given: Clopidogrel Bisulfate [Plavix] 75 mg PO DAILY #30 tab Transmission Status: Pending to [id number] Primary Care Physician: Sergio Maxwell DO [Primary Care Provider] - Please follow up with your Primary Care Physician in: 1-2 weeks Test Results: Test results from this visit will be discussed in further detail at your follow- up appointment, if applicable. Please Follow Up With: Tony Mcginnis MD - Neprhology/Dialysis When: as directed Please Follow Up With: Sandra Snowden MD - cardiology When: as directed Please Follow Up With: Sergio Wallis MD - Vascular surgery: Re iliac stenosis When: 2 weeks Proposed Discharge Date: 10/10/20
--- NOTE | 2020-10-10 13:37 | PCM.DC.SUM ---
<Calos Quinn - Last Filed: 10/10/20 13:37> Discharge Date and Diagnosis - Problem List Patient Problems: Active and Suspected Problems Acute electrocardiogram changes (Acute) Elevated troponin (Acute) EMPERATRIZ (acute kidney injury) (Acute) Elevated troponin (Acute) Date of Admission: 10/03/20 Date of Discharge: 10/10/20 - Primary Discharge Diagnosis Acute Problems: Active Problems Acute hypoxic respiratory failure secondary to systolic and diastolic acute on chronic congestive heart failure, complicated by pulmonary hypertension Non-STEMI Acute kidney injury on CKD 4, now end-stage renal disease PAD-80% stenosis right external iliac artery - Secondary Discharge Diagnosis Chronic Problems: Chronic Problems Anemia of chronic disease (Chronic) CHF exacerbation (Chronic) Uncontrolled type I diabetes mellitus (Chronic) Hypertension (Chronic) Coronary artery disease (Chronic) Status post CABG in 2005 Diabetes mellitus type 1 (Chronic) Hx of CABG (Chronic) Interstitial lung disease (Chronic) Chronic renal failure, stage 4 (severe) (Chronic) Hospital Course and Treatment Imaging Results: RAD/Chest PA and Lateral IMPRESSION: Status post CABG. Borderline cardiac megaly. Findings in keeping with the CHF and blunting of both clustering angles with atelectasis and/or infiltrate at the left lung base. Echo: Interpretation Summary Normal LV size. Moderate segmental systolic dysfunction (see wall motion). The estimated ejection fraction is 37 %. Mild (1+) tricuspid valve insufficiency. Pulmonary artery systolic pressure is 40 mmHg. Moderate size left pleural effusion. Contrast injection was performed. Left Heart Cath: CONCLUSIONS severe north fork CAD as described. Patent 4/4 bypass grafts. 80% stenosis of R external iliac artery RECOMMENDATIONS Pt. should follow up in our office for her PAD RAD/CXR for Line Placement IMPRESSION: Interval placement of tunneled right internal jugular dialysis catheter with tip the catheter overlying the superior vena cava and no pneumothorax. Consults: Gen surgery - [facility] - [facility] Cardiology - Sp Operations: - - Tunneled dialysis catheter placement Procedures: 2-D Echocardiogram, Cardiac catheterization, Dialysis Summary of Care Provided: Hospital course: The patient is a 64 year old F with past medical history of CKD stage IV, CAD with prior CABG, type 1 diabetes, who presented to the emergency room with shortness of breath with increased lower extremity edema. She had elevated BNP and chest x-ray consistent with congestive heart failure. She was admitted to the PCU and placed on telemetry. She was placed on IV Lasix for acute CHF. He appeared to have acute on chronic kidney disease-underlying CKD stage IV. Troponin was indeterminate, this was cycled and it did elevate to 1.260 consistent with non-STEMI. Cardiology was consulted. Echocardiogram was obtained which demonstrated worsening of her ejection fraction-now 37% with wall motion abnormalities. Nephrology was consulted. Decision was made to proceed with heart catheterization. This revealed north fork vessel CAD with patent grafts. There is also noted 80% stenosis of her right external iliac artery. The patient was started on dialysis post heart catheterization. General surgery placed a tunneled dialysis catheter. Her shortness of breath and oxygen demand improved, with resolution of her lower extremity edema. She will continue dialysis as an outpatient. Patient was discharged home in stable condition with home health care services. She will need to follow-up with cardiology as directed, follow-up with nephrology for dialysis-neck session tomorrow, she will also need to follow-up with vascular surgery with regards to PAD found during heart catheterization. This patient was seen by Calos Quinn PA-C under the supervision of Doctor Fortune. [] Patient Problems: Active and Suspected Problems Acute electrocardiogram changes (Acute) Elevated troponin (Acute) EMPERATRIZ (acute kidney injury) (Acute) Elevated troponin (Acute) - Physical Exam Vitals/I&O's: Vital Signs Temp Pulse Resp BP Pulse Ox 98.4 F 77 18 146/58 H 96 10/10/20 09:00 10/10/20 09:00 10/10/20 09:00 10/10/20 09:00 10/10/20 11:36 Oxygen Flow Rate (L/min) [ 0 AMBULATING on Room Air] Oxygen Flow Rate (L/min) [At 0 REST on Room Air] Oxygen Flow Rate (L/min) 2 Oxygen Delivery Method Room Air Weight: 115 lb 8.356 oz Body Mass Index (BMI) 23.8 Finger Stick Blood Glucose 80 Intake and Output for Last 24 Hours 10/08/20 10/09/20 10/10/20 23:59 23:59 23:59 Intake Total 880 / 1120 960 / 960 240 / 240 Output Total 1000 / 1000 Balance 880 / 1120 -40 / -40 240 / 240 General: Alert, Oriented x3, Cooperative HEENT: Atraumatic, PERRLA, EOMI, Normocephalic Neck: Supple, No JVD, Negative Carotid Bruits Lungs: Clear to auscultation, Normal air movement Cardiovascular: Regular rate, No murmurs Abdomen: Bowel Sounds Present, Soft, Non Tender Extremities: No edema, Capillary Refill Less than 3 Seconds Skin: No rashes, No breakdown Musculoskeletal: No Tenderness to Palpation of Joints or Extremities Neurological: Cranial nerves II-XII grossly intact Psych/Mental Status: Normal Affect, Appropriate, Alert and oriented to time, place, person, mood and affect Laboratory Results 10/09/20 16:57: POC Glucose 434 H 10/09/20 22:28: POC Glucose 256 H 10/10/20 05:40: WBC 6.6, RBC 3.09 L, Hgb 9.0 L, Hct 28.3 L, MCV 91.6, MCH 29.1, MCHC 31.8 L, RDW Std Deviation 50.1 H, RDW Coeff of Andrzej 15.0 H, Plt Count 197, MPV 11.5, Immature Gran % (Auto) 0.800, Neut % (Auto) 67.0, Lymph % (Auto) 16.3 L, Esmeralda % (Auto) 8.5, Eos % (Auto) 6.5 H, Baso % (Auto) 0.9, Absolute Neuts (auto) 4.4, Absolute Lymphs (auto) 1.07, Nucleated RBC % 0 10/10/20 05:40: Sodium 139, Potassium 4.0, Chloride 104, Carbon Dioxide 29.0, Anion Gap 6, BUN 25 H, Creatinine 2.15 H, Estim Creat Clear Calc 22.15, Est GFR (MDRD) Af Amer 30 L, Est GFR (MDRD) Non-Af 25 L, BUN/Creatinine Ratio 11.6, Glucose 222 H, Calcium 8.4 L 10/10/20 06:50: POC Glucose 224 H 10/10/20 08:59: POC Glucose 244 H 10/10/20 11:30: POC Glucose 208 H Current Medications Acetaminophen (Acetaminophen 325 Mg Tablet) 650 mg PO Q6H PRN PRN PRN Reason: Pain Score 1-10/Temp > 100.7 F Last Admin: 10/08/20 09:25 Dose: 650 mg Documented by: Albuterol Sulfate (Albuterol 2.5 Mg/3 Ml Vial.Neb.) 2.5 mg INHALATION Q2H PRN PRN PRN Reason: SOB/Wheezing Aspirin (Aspirin 81 Mg Tab.Chew) 81 mg PO DAILYCM [facility] Last Admin: 10/10/20 09:03 Dose: 81 mg Documented by: Atorvastatin Calcium (Atorvastatin Calcium 40 Mg Tablet) 40 mg PO DAILY@2200 [facility] Last Admin: 10/09/20 22:37 Dose: 40 mg Documented by: Atropine Sulfate (Atropine Sulfate 1 Mg/10 Ml Syringe) 0.5 mg IV UD PRN PRN Reason: HR <50 bpm Carvedilol (Carvedilol 6.25 Mg Tablet) 6.25 mg PO BID [facility] Last Admin: 10/10/20 09:03 Dose: 6.25 mg Documented by: Clopidogrel Bisulfate (Clopidogrel Bisulfate 75 Mg Tablet) 75 mg PO DAILY [facility] Last Admin: 10/10/20 09:03 Dose: 75 mg Documented by: Dextrose (Dextrose 50%-Water 25 Gm/50 Ml Disp.Syrin) 0 gm IV X1 PRN; Protocol PRN Reason: Hypoglycemia Glucagon (Glucagon 1 Mg/Ml Syringe) 1 mg IM .X1 PRN PRN Reason: Hypoglycemia Heparin Sodium (Porcine) (Heparin Injection (Vial) 5,000 Unit/Ml Vial) 5,000 unit SC Q12 [facility] Last Admin: 10/10/20 09:03 Dose: 5,000 unit Documented by: Insulin Human Lispro (Insulin Lispro 100 Unit/Ml Insuln.Pen) 0 unit SC ACHS [facility]; Protocol Last Admin: 10/10/20 11:32 Dose: 1 unit Documented by: Insulin Human Lispro (Insulin Lispro 100 Unit/Ml Insuln.Pen) 3 unit SC LUNCH [facility] Last Admin: 10/10/20 11:32 Dose: 3 units Documented by: Insulin Human Lispro (Insulin Lispro 100 Unit/Ml Insuln.Pen) 15 unit SC BREAKFAST [facility] Last Admin: 10/10/20 09:03 Dose: 15 units Documented by: Insulin Human Lispro (Insulin Lispro 100 Unit/Ml Insuln.Pen) 5 unit SC DINNER [facility] Last Admin: 10/09/20 17:04 Dose: 5 units Documented by: Insulin Human NPH (Insulin Nph Human 100 Units/Ml Pen) 15 units SC QHS [facility] Last Admin: 10/09/20 22:38 Dose: 15 u Documented by: Isosorbide Mononitrate (Isosorbide Mononitrate 60 Mg Tablet) 60 mg PO DAILY [facility] Last Admin: 10/10/20 09:03 Dose: 60 mg Documented by: Nitroglycerin (Nitroglycerin (Inpatient Use) 0.4 Mg Tab.Subl) 0.4 mg SUBLINGUAL Q5M PRN PRN Reason: CARDIAC/CHEST PAIN Last Admin: 10/09/20 22:53 Dose: 0.4 mg Documented by: Ondansetron HCl (Ondansetron 4 Mg/2 Ml Vial) 4 mg IV Q8H PRN PRN PRN Reason: NAUSEA/VOMITING Sodium Chloride (0.9% Saline Lock 10 Ml Syringe) 10 - 40 ml IV UD PRN PRN Reason: SALINE FLUSH Last Admin: 10/04/20 14:02 Dose: 20 ml Documented by: Sodium Chloride (0.9% Normal Saline 500 Ml Iv.Soln.) 500 ml IV BOLUS PRN PRN Reason: VASO-VAGAL PROTOCOL Discharge Diet: Low fat/ Low Cholesterol, 1800 Calorie Control Diet, 2000 mg Sodium Diet, Renal Diet Discharge Activity: Return to Normal Activity Home Medications: Medications to take at Discharge Aspirin [Aspirin, Baby] 81 mg PO DAILY 04/09/15 Isosorbide Mononitrate [Imdur] 60 mg PO DAILY 10/02/15 Insulin Aspart [Novolog Flexpen] 3 units SC LUNCH 03/20/18 Insulin Aspart [Novolog Flexpen] 15 units SC BREAKFAST 10/28/18 Insulin NPH Human Isophane [Novolin N] 5 units SC QHS 10/28/18 Atorvastatin Calcium 40 mg PO DAILY 10/03/20 Carvedilol [Coreg (Beta Janett)] 6.25 mg PO BID 10/03/20 Insulin Aspart [Novolog Flexpen] 5 units SC DINNER 10/03/20 Acetaminophen [Tylenol Tablet] 650 mg PO Q6H PRN PRN tab 10/10/20 Clopidogrel Bisulfate [Plavix] 75 mg PO DAILY #30 tab 10/10/20 Following Prescriptions Were Given to Patient: Clopidogrel Bisulfate [Plavix] 75 mg PO DAILY #30 tab Transmission Status: Received by [id number] Primary Care Physician: Sergio Maxwell DO [Primary Care Provider] - Please follow up with your Primary Care Physician in: 1-2 weeks Please Follow Up With: Tony Mcginnis MD - Neprhology/Dialysis When: as directed Please Follow Up With: Sandra Snowden MD - cardiology When: as directed Please Follow Up With: Sergio Wallis MD - Vascular surgery: Re iliac stenosis When: 2 weeks Disposition: Home with Home Health Minutes spent on discharge:: 35 Patient Condition:: Stable Medical Necessity - Tobacco Use Smoking Status: Never smoker Meaningful Use Info Meaningful Use Diagnoses (Choose all that apply): CHF - CHF ANA/ARB ordered at discharge?: No Reason ANA/ARB not ordered?: Worsening renal disease Documented LVEF (%): 37 <Chilo Fortune - Last Filed: 10/10/20 14:09> Discharge Date and Diagnosis - Primary Discharge Diagnosis Acute Problems: Active Problems Acute electrocardiogram changes (Acute) Elevated troponin (Acute) EMPERATRIZ (acute kidney injury) (Acute) Elevated troponin (Acute) - Secondary Discharge Diagnosis Chronic Problems: Chronic Problems Anemia of chronic disease (Chronic) CHF exacerbation (Chronic) Uncontrolled type I diabetes mellitus (Chronic) Hypertension (Chronic) Coronary artery disease (Chronic) Status post CABG in 2005 Diabetes mellitus type 1 (Chronic) Hx of CABG (Chronic) Interstitial lung disease (Chronic) Chronic renal failure, stage 4 (severe) (Chronic) Hospital Course and Treatment Summary of Care Provided: This patient was seen in conjunction with Calos Quinn PA-C . I have independently interviewed and examined the patient and reviewed pertinent historical, laboratory, and other data. Please refer to Calos Quinn PA-C note for details of this patient's presentation, findings, and recommendations. I have reviewed Calos Quinn PA-C note and concur with documented findings. In brief, patient 64-year-old female with multiple comorbidities admitted with shortness of breath and worsening kidney function. Patient hospital stay complicated by worsening kidney function resulting in placement of tunneled dialysis catheter with initiation of dialysis. Assessment: 1. Acute congestive heart failure with reduced ejection fraction 2. Acute non-STEMI 3. Chronic kidney disease stage IV with worsening kidney function necessitating dialysis 4. Essential hypertension 5. Dyslipidemia 6. Coronary artery disease status post CABG 7. Diabetes mellitus type 1 8. Anemia of chronic disease 9. Peripheral arterial disease Hospital course: As documented above - Physical Exam Vitals/I&O's: Vital Signs Temp Pulse Resp BP Pulse Ox 98.4 F 77 18 146/58 H 96 12/15/20 09:00 10/10/20 09:00 10/10/20 09:00 10/10/20 09:00 10/10/20 11:36 Oxygen Flow Rate (L/min) [ 0 AMBULATING on Room Air] Oxygen Flow Rate (L/min) [At 0 REST on Room Air] Oxygen Flow Rate (L/min) 2 Oxygen Delivery Method Room Air Weight: 52.4 kg Body Mass Index (BMI) 23.8 Finger Stick Blood Glucose 80 Intake and Output for Last 24 Hours 10/08/20 10/09/20 10/10/20 23:59 23:59 23:59 Intake Total 880 / 1120 960 / 960 240 / 240 Output Total 1000 / 1000 Balance 880 / 1120 -40 / -40 240 / 240 Laboratory Results 10/09/20 16:57: POC Glucose 434 H 10/09/20 22:28: POC Glucose 256 H 10/10/20 05:40: WBC 6.6, RBC 3.09 L, Hgb 9.0 L, Hct 28.3 L, MCV 91.6, MCH 29.1, MCHC 31.8 L, RDW Std Deviation 50.1 H, RDW Coeff of Andrzej 15.0 H, Plt Count 197, MPV 11.5, Immature Gran % (Auto) 0.800, Neut % (Auto) 67.0, Lymph % (Auto) 16.3 L, Esmeralda % (Auto) 8.5, Eos % (Auto) 6.5 H, Baso % (Auto) 0.9, Absolute Neuts (auto) 4.4, Absolute Lymphs (auto) 1.07, Nucleated RBC % 0 10/10/20 05:40: Sodium 139, Potassium 4.0, Chloride 104, Carbon Dioxide 29.0, Anion Gap 6, BUN 25 H, Creatinine 2.15 H, Estim Creat Clear Calc 22.15, Est GFR (MDRD) Af Amer 30 L, Est GFR (MDRD) Non-Af 25 L, BUN/Creatinine Ratio 11.6, Glucose 222 H, Calcium 8.4 L 10/10/20 06:50: POC Glucose 224 H 10/10/20 08:59: POC Glucose 244 H 10/10/20 11:30: POC Glucose 208 H Current Medications Acetaminophen (Acetaminophen 325 Mg Tablet) 650 mg PO Q6H PRN PRN PRN Reason: Pain Score 1-10/Temp > 100.7 F Last Admin: 10/08/20 09:25 Dose: 650 mg Documented by: Albuterol Sulfate (Albuterol 2.5 Mg/3 Ml Vial.Neb.) 2.5 mg INHALATION Q2H PRN PRN PRN Reason: SOB/Wheezing Aspirin (Aspirin 81 Mg Tab.Chew) 81 mg PO DAILYCM [facility] Last Admin: 10/10/20 09:03 Dose: 81 mg Documented by: Atorvastatin Calcium (Atorvastatin Calcium 40 Mg Tablet) 40 mg PO DAILY@2200 [facility] Last Admin: 10/09/20 22:37 Dose: 40 mg Documented by: Atropine Sulfate (Atropine Sulfate 1 Mg/10 Ml Syringe) 0.5 mg IV UD PRN PRN Reason: HR <50 bpm Carvedilol (Carvedilol 6.25 Mg Tablet) 6.25 mg PO BID [facility] Last Admin: 10/10/20 09:03 Dose: 6.25 mg Documented by: Clopidogrel Bisulfate (Clopidogrel Bisulfate 75 Mg Tablet) 75 mg PO DAILY [facility] Last Admin: 10/10/20 09:03 Dose: 75 mg Documented by: Dextrose (Dextrose 50%-Water 25 Gm/50 Ml Disp.Syrin) 0 gm IV X1 PRN; Protocol PRN Reason: Hypoglycemia Glucagon (Glucagon 1 Mg/Ml Syringe) 1 mg IM .X1 PRN PRN Reason: Hypoglycemia Heparin Sodium (Porcine) (Heparin Injection (Vial) 5,000 Unit/Ml Vial) 5,000 unit SC Q12 [facility] Last Admin: 10/10/20 09:03 Dose: 5,000 unit Documented by: Insulin Human Lispro (Insulin Lispro 100 Unit/Ml Insuln.Pen) 0 unit SC ACHS [facility]; Protocol Last Admin: 10/10/20 11:32 Dose: 1 unit Documented by: Insulin Human Lispro (Insulin Lispro 100 Unit/Ml Insuln.Pen) 3 unit SC LUNCH [facility] Last Admin: 10/10/20 11:32 Dose: 3 units Documented by: Insulin Human Lispro (Insulin Lispro 100 Unit/Ml Insuln.Pen) 15 unit SC BREAKFAST [facility] Last Admin: 10/10/20 09:03 Dose: 15 units Documented by: Insulin Human Lispro (Insulin Lispro 100 Unit/Ml Insuln.Pen) 5 unit SC DINNER [facility] Last Admin: 10/09/20 17:04 Dose: 5 units Documented by: Insulin Human NPH (Insulin Nph Human 100 Units/Ml Pen) 15 units SC QHS [facility] Last Admin: 10/09/20 22:38 Dose: 15 u Documented by: Isosorbide Mononitrate (Isosorbide Mononitrate 60 Mg Tablet) 60 mg PO DAILY [facility] Last Admin: 10/10/20 09:03 Dose: 60 mg Documented by: Nitroglycerin (Nitroglycerin (Inpatient Use) 0.4 Mg Tab.Subl) 0.4 mg SUBLINGUAL Q5M PRN PRN Reason: CARDIAC/CHEST PAIN Last Admin: 10/09/20 22:53 Dose: 0.4 mg Documented by: Ondansetron HCl (Ondansetron 4 Mg/2 Ml Vial) 4 mg IV Q8H PRN PRN PRN Reason: NAUSEA/VOMITING Sodium Chloride (0.9% Saline Lock 10 Ml Syringe) 10 - 40 ml IV UD PRN PRN Reason: SALINE FLUSH Last Admin: 10/04/20 14:02 Dose: 20 ml Documented by: Sodium Chloride (0.9% Normal Saline 500 Ml Iv.Soln.) 500 ml IV BOLUS PRN PRN Reason: VASO-VAGAL PROTOCOL Inpatient E&M: 23870 [facility]
--- NOTE | 2020-10-10 14:20 | PHA.DC.MC ---
Pharmacy Service has performed discharge medication reconciliation and counseling for this patient. 1. CLOPIDOGREL 75MG PO DAILY The patient's discharge medication list was reviewed for discrepancies and discrepancies were resolved. Home Medications Aspirin [Aspirin, Baby] 81 mg PO DAILY 04/09/15 Isosorbide Mononitrate [Imdur] 60 mg PO DAILY 10/02/15 Insulin Aspart [Novolog Flexpen] 3 units SC LUNCH 03/20/18 Insulin Aspart [Novolog Flexpen] 15 units SC BREAKFAST 10/28/18 Insulin NPH Human Isophane [Novolin N] 5 units SC QHS 10/28/18 Atorvastatin Calcium 40 mg PO DAILY 10/03/20 Carvedilol [Coreg (Beta Janett)] 6.25 mg PO BID 10/03/20 Insulin Aspart [Novolog Flexpen] 5 units SC DINNER 10/03/20 Acetaminophen [Tylenol Tablet] 650 mg PO Q6H PRN PRN tab 10/10/20 Clopidogrel Bisulfate [Plavix] 75 mg PO DAILY #30 tab 10/10/20 The patient was counseled on the following discharge medications and changes in medications for homegoing were reviewed. The Reason for Use, instructions for use, and potential side effects were reviewed for all new medications. The patient's questions regarding all of their medications were answered. The patient was able to verbally demonstrate an understanding of their discharge medications.
--- NOTE | 2020-10-10 14:25 | CHAPLAIN ---
Type of Pastoral Visit ___ Initial Visit _x__ Follow-up Visit ___ On-call Visit ___ General Patient Visit ___ Spiritual Assessment ___ Family Conference ___ Bereavement ___ Rapid Response ___ Code Blue ___ Other (describe below) Pastoral Care Referral From _x__ Patient ___ Family ___ Nurse ___ Physician ___ [employer] ___ Opthalmic Tech ___ Other (describe below) Sacrament/Intervention _x__ Active listening ___ Anointing ___ Anabaptism ___ Bereavement ___ Communion _x__ Jennyfer exploration ___ ___ Life review _x__ Prayer ___ Reconciliation ___ Sacrament of Sick _x__ Supportive presence ___ Wedding ___ Other (describe below) Pastoral Comments
--- NOTE | 2020-10-11 14:58 | CASEMGMT ---
Addendum entered by Elda Cobb 10/12/20 15:20: Pt states has been 'up and down' since home and states 'is adjusting to dialysis.' Pt states no questions regarding discharge instructions/medications at this time. Pt states has f/u appt's scheduled and plans to keep. Pt states no suggestions for [facility] at this time. Pt voices no further questions/concerns/needs at this time. Pt aware to let OP dialysis now about her symptoms after her treatment on friday, voices understanding. Fatoumata PATHAK CM Original Note: [facility] OROPEZA Discharge F/U Phone Call LACE: 13 Strata:3 Discharge date: 10/10/2020 Call deferred at this time as pt had 1st OP dialysis appt today at 1230. [facility] OROPEZA will f/u with pt 10/12/2020. Fatoumata PATHAK CM
== END 2020-10-10 15:18 | disposition home health service (06) | DRG 280 ==
LOC: ED 14:43 → PCU 14:50
PROVIDERS: Anesthesiology; Emergency Medicine; Family Medicine; Hospitalist; Internal Medicine Nephrology; Physician Assistant; Specialist; Surgery; Admitting Provider Internal Medicine; Emergency Provider Emergency Medicine; PCP Preventive Medicine Occupational Medicine; Visit Provider Internal Medicine
PROC: 0JH63XZ Insertion of Tunneled Vascular Access Device into Chest Subcutaneous Tissue and Fascia, Percutaneous Approach (ICD-10-PCS; principal; 2020-10-07 07:15)
DX: I13.2 Hypertensive heart and chronic kidney disease with heart failure and with stage 5 chronic kidney disease, or end stage renal disease (principal); I50.43 Acute on chronic combined systolic (congestive) and diastolic (congestive) heart failure; I21.A1 Myocardial infarction type 2; N18.6 End stage renal disease; J96.01 Acute respiratory failure with hypoxia; N17.9 Acute kidney failure, unspecified; J84.9 Interstitial pulmonary disease, unspecified; I27.20 Pulmonary hypertension, unspecified; Z99.2 Dependence on renal dialysis; E10.22 Type 1 diabetes mellitus with diabetic chronic kidney disease; E10.65 Type 1 diabetes mellitus with hyperglycemia; I25.10 Atherosclerotic heart disease of native coronary artery without angina pectoris; E78.5 Hyperlipidemia, unspecified; D63.8 Anemia in other chronic diseases classified elsewhere; Z20.828 Contact with and (suspected) exposure to other viral communicable diseases; Z78.0 Asymptomatic menopausal state; Z79.02 Long term (current) use of antithrombotics/antiplatelets; Z79.4 Long term (current) use of insulin; Z79.82 Long term (current) use of aspirin; Z79.899 Other long term (current) drug therapy; I25.2 Old myocardial infarction; Z95.1 Presence of aortocoronary bypass graft
CPT/HCPCS: 36415; 71045; 71046; 76000; 80048; 80053; 82962; 83036; 83880; 84443; 84484; 85025; 85027; 85610; 85730; 86704; 86706; 87340; 87635; 90937; 93005; 93306; 93455; 97110; 97116; 97162; 97165; 97530; 97535; 97802; 97803; 99152; 99153; 99285; J7030; J7040; Q9957; Q9967; A4216; C1750; C1769; C8929; G0257; J1940; Q5106; U0002

== ENCOUNTER → 2020-10-24 14:17 | Outpatient (CLI) | payer MEDICARE, MEDICAID, SELFPAY ==
[2020-10-24 13:58] VITALS: BMI 23.0
[2020-10-24 14:35] LABS: Hematocrit 37.5 % (37-47); Hemoglobin 11.3 g/dL (12.0-15.0); Mean Corp Hgb Conc 30.1 g/dL (32-36); Mean Corpuscular Hgb 28.3 pg (27.0-32.0); Mean Platelet Vol. 11.4 fl (6.2-12.0); Platelet Count 217 K/mm3 (150-450); RBC Distribution Width CV 14.8 % (11.6-14.6); RBC Distribution Width SD 50.6 fl (35.1-43.9); Red Blood Count 3.99 M/mm3 (4.2-5.4)
== END ==
PROVIDERS: PCP Preventive Medicine Occupational Medicine; Referring Provider Surgery; Visit Provider Surgery
DX: I95.9 Hypotension, unspecified (principal); D63.8 Anemia in other chronic diseases classified elsewhere
CPT/HCPCS: 36415; 85027

== ENCOUNTER → 2020-11-14 09:59 | Outpatient (CLI) | payer MEDICARE, MEDICAID, SELFPAY ==
[2020-11-07 13:52] VITALS: BMI 24.6
--- NOTE | 2020-11-14 10:04 | ADU_ITS ---
Reason For Study: Atherosclerosis Right Velocities Left Velocities Ext. Iliac Artery, dist = 110.7 cm./sec. Ext Iliac Artery, dist = 137.4 cm./sec. Common Femoral Artery, mid = 62.1 cm./sec. Common Femoral Artery, mid = 112.5 cm./sec. Supf Femoral Artery, prox = 56 cm./sec. Supf. Femoral Artery, prox = 65.5 cm./sec. Supf Femoral Artery, mid = 73.2 cm./sec. Supf. Femoral Artery, mid = 112.5 cm./sec. Supf Femoral Artery, dist. = 54.5 cm./sec. Supf. Femoral Artery, dist = 86.9 cm./sec. Profunda Femoral Artery = 37.6 cm./sec. Profunda Femoral Artery = 53.4 cm./sec. Popliteal Artery, prox. = 66.6 cm./sec. Popliteal Artery, proximal, = 94.1 cm./sec. Popliteal Artery, mid = 38.3 cm./sec. Popliteal Artery, mid = 74.1 cm./sec. Popliteal Artery, dist = 50.6 cm./sec. Popliteal Artery, distal = 64.9 cm./sec. Post. Tibial Artery, prox = 16.9 cm./sec. Post Tibial Artery, mid = 25.1 cm./sec. Post. Tibial Artery, mid = 13.9 cm./sec. Ant.Tibial Artery, prox = 57.8 cm./sec. Post. Tibial Artery, dist = 27.5 cm./sec. Ant Tibial Artery, mid = 94.2 cm./sec. Ant. Tibial Artery, prox = 58.9 cm./sec. Ant. Tibial Artery, distal = 56.3 cm./sec. Ant. Tibial Artery, mid = 61.1 cm./sec. No flow noted in the LOSS PREVENTION SPECIALIST prox and distal, and Ant. Tibial Artery, dist = 65.5 cm./sec. Peroneal artery. No flow noted in the Peroneal artery. Procedure Exam performed in department. Interpretation Summary Right leg with no stenosis. LEft leg with posterior tibial and peroneal occlussions. Ordering Physician: Arturo Louis Referring Physician: Sergio Maxwell Performed By: Elda Velazco RVT
--- NOTE | 2020-11-14 10:04 | ART_ITS ---
Reason For Study: Atherosclerosis Procedure A bilateral lower extremity continuous wave Doppler with analog waveform analysis and ankle brachial indexes. Left Segmental Pressures Left brachial= 123mmHg. Left posterior tibial artery = 105mmHg. Left dorsalis pedis artery = 111mmHg. Left digit = 35 mmHg. The left dorsalis pedis waveforms are monophasic. The left posterior tibial artery waveforms are monophasic. Right Segmental Pressures Right brachial= 131mmHg. Right posterior tibial artery = 94mmHg. Right dorsalis pedis artery = 116mmHg. Right digit = 26 mmHg. The right dorsalis pedis waveforms are monophasic. The right posterior tibial artery waveforms are monophasic. Indices The right ankle brachial index by the dorsalis pedis is 0.89. The right ankle brachial index by the posterior tibial artery is 0.72. The right digital-brachial index is 0.20. The left ankle brachial index by the dorsalis pedis is 0.85. The left ankle brachial index by the posterior tibial artery is 0.80. The left digital-brachial index is 0.27. Interpretation Summary 1. Bilateral mild disease with monophasic flow 0.89 and 0.85 and dbi 0.2 and 0.27. Ordering Physician: Arturo Louis Referring Physician: Sergio Maxwell Performed By: Elda Velazco RVT
== END ==
PROVIDERS: PCP Preventive Medicine Occupational Medicine; Referring Provider Surgery Vascular Surgery; Visit Provider Surgery Vascular Surgery
DX: I70.213 Atherosclerosis of native arteries of extremities with intermittent claudication, bilateral legs (principal)
CPT/HCPCS: 93922; 93925

== ENCOUNTER → 2020-12-12 10:01 | Outpatient (CLI) | payer MEDICARE, MEDICAID, SELFPAY ==
[2020-11-07 13:52] VITALS: BMI 24.6
[2020-12-05 13:48] VITALS: BMI 23.8
--- NOTE | 2020-12-12 10:03 | VDUE_ITS ---
Reason For Study: ESRD Right Arm Left Arm Right Cephalic Vein at the wrist measures 0.10 Left Cephalic Vein at the wrist measures x 0.10 cm. 0.19 x 0.20 cm. Right Cephalic Vein in the forearm measures Left Cephalic Vein in the forearm measures 0.16 x 0.17 cm. 0.15 x 0.16 cm. Right Cephalic Vein below antecub measures Left Cephalic Vein below antecub measures 0.13 x 0.14 cm. 0.19 x 0.19 cm. Cephalic vein above antecube and at mid bicep Left Cephalic Vein above antecub measures are partially compressible with 0.09 x 0.09 cm. brightintraluminal echoes consistent with Left Cephalic Vein at mid bicep measures chronic SVT. 0.10 x 0.10 cm. Right Cephalic Vein above antecub measures Left Cephalic Vein at the shoulder measures 0.09 x 0.09 cm. 0.12 x 0.12 cm. Right Cephalic Vein mid bicep measures 0.11 x Basilic vein at origin measures 0.30 x 0.30 0.10 cm. cm. Right Cephalic Vein at the shoulder measures Basilic vein at bicep measures 0.29 x 0.28 0.10 x 0.10 cm. cm. Right Basilic Vein at the origin measures 0.38 Basilic vein above antecub measures 0.24 x x 0.39 cm. 0.24 cm. Right Basilic Vein mid bicep measures 0.32 x Left Brachial artery measures 0.35 x 0.35 0.31 cm. cm with a velocity of 87.4 cm/sec. Right Basilic Vein above antecub measures 0.34 Left Radial artery measures 0.11 x 0.15 cm x 0.36 cm. with a velocity of 9 cm/sec. Right Brachial artery measures 0.35 x 0.34 cm with a velocity of 81.5 cm/sec. Right Radial artery measures 0.17 x 0.16 cm with a velocity of 13.4 cm/sec. Interpretation Summary Bilateral upper basilic veins good caliber. Otherwise veins marginal. Ordering Physician: Arturo Louis Referring Physician: Sergio Maxwell Performed By: Elda Velazco RVT ?
== END ==
PROVIDERS: PCP Preventive Medicine Occupational Medicine; Referring Provider Surgery Vascular Surgery; Visit Provider Surgery Vascular Surgery
DX: Z01.818 Encounter for other preprocedural examination (principal); E11.22 Type 2 diabetes mellitus with diabetic chronic kidney disease; I13.11 Hypertensive heart and chronic kidney disease without heart failure, with stage 5 chronic kidney disease, or end stage renal disease; N18.6 End stage renal disease; E11.40 Type 2 diabetes mellitus with diabetic neuropathy, unspecified; I70.213 Atherosclerosis of native arteries of extremities with intermittent claudication, bilateral legs; M79.671 Pain in right foot
CPT/HCPCS: 93970

== ENCOUNTER → 2021-01-11 14:45 | Outpatient (CLI) | payer MEDICARE, MEDICAID, SELFPAY ==
[2021-01-02 14:03] VITALS: BMI 23.2
--- NOTE | 2021-01-11 14:46 | CT_ITS ---
STUDY: CTA OF THE ABDOMINAL AORTA AND BILATERAL LOWER EXTREMITIES REASON FOR EXAM: Female, 65 years old. Bilateral hip and leg pain RADIATION DOSAGE (If Supplied By Facility): CTDIvol = ( 5.32 ) mGy, DLP = ( 797.88 ) mGycm TECHNIQUE: Axial CT angiography multi-detector data acquisition was obtained from the dome of the liver to the ankles following intravenous administration of IV 100mL Isovue-370. Axial images and MIP images were reconstructed from the axial data set. Post-processing of the angiographic images was performed, with multiplanar reformation and 3D reconstruction. Individualized dose optimization techniques were used for this CT. TECHNICAL QUALITY: Good COMPARISON: None. Descriptors of Narrowing: None (0%) Mild (< 50%) Moderate (50-70%) Severe (70-90%) Subtotal/Total Occlusion (90-100%) Non-Evaluable (technically non-diagnostic FINDINGS: Air-fluid level is seen within the urinary bladder. If there is no evidence of manipulation of a TRAN catheter, a colovesical fistula should be ruled out. Abdominal aorta: Atherosclerotic plaque formation. Celiac and superior mesenteric arteries: Calcific plaque distal to the origin of the superior mesenteric artery. Inferior mesenteric artery: No demonstrated narrowing. Right renal artery(arteries): No demonstrated narrowing. Left renal artery(arteries): Moderate stenotic plaque at the origin of the left renal artery. Right common iliac artery: Nonstenotic atherosclerotic plaque. Right external iliac artery: Nonstenotic atherosclerotic plaque. Right internal iliac artery: No demonstrated narrowing. Left common iliac artery: Nonstenotic atherosclerotic plaque. Left external iliac artery: Nonstenotic atherosclerotic plaque. Left internal iliac artery: No demonstrated narrowing. RIGHT LOWER EXTREMITY Right common femoral artery: Nonstenotic atherosclerotic plaque. Right profundus femoris: No demonstrated narrowing. Right superficial femoral: Nonstenotic atherosclerotic plaques. Right popliteal artery: Nonstenotic atherosclerotic plaque. Right tibioperoneal trunk: Calcific nonstenotic plaques. Right anterior tibial artery: Calcific nonstenotic plaques Right posterior tibial artery: Calcific nonstenotic plaques. Right peroneal artery: Calcific nonstenotic plaques. LEFT LOWER EXTREMITY Left common femoral artery: Nonstenotic calcific plaques. Left profundus femoris: No demonstrated narrowing. Left superficial femoral: Nonstenotic calcific plaques. Left popliteal artery: Nonstenotic calcific plaques. Left tibioperoneal trunk: Nonstenotic calcific plaques. Left anterior tibial artery: Nonstenotic calcific plaques. Left posterior tibial artery: Nonstenotic calcific plaques. Left peroneal artery: Nonstenotic calcific plaques. CT/CTA Abd w/Runoff W/WO Contrast IMPRESSION: Diffuse atherosclerotic plaques involving the arteries of the lower extremities. Electronically Signed: Vijay Emerson MD at 8:52 EDT , Service support ,
[2021-01-11 15:21] LABS: CREATININE FINGERSTICK 2.9 mg/dL (0.55-1.02)
== END ==
PROVIDERS: PCP Preventive Medicine Occupational Medicine; Referring Provider Specialist; Visit Provider Specialist
DX: I73.9 Peripheral vascular disease, unspecified (principal); M25.552 Pain in left hip; M25.551 Pain in right hip; M79.605 Pain in left leg; M79.604 Pain in right leg
CPT/HCPCS: 75635; Q9967

== ENCOUNTER → 2021-03-06 10:54 | Outpatient (CLI) | payer MEDICARE, MEDICAID, SELFPAY ==
[2021-02-13 13:51] VITALS: BMI 23.0
--- NOTE | 2021-03-06 10:56 | AVDS_ITS ---
Reason For Study: Kidney disease LEFT Left Inflow artery, 327.6/127.8 cm/sec. Left Inflow artery, 749.4 ml/min. Prox anastomosis, 803.4/463.8 cm/sec. Prox anastomosis, 1155 ml/min. Prox graft, 296.8/116.3 cm/sec. Prox graft, 945.6 ml/min. Mid graft, 85.2/34.1 cm/sec. Mid graft, 577.2 ml/min. Distal graft, 83.4/32.2 cm/sec. Distal graft, 650 ml/min. Distal anastomosis, 89.2/34.3 cm/sec. Distal anastomosis, 306.3 ml/min. Left Outflow vein, 66.7/29.3 cm/sec. Left Outflow vein, 611.5 ml/min. Nonvascularized structure noted at the distal anastomosis area measuring approximently 1.27 x 3.57 x 4.74 cm. VL/AV Fistula/Dialysis Graft Scan Interpretation Summary Pstent AVG with flow 750 ml.min. Ordering Physician: Arturo Louis Referring Physician: Sergio Maxwell Performed By: Elda Velazco RVT
== END ==
PROVIDERS: PCP Preventive Medicine Occupational Medicine; Referring Provider Surgery Vascular Surgery; Visit Provider Surgery Vascular Surgery
DX: I12.0 Hypertensive chronic kidney disease with stage 5 chronic kidney disease or end stage renal disease (principal); I70.213 Atherosclerosis of native arteries of extremities with intermittent claudication, bilateral legs; I51.9 Heart disease, unspecified; M79.671 Pain in right foot; N18.6 End stage renal disease; E11.22 Type 2 diabetes mellitus with diabetic chronic kidney disease; E11.40 Type 2 diabetes mellitus with diabetic neuropathy, unspecified
CPT/HCPCS: 93990

== ENCOUNTER → 2021-05-21 10:04 | Outpatient (CLI) | payer MEDICARE, MEDICAID, SELFPAY ==
[2021-02-13 13:51] VITALS: BMI 23.0
--- NOTE | 2021-05-21 10:07 | AVDS_ITS ---
Reason For Study: End stage renal disease LEFT Left Inflow, mid brachial, 304.5/123.5 cm/sec. Left Inflow, mid brachial, 747.2 ml/min. Left Inflow, distal brachial, 429.6/163.9 cm/sec. Left Inflow, distal brachial, 1048 ml/min. Prox anastomosis, 836/392.5 cm/sec. Prox anastomosis, 1093 ml/min. Prox graft, 310.1/107.2 cm/sec. Prox graft, 565.2 ml/min. Mid graft, 140.5/73.3 cm/sec. Mid graft, 995.6 ml/min. Distal graft, 109.2/50.3 cm/sec. Distal graft, 923.3 ml/min. Distal anastomosis, 126.9/52.3 cm/sec. Distal anastomosis, 584.7 ml/min. Left Outflow vein, 80.9/40.3 cm/sec. Left Outflow vein, 888.9 ml/min. VL/AV Fistula/Dialysis Graft Scan Interpretation Summary Patent left AV graft. Flow 747. No obvious stenosis noted. Ordering Physician: Arturo Louis Referring Physician: Sergio Maxwell Performed By: Elda Velazco RVT
== END ==
PROVIDERS: PCP Preventive Medicine Occupational Medicine; Referring Provider Surgery Vascular Surgery; Visit Provider Surgery Vascular Surgery
DX: I13.11 Hypertensive heart and chronic kidney disease without heart failure, with stage 5 chronic kidney disease, or end stage renal disease (principal); E11.22 Type 2 diabetes mellitus with diabetic chronic kidney disease; N18.6 End stage renal disease; E11.40 Type 2 diabetes mellitus with diabetic neuropathy, unspecified; M79.671 Pain in right foot; I70.213 Atherosclerosis of native arteries of extremities with intermittent claudication, bilateral legs
CPT/HCPCS: 93990

== ENCOUNTER 2021-05-24 11:00 | Emergency (ER) | payer MEDICARE, MEDICAID, SELFPAY ==
[2021-02-13 13:51] VITALS: BMI 23.0
[2021-05-24 11:01] VITALS: BP 169/66
[2021-05-24 11:02] VITALS: BP 169/66; PULSE 77; RESP 16; TEMP 36.3; O2SAT 96; BMI 23.4
--- NOTE | 2021-05-24 11:46 | EDS_ITS ---
HPI History of Present Illness Chief Complaint: Hypotension Informant: patient and family Onset/Context/Timing Onset: Today Timing: Intermittent Quality: Lightheaded Location: Generalized Worsened by: Nothing Relieved by: Nothing Narrative Narrative: Patient presents with possible hypotension and possible dehydration. Patient was being evaluated by home health nurse today. Patient states that the home health nurse told her that her blood pressure was in the 30s and felt like the patient was dehydrated. Patient is unclear if the systolic or diastolic blood pressure was in the 30s at home. Patient admits to a recent fall with injury to her right knee. Patient has been using Biofreeze which has been helping. Patient denies any chest pain or shortness of breath. Patient denies any nausea or vomiting. [facility] Medical History (Updated 05/24/21 @ 14:[address] Femi Walker, ) Acute electrocardiogram changes EMPERATRIZ (acute kidney injury) Anemia of chronic disease Atherosclerosis of coronary artery of [place] heart without angina pectoris CHF exacerbation Chronic renal failure, stage 4 (severe) Diabetes mellitus type 1 Dialysis patient Elevated troponin Elevated troponin Essential hypertension Hypotension Insomnia Interstitial lung disease Non-ST elevation myocardial infarction (NSTEMI) Uncontrolled type I diabetes mellitus Vitamin D deficiency Home Medications insulin aspart U-100 3 units SC LUNCH 03/20/18 [History Last Taken 10/02/20] insulin NPH isoph U-100 human 5 units SC QHS 10/28/18 [History Last Taken 10/02/20] insulin aspart U-100 15 units SC BREAKFAST 10/28/18 [History Last Taken 10/03/20] atorvastatin 40 mg PO DAILY 10/03/20 [History Last Taken 10/03/20] insulin aspart U-100 5 units SC DINNER 10/03/20 [History Last Taken 10/02/20] clopidogrel 75 mg PO DAILY #30 tab 10/10/20 [Rx Last Taken Unknown] albuterol sulfate 90 mcg/actuation aerosol inhaler 2 puff INHALATION Q6H PRN 11/06/20 [History Last Taken Unknown] aspirin 81 mg tablet,delayed release 81 mg PO DAILY 11/06/20 [History Last Taken Unknown] ondansetron 4 mg disintegrating tablet 4 mg PO Q6H PRN 11/06/20 [History Last Taken Unknown] trazodone 50 mg tablet 50 mg PO QHS PRN 11/06/20 [History Last Taken Unknown] carvedilol 6.25 mg tablet 6.25 mg PO DAILY tab 11/07/20 [History Last Taken Unknown] furosemide 40 mg tablet 40 mg PO DAILY #30 tab 11/07/20 [Rx Last Taken Unknown] isosorbide mononitrate 60 mg tablet,extended release 24 hr 30 mg PO DAILY tablet 01/18/21 [History Last Taken Unknown] guaifenesin 1,200 mg tablet, extended release 12 hr 1,200 mg PO BID tablet 02/13/21 [History Last Taken Unknown] insulin aspart U-100 100 unit/mL (3 mL) subcutaneous pen 3 unit SC QACLUNCH ml 02/13/21 [History Last Taken Unknown] Allergy/AdvReac Type Severity Reaction Status Date / Time [facility] Allergy Severe Other Verified 05/24/21 11:39 Family History Mother Hypertension Cancer Father Hypertension CVA (cerebral vascular accident) Surgical History History of coronary artery bypass graft (~2005) History of left heart catheterization (10/06/20) Hx of carpal tunnel repair Social History Smoking Status: Never smoker second hand exposure: No alcohol intake: never substance use type: does not use caffeine: Yes Type: coffee what type of physical activity do you participate in: none frequency: does not exercise ROS ROS ED Constitutional Constitutional ED: Denies chills or fever(s) Eyes Eyes: Denies blurry vision or change in vision ENT ENT ED: Denies rhinorrhea or sore throat Cardiovascular Cardiovascular: Denies chest pain or palpitations Respiratory/Chest Respiratory/Chest: Denies cough or dyspnea Gastrointestinal Gastrointestinal: Denies nausea or vomiting Genitourinary Genitourinary ED: Denies dysuria or hematuria Musculoskeletal Musculoskeletal: Reports back pain; Denies neck pain Integumentary Denies abscess or rash Neurologic Neurologic: Reports headache(s); Denies weakness Allergic/Immunologic Allergic/Immunologic ED: Denies mouth swelling or urticaria EXAM Physical Exam Const Vital Signs: 05/24/21 11:01 05/24/21 11:02 05/24/21 11:35 Temperature 97.4 F L Temperature Source Temporal Pulse Rate 77 Respiratory Rate 16 Respiratory Effort Normal Non-Labored Respiratory Pattern Normal Blood Pressure 169/66 H 169/66 H Blood Pressure Mean 100 100 Pulse Ox 96 Oxygen Delivery Method Room Air 05/24/21 12:07 Temperature Temperature Source Pulse Rate Respiratory Rate Respiratory Effort Respiratory Pattern Blood Pressure 146/52 H Blood Pressure Mean 83 Pulse Ox Oxygen Delivery Method Positive well nourished and well developed General Appearance ED: well developed HEENT Reports moist mucous membranes Neck supple and no JVD Resp normal respiratory effort and clear to auscultation bilaterally Cardio regular rate, regular rhythm and no murmurs GI normal to inspection, nondistended, normoactive bowel sounds and non-tender Palpation: soft Extremity normal to inspection Extremity Narrative: There is mild tenderness with mild edema and ecchymosis over the medial aspect of the right knee and patella. There is no effusion. Range of motion was slightly limited in all motions of the right knee secondary to pain. Pedal pulses are equal bilaterally. There are no sensory deficits noted. General Extremety ED: Yes tenderness; Negative for edema General Extremity: Negative for edema Neuro oriented x3, CN's II-XII intact bilaterally and no sensory deficits noted Sensorium / Orientation: alert Motor Exam: strength 5/5 throughout Psych mental status grossly normal Skin no rashes or lesions noted MDM MDM MDM Narrative Medical decision making narrative: Basic metabolic profile was obtained. BUN and creatinine were elevated at 36 and 3.04. These are consistent with prior results. Glucose was slightly elevated to 64. X-rays of the right knee were obtained. There are 4 views. On my interpretation, there is no acute fracture. There is no dislocation. There are mild degenerative changes. Radiologist also interpreted the x-rays and agrees. Patient remained normotensive here in the emergency department. Patient does not appear to be dehydrated. Patient was instructed to follow-up with her primary care physician in 5 to 7 days. Patient was instructed to continue her dialysis as scheduled tomorrow. Patient and family understood and were agreeable with the plan. All questions were answered. Lab Data Attestation: I reviewed the patient's lab results. Labs: Laboratory Results - last 24 hr 05/24/21 12:00 Sodium 134 L Potassium 4.2 Chloride 98 Carbon Dioxide 30.0 Anion Gap 6 BUN 36 H Creatinine 3.04 H Estim Creat Clear Calc 13.43 Est GFR (MDRD) Af Amer 20 L Est GFR (MDRD) Non-Af 16 L BUN/Creatinine Ratio 11.8 Glucose 264 H Calcium 8.5 Radiography Diagnostic Testing: Radiology Impression Knee X-Ray 05/24/21 11:46 IMPRESSION: Arthrosis of the medial femorotibial compartment. No demonstrated fracture. Electronically Signed: Adrien Velasco MD at 12:52 EDT Tel , Service support , Discharge Plan Triage Chief Complaint: Hypotension ED Provider: Femi Walker Dx/Rx/DC Orders Clinical Impression: Transient hypotension, Contusion of right knee Instructions: ED Contusion, Lower Extremity, ED Low Blood Pressure, All Causes Prescriptions: No Action carvedilol 6.25 mg tablet 6.25 mg PO DAILY RF: 0 furosemide 40 mg tablet 40 mg PO DAILY Qty: 30 RF: 11 guaifenesin 1,200 mg tablet extended release 12hr 1,200 mg PO BID RF: 0 albuterol sulfate 90 mcg/actuation HFA aerosol inhaler 2 puff INHALATION Q6H PRNRF: 0 aspirin [Adult Low Dose Aspirin] 81 mg tablet,delayed release (DR/EC) 81 mg PO DAILY RF: 0 trazodone 50 mg tablet 50 mg PO QHS PRNRF: 0 ondansetron 4 mg tablet,disintegrating 4 mg PO Q6H PRNRF: 0 insulin aspart U-100 [Novolog Flexpen U-100 Insulin] 100 unit/mL (3 mL) insulin pen 3 unit SC QACLUNCH RF: 0 insulin aspart U-100 100 UNITS/ML insulin pen 3 units SC LUNCH RF: 0 insulin NPH isoph U-100 human 100 UNIT/ML suspension 5 units SC QHS RF: 0 insulin aspart U-100 100 UNITS/ML insulin pen 15 units SC BREAKFAST RF: 0 atorvastatin 40 MG tablet 40 mg PO DAILY RF: 0 insulin aspart U-100 100 UNITS/ML insulin pen 5 units SC DINNER RF: 0 clopidogrel 75 MG tablet 75 mg PO DAILY Qty: 30 RF: 0 isosorbide mononitrate 60 mg tablet extended release 24 hr 30 mg PO DAILY RF: 0 Primary Care Provider: Sergio Maxwell Referrals: Sergio Maxwell DO [Primary Care Provider] - 5-7 Days Disposition Disposition: Home, Self Care
--- NOTE | 2021-05-24 11:46 | RAD_ITS ---
STUDY: X-RAY - RIGHT KNEE REASON FOR EXAM: Right knee pain, right knee injury. TECHNIQUE: 4 view(s) of the knee. COMPARISON: None. FINDINGS: There is osteopenia. Normal visualized distal femur. Normal visualized proximal tibia and fibula. Normal proximal tibiofibular articulation. There is moderate joint space narrowing of the medial femorotibial compartment. Normal lateral femorotibial compartment. Normal patellofemoral articulation. There is vascular calcification. RAD/Knee 4 or More Views IMPRESSION: Arthrosis of the medial femorotibial compartment. No demonstrated fracture. Electronically Signed: Adrien Velasco MD at 12:52 EDT Tel , Service support ,
[2021-05-24 12:07] VITALS: BP 146/52
[2021-05-24 12:36] LABS: Anion Gap 6 (5-15); BUN 36 mg/dL (7-18); BUN/Creat Ratio 11.8 RATIO (10-20); Calcium,Total 8.5 mg/dL (8.5-10.1); Chloride 98 mmol/L (98-107); Creatinine, Serum 3.04 mg/dL (0.55-1.02); EST Glomerular Filtration Rate 16 mL/min (>60); Est Glom Filt Rate - Afr Amer 20 mL/min (>60); Estimated Creatinine Clearance 13.43 ml/min; Glucose 264 mg/dL (74-106); Potassium 4.2 mmol/L (3.5-5.1); Sodium Level 134 mmol/L (136-145)
[2021-05-24 14:34] VITALS: BP 154/52
== END 2021-05-24 14:43 | disposition home or self-care (01) ==
PROVIDERS: Emergency Provider Emergency Medicine; PCP Preventive Medicine Occupational Medicine
DX: I95.89 Other hypotension (principal); S80.01XA Contusion of right knee, initial encounter; W19.XXXA Unspecified fall, initial encounter; Y93.9 Activity, unspecified; Y92.9 Unspecified place or not applicable; Y99.9 Unspecified external cause status; I13.0 Hypertensive heart and chronic kidney disease with heart failure and stage 1 through stage 4 chronic kidney disease, or unspecified chronic kidney disease; I50.9 Heart failure, unspecified; E10.22 Type 1 diabetes mellitus with diabetic chronic kidney disease; N18.4 Chronic kidney disease, stage 4 (severe); E10.65 Type 1 diabetes mellitus with hyperglycemia; D63.8 Anemia in other chronic diseases classified elsewhere; I25.10 Atherosclerotic heart disease of native coronary artery without angina pectoris; G47.00 Insomnia, unspecified; E55.9 Vitamin D deficiency, unspecified; Z99.2 Dependence on renal dialysis; Z79.82 Long term (current) use of aspirin; Z79.4 Long term (current) use of insulin; Z79.899 Other long term (current) drug therapy; I25.2 Old myocardial infarction; Z95.1 Presence of aortocoronary bypass graft
CPT/HCPCS: 73564; 80048; 99282; A4216

== ENCOUNTER 2021-10-03 11:26 | Inpatient (IN) | payer MEDICARE, MEDICAID, SELFPAY ==
[2021-10-03] VITALS (13 sets, daily range): BP systolic 105–147; BP diastolic 41–84; PULSE 14–83; RESP 18–72; TEMP 36.1–36.7; O2SAT 82–98; BMI 24.7
--- NOTE | 2021-10-03 11:40 | EKG12_ITS ---
Test Reason : SOB Blood Pressure : / mmHG Vent. Rate : 070 BPM Atrial Rate : 070 BPM P-R Int : 144 ms QRS Dur : 092 ms QT Int : 398 ms P-R-T Axes : 009 069 213 degrees QTc Int : 429 ms Normal sinus rhythm ST & T wave abnormality, consider inferior ischemia ST & T wave abnormality, consider anterolateral ischemia Abnormal ECG Poor R wave progression Confirmed by HOWARD CALDERA, ROCIO ([id number]), editor [employer] journal LUIS VILLATORO ([id number]) on 10/04/2021 10:24:56 AM Referred By: ELSIE Confirmed By:ROCIO LAWRENCE MD
--- NOTE | 2021-10-03 11:42 | ED.VIS.DYS ---
HPI History of Present Illness Chief Complaint: Shortness of Breath Narrative Narrative: Patient presents with her sister because of shortness of breath since Friday. She has past medical history of diabetes, and end-stage renal disease. She gets dialysis Friday, Friday, and Friday. Her last complete dialysis was Friday, 2 days ago. However, it was then that she may have aspirated. She was nauseated during dialysis and vomited. She was able to complete all of her dialysis, and went home. Over the last 24 to 48 hours, she had a fever as high as 100.7?F, and after Tylenol was administered, 99 ?F. According to the patient's sister, she was seen by an RN, who was concerned about her. She was told to come to the emergency department today for further evaluation. She has not gotten her Friday dialysis. She complains of fever, and shortness of breath. She also has had mild weight gain over the last 1 to 2 weeks. She does take furosemide. [facility] Medical History Acute electrocardiogram changes EMPERATRIZ (acute kidney injury) Anemia of chronic disease Atherosclerosis of coronary artery of [place] heart without angina pectoris CHF exacerbation Chronic renal failure, stage 4 (severe) Diabetes mellitus type 1 Dialysis patient Elevated troponin Elevated troponin Essential hypertension Hypotension Insomnia Interstitial lung disease Non-ST elevation myocardial infarction (NSTEMI) Uncontrolled type I diabetes mellitus Vitamin D deficiency Home Medications insulin aspart U-100 3 units SC LUNCH 03/20/18 [History Last Taken 10/02/20] insulin NPH isoph U-100 human 5 units SC QHS 10/28/18 [History Last Taken 10/02/20] insulin aspart U-100 15 units SC BREAKFAST 10/28/18 [History Last Taken 10/03/20] atorvastatin 40 mg PO DAILY 10/03/20 [History Last Taken 10/03/20] insulin aspart U-100 5 units SC DINNER 10/03/20 [History Last Taken 10/02/20] clopidogrel 75 mg PO DAILY #30 tab 10/10/20 [Rx Last Taken Unknown] albuterol sulfate 90 mcg/actuation aerosol inhaler 2 puff INHALATION Q6H PRN 11/06/20 [History Last Taken Unknown] aspirin 81 mg tablet,delayed release 81 mg PO DAILY 11/06/20 [History Last Taken Unknown] ondansetron 4 mg disintegrating tablet 4 mg PO Q6H PRN 11/06/20 [History Last Taken Unknown] trazodone 50 mg tablet 50 mg PO QHS PRN 11/06/20 [History Last Taken Unknown] carvedilol 6.25 mg tablet 6.25 mg PO DAILY tab 11/07/20 [History Last Taken Unknown] furosemide 40 mg tablet 40 mg PO DAILY #30 tab 11/07/20 [Rx Last Taken Unknown] isosorbide mononitrate 60 mg tablet,extended release 24 hr 30 mg PO DAILY tablet 01/18/21 [History Last Taken Unknown] guaifenesin 1,200 mg tablet, extended release 12 hr 1,200 mg PO BID tablet 02/13/21 [History Last Taken Unknown] alendronate 70 mg tablet 70 mg PO QWEEK 09/25/21 [History Last Taken Unknown] Allergy/AdvReac Type Severity Reaction Status Date / Time levofloxacin [From Levaquin] Allergy Severe Other Verified 10/03/21 11:26 Family History Mother Hypertension Cancer Father Hypertension CVA (cerebral vascular accident) Surgical History History of arteriovenostomy for renal dialysis History of coronary artery bypass graft (~2005) History of left heart catheterization (10/06/20) Hx of carpal tunnel repair Social History Smoking Status: Never smoker second hand exposure: No alcohol intake: never substance use type: does not use caffeine: Yes Type: coffee what type of physical activity do you participate in: none frequency: does not exercise ROS ROS ED ROS Narrative Constitutional: Positive fever, no chills. HEENT: No sore throat. No neck pain. No loss of vision. No rhinorrhea. Cardiovascular: No chest pain. No palpitations. No pedal edema. Respiratory: No cough, positive shortness of breath. Abdominal: No abdominal pain. No nausea. No vomiting-currently. Genitourinary: No dysuria. No hematuria. Musculoskeletal: No myalgias. No arthralgias. Neurologic: No headaches. No dizziness. No lightheadedness. Generalized weakness. Skin: No rash. No change in color. Psychiatric: No depression. No anxiety. EXAM Physical Exam Narrative Exam Narrative: Afebrile. Vital signs noted. HEENT: Normocephalic. Atraumatic. PERRL, EOMI. Neck soft and supple. No point tenderness or step off. Cardiovascular: Regular rate and rhythm. No murmurs, rubs, or gallops appreciated. Respiratory: No tachypnea. Positive rhonchi and rales bilateral bases. Decreased breath sounds right greater than left bases. Gastrointestinal: Abdomen soft, nontender, with normoactive bowel sounds. No rebound or guarding. Neurological: Awake. Alert. Nonfocal, nonlateralizing. Skin: No rash. Normal color. No pallor. Musculoskeletal: Trace bilateral symmetric pedal edema. Full range of motion extremities. Const Vital Signs: 10/03/21 11:27 10/03/21 11:58 10/03/21 12:06 Temperature 97.0 F L 97.4 F L Temperature Source Temporal Temporal Pulse Rate 76 72 Respiratory Rate 18 18 Respiratory Effort Short of Breath Respiratory Depth Shallow Respiratory Pattern Normal Blood Pressure 105/41 L 108/43 L Blood Pressure Mean 62 64 Pulse Ox 82 96 Oxygen Delivery Method Room Air Room Air Nasal Cannula Oxygen Flow Rate (L/min) 3 10/03/21 13:12 10/03/21 13:46 Temperature 97.8 F Temperature Source Temporal Pulse Rate 67 Respiratory Rate 18 Respiratory Effort Respiratory Depth Respiratory Pattern Blood Pressure 106/49 L Blood Pressure Mean 68 Pulse Ox 96 95 Oxygen Delivery Method Nasal Cannula Nasal Cannula Oxygen Flow Rate (L/min) 3 3 MDM MDM MDM Narrative Medical decision making narrative: Upon arrival to the room, her O2 saturation on room air is 82%. She does appear mildly fluid overloaded. Concern is for fluid overload, aspiration pneumonia, and COVID-19. Comprehensive work-up was pursued. Her EKG demonstrates normal sinus rhythm at 72 bpm without ectopy or acute ST changes. She may have some nonspecific ST changes. Her troponin is elevated at 1344, however she does have chronic renal failure with a creatinine of 4.23, and a BUN of 47. She has normal potassium today of 3.6 even without dialysis, her last being Friday. Lactic acid is slightly elevated 2.1. She has normal white count of 7.1, and hemoglobin stable at 11.4. She does not meet other SIRS criteria. Her chest x-ray shows infiltrate in the left upper and lower lobes with blunting of the costophrenic angle. I do feel that this may be more of an aspiration pneumonia. Blood cultures will be obtained and she will be administered Unasyn 3 g intravenously. I discussed the patient with Dr. Duran, who will admit her to the PCU. She is in stable condition. Lab Data Attestation: I reviewed the patient's lab results. Labs: Laboratory Results - last 24 hr 10/03/21 10/03/21 10/03/21 11:55 11:55 11:55 WBC 7.1 RBC 3.61 L Hgb 11.4 L Hct 36.4 L MCV 100.8 H MCH 31.6 MCHC 31.3 L RDW Std Deviation 46.7 H RDW Coeff of Andrzej 12.7 Plt Count 120 L MPV 11.6 Immature Gran % (Auto) 0.700 Neut % (Auto) 80.7 H Lymph % (Auto) 9.2 L Pershing % (Auto) 7.4 Eos % (Auto) 0.6 Baso % (Auto) 1.4 H Absolute Neuts (auto) 5.7 Absolute Lymphs (auto) 0.65 L Nucleated RBC % 0 Sodium 138 Potassium 3.6 Chloride 100 Carbon Dioxide 28.0 Anion Gap 10 BUN 47 H Creatinine 4.23 H Estim Creat Clear Calc 9.65 Est GFR (MDRD) Af Amer 14 L Est GFR (MDRD) Non-Af 11 L BUN/Creatinine Ratio 11.1 Glucose 202 H Lactic Acid 2.1 H* Calcium 7.7 L Troponin I High Sens 1344 H* Radiography Diagnostic Testing: Clinical Impression(s) from Imaging Studies Chest X-Ray 10/03/21 12:25 IMPRESSION: Infiltrate in the left upper and left lower lobes. There is blunting of the left costophrenic angle. Electronically Signed: Vijay Emerson MD at 13:01 EST , Service support , Discharge Plan Dx/Rx/DC Orders Clinical Impression: Aspiration pneumonia, Elevated troponin, Respiratory failure, unspecified with hypoxia, End stage renal disease Disposition Disposition: [facility]
[2021-10-03 12:19] LABS: Absolute Lymphocyte Count 0.65 X10^3/uL (0.83-4.51); Absolute Neutrophil Count 5.7 X10^3/uL (2.0-7.7); Basophil% 1.4 % (0-1); Eosinophil# 0.04 X10^3/uL; Eosinophils% 0.6 % (0-5); Hematocrit 36.4 % (37-47); Hemoglobin 11.4 g/dL (12.0-15.0); Lymphocyte # 0.65 X10^3/ul (0.83-4.51); Lymphocyte % 9.2 % (19-41); Mean Corp Hgb Conc 31.3 g/dL (32-36); Mean Corpuscular Hgb 31.6 pg (27.0-32.0); Mean Corpuscular Volume 100.8 fL (81-99); Mean Platelet Vol. 11.6 fl (6.2-12.0); Monocyte# 0.52 X10^3/uL; Monocyte% 7.4 % (0-10); NRBC Flagged by Analyzer 0 % (0-5); Neutrophil % 80.7 % (47-70); Platelet Count 120 K/mm3 (150-450); RBC Distribution Width CV 12.7 % (11.6-14.6); RBC Distribution Width SD 46.7 fl (35.1-43.9); Red Blood Count 3.61 M/mm3 (4.2-5.4); White Blood Count 7.1 K/mm3 (4.4-11.0)
--- NOTE | 2021-10-03 12:25 | RAD_ITS ---
STUDY: X-RAY CHEST REASON FOR EXAM: Female, 65 years old. Shortness of Breath TECHNIQUE: Single AP portable view of the chest. COMPARISON: Comparison is made with prior study dated 10/03/2020 FINDINGS: EKG electrodes are seen. There are now is evidence of infiltrate in the left upper and left lower lobes. Blunting of the left costophrenic angle. Sternal cerclage wires and vascular clips are present from a prior sternotomy and coronary artery bypass graft procedure (CABG). Normal mediastinum and arlene. Normal visualized pulmonary arteries. Normal visualized aortic arch and descending thoracic aorta. Normal visualized thoracic spine. Normal visualized ribs, clavicles, and shoulders. There is no demonstrated abnormality of the visualized soft tissue structures of the upper abdomen. RAD/Chest 1 View (Portable) IMPRESSION: Infiltrate in the left upper and left lower lobes. There is blunting of the left costophrenic angle. Electronically Signed: Vijay Emerson MD at 13:01 EST , Service support ,
[2021-10-03 12:49] LABS: Anion Gap 10 (5-15); BUN 47 mg/dL (7-18); BUN/Creat Ratio 11.1 RATIO (10-20); Calcium,Total 7.7 mg/dL (8.5-10.1); Chloride 100 mmol/L (98-107); Creatinine, Serum 4.23 mg/dL (0.55-1.02); EST Glomerular Filtration Rate 11 mL/min (>60); Est Glom Filt Rate - Afr Amer 14 mL/min (>60); Estimated Creatinine Clearance 9.65 ml/min; Glucose 202 mg/dL (74-106); Potassium 3.6 mmol/L (3.5-5.1); Sodium Level 138 mmol/L (136-145); Troponin-I HS 1344 pg/mL (3.0-54.0)
[2021-10-03 12:51] LABS: Lactic Acid 2.1 mmol/L (0.4-1.9)
--- NOTE | 2021-10-03 14:20 | NURSING ---
PCU KOTSONIS ASPIRATION PNEUMONIA, HYPOXIA, ELEVATED TROP
--- NOTE | 2021-10-03 14:38 | HP.PCM_ITS ---
Documented by User: JASON Ta 10/03/21 14:52 HPI - General General Date of Admission: 10/03/21 Date of Service: 10/03/21 Chief Complaint: Shortness of breath HPI Narrative KONRAD CAI, is a 65 F who presents with complaints of increased shortness of breath. Patient is a dialysis patient and did not go to dialysis today because she was not feeling well. Patient reports that on Friday during dialysis she became sick and vomited. Since then she has become more short of breath and has began to feel ill. Chest x-ray done in ER demonstrates infiltrate in the left upper and left lower lobes. Patient does not have history of pulmonary disease however patient has extensive cardiac disease including CABG. [facility] Medical History Acute electrocardiogram changes EMPERATRIZ (acute kidney injury) Anemia of chronic disease Atherosclerosis of coronary artery of [place] heart without angina pectoris CHF exacerbation Chronic renal failure, stage 4 (severe) Diabetes mellitus type 1 Dialysis patient Elevated troponin Elevated troponin Essential hypertension Hypotension Insomnia Interstitial lung disease Non-ST elevation myocardial infarction (NSTEMI) Uncontrolled type I diabetes mellitus Vitamin D deficiency Home Medications insulin aspart U-100 3 units SC LUNCH 03/20/18 [History Last Taken 10/02/20] insulin NPH isoph U-100 human 5 units SC QHS 10/28/18 [History Last Taken 10/02/20] insulin aspart U-100 15 units SC BREAKFAST 10/28/18 [History Last Taken 10/03/20] atorvastatin 40 mg PO DAILY 10/03/20 [History Last Taken 10/03/20] insulin aspart U-100 5 units SC DINNER 10/03/20 [History Last Taken 10/02/20] clopidogrel 75 mg PO DAILY #30 tab 10/10/20 [Rx Last Taken Unknown] albuterol sulfate 90 mcg/actuation aerosol inhaler 2 puff INHALATION Q6H PRN 11/06/20 [History Last Taken Unknown] aspirin 81 mg tablet,delayed release 81 mg PO DAILY 11/06/20 [History Last Taken Unknown] ondansetron 4 mg disintegrating tablet 4 mg PO Q6H PRN 11/06/20 [History Last Taken Unknown] trazodone 50 mg tablet 50 mg PO QHS PRN 11/06/20 [History Last Taken Unknown] carvedilol 6.25 mg tablet 6.25 mg PO DAILY tab 11/07/20 [History Last Taken Unknown] furosemide 40 mg tablet 40 mg PO DAILY #30 tab 11/07/20 [Rx Last Taken Unknown] isosorbide mononitrate 60 mg tablet,extended release 24 hr 30 mg PO DAILY tablet 01/18/21 [History Last Taken Unknown] guaifenesin 1,200 mg tablet, extended release 12 hr 1,200 mg PO BID tablet 02/13/21 [History Last Taken Unknown] alendronate 70 mg tablet 70 mg PO QWEEK 09/25/21 [History Last Taken Unknown] Allergy/AdvReac Type Severity Reaction Status Date / Time [facility] Allergy Severe Other Verified 10/03/21 11:26 Family History Mother Hypertension Cancer Father Hypertension CVA (cerebral vascular accident) Surgical History History of arteriovenostomy for renal dialysis History of coronary artery bypass graft (~2005) History of left heart catheterization (10/06/20) Hx of carpal tunnel repair Social History Smoking Status: Never smoker second hand exposure: No alcohol intake: never substance use type: does not use caffeine: Yes Type: coffee what type of physical activity do you participate in: none frequency: does not exercise ROS Constitutional Constitutional: Reports chills, fatigue, malaise and weakness; Denies anorexia or fever(s) Cardiovascular Cardiovascular: Denies chest pain, edema, palpitations or syncope Respiratory/Chest Respiratory/Chest: Reports cough, shortness of breath at rest, shortness of breath with exertion and wheezing Gastrointestinal Gastrointestinal: Denies abdominal pain, constipation, diarrhea, nausea or vomiting Genitourinary Genitourinary: Denies dysuria Musculoskeletal Musculoskeletal: Denies back pain, extremity pain, joint pain or joint stiffness Integumentary Integumentary: Denies dry skin Neurologic Neurologic: Denies abnormal gait, abnormal speech, confusion, dizziness or focal weakness Psychiatric Psychiatric: Denies anxiety or depression Endocrine Endocrinology: Denies change in body appearance Hematologic/Lymphatic Hematologic/Lymphatic: Denies anemia Vital Signs Vital Signs Vital Signs: 10/03/21 11:27 10/03/21 11:58 10/03/21 12:06 Temperature 97.0 F L 97.4 F L Temperature Source Temporal Temporal Pulse Rate 76 72 Respiratory Rate 18 18 Respiratory Effort Short of Breath Respiratory Depth Shallow Respiratory Pattern Normal Blood Pressure 105/41 L 108/43 L Blood Pressure Mean 62 64 Pulse Ox 82 96 Oxygen Delivery Method Room Air Room Air Nasal Cannula Oxygen Flow Rate (L/min) 3 10/03/21 13:12 10/03/21 13:46 10/03/21 14:15 Temperature 97.8 F 97.8 F Temperature Source Temporal Temporal Pulse Rate 67 72 Respiratory Rate 18 18 Respiratory Effort Respiratory Depth Respiratory Pattern Blood Pressure 106/49 L 126/84 H Blood Pressure Mean 68 98 Pulse Ox 96 95 97 Oxygen Delivery Method Nasal Cannula Nasal Cannula Nasal Cannula Oxygen Flow Rate (L/min) 3 3 3 Weight Weight: 127 lb Body Mass Index (BMI) 24.7 Physical Exam Const alert and no apparent distress General Appearance: cooperative Orientation / Consciousness: confused Eyes conjunctivae normal and no scleral icterus Neck supple General: trachea midline Lymph Lymphatic: no lymphadenopathy noted Resp normal respiratory effort Effort and Inspection: able to speak in complete sentences and symmetric chest movement Auscultation: wheezes expiratory wheezes, scattered wheezes, anterior, posterior and throughout Cardio regular rate, regular rhythm, S1 normal heart sound, S2 normal heart sound and peripheral pulses 2+ throughout GI normal to inspection, nondistended, normoactive bowel sounds, soft to palpation and non-tender Extremity normal capillary refill General Extremity: edema bilateral lower extremity Details: mild and no tenderness to palpation of joints or extremities Skin General Skin Exam: no breakdown and turgor normal Lesions: no lesions Rashes: no rashes Neuro oriented x3, moves all extremities, no focal motor deficits and no sensory deficits noted Psych cooperative Mood & Affect: flat affect Results Lab / Micro Data Result Diagrams: 10/03/21 11:55 10/03/21 11:55 Labs: Laboratory Results - last 24 hr 10/03/21 11:55: WBC 7.1, RBC 3.61 L, Hgb 11.4 L, Hct 36.4 L, MCV 100.8 H, MCH 31.6, MCHC 31.3 L, RDW Std Deviation 46.7 H, RDW Coeff of Andrzej 12.7, Plt Count 120 L, MPV 11.6, Immature Gran % (Auto) 0.700, Neut % (Auto) 80.7 H, Lymph % (Auto) 9.2 L, [place] % (Auto) 7.4, Eos % (Auto) 0.6, Baso % (Auto) 1.4 H, Absolute Neuts (auto) 5.7, Absolute Lymphs (auto) 0.65 L, Nucleated RBC % 0 10/03/21 11:55: Sodium 138, Potassium 3.6, Chloride 100, Carbon Dioxide 28.0, Anion Gap 10, BUN 47 H, Creatinine 4.23 H, Estim Creat Clear Calc 9.65, Est GFR (MDRD) Af Amer 14 L, Est GFR (MDRD) Non-Af 11 L, BUN/Creatinine Ratio 11.1, Glucose 202 H, Calcium 7.7 L, Troponin I High Sens 1344 H* 10/03/21 11:55: Lactic Acid 2.1 H* Micro: Microbiology 10/03/21 12:00 Nasal Secretion SARS-CoV-2 Antigen (Rapid) - Final 10/03/21 12:00 Mucosa - Nasopharyngeal Influenza Types A,B Direct FA (NIGEL) - Final Radiology Impression Chest X-Ray 10/03/21 12:25 IMPRESSION: Infiltrate in the left upper and left lower lobes. There is blunting of the left costophrenic angle. Electronically Signed: Vijay Emerson MD at 13:01 EST , Service support , Assessment & Plan Assessment/Plan (1) Aspiration pneumonia: QUALIFIERS: Aspiration pneumonia type: due to vomit Laterality: left Lung location: lower lobe of lung Qualified Code(s): J69.0 - Pneumonitis due to inhalation of food and vomit (2) Respiratory failure, unspecified with hypoxia: QUALIFIERS: Chronicity: acute Qualified Code(s): J96.01 - Acute respiratory failure with hypoxia (3) End stage renal disease: (4) Ischemic cardiomyopathy: (5) Dialysis patient: PLAN: 1. Acute hypoxic respiratory failure secondary to aspiration pneumonia -Admit to PCU for cardiac monitoring -Oxygen therapy per protocol, currently on 3 L nasal cannula -Strict intake and output along with daily weights -CBC and BMP daily -Blood cultures pending -Patient initiated on Unasyn -Encourage incentive spirometry 2. End-stage renal disease, dialysis dependent -Dr. Snyder consulted -Patient did not go to dialysis today, will need dialyzed -BMP daily 3. Elevated troponins -Upon review of patient labs patient has chronically elevated troponins s econdary to end-stage renal disease -Will trend cardiac enzymes, patient not currently having any chest pain 4. Chronic anemia -Patient hemoglobin consistent with patient baseline -CBC ordered daily 5. Diabetes mellitus type 1 -Uncontrolled -Continue patient's home insulin regimen -AC at bedtime blood sugars ordered 6. Hypertension -Continue medication regimen which includes carvedilol, Lasix, Imdur -Vital signs per protocol, stable We will continue patient's home medication regimens for other chronic diseases including CAD, hyperlipidemia. DVT prophylaxis-SCDs This patient was seen by JASON Ta under the supervision of Dr. Duran. Documented by User: Dr. Ty Duran MD 10/03/21 16:14 HPI - General General Date of Admission: 10/03/21 [facility] Medical History Acute electrocardiogram changes EMPERATRIZ (acute kidney injury) Anemia of chronic disease Atherosclerosis of coronary artery of [place] heart without angina pectoris CHF exacerbation Chronic renal failure, stage 4 (severe) Diabetes mellitus type 1 Dialysis patient Elevated troponin Elevated troponin Essential hypertension Hypotension Insomnia Interstitial lung disease Non-ST elevation myocardial infarction (NSTEMI) Uncontrolled type I diabetes mellitus Vitamin D deficiency Home Medications insulin aspart U-100 3 units SC LUNCH 03/20/18 [History Last Taken 10/02/20] insulin NPH isoph U-100 human 5 units SC QHS 10/28/18 [History Last Taken 10/02/20] insulin aspart U-100 15 units SC BREAKFAST 10/28/18 [History Last Taken 10/03/20] atorvastatin 40 mg PO DAILY 10/03/20 [History Last Taken 10/03/20] insulin aspart U-100 5 units SC DINNER 10/03/20 [History Last Taken 10/02/20] clopidogrel 75 mg PO DAILY #30 tab 10/10/20 [Rx Last Taken Unknown] albuterol sulfate 90 mcg/actuation aerosol inhaler 2 puff INHALATION Q6H PRN 11/06/20 [History Last Taken Unknown] aspirin 81 mg tablet,delayed release 81 mg PO DAILY 11/06/20 [History Last Taken Unknown] ondansetron 4 mg disintegrating tablet 4 mg PO Q6H PRN 11/06/20 [History Last Taken Unknown] trazodone 50 mg tablet 50 mg PO QHS PRN 11/06/20 [History Last Taken Unknown] carvedilol 6.25 mg tablet 6.25 mg PO DAILY tab 11/07/20 [History Last Taken Unknown] furosemide 40 mg tablet 40 mg PO DAILY #30 tab 11/07/20 [Rx Last Taken Unknown] isosorbide mononitrate 60 mg tablet,extended release 24 hr 30 mg PO DAILY ta blet 01/18/21 [History Last Taken Unknown] guaifenesin 1,200 mg tablet, extended release 12 hr 1,200 mg PO BID tablet 02/13/21 [History Last Taken Unknown] alendronate 70 mg tablet 70 mg PO QWEEK 09/25/21 [History Last Taken Unknown] Allergy/AdvReac Type Severity Reaction Status Date / Time levofloxacin [From Levaquin] Allergy Severe Other Verified 10/03/21 11:26 Family History Mother Hypertension Cancer Father Hypertension CVA (cerebral vascular accident) Surgical History History of arteriovenostomy for renal dialysis History of coronary artery bypass graft (~2005) History of left heart catheterization (10/06/20) Hx of carpal tunnel repair Social History Smoking Status: Never smoker second hand exposure: No alcohol intake: never substance use type: does not use caffeine: Yes Type: coffee what type of physical activity do you participate in: none frequency: does not exercise Results Lab / Micro Data Result Diagrams: 10/03/21 11:55 10/03/21 11:55 Charges/Coding Addendum Addendum: Dr. Duran: I personally reviewed the chart and examined the patient, and agree with the above findings.65-year-old female with extensive cardiac history status post CABG as well as a history of end-stage renal disease presents to the hospital with shortness of breath. She states that this started on Friday after she had an episode of emesis at dialysis. She says that sometimes dialysis does cause her to feel nauseated and is in the first time she is thrown up however since then she has been getting more more short of breath. She denies any significant weight gain did skip dialysis today because she was feeling unwell. On admission her creatinine is 4.23 which is at her baseline, her BNP is elevated close to 3000 however this can be related to her renal disease and she also had an elevated high-sensitivity troponin though this was not significantly more elevated than her previous troponins and she is currently denying any chest pain. At this time will consult nephrology for dialysis and continue with her home medications including Lasix, Coreg, Plavix. If she does develop chest pain or she has any EKG changes, her current EKG is nonischemic, or her troponins continue to rise then will obtain a cardiology consult. In the meantime chest x-ray demonstrated left-sided infiltrates therefore we will start her on Unasyn given the episode of emesis she had on Friday and treating aspiration pneumonia. Visit Charges Inpatient E&M: 94502 Init Hosp L3
--- NOTE | 2021-10-03 15:03 | PCS.PANDOC ---
PANDEMIC DOCUMENTATION INITIATED: Date: 06/11/2021 Time: 190
[2021-10-03 16:01] LABS: Bedside Glucose 123 mg/dL (70-110)
[2021-10-03 16:07] LABS: Reflex Lactate? Y
[2021-10-03 16:24] LABS: Troponin-I HS 2265 pg/mL (3.0-54.0)
[2021-10-03] MEDS: Glucerna Shake 120 ML LIQUID PO ×2 (17:24→21:48)
[2021-10-03 18:10] LABS: Lactic Acid 1.3 mmol/L (0.4-1.9)
[2021-10-03 18:25] LABS: Troponin-I HS 2614 pg/mL (3.0-54.0)
--- NOTE | 2021-10-03 19:48 | CON.PCM.RE_ITS ---
Assessment & Plan Assessment/Plan (1) End stage renal disease: PLAN: ESRD Pneumonia HD tomorrow. no acute indications today. lytes are ok., HPI Consult Data Date of Consult: 10/03/21 HPI Narrative HPI Narrative: KONRAD CAI, is a 65 F who presents to hospital with dyspnea. ESRD on HD MWF schedule. last HD was friday. Access is left arm AVF. recently had allergic response to unknown precipitant. some ischemic changes in left UE. sees Dr Louis. diagnosed with pneumonia. feels ok now. [facility] Medical History Acute electrocardiogram changes EMPERATRIZ (acute kidney injury) Anemia of chronic disease Atherosclerosis of coronary artery of [place] heart without angina pectoris CHF exacerbation Chronic renal failure, stage 4 (severe) Diabetes mellitus type 1 Dialysis patient Elevated troponin Elevated troponin Essential hypertension Hypotension Insomnia Interstitial lung disease Non-ST elevation myocardial infarction (NSTEMI) Uncontrolled type I diabetes mellitus Vitamin D deficiency Home Medications insulin aspart U-100 3 units SC LUNCH 03/20/18 [History Last Taken 10/02/20] insulin NPH isoph U-100 human 5 units SC QHS 10/28/18 [History Last Taken 10/02/20] insulin aspart U-100 15 units SC BREAKFAST 10/28/18 [History Last Taken 10/03/20] atorvastatin 40 mg PO DAILY 10/03/20 [History Last Taken 10/03/20] insulin aspart U-100 5 units SC DINNER 10/03/20 [History Last Taken 10/02/20] clopidogrel 75 mg PO DAILY #30 tab 10/10/20 [Rx Last Taken Unknown] albuterol sulfate 90 mcg/actuation aerosol inhaler 2 puff INHALATION Q6H PRN 11/06/20 [History Last Taken Unknown] aspirin 81 mg tablet,delayed release 81 mg PO DAILY 11/06/20 [History Last Taken Unknown] ondansetron 4 mg disintegrating tablet 4 mg PO Q6H PRN 11/06/20 [History Last Taken Unknown] trazodone 50 mg tablet 50 mg PO QHS PRN 11/06/20 [History Last Taken Unknown] carvedilol 6.25 mg tablet 6.25 mg PO DAILY tab 11/07/20 [History Last Taken Unk nown] furosemide 40 mg tablet 40 mg PO DAILY #30 tab 11/07/20 [Rx Last Taken Unknown] isosorbide mononitrate 60 mg tablet,extended release 24 hr 30 mg PO DAILY tablet 01/18/21 [History Last Taken Unknown] guaifenesin 1,200 mg tablet, extended release 12 hr 1,200 mg PO BID tablet 02/13/21 [History Last Taken Unknown] alendronate 70 mg tablet 70 mg PO QWEEK 09/25/21 [History Last Taken Unknown] Allergy/AdvReac Type Severity Reaction Status Date / Time levofloxacin [From Levaquin] Allergy Severe Other Verified 10/03/21 11:26 Family History Mother Hypertension Cancer Father Hypertension CVA (cerebral vascular accident) Surgical History History of arteriovenostomy for renal dialysis History of coronary artery bypass graft (~2005) History of left heart catheterization (10/06/20) Hx of carpal tunnel repair Social History Smoking Status: Never smoker second hand exposure: No alcohol intake: never substance use type: does not use caffeine: Yes Type: coffee what type of physical activity do you participate in: none frequency: does not exercise ROS ROS Narrative negative except above Physical Exam Narrative Alert awake oriented x 3 no obvious distress no pallor no icterus no JVD s1s2 no murmurs lungs clear abdomen soft no organomegaly no edema no cyanosis Lab / Micro Data Result Diagrams: 10/03/21 11:55 10/03/21 11:55 Labs: Laboratory Results - last 24 hr 10/03/21 11:55: WBC 7.1, RBC 3.61 L, Hgb 11.4 L, Hct 36.4 L, MCV 100.8 H, MCH 31.6, MCHC 31.3 L, RDW Std Deviation 46.7 H, RDW Coeff of Andrzej 12.7, Plt Count 120 L, MPV 11.6, Immature Gran % (Auto) 0.700, Neut % (Auto) 80.7 H, Lymph % (Auto) 9.2 L, [place] % (Auto) 7.4, Eos % (Auto) 0.6, Baso % (Auto) 1.4 H, Absolute Neuts (auto) 5.7, Absolute Lymphs (auto) 0.65 L, Nucleated RBC % 0 10/03/21 11:55: Sodium 138, Potassium 3.6, Chloride 100, Carbon Dioxide 28.0, Anion Gap 10, BUN 47 H, Creatinine 4.23 H, Estim Creat Clear Calc 9.65, Est GFR (MDRD) Af Amer 14 L, Est GFR (MDRD) Non-Af 11 L, BUN/Creatinine Ratio 11.1, Glucose 202 H, Calcium 7.7 L, Troponin I High Sens 1344 H* 10/03/21 11:55: Lactic Acid 2.1 H* 10/03/21 15:33: Troponin I High Sens 2265 H* 10/03/21 15:46: POC Glucose 123 H 10/03/21 17:39: Troponin I High Sens 2614 H* 10/03/21 17:39: Lactic Acid 1.3 Micro: Microbiology 10/03/21 12:00 Nasal Secretion SARS-CoV-2 Antigen (Rapid) - Final 10/03/21 12:00 Mucosa - Nasopharyngeal Influenza Types A,B Direct FA (NIGEL) - Final Radiology Impression Chest X-Ray 10/03/21 12:25 IMPRESSION: Infiltrate in the left upper and left lower lobes. There is blunting of the left costophrenic angle. Electronically Signed: Vijay Emerson MD at 13:01 EST , Service support ,
[2021-10-03] MEDS: Atorvastatin Calcium 40 MG Tablet PO (21:48)
[2021-10-03] MEDS: Insulin NPH Human 100 UNITS/ML PEN 10 UNITS SC (21:49)
[2021-10-03] MEDS: Insulin Lispro 100 UNIT/ML INSULN.PEN SC (21:49)
[2021-10-03 22:21] LABS: Bedside Glucose 237 mg/dL (70-110)
[2021-10-04] VITALS (22 sets, daily range): BP systolic 86–151; BP diastolic 35–70; PULSE 64–87; RESP 18–28; TEMP 36.6–37.1; O2SAT 87–99
[2021-10-04 05:33] LABS: Absolute Lymphocyte Count 0.77 X10^3/uL (0.83-4.51); Basophil# 0.08 X10^3/uL; Eosinophil# 0.01 X10^3/uL; Eosinophils% 0.1 % (0-5); Hematocrit 36.5 % (37-47); Hemoglobin 11.3 g/dL (12.0-15.0); Lymphocyte # 0.77 X10^3/ul (0.83-4.51); Lymphocyte % 9.2 % (19-41); Mean Corpuscular Hgb 31.2 pg (27.0-32.0); Mean Corpuscular Volume 100.8 fL (81-99); Mean Platelet Vol. 11.5 fl (6.2-12.0); Monocyte% 5.9 % (0-10); NRBC Flagged by Analyzer 0 % (0-5); Neutrophil # 6.95 X10^3/uL (2.7-7.7); Neutrophil % 82.6 % (47-70); POSITIVE MORPHOLOGY YES; Platelet Count 117 K/mm3 (150-450); RBC Distribution Width CV 12.7 % (11.6-14.6); RBC Distribution Width SD 47.8 fl (35.1-43.9); Red Blood Count 3.62 M/mm3 (4.2-5.4); White Blood Count 8.4 K/mm3 (4.4-11.0)
[2021-10-04 05:35] LABS: Differential Indicated SCAN CRITERIA MET
[2021-10-04 05:53] LABS: Differential Comment SCANNED
[2021-10-04 06:17] LABS: Anion Gap 11 (5-15); BUN 60 mg/dL (7-18); BUN/Creat Ratio 13.1 RATIO (10-20); Calcium,Total 7.7 mg/dL (8.5-10.1); Chloride 100 mmol/L (98-107); Creatinine, Serum 4.57 mg/dL (0.55-1.02); EST Glomerular Filtration Rate 10 mL/min (>60); Est Glom Filt Rate - Afr Amer 12 mL/min (>60); Estimated Creatinine Clearance 8.93 ml/min; Glucose 306 mg/dL (74-106); Potassium 4.2 mmol/L (3.5-5.1); Sodium Level 135 mmol/L (136-145)
[2021-10-04] MEDS: Insulin Lispro 100 UNIT/ML INSULN.PEN SC ×4 (06:33→20:57)
[2021-10-04 06:51] LABS: Bedside Glucose 284 mg/dL (70-110)
[2021-10-04] MEDS: Aspirin E.C. 81 MG Tablet PO (08:25)
[2021-10-04] MEDS: Carvedilol 6.25 MG Tablet PO (08:25)
[2021-10-04] MEDS: Glucerna Shake 120 ML LIQUID PO (09:58)
[2021-10-04] MEDS: Isosorbide Mononitrate 30 MG Tablet PO (10:10)
[2021-10-04] MEDS: Furosemide 40 MG Tablet PO (10:10)
[2021-10-04] MEDS: Clopidogrel Bisulfate 75 MG Tablet PO (10:10)
[2021-10-04] MEDS: 0.9% Saline Lock 10 ML Syringe IV ×2 (10:11→22:39)
[2021-10-04 11:06] LABS: Bedside Glucose 369 mg/dL (70-110)
--- NOTE | 2021-10-04 11:20 | CASEMGMT ---
LAWSON OROPEZA assessment: Face to Face with patient for initial transition planning/care coordination assessment. LAWSON OROPEZA introduced self and role at [facility], pt voices understanding and consents to assessment. Pt is sitting up in chair in no distress on 3L nc. Pt is A/Ox4 and answers all questions appropriately. Care providers, pharmacy, and demographics verified/updated. Presentation: Pt w/ SOB/cough, dialysis pt Admitting dx: Aspiration w/ ESRD PCP: Alissa Specialists: Rocio, endocrinology in [place]; Claudio nephlaura [facility] Insurance: [facility] Prescription Benefit: Yes Living Will/HPOA: Pt does have LW/HPOA and is aware that they are not on file at [facility]. Pt states her sister, Guadalupe Reyna, is HPOA. LNOK: Guadalupe Reyna, sister; Mae Reyna, sister; Nisa Reyna, sister Living Arrangements: Pt lives with 3 sisters on main level of 2 story home and states no concerns at home. Pt is independent with ADL's. Transportation: Pt states sisters drive or uses [employer] and states no transportation concerns. DME/HHC: Pt has the following DME: walker, grab bars, and shower chair. Pt states no need for any further DME and states no preference for DME provider, if qualifies for home oxygen at discharge. Pt states no hx SNF but has had HHC in the past. [facility] and is also active w/ [facility]. Pt states no concerns with going home at time of discharge. Pt is disabled. Pt states does not smoke cigarettes or drink ETOH. Pt states no further concerns/needs. CM to follow for any further discharge planning/needs. Advised pt to ask for CM if any further questions/concerns/needs arise, voices understanding. Pt Goal: Home Plan[place] LAWSON OROPEZA
--- NOTE | 2021-10-04 11:41 | CON.PCM.CA_ITS ---
Documented by User: Bernice MEDINA, ADAM 10/05/21 09:17 Assessment & Plan Assessment/Plan (1) Non-ST elevation myocardial infarction (NSTEMI): (2) Atherosclerosis of coronary artery of jamul heart without angina pectoris: QUALIFIERS: Coronary Disease-Associated Artery/Lesion type: unspecified vessel or lesion type Qualified Code(s): I25.10 - Atherosclerotic heart disease of jamul coronary artery without angina pectoris (3) Ischemic cardiomyopathy: (4) End stage renal disease: (5) Essential hypertension: PLAN: * Troponin still trending up, will repeat in the AM. Will plan on heart cath in the AM. Hesitant to proceed today with her pneumonia and need for dialysis today. * will add a heparin drip * will add NTG Drip as pt continues to have CP, will stop her Imdur * will obtain echo today * continue with ASA, Atorvastatin, Plavix, Coreg. HPI Consult Data Date of Consult: 10/05/21 HPI Narrative HPI Narrative: KONRAD CAI, is a 65 F who presented to the ER yesterday for increased SOB. She has a past medical history of coronary artery disease status post CABG in 2005 (SIMS to LAD, sequential SVG to OM and posterolateral circumflex, SVG to diagonal), CKD on dialysis, CHF. She also had 80% stenosis in the right external iliac artery. Heart cath from 09/2020 demonstrated severe jamul coronary artery disease and a patent 4 out of 4 bypass grafts pt notes that symptoms started on Friday during dialysis with increased CP /heaviness/tightness. She is SOB and feels that this is getting worse. Her EKG in the ER had some non specific changes. She was noted to have an elevated troponin of 1344 and has continued to trend up (2614). It has not peaked yet. CXR demonstrated left pneumonia. [facility] Medical History (Updated 10/04/21 @ 16:[address] Courtney Marie, DO) Acute electrocardiogram changes EMPERATRIZ (acute kidney injury) Anemia of chronic disease Atherosclerosis of coronary artery of jamul heart without angina pectoris CHF exacerbation Chronic renal failure, stage 4 (severe) Diabetes mellitus type 1 Dialysis patient Elevated troponin Elevated troponin Essential hypertension Hypotension Insomnia Interstitial lung disease Macrocytic anemia Non-ST elevation myocardial infarction (NSTEMI) Uncontrolled type I diabetes mellitus Vitamin D deficiency Home Medications insulin aspart U-100 3 units SC LUNCH 03/20/18 [History Last Taken 10/02/20] insulin NPH isoph U-100 human 5 units SC QHS 10/28/18 [History Last Taken 10/02/20] insulin aspart U-100 15 units SC BREAKFAST 10/28/18 [History Last Taken 10/03/20] atorvastatin 40 mg PO DAILY 10/03/20 [History Last Taken 10/03/20] insulin aspart U-100 5 units SC DINNER 10/03/20 [History Last Taken 10/02/20] clopidogrel 75 mg PO DAILY #30 tab 10/10/20 [Rx Last Taken Unknown] albuterol sulfate 90 mcg/actuation aerosol inhaler 2 puff INHALATION Q6H PRN 11/06/20 [History Last Taken Unknown] aspirin 81 mg tablet,delayed release 81 mg PO DAILY 11/06/20 [History Last Taken Unknown] ondansetron 4 mg disintegrating tablet 4 mg PO Q6H PRN 11/06/20 [History Last Taken Unknown] trazodone 50 mg tablet 50 mg PO QHS PRN 11/06/20 [History Last Taken Unknown] carvedilol 6.25 mg tablet 6.25 mg PO DAILY tab 11/07/20 [History Last Taken Unknown] furosemide 40 mg tablet 40 mg PO DAILY #30 tab 11/07/20 [Rx Last Taken Unknown] isosorbide mononitrate 60 mg tablet,extended release 24 hr 30 mg PO DAILY tablet 01/18/21 [History Last Taken Unknown] guaifenesin 1,200 mg tablet, extended release 12 hr 1,200 mg PO BID tablet 02/13/21 [History Last Taken Unknown] alendronate 70 mg tablet 70 mg PO QWEEK 09/25/21 [History Last Taken Unknown] Allergy/AdvReac Type Severity Reaction Status Date / Time levofloxacin [From Levaquin] Allergy Severe Other Verified 10/03/21 11:26 Family History Mother Hypertension Cancer Father Hypertension CVA (cerebral vascular accident) Surgical History History of arteriovenostomy for renal dialysis History of coronary artery bypass graft (~2005) History of left heart catheterization (10/06/20) Hx of carpal tunnel repair Social History Smoking Status: Never smoker second hand exposure: No alcohol intake: never substance use type: does not use caffeine: Yes Type: coffee what type of physical activity do you participate in: none frequency: does not exercise ROS Constitutional Constitutional: Reports fatigue and fever(s) Eyes Eyes: Reports systems reviewed and no addt'l complaints, except as documented ENT HEENT: Reports systems reviewed and no addt'l complaints, except as documented Cardiovascular Cardiovascular: Reports chest pain, dyspnea, dyspnea at rest and dyspnea on exertion Respiratory/Chest Respiratory/Chest: Reports dyspnea on exertion, productive cough, shortness of breath at rest, shortness of breath with exertion and wheezing Gastrointestinal Gastrointestinal: Reports systems reviewed and no addt'l complaints, except as documented Neurologic Neurologic: Reports systems reviewed and no addt'l complaints, except as documented Physical Exam Const alert and oriented x3 HEENT normocephalic Eyes PERRL, EOMs intact bilaterally, conjunctivae normal and no scleral icterus Neck full ROM Resp Auscultation: wheezes throughout and diminished lung sounds Cardio regular rate, regular rhythm, S1 normal heart sound, S2 normal heart sound, no murmurs, no rub and no gallops Extremity Extremity Narrative: AV fistula left upper arm Neuro oriented x3 and CN's II-XII intact bilaterally Risk Stratification Risk Stratification Applicable: Yes Age >/= 65: No >/= 3 CAD Risk Factors (HTN, HLD, DM, family hx of CAD, or current smoker): Yes Aspirin Use in the Past 7 Days: Yes Severe Angina (>/= episodes in 24 hours): Yes EKG ST Changes >/= 0.5mm: No Positive Cardiac Marker: Yes FARRAH Risk Stratification Score: 4 FARRAH % Risk: 20% Risk Charges/Coding Visit Charges Office Visits / Consults: [id number] IP Consult L4 Objective Data Vital Signs: Vital Signs Temp Pulse Resp BP Pulse Ox 98.7 F 81 18 135/49 H 87 10/04/21 09:55 10/04/21 09:55 10/04/21 09:55 10/04/21 09:55 10/04/21 09:58 Oxygen Flow Rate (L/min) 2 Oxygen Delivery Method Room Air Weight: 129 lb 3.054 oz Body Mass Index (BMI) 24.7 Intake & Output: Intake and Output for Last 24 Hours 10/02/21 10/03/21 10/04/21 23:59 23:59 23:59 Intake Total 712.25 / 712.25 352 / 352 Balance 712.25 / 712.25 352 / 352 Lab / Micro Data Result Diagrams: 10/05/21 02:10 10/05/21 02:10 Labs: Laboratory Results - last 24 hr 10/03/21 11:55: WBC 7.1, RBC 3.61 L, Hgb 11.4 L, Hct 36.4 L, MCV 100.8 H, MCH 31.6, MCHC 31.3 L, RDW Std Deviation 46.7 H, RDW Coeff of Andrzej 12.7, Plt Count 120 L, MPV 11.6, Immature Gran % (Auto) 0.700, Neut % (Auto) 80.7 H, Lymph % (Auto) 9.2 L, Mckean % (Auto) 7.4, Eos % (Auto) 0.6, Baso % (Auto) 1.4 H, Absolute Neuts (auto) 5.7, Absolute Lymphs (auto) 0.65 L, Nucleated RBC % 0 10/03/21 11:55: Sodium 138, Potassium 3.6, Chloride 100, Carbon Dioxide 28.0, Anion Gap 10, BUN 47 H, Creatinine 4.23 H, Estim Creat Clear Calc 9.65, Est GFR (MDRD) Af Amer 14 L, Est GFR (MDRD) Non-Af 11 L, BUN/Creatinine Ratio 11.1, Glucose 202 H, Calcium 7.7 L, Troponin I High Sens 1344 H* 10/03/21 11:55: Lactic Acid 2.1 H* 10/03/21 15:33: Troponin I High Sens 2265 H* 10/03/21 15:46: POC Glucose 123 H 10/03/21 17:39: Troponin I High Sens 2614 H* 10/03/21 17:39: Lactic Acid 1.3 10/03/21 21:45: POC Glucose 237 H 10/04/21 05:04: WBC 8.4, RBC 3.62 L, Hgb 11.3 L, Hct 36.5 L, MCV 100.8 H, MCH 31.2, MCHC 31.0 L, RDW Std Deviation 47.8 H, RDW Coeff of Andrzej 12.7, Plt Count 117 L, MPV 11.5, Immature Gran % (Auto) 1.200 H, Neut % (Auto) 82.6 H, Lymph % (Auto) 9.2 L, Mckean % (Auto) 5.9, Eos % (Auto) 0.1, Baso % (Auto) 1.0, Absolute Neuts (auto) 7.0, Absolute Lymphs (auto) 0.77 L, Nucleated RBC % 0, Differential Comment SCANNED 10/04/21 05:04: Sodium 135 L, Potassium 4.2, Chloride 100, Carbon Dioxide 24.0, Anion Gap 11, BUN 60 H, Creatinine 4.57 H, Estim Creat Clear Calc 8.93, Est GFR (MDRD) Af Amer 12 L, Est GFR (MDRD) Non-Af 10 L, BUN/Creatinine Ratio 13.1, Glucose 306 H, Calcium 7.7 L 10/04/21 06:30: POC Glucose 284 H 10/04/21 10:55: POC Glucose 369 H Micro: Microbiology 10/03/21 12:25 Blood Culture (Wb) #2 - Right Hand Bacteria Detection (PCR) - Final Coag Negative Staph 10/03/21 12:25 Blood Culture (Wb) #2 - Right Hand Blood Culture - Preliminary 10/03/21 12:00 Nasal Secretion SARS-CoV-2 Antigen (Rapid) - Final 10/03/21 12:00 Mucosa - Nasopharyngeal Influenza Types A,B Direct FA (NIGEL) - Final Cardiology Labs/Tests 10/03/21 11:55: WBC 7.1, RBC 3.61 L, Hgb 11.4 L, Hct 36.4 L, MCV 100.8 H, MCH 31.6, MCHC 31.3 L, Plt Count 120 L, MPV 11.6, Immature Gran % (Auto) 0.700, Neut % (Auto) 80.7 H, Lymph % (Auto) 9.2 L, Mckean % (Auto) 7.4, Eos % (Auto) 0.6, Baso % (Auto) 1.4 H, Absolute Neuts (auto) 5.7, Nucleated RBC % 0 10/03/21 11:55: Sodium 138, Potassium 3.6, Chloride 100, Carbon Dioxide 28.0, Anion Gap 10, BUN 47 H, Creatinine 4.23 H, Est GFR (MDRD) Af Amer 14 L, Est GFR (MDRD) Non-Af 11 L, BUN/Creatinine Ratio 11.1, Glucose 202 H, Calcium 7.7 L 10/03/21 11:55: Lactic Acid 2.1 H* 10/03/21 17:39: Lactic Acid 1.3 10/04/21 05:04: WBC 8.4, RBC 3.62 L, Hgb 11.3 L, Hct 36.5 L, MCV 100.8 H, MCH 31.2, MCHC 31.0 L, Plt Count 117 L, MPV 11.5, Immature Gran % (Auto) 1.200 H, Neut % (Auto) 82.6 H, Lymph % (Auto) 9.2 L, Mckean % (Auto) 5.9, Eos % (Auto) 0.1, Baso % (Auto) 1.0, Absolute Neuts (auto) 7.0, Nucleated RBC % 0 10/04/21 05:04: Sodium 135 L, Potassium 4.2, Chloride 100, Carbon Dioxide 24.0, Anion Gap 11, BUN 60 H, Creatinine 4.57 H, Est GFR (MDRD) Af Amer 12 L, Est GFR (MDRD) Non-Af 10 L, BUN/Creatinine Ratio 13.1, Glucose 306 H, Calcium 7.7 L EKG: Normal sinus rhythm ST & T wave abnormality, consider inferior ischemia ST & T wave abnormality, consider anterolateral ischemia Abnormal ECG Poor R wave progression Echocardiogram from 10/03/2020: Normal LV size. Moderate segmental systolic dysfunction (see wall motion). The estimated ejection fraction is 37 %. Mild (1+) tricuspid valve insufficiency. Pulmonary artery systolic pressure is 40 mmHg. Moderate size left pleural effusion. Contrast injection was performed. Stress Test: Cardiac Cath from 10/06/2020: severe jamul CAD as described. Patent 4/4 bypass grafts. 80% stenosis of R external iliac artery Radiography Diagnostic Testing: Radiology Impression Chest X-Ray 10/03/21 12:25 IMPRESSION: Infiltrate in the left upper and left lower lobes. There is blunting of the left costophrenic angle. Electronically Signed: Vijay Emerson MD at 13:01 EST , Service support , Documented by User: Dr. Judy Prescott MD 10/05/21 09:25 HPI Consult Data Date of Consult: 10/05/21 [facility] Medical History (Updated 10/04/21 @ 16:[address] Courtney Marie DO) Acute electrocardiogram changes EMPERATRIZ (acute kidney injury) Anemia of chronic disease Atherosclerosis of coronary artery of jamul heart without angina pectoris CHF exacerbation Chronic renal failure, stage 4 (severe) Diabetes mellitus type 1 Dialysis patient Elevated troponin Elevated troponin Essential hypertension Hypotension Insomnia Interstitial lung disease Macrocytic anemia Non-ST elevation myocardial infarction (NSTEMI) Uncontrolled type I diabetes mellitus Vitamin D deficiency Home Medications insulin aspart U-100 3 units SC LUNCH 03/20/18 [History Last Taken 10/02/20] insulin NPH isoph U-100 human 5 units SC QHS 10/28/18 [History Last Taken 10/02/20] insulin aspart U-100 15 units SC BREAKFAST 10/28/18 [History Last Taken 10/03/20] atorvastatin 40 mg PO DAILY 10/03/20 [History Last Taken 10/03/20] insulin aspart U-100 5 units SC DINNER 10/03/20 [History Last Taken 10/02/20] clopidogrel 75 mg PO DAILY #30 tab 10/10/20 [Rx Last Taken Unknown] albuterol sulfate 90 mcg/actuation aerosol inhaler 2 puff INHALATION Q6H PRN 11/06/20 [History Last Taken Unknown] aspirin 81 mg tablet,delayed release 81 mg PO DAILY 11/06/20 [History Last Taken Unknown] ondansetron 4 mg disintegrating tablet 4 mg PO Q6H PRN 11/06/20 [History Last Taken Unknown] trazodone 50 mg tablet 50 mg PO QHS PRN 11/06/20 [History Last Taken Unknown] carvedilol 6.25 mg tablet 6.25 mg PO DAILY tab 11/07/20 [History Last Taken Unknown] furosemide 40 mg tablet 40 mg PO DAILY #30 tab 11/07/20 [Rx Last Taken Unknown] isosorbide mononitrate 60 mg tablet,extended release 24 hr 30 mg PO DAILY tablet 01/18/21 [History Last Taken Unknown] guaifenesin 1,200 mg tablet, extended release 12 hr 1,200 mg PO BID tablet 02/13/21 [History Last Taken Unknown] alendronate 70 mg tablet 70 mg PO QWEEK 09/25/21 [History Last Taken Unknown] Allergy/AdvReac Type Severity Reaction Status Date / Time [facility] Allergy Severe Other Verified 10/03/21 11:26 Family History Mother Hypertension Cancer Father Hypertension CVA (cerebral vascular accident) Surgical History History of arteriovenostomy for renal dialysis History of coronary artery bypass graft (~2005) History of left heart catheterization (10/06/20) Hx of carpal tunnel repair Social History Smoking Status: Never smoker second hand exposure: No alcohol intake: never substance use type: does not use caffeine: Yes Type: coffee what type of physical activity do you participate in: none frequency: does not exercise Lab / Micro Data Result Diagrams: 10/05/21 02:10 10/05/21 02:10
--- NOTE | 2021-10-04 11:44 | ECHOCS_ITS ---
Reason For Study: CAD Procedure This was a 2D Doppler, Color Flow transthoracic echocardiogram. The study was technically difficult. Exam performed portable in patient room. Left Ventricle Moderately dilated left ventricle. The estimated ejection fraction is 30-35 %. Right Ventricle Mildly dilated right ventricle. Mild global right ventricular systolic dysfunction. Atria The left atrium is mildly enlarged. Normal right atrium. Mitral Valve There is mild mitral annular calcification. Trivial mitral valve insufficiency. Tricuspid Valve Normal tricuspid valve. Mild tricuspid valve insufficiency. Aortic Valve Mild diffuse aortic valve thickening. Trivial aortic valve insufficiency. Pulmonic Valve The pulmonic valve is not well visualized. Great Vessels Normal aortic root. Pericardium/Pleural No pericardial effusion. Medication Diluted definity 2ml given slow IV push to enhance endocardial definition. MMode/2D Measurements & Calculations LVIDd: 4.4 cm IVSd: 1.2 cm Ao root diam: 2.7 cm LVIDs: 3.3 cm LVPWd: 1.3 cm RVDd: 3.4 cm FS: 24.7 % LAV(MOD-bp): 36.2 ml LVAd ap4: 27.0 cm2 LVAd ap2: 21.7 cm2 LAV(MOD-bp) Indexed: 23.4 ml/m2 LVLd ap4: 7.5 cm LVLd ap2: 7.0 cm LAV(MOD-sp2): 36.3 ml EDV(MOD-sp4): 80.5 ml EDV(MOD-sp2): 56.9 ml LAV(MOD-sp4): 35.6 ml EDV(sp4-el): 82.6 ml EDV(sp2-el): 57.2 ml LVAs ap4: 21.0 cm2 LVAs ap2: 18.1 cm2 LVLs ap4: 7.2 cm LVLs ap2: 7.1 cm ESV(MOD-sp4): 52.4 ml ESV(MOD-sp2): 40.6 ml ESV(sp4-el): 52.2 ml ESV(sp2-el): 39.4 ml EF(MOD-sp4): 35.0 % EF(MOD-sp2): 28.7 % EF(sp4-el): 36.8 % SV(MOD-sp4): 28.2 ml SV(MOD-sp2): 16.3 ml SV(sp4-el): 30.4 ml LA A4 area: 14.4 cm2 LA dimension(2D): 3.1 cm RA A4 area: 11.9 cm2 Doppler Measurements & Calculations MV E max anoop: 137.1 cm/sec Lat Peak E' Anoop: 4.5 cm/sec Med Peak E' Anoop: 3.2 cm/sec MV A max anoop: 95.0 cm/sec E/E' lat: 30.7 E/E' med: 43.3 MV E/A: 1.4 Ao V2 max: 157.9 cm/sec LV V1 max: 119.3 cm/sec PA V2 max: 105.7 cm/sec Ao max P.0 mmHg LV V1 max P.7 mmHg TR max anoop: 263.0 cm/sec TR max P.7 mmHg ECHO/Echo Complete W/ Contrast Interpretation Summary The estimated ejection fraction is 30-35 %. Ordering Physician: Bernice Akins Referring Physician: Sergio Maxwell Performed By: Lizeth Esquivel RDCS
[2021-10-04 12:12] LABS: International Normalized Ratio 1.1; Prothrombin Time (Protime)PT. 13.3 SECONDS (11.7-14.9)
[2021-10-04 12:13] LABS: Partial Thromboplast Time 32.1 Seconds (24.1-36.2)
[2021-10-04] MEDS: HEPARIN/D5w 25,000 UNITS 25,000 UNITS/250 ML IV.SOLN. 8 UNITS IV (12:19)
--- NOTE | 2021-10-04 13:59 | PN.RENAL_ITS ---
Subjective Subjective No new complaints Objective Data Objective Data Vital Signs: Vital Signs Temp Pulse Resp BP Pulse Ox 98.7 F 71 18 138/45 H 95 10/04/21 12:12 10/04/21 12:12 10/04/21 12:12 10/04/21 12:12 10/04/21 12:12 Oxygen Flow Rate (L/min) 2 Oxygen Delivery Method Nasal Cannula Weight: 58.6 kg Body Mass Index (BMI) 24.7 Intake & Output: Intake and Output for Last 24 Hours 10/02/21 10/03/21 10/04/21 23:59 23:59 23:59 Intake Total 712.25 / 712.25 752 / 752 Balance 712.25 / 712.25 752 / 752 Lab / Micro Data Result Diagrams: 10/04/21 05:04 10/04/21 05:04 Labs: Laboratory Results - last 24 hr 10/03/21 15:33: Troponin I High Sens 2265 H* 10/03/21 15:46: POC Glucose 123 H 10/03/21 17:39: Troponin I High Sens 2614 H* 10/03/21 17:39: Lactic Acid 1.3 10/03/21 21:45: POC Glucose 237 H 10/04/21 05:04: WBC 8.4, RBC 3.62 L, Hgb 11.3 L, Hct 36.5 L, MCV 100.8 H, MCH 31.2, MCHC 31.0 L, RDW Std Deviation 47.8 H, RDW Coeff of Andrzej 12.7, Plt Count 117 L, MPV 11.5, Immature Gran % (Auto) 1.200 H, Neut % (Auto) 82.6 H, Lymph % (Auto) 9.2 L, [place] % (Auto) 5.9, Eos % (Auto) 0.1, Baso % (Auto) 1.0, Absolute Neuts (auto) 7.0, Absolute Lymphs (auto) 0.77 L, Nucleated RBC % 0, Differential Comment SCANNED 10/04/21 05:04: Sodium 135 L, Potassium 4.2, Chloride 100, Carbon Dioxide 24.0, Anion Gap 11, BUN 60 H, Creatinine 4.57 H, Estim Creat Clear Calc 8.93, Est GFR (MDRD) Af Amer 12 L, Est GFR (MDRD) Non-Af 10 L, BUN/Creatinine Ratio 13.1, Glucose 306 H, Calcium 7.7 L 10/04/21 06:30: POC Glucose 284 H 10/04/21 10:55: POC Glucose 369 H 10/04/21 11:45: PT 13.3, INR 1.1, APTT 32.1 Micro: Microbiology 10/03/21 12:25 Blood Culture (Wb) #2 - Right Hand Bacteria Detection (PCR) - Final Coag Negative Staph 10/03/21 12:25 Blood Culture (Wb) #2 - Right Hand Blood Culture - Preliminary 10/03/21 12:00 Nasal Secretion SARS-CoV-2 Antigen (Rapid) - Final 10/03/21 12:00 Mucosa - Nasopharyngeal Influenza Types A,B Direct FA (NIGEL) - Final Physical Exam Narrative Alert awake oriented x 3 no obvious distress no pallor no icterus no JVD s1s2 no murmurs lungs clear abdomen soft no organomegaly no edema no cyanosis Assessment & Plan Assessment/Plan (1) End stage renal disease: PLAN: Usually on dialysis Friday, Friday, Friday schedule. Missed dialysis yesterday due to hospitalization. Dialysis arranged today. Presented with shortness of breath. Initially diagnosed with aspiration pneumonia. Found to have elevated troponins which are still increasing. Cardiology is following now. (2) Aspiration pneumonia: QUALIFIERS: Aspiration pneumonia type: due to vomit Laterality: left Lung location: lower lobe of lung Qualified Code(s): J69.0 - Pneumonitis due to inhalation of food and vomit
--- NOTE | 2021-10-04 15:00 | DIALYSIS ---
Dialysis: Requested chronic records from [facility], Order for hep bsag as last draw was 09/03 and neg. labs reviewed with Dr Snyder and orders recieved.
[2021-10-04] MEDS: Nitroglycerin Infusion 250 ML 3 MG CONT INF (15:36)
[2021-10-04] MEDS: Acetaminophen 325 MG Tablet 650 MG PO (15:38)
--- NOTE | 2021-10-04 15:53 | CASEMGMT ---
According to the [facility] dual website, the following are in-network tertiary facilities: [facility], [place], [facility], [place], [facility], [place], [facility], and . Fatoumata PATHAK CM
--- NOTE | 2021-10-04 16:08 | PCM.PN.HOSP ---
Subjective Subjective Patient reports that she is still coughing and having some nausea but no vomiting today. Her last emesis was yesterday morning. She states she was vomiting fairly violently at dialysis on Friday. She did not get dialyzed yesterday as she was not feeling well. She is complaining of no chest pain at this time. Objective Data Objective Data Vital Signs: Vital Signs Temp Pulse Resp BP Pulse Ox 98.7 F 71 18 132/65 H 95 10/04/21 12:12 10/04/21 12:12 10/04/21 12:12 10/04/21 15:45 10/04/21 12:12 Oxygen Flow Rate (L/min) 2 Oxygen Delivery Method Nasal Cannula Weight: 58.6 kg Body Mass Index (BMI) 24.7 Intake & Output: Intake and Output for Last 24 Hours 10/02/21 10/03/21 10/04/21 23:59 23:59 23:59 Intake Total 712.25 / 712.25 752.45 / 752.45 Balance 712.25 / 712.25 752.45 / 752.45 Lab / Micro Data Result Diagrams: 10/04/21 05:04 10/04/21 05:04 Labs: Laboratory Results - last 24 hr 10/03/21 15:33: Troponin I High Sens 2265 H* 10/03/21 17:39: Troponin I High Sens 2614 H* 10/03/21 17:39: Lactic Acid 1.3 10/03/21 21:45: POC Glucose 237 H 10/04/21 05:04: WBC 8.4, RBC 3.62 L, Hgb 11.3 L, Hct 36.5 L, MCV 100.8 H, MCH 31.2, MCHC 31.0 L, RDW Std Deviation 47.8 H, RDW Coeff of Andrzej 12.7, Plt Count 117 L, MPV 11.5, Immature Gran % (Auto) 1.200 H, Neut % (Auto) 82.6 H, Lymph % (Auto) 9.2 L, [place] % (Auto) 5.9, Eos % (Auto) 0.1, Baso % (Auto) 1.0, Absolute Neuts (auto) 7.0, Absolute Lymphs (auto) 0.77 L, Nucleated RBC % 0, Differential Comment SCANNED 10/04/21 05:04: Sodium 135 L, Potassium 4.2, Chloride 100, Carbon Dioxide 24.0, Anion Gap 11, BUN 60 H, Creatinine 4.57 H, Estim Creat Clear Calc 8.93, Est GFR (MDRD) Af Amer 12 L, Est GFR (MDRD) Non-Af 10 L, BUN/Creatinine Ratio 13.1, Glucose 306 H, Calcium 7.7 L 10/04/21 06:30: POC Glucose 284 H 10/04/21 10:55: POC Glucose 369 H 10/04/21 11:45: PT 13.3, INR 1.1, APTT 32.1 Micro: Microbiology 10/03/21 12:25 Blood Culture (Wb) #2 - Right Hand Bacteria Detection (PCR) - Final Coag Negative Staph 10/03/21 12:25 Blood Culture (Wb) #2 - Right Hand Blood Culture - Preliminary 10/03/21 12:00 Nasal Secretion SARS-CoV-2 Antigen (Rapid) - Final 10/03/21 12:00 Mucosa - Nasopharyngeal Influenza Types A,B Direct FA (NIGEL) - Final Physical Exam Const alert, oriented x3 and no apparent distress Constitutional Narrative: Overweight middle-aged white female who appears much older than stated age, nontoxic appearing but she does not appear as if she is feeling well Exam Limitations: no limitations Nutritional Appearance: overweight HEENT head/scalp atraumatic and moist oral mucous membranes HEENT Narrative: Mallampati 2, no thrush Head and Scalp: normocephalic Resp Resp Narrative: Bilateral rhonchi bases with right being greater than left, few scattered crackles, no signs of respiratory distress, remained stable on 2 L nasal cannula Cardio regular rate, regular rhythm, S1 normal heart sound, S2 normal heart sound, no murmurs, no rub, no gallops, no clicks and no JVD GI normal to inspection, nondistended, normoactive bowel sounds, soft to palpation, non-tender and non-distended Extremity no clubbing, cyanosis or edema Peripheral Pulses: Yes pulses 2+ throughout Neuro oriented x3, moves all extremities and no focal motor deficits Neuro Narrative: Neurolyse weakness noted and patient requiring assistance for transition in bed to sitting up Sensorium / Orientation: awake and alert Speech: speech normal Psych affect normal Assessment & Plan Assessment/Plan (1) Non-ST elevation myocardial infarction (NSTEMI): (2) Aspiration pneumonia: QUALIFIERS: Aspiration pneumonia type: due to vomit Laterality: left Lung location: lower lobe of lung Qualified Code(s): J69.0 - Pneumonitis due to inhalation of food and vomit (3) Respiratory failure, unspecified with hypoxia: QUALIFIERS: Chronicity: acute Qualified Code(s): J96.01 - Acute respiratory failure with hypoxia (4) Thrombocytopenia: (5) Hyponatremia: PLAN: Acute hypoxic respiratory failure secondary to aspiration pneumonia after emesis -Patient is on no oxygen at baseline -Has been weaned to 2 L today with oxygen saturations in the mid 90s -Wean oxygen as able -Continue incentive spirometer -Add Acapella -Continue Unasyn -Check strep pneumo and Legionella urine antigens -Covid is negative -Blood cultures 1 of 2+ for coag negative staph--> contaminant NSTEMI -Patient on a heparin and nitro drip for ongoing pain -Probable left heart cath in the next 24 hours -Allergies following -Continue Plavix, aspirin, atorvastatin, carvedilol, isosorbide mononitrate -Patient with CABG remotely (2005)--> SIMS to LAD, sequential SVG to OM and posterior lateral circumflex, SVG to diagonal CAD -See above Hyperlipidemia -Continue statin Hypertension -Continue home medications including carvedilol and isosorbide mononitrate -Continue nitro drip End-stage renal disease on dialysis -Dialysis Friday at baseline -Missed HD yesterday -Neurology consulted -No current need for emergent dialysis Acute thrombocytopenia -Relatively stable since admission -Continue to monitor -Etiology unclear Chronic anemia secondary to renal disease -Hemoglobin is stable -Continue to monitor DM-1 -Check hemoglobin A1c -Blood sugars are markedly elevated in the upper 202 upper 300 range -Increase NPH to 10 units twice daily from 10 units at at bedtime -Continue SSI -Accu-Cheks as ordered Osteoporosis -Restart alendronate at discharge DVT prophylaxis -Heparin drip CODE STATUS -DNR no intubation confirmed on admission Charges/Coding Visit Charges Inpatient E&M: 21615 Subs Hosp L2
[2021-10-04 17:31] LABS: Bedside Glucose 236 mg/dL (70-110)
[2021-10-04 17:57] LABS: Partial Thromboplast Time 114.1 Seconds (24.1-36.2)
[2021-10-04] MEDS: Insulin NPH Human 100 UNITS/ML PEN 10 UNITS SC (18:42)
--- NOTE | 2021-10-04 19:16 | DIALYSIS ---
hemodialysis: 3 hour tx complete. net uf 1000 ml's. R arm swollen and unchanged throughout tx, states has been swollen like this for quite some time and had excellent push pull from both needles. [facility] had fistula opened in august. Good bruit and thrill noted. Whittaker pulled with hemostasis after 4 minutes. Tolerated well. See scanned records.
[2021-10-04] MEDS: Ranolazine 500 MG Tablet PO (20:55)
[2021-10-04] MEDS: Atorvastatin Calcium 40 MG Tablet PO (20:55)
[2021-10-04 21:05] LABS: Bedside Glucose 234 mg/dL (70-110)
[2021-10-04] MEDS: Furosemide 40 MG/4 ML Vial IV (22:39)
[2021-10-05] VITALS (18 sets, daily range): BP systolic 98–143; BP diastolic 39–55; PULSE 65–81; RESP 20–33; TEMP 36.6–37; O2SAT 95–99
[2021-10-05 02:35] LABS: Absolute Neutrophil Count 5.1 X10^3/uL (2.0-7.7); Basophil# 0.04 X10^3/uL; Basophil% 0.6 % (0-1); Eosinophil# 0.02 X10^3/uL; Eosinophils% 0.3 % (0-5); Hematocrit 33.5 % (37-47); Hemoglobin 10.4 g/dL (12.0-15.0); Lymphocyte % 13.7 % (19-41); Mean Corpuscular Hgb 31.2 pg (27.0-32.0); Mean Corpuscular Volume 100.6 fL (81-99); Mean Platelet Vol. 11.4 fl (6.2-12.0); Monocyte# 0.45 X10^3/uL; Monocyte% 6.8 % (0-10); NRBC Flagged by Analyzer 0 % (0-5); Neutrophil # 5.09 X10^3/uL (2.7-7.7); Neutrophil % 77.5 % (47-70); POSITIVE MORPHOLOGY YES; Platelet Count 120 K/mm3 (150-450); RBC Distribution Width CV 12.5 % (11.6-14.6); RBC Distribution Width SD 46.8 fl (35.1-43.9); Red Blood Count 3.33 M/mm3 (4.2-5.4); White Blood Count 6.6 K/mm3 (4.4-11.0)
[2021-10-05 02:38] LABS: Differential Indicated SCAN CRITERIA MET
[2021-10-05 02:58] LABS: Hemoglobin A1c 6.9 % (3.8-5.6)
[2021-10-05 03:00] LABS: Partial Thromboplast Time 60.1 Seconds (24.1-36.2)
--- NOTE | 2021-10-05 03:17 | EKG12_ITS ---
Test Reason : POSSIBLE CHANGES Blood Pressure : / mmHG Vent. Rate : 072 BPM Atrial Rate : 072 BPM P-R Int : 150 ms QRS Dur : 090 ms QT Int : 398 ms P-R-T Axes : 030 043 224 degrees QTc Int : 435 ms Normal sinus rhythm Septal infarct , age undetermined ST & T wave abnormality, consider inferolateral ischemia Abnormal ECG Confirmed by HOWARD CALDERA, ROCIO ([id number]), assistant film editor LUIS VILLATORO ([id number]) on 10/05/2021 11:45:50 AM Referred By: Confirmed By:ROCIO LAWRENCE MD
[2021-10-05] MEDS: Albuterol 2.5 MG/3 ML VIAL.NEB. INHALATION (03:56)
[2021-10-05 04:11] LABS: ALB/GLOB Ratio 0.6 RATIO (0.9-2.4); AST(SGOT) 40 U/L (15-37); Alanine Aminotransfer ALT/SGPT 32 U/L (13-56); Albumin, Serum 2.3 g/dL (3.2-5.0); Alkaline Phosphatase 75 U/L (45-117); Anion Gap 8 (5-15); BUN 34 mg/dL (7-18); BUN/Creat Ratio 10.4 RATIO (10-20); Calcium,Total 7.2 mg/dL (8.5-10.1); Chloride 101 mmol/L (98-107); Creatinine, Serum 3.28 mg/dL (0.55-1.02); EST Glomerular Filtration Rate 15 mL/min (>60); Est Glom Filt Rate - Afr Amer 18 mL/min (>60); Estimated Creatinine Clearance 12.45 ml/min; Globulin 3.7 g/dL (2.2-4.2); Glucose 230 mg/dL (74-106); Potassium 3.6 mmol/L (3.5-5.1); Sodium Level 139 mmol/L (136-145); Troponin-I HS 1825 pg/mL (3.0-54.0)
[2021-10-05 04:39] LABS: Atypical Lymphocyte 1+ %
[2021-10-05] MEDS: Ranolazine 500 MG Tablet PO ×2 (06:22→22:29)
[2021-10-05] MEDS: Carvedilol 6.25 MG Tablet PO (06:22)
[2021-10-05] MEDS: Clopidogrel Bisulfate 75 MG Tablet PO (06:22)
[2021-10-05] MEDS: Aspirin E.C. 81 MG Tablet PO (06:22)
[2021-10-05] MEDS: 0.9% Saline Lock 10 ML Syringe IV (06:24)
[2021-10-05 06:56] LABS: Bedside Glucose 217 mg/dL (70-110)
[2021-10-05 08:27] LABS: Hepatitis B Surface Antigen Non-Reactive (Nonreactive)
--- NOTE | 2021-10-05 09:39 | CASEMGMT ---
Pt qualifies for palliative referral per screening tool and Dr. Marie is agreeable. Order placed and email to palliative. Fatoumata PATHAK CM
[2021-10-05 09:58] LABS: Partial Thromboplast Time 61.8 Seconds (24.1-36.2)
--- NOTE | 2021-10-05 10:00 | PN.CARD_ITS ---
Documented by User: Bernice MEDINA, ADAM 10/05/21 10:18 Subjective Subjective Pt notes that her chest pain is now only with exertion. She still notes that she is coughing and is SOB. EF is slightly lower than last year Objective Data Vital Signs: Vital Signs Temp Pulse Resp BP Pulse Ox 98.2 F 74 29 H 107/44 L 96 10/05/21 06:00 10/05/21 07:00 10/05/21 07:00 10/05/21 07:00 10/05/21 08:00 Oxygen Flow Rate (L/min) 3 Oxygen Delivery Method Nasal Cannula Weight: 131 lb 2.801 oz Body Mass Index (BMI) 24.7 Intake & Output: Intake and Output for Last 24 Hours 10/03/21 10/04/21 10/05/21 23:59 23:59 23:59 Intake Total 712.25 / 712.25 819.27 / 942.27 179.67 / 179.67 Output Total 1999 0 / 0 Balance 712.25 / 712.25 -1180.73 / -1057.73 179.67 / 179.67 Lab / Micro Data Result Diagrams: 10/05/21 02:10 10/05/21 02:10 Labs: Laboratory Results - last 24 hr 10/04/21 10:55: POC Glucose 369 H 10/04/21 11:45: PT 13.3, INR 1.1, APTT 32.1 10/04/21 16:15: Hep Bs Antigen Non-Reactive 10/04/21 17:25: POC Glucose 236 H 10/04/21 17:30: APTT 114.1 H* 10/04/21 20:56: POC Glucose 234 H 10/05/21 02:10: Sodium 139, Potassium 3.6, Chloride 101, Carbon Dioxide 30.0, Anion Gap 8, BUN 34 H, Creatinine 3.28 H, Estim Creat Clear Calc 12.45, Est GFR (MDRD) Af Amer 18 L, Est GFR (MDRD) Non-Af 15 L, BUN/Creatinine Ratio 10.4, Glucose 230 H, Calcium 7.2 L, Total Bilirubin 0.30, AST 40 H, ALT 32, Alkaline Phosphatase 75, Troponin I High Sens 1825 H*, Total Protein 6.0 L, Albumin 2.3 L , Globulin 3.7, Albumin/Globulin Ratio 0.6 L 10/05/21 02:10: Hemoglobin A1c 6.9 H 10/05/21 02:10: WBC 6.6, RBC 3.33 L, Hgb 10.4 L, Hct 33.5 L, MCV 100.6 H, MCH 31.2, MCHC 31.0 L, RDW Std Deviation 46.8 H, RDW Coeff of Andrzej 12.5, Plt Count 120 L, MPV 11.4, Immature Gran % (Auto) 1.100 H, Neut % (Auto) 77.5 H, Lymph % (Auto) 13.7 L, [place] % (Auto) 6.8, Eos % (Auto) 0.3, Baso % (Auto) 0.6, Absolute Neuts (auto) 5.1, Absolute Lymphs (auto) 0.90, Nucleated RBC % 0, Atypical Lymphocytes 1+ 10/05/21 02:10: APTT 60.1 H 10/05/21 06:51: POC Glucose 217 H 10/05/21 09:18: APTT 61.8 H Micro: Microbiology 10/03/21 12:25 Blood Culture (Wb) #2 - Right Hand Bacteria Detection (PCR) - Final Coag Negative Staph 10/03/21 12:25 Blood Culture (Wb) #2 - Right Hand Blood Culture - Preliminary Coag Negative Staph Gram positive organism Cardiology Labs/Tests 10/04/21 11:45: PT 13.3, INR 1.1, APTT 32.1 10/04/21 17:30: APTT 114.1 H* 10/05/21 02:10: Sodium 139, Potassium 3.6, Chloride 101, Carbon Dioxide 30.0, Anion Gap 8, BUN 34 H, Creatinine 3.28 H, Est GFR (MDRD) Af Amer 18 L, Est GFR (MDRD) Non-Af 15 L, BUN/Creatinine Ratio 10.4, Glucose 230 H, Calcium 7.2 L, Total Bilirubin 0.30 10/05/21 02:10: Hemoglobin A1c 6.9 H 10/05/21 02:10: WBC 6.6, RBC 3.33 L, Hgb 10.4 L, Hct 33.5 L, MCV 100.6 H, MCH 31.2, MCHC 31.0 L, Plt Count 120 L, MPV 11.4, Immature Gran % (Auto) 1.100 H, Neut % (Auto) 77.5 H, Lymph % (Auto) 13.7 L, [place] % (Auto) 6.8, Eos % (Auto) 0.3, Baso % (Auto) 0.6, Absolute Neuts (auto) 5.1, Nucleated RBC % 0 10/05/21 02:10: APTT 60.1 H 10/05/21 09:18: APTT 61.8 H Rhythm: SR Cardiac Cath from 10/06/2020: severe [place] CAD as described. Patent 4/4 bypass grafts. 80% stenosis of R external iliac artery Radiography Diagnostic Testing: Radiology Impression Echocardiogram 10/04/21 11:44 Interpretation Summary The estimated ejection fraction is 30-35 %. Ordering Physician: Bernice Akins Referring Physician: Sergio Maxwell Performed By: Lizeth Esquivel RDCS Physical Exam Const alert and oriented x3 HEENT normocephalic Eyes PERRL, EOMs intact bilaterally, conjunctivae normal and no scleral icterus Neck full ROM Resp Auscultation: wheezes throughout and diminished lung sounds Cardio regular rate, regular rhythm, S1 normal heart sound, S2 normal heart sound, no murmurs, no rub and no gallops Extremity Extremity Narrative: AV fistula left upper arm Neuro oriented x3 and CN's II-XII intact bilaterally Assessment & Plan Assessment/Plan (1) Non-ST elevation myocardial infarction (NSTEMI): (2) Atherosclerosis of coronary artery of [place] heart without angina pectoris: QUALIFIERS: Coronary Disease-Associated Artery/Lesion type: unspecified vessel or lesion type Qualified Code(s): I25.10 - Atherosclerotic heart disease of [place] coronary artery without angina pectoris (3) Ischemic cardiomyopathy: (4) End stage renal disease: (5) Essential hypertension: PLAN: * Troponin trending down. * hesitant to proceed with heart cath today d/t her significant pneumonia and her decreased EF. Concerned about worsening heart failure and her DNR status while undergoing heart cath. Would like to wait until her pneumonia improves. Considering heart cath on Friday. Of note for her heart cath she does have 80% stenosis of her Rt External Iliac artery. * will continue with maximum medical therapy with heparin drip as well as NTG drip. ASA, Plavix, Atorvastatin, and Coreg. Charges/Coding Visit Charges Inpatient E&M: 10992 Subs Hosp L3 Documented by User: Dr. Judy Prescott MD 10/05/21 17:18 Lab / Micro Data Result Diagrams: 10/05/21 02:10 10/05/21 02:10 Assessment & Plan Assessment/Plan (1) Non-ST elevation myocardial infarction (NSTEMI): (2) Atherosclerosis of coronary artery of [place] heart without angina pectoris: QUALIFIERS: Coronary Disease-Associated Artery/Lesion type: unspecified vessel or lesion type Qualified Code(s): I25.10 - Atherosclerotic heart disease of [place] coronary artery without angina pectoris (3) History of left heart catheterization: (4) Dialysis patient: PLAN: I saw this patient today, along with the midlevel examined, reviewed all the current data including the groundwater monitoring technician current lab evaluation with a series of high sensitive troponin and imaging with chest x-ray, and the cardiac care plan discussed in detail With the patient as well as the nursing staff Agree with the current plan of management, as Per midlevel documentation. Cardiac care plan and recommendation; Patient has last cardiac catheterization September 2020 which showed severe [place] coronary atherosclerosis with occluded LAD, left circumflex and RCA and patency of the grafts. We will continue current medical treatment and once is stable clinically and improving on the current antibiotic treatment and dialysis from cardiac standpoint, will consider cardiac catheterization on Friday Approach will be left common femoral artery approach as she has 80% stenosis of the right external iliac artery and she had dialysis fistula in the left upper extremity.
[2021-10-05] MEDS: predniSONE 20 MG Tablet 40 MG PO ×2 (11:12→17:12)
[2021-10-05] MEDS: Insulin Lispro 100 UNIT/ML INSULN.PEN SC ×3 (11:12→22:42)
[2021-10-05 11:20] LABS: Bedside Glucose 190 mg/dL (70-110)
--- NOTE | 2021-10-05 13:28 | CON.PCM.PA_ITS ---
Assessment & Plan Assessment/Plan (1) Nausea & vomiting: QUALIFIERS: Vomiting type: unspecified Qualified Code(s): R11.2 - Nausea with vomiting, unspecified (2) Aspiration pneumonia: QUALIFIERS: Aspiration pneumonia type: due to vomit Laterality: left Lung location: lower lobe of lung Qualified Code(s): J69.0 - Pneumonitis due to inhalation of food and vomit (3) Non-ST elevation myocardial infarction (NSTEMI): (4) End stage renal disease: (5) Ischemic cardiomyopathy: (6) Dialysis patient: PLAN: 65-year-old female with ESRD on hemodialysis, admitted with aspiration pneumonia due to nausea and vomiting while at dialysis and non-STEMI. She is awaiting possible heart cath on Friday. 1. Nausea and vomiting: Controlled on current medications, which is Zofran 4 mg IV every 8 hours PRN. Somewhat associated with her chest pain. Pending evaluation. She does have sublingual Zofran at home, no changes recommended at this time. 2. Aspiration pneumonia: She is on antibiotics and steroids. Breathing has improved somewhat and she has been weaned to 2 L of oxygen supplementation. Skin felt hot on exam, nursing is checking her temperature. Respiratory panel unremarkable. Defer management to hospitalist 3. NSTEMI/ischemic cardiomyopathy/known coronary artery disease/ESRD on HD: Complicates overall care, management, recovery, and prognosis. Again, awaiting possible heart cath on Friday if she is medically stable. She does wish to have intervention if that is recommended. Not entirely sure she would tolerate surgery at this point. She is palliative appropriate. If she decides she does not want to pursue intervention and would need hospice care, she is open to that idea in the future. Her mother was on hospice and just . Thank you for the opportunity to participate in this patient's care, please do not hesitate to contact [facility] with any further questions or concerns. Palliative direct line is [phone]. We will follow up after discharge and will discuss palliative services further at that time. She is unsure at this point if she will need services when she goes home, however I explained in great detail what palliative does, goals of care, and symptom management. Unclear if she fully understands our discussion. Greater than 50% of F2F visit dedicated to education and counseling of palliative care services, medications, comorbid conditions and potential assistance with management, and plan of care moving forward. Start time: 1328 End time: 1422 HPI Consult Data Date of Consult: 10/05/21 HPI Narrative HPI Narrative: KONRAD CAI, is a 65 F who presented to [facility] 10/03/2021 with a few day history of progressive shortness of breath and fever. Patient is on hemodialysis every Friday, Friday, and Friday. It was thought she possibly aspirated emesis during dialysis. She was hypoxic upon arrival at 82% on room air. Missed dialysis on Friday. She was admitted for further evaluation and management. Patient found to have non-STEMI. There are plans to perform cardiac catheterization 10/05, however that is on hold. She was having some chest pain so was on a nitroglycerin drip. Echocardiogram 10/04/2021 showed estimated EF of 30-35% and mild RV systolic dysfunction. She remains on IV antibiotics for pneumonia. Followed by nephrology for recommendations given hemodialysis. She is being treated for aspiration pneumonia. As of 10/04, she was weaned to 2 L of oxygen and saturating in the mid 90s. Covid rapid was negative. She remains on a heparin and nitro drip for ongoing pain. She does have a history of a CABG in 2005. Heart catheterization on hold due to concern with worsening heart failure and significant pneumonia. Possibly proceed with heart cath on Friday, will remain on heparin and nitroglycerin until then as long as tolerated. Patient reports she feels very weak and fatigued. She is sitting up in the chair, no significant current shortness of breath, remains on 2 L of oxygen. Denies any cough or wheezing. Her lungs are very coarse bilaterally. Complains of lower extremity edema. Her left hand is swollen and red as well, states is chronic but looking better. She does have some healing wounds to the fingers. States it is due to her fistula/circulation issues that needs some attention, however she has not been unable to get this accomplished. States she cannot even bump it on something or it is excruciating pain. No current nausea but she has been having intermittent nausea. She has nausea when at dialysis at times, but not always. No vomiting today. No dizziness or current chest pain, however the chest pain is coming and going. Discussed if she would want intervention if cardiology determines she would need surgery for coronary arteries, she states that she would like to proceed. Patient is currently a DNR CCA. FOR[facility]LY [facility], [facility] Medical History Acute electrocardiogram changes EMPERATRIZ (acute kidney injury) Anemia of chronic disease Atherosclerosis of coronary artery of [place] heart without angina pectoris CHF exacerbation Chronic renal failure, stage 4 (severe) Diabetes mellitus type 1 Dialysis patient Elevated troponin Elevated troponin Essential hypertension Hypotension Insomnia Interstitial lung disease Macrocytic anemia Non-ST elevation myocardial infarction (NSTEMI) Uncontrolled type I diabetes mellitus Vitamin D deficiency Home Medications insulin aspart U-100 3 units SC LUNCH 03/20/18 [History Last Taken 10/02/20] insulin NPH isoph U-100 human 5 units SC QHS 10/28/18 [History Last Taken 10/02/20] insulin aspart U-100 15 units SC BREAKFAST 10/28/18 [History Last Taken 10/03/20] atorvastatin 40 mg PO DAILY 10/03/20 [History Last Taken 10/03/20] insulin aspart U-100 5 units SC DINNER 10/03/20 [History Last Taken 10/02/20] clopidogrel 75 mg PO DAILY #30 tab 10/10/20 [Rx Last Taken Unknown] albuterol sulfate 90 mcg/actuation aerosol inhaler 2 puff INHALATION Q6H PRN 11/06/20 [History Last Taken Unknown] aspirin 81 mg tablet,delayed release 81 mg PO DAILY 11/06/20 [History Last Taken Unknown] ondansetron 4 mg disintegrating tablet 4 mg PO Q6H PRN 11/06/20 [History Last Taken Unknown] trazodone 50 mg tablet 50 mg PO QHS PRN 11/06/20 [History Last Taken Unknown] carvedilol 6.25 mg tablet 6.25 mg PO DAILY tab 11/07/20 [History Last Taken Unknown] furosemide 40 mg tablet 40 mg PO DAILY #30 tab 11/07/20 [Rx Last Taken Unknown] isosorbide mononitrate 60 mg tablet,extended release 24 hr 30 mg PO DAILY tablet 01/18/21 [History Last Taken Unknown] guaifenesin 1,200 mg tablet, extended release 12 hr 1,200 mg PO BID tablet 02/13/21 [History Last Taken Unknown] alendronate 70 mg tablet 70 mg PO QWEEK 09/25/21 [History Last Taken Unknown] Allergy/AdvReac Type Severity Reaction Status Date / Time levofloxacin [From Levaquin] Allergy Severe Other Verified 10/03/21 11:26 Family History Mother Hypertension Cancer Father Hypertension CVA (cerebral vascular accident) Surgical History History of arteriovenostomy for renal dialysis History of coronary artery bypass graft (~2005) History of left heart catheterization (10/06/20) Hx of carpal tunnel repair Social History Smoking Status: Never smoker second hand exposure: No alcohol intake: never substance use type: does not use caffeine: Yes Type: coffee what type of physical activity do you participate in: none frequency: does not exercise ROS ROS Narrative Review of systems otherwise negative from a constitutional, HEENT, respiratory, cardiovascular, GI, genitourinary, musculoskeletal, skin, neurologic, psychiatric and hematologic system unless stated above. Physical Exam Const alert, oriented x3 and no apparent distress General Appearance: cooperative and ill appearing HEENT normocephalic and head/scalp atraumatic Neck supple General: trachea midline Resp Resp Narrative: Dyspnea with exertion, none with conversation. Coarse rales throughout bilateral lung klein, faint expiratory wheezes. Diminished throughout Effort and Inspection: able to speak in complete sentences and symmetric chest movement Cardio regular rate and regular rhythm Heart Sounds: murmur GI soft to palpation and non-tender Inspection: abdominal distention Auscultation: normoactive bowel sounds Extremity General Extremity: clubbing and edema; Negative for cyanosis Skin Skin Narrative: Scabs to digits of left hand, erythema Neuro CN's II-XII intact bilaterally, moves all extremities and no focal motor deficits Psych mental status grossly normal Attitude: engaged Activity / Motor Behavior: appropriate eye contact Speech: normal speech Mood & Affect: depressed Memory / Cognition: memory grossly intact
--- NOTE | 2021-10-05 14:14 | PN.RENAL_ITS ---
Subjective Subjective no new complaints. for cath friday Objective Data Objective Data Vital Signs: Vital Signs Temp Pulse Resp BP Pulse Ox 98.1 F 72 20 H 116/39 L 97 10/05/21 11:00 10/05/21 11:00 10/05/21 11:00 10/05/21 11:00 10/05/21 11:00 Oxygen Flow Rate (L/min) 3 Oxygen Delivery Method Nasal Cannula Weight: 59.5 kg Body Mass Index (BMI) 24.7 Intake & Output: Intake and Output for Last 24 Hours 10/03/21 10/04/21 10/05/21 23:59 23:59 23:59 Intake Total 712.25 / 712.25 819.27 / 942.27 302.17 / 302.17 Output Total 1999 0 / 0 Balance 712.25 / 712.25 -1180.73 / -1057.73 302.17 / 302.17 Lab / Micro Data Result Diagrams: 10/05/21 02:10 10/05/21 02:10 Labs: Laboratory Results - last 24 hr 10/04/21 16:15: Hep Bs Antigen Non-Reactive 10/04/21 17:25: POC Glucose 236 H 10/04/21 17:30: APTT 114.1 H* 10/04/21 20:56: POC Glucose 234 H 10/05/21 02:10: Sodium 139, Potassium 3.6, Chloride 101, Carbon Dioxide 30.0, Anion Gap 8, BUN 34 H, Creatinine 3.28 H, Estim Creat Clear Calc 12.45, Est GFR (MDRD) Af Amer 18 L, Est GFR (MDRD) Non-Af 15 L, BUN/Creatinine Ratio 10.4, Glucose 230 H, Calcium 7.2 L, Total Bilirubin 0.30, AST 40 H, ALT 32, Alkaline Phosphatase 75, Troponin I High Sens 1825 H*, Total Protein 6.0 L, Albumin 2.3 L , Globulin 3.7, Albumin/Globulin Ratio 0.6 L 10/05/21 02:10: Hemoglobin A1c 6.9 H 10/05/21 02:10: WBC 6.6, RBC 3.33 L, Hgb 10.4 L, Hct 33.5 L, MCV 100.6 H, MCH 31.2, MCHC 31.0 L, RDW Std Deviation 46.8 H, RDW Coeff of Andrzej 12.5, Plt Count 120 L, MPV 11.4, Immature Gran % (Auto) 1.100 H, Neut % (Auto) 77.5 H, Lymph % (Auto) 13.7 L, Carbon % (Auto) 6.8, Eos % (Auto) 0.3, Baso % (Auto) 0.6, Absolute Neuts (auto) 5.1, Absolute Lymphs (auto) 0.90, Nucleated RBC % 0, Atypical Lymphocytes 1+ 10/05/21 02:10: APTT 60.1 H 10/05/21 06:51: POC Glucose 217 H 10/05/21 09:18: APTT 61.8 H 10/05/21 11:10: POC Glucose 190 H Micro: Microbiology 10/05/21 10:24 Mucosa - Nose Respiratory Panel (PCR) - Final 10/03/21 11:55 Blood Culture (Wb) - Right Wrist Blood Culture - Preliminary No growth in 48 hours. 10/03/21 12:25 Blood Culture (Wb) #2 - Right Hand Bacteria Detection (PCR) - Final Coag Negative Staph 10/03/21 12:25 Blood Culture (Wb) #2 - Right Hand Blood Culture - Final Coag Negative Staph Coag Negative Staph#2 10/03/21 12:00 Nasal Secretion SARS-CoV-2 Antigen (Rapid) - Final 10/03/21 12:00 Mucosa - Nasopharyngeal Influenza Types A,B Direct FA (NIGEL) - Final Radiography Diagnostic Testing: Radiology Impression Echocardiogram 10/04/21 11:44 Interpretation Summary The estimated ejection fraction is 30-35 %. Ordering Physician: Bernice Akins Referring Physician: Sergio Maxwell Performed By: Lizeth Esquivel RDCS Physical Exam Narrative Alert awake oriented x 3 no obvious distress no pallor no icterus no JVD s1s2 no murmurs lungs clear abdomen soft no organomegaly no edema no cyanosis Assessment & Plan Assessment/Plan (1) End stage renal disease: PLAN: Usually on dialysis Friday, Friday, Friday schedule. HD yesterday. will run tomorrow again. she will be off schedule for this week. for cath on friday (2) Aspiration pneumonia: QUALIFIERS: Aspiration pneumonia type: due to vomit Laterality: left Lung location: lower lobe of lung Qualified Code(s): J69.0 - Pneumonitis due to inhalation of food and vomit
--- NOTE | 2021-10-05 14:16 | CT_ITS ---
STUDY: CT CHEST WITHOUT CONTRAST REASON FOR EXAM: Female, 65 years old. SOB RADIATION DOSAGE (If Supplied By Facility): CTDIvol = ( 7.33 ) mGy, DLP = ( 231.30 ) mGycm TECHNIQUE: Transaxial imaging was performed without the administration of intravenous contrast material. Multiplanar coronal and sagittal images were reformatted. Individualized dose optimization techniques were used for this CT. COMPARISON: Comparison is made with prior chest radiograph dated 10/03/[address] scan of the chest dated 12/27/2017. FINDINGS: There are multiple enlarged left axillary lymph nodes. Diffuse bilateral pulmonary infiltrates involving both upper and lower lobes. This is worse on the left side. There is no demonstrated pleural abnormality. There is mild cardiac enlargement. There are calcifications of the coronary arteries. Status post CABG. Normal mediastinum. Normal hilar regions. Normal unenhanced pulmonary arteries. Normal aorta arch and descending thoracic aorta. Normal osseous structures. There is no demonstrated abnormality of the visualized upper abdomen. CT/Chest without Contrast IMPRESSION: Diffuse bilateral pulmonary infiltrates worse in the left hemithorax. Enlarged left axillary lymph nodes. Electronically Signed: Vijay Emerson MD at 15:25 EST , Service support ,
[2021-10-05] MEDS: Insulin NPH Human 100 UNITS/ML PEN 16 UNITS SC (17:08)
[2021-10-05 17:15] LABS: Partial Thromboplast Time 52.3 Seconds (24.1-36.2)
[2021-10-05 17:16] LABS: Bedside Glucose 379 mg/dL (70-110)
[2021-10-05] MEDS: Heparin Injection (Vial) 5,000 UNIT/ML VIAL IV (17:21)
[2021-10-05 18:26] LABS: Probe Check PASS; Specimen Processing Control PASS
[2021-10-05] MEDS: Atorvastatin Calcium 40 MG Tablet PO (22:29)
[2021-10-05 23:25] LABS: Bedside Glucose 468 mg/dL (70-110)
[2021-10-06] VITALS (9 sets, daily range): BP systolic 127–149; BP diastolic 47–56; PULSE 65–77; RESP 16–20; TEMP 36.2–36.9; O2SAT 94–97
[2021-10-06 00:34] LABS: Partial Thromboplast Time 63.1 Seconds (24.1-36.2)
[2021-10-06 06:25] LABS: Absolute Lymphocyte Count 0.71 X10^3/uL (0.83-4.51); Absolute Neutrophil Count 5.4 X10^3/uL (2.0-7.7); Basophil# 0.02 X10^3/uL; Basophil% 0.3 % (0-1); Hematocrit 36.9 % (37-47); Hemoglobin 11.7 g/dL (12.0-15.0); Lymphocyte # 0.71 X10^3/ul (0.83-4.51); Lymphocyte % 11.1 % (19-41); Mean Corp Hgb Conc 31.7 g/dL (32-36); Mean Corpuscular Hgb 31.8 pg (27.0-32.0); Mean Corpuscular Volume 100.3 fL (81-99); Mean Platelet Vol. 11.7 fl (6.2-12.0); Monocyte# 0.21 X10^3/uL; Monocyte% 3.3 % (0-10); NRBC Flagged by Analyzer 0 % (0-5); Neutrophil # 5.38 X10^3/uL (2.7-7.7); Neutrophil % 84.2 % (47-70); POSITIVE MORPHOLOGY YES; Platelet Count 155 K/mm3 (150-450); RBC Distribution Width CV 12.6 % (11.6-14.6); RBC Distribution Width SD 46.8 fl (35.1-43.9); Red Blood Count 3.68 M/mm3 (4.2-5.4); White Blood Count 6.4 K/mm3 (4.4-11.0)
[2021-10-06 06:29] LABS: Differential Indicated SCAN CRITERIA MET
[2021-10-06 06:45] LABS: Partial Thromboplast Time 84.8 Seconds (24.1-36.2)
[2021-10-06 06:48] LABS: Anion Gap 10 (5-15); BUN 50 mg/dL (7-18); BUN/Creat Ratio 10.5 RATIO (10-20); Calcium,Total 7.2 mg/dL (8.5-10.1); Chloride 99 mmol/L (98-107); Creatinine, Serum 4.74 mg/dL (0.55-1.02); EST Glomerular Filtration Rate 10 mL/min (>60); Est Glom Filt Rate - Afr Amer 12 mL/min (>60); Estimated Creatinine Clearance 8.61 ml/min; Glucose 429 mg/dL (74-106); Potassium 4.3 mmol/L (3.5-5.1); Sodium Level 134 mmol/L (136-145)
[2021-10-06 07:06] LABS: Anisocytosis 1+; Atypical Lymphocyte RARE %; Differential Comment SCANNED; Macrocytosis 1+
--- NOTE | 2021-10-06 09:19 | PCM.PN.HOSP ---
Subjective Subjective This is a late entry note from date of service 10/05/2021. Pt sitting up in bed. States that she is still having cough but SOB is better. Denies CP. Remains on 3 L supplemental O2. Denies any needs at this time. Objective Data Objective Data Vital Signs: Vital Signs Temp Pulse Resp BP Pulse Ox 97.2 F L 73 20 H 136/53 H 97 10/06/21 04:35 10/06/21 07:00 10/06/21 04:35 10/06/21 04:35 10/06/21 04:35 Oxygen Flow Rate (L/min) 3 Oxygen Delivery Method Nasal Cannula Weight: 59.5 kg Body Mass Index (BMI) 24.7 Intake & Output: Intake and Output for Last 24 Hours 10/04/21 10/05/21 10/06/21 23:59 23:59 23:59 Intake Total 819.27 / 942.27 593.59 / 593.59 80.8 / 80.8 Output Total 1999 0 / 0 0 / 0 Balance -1180.73 / -1057.73 593.59 / 593.59 80.8 / 80.8 Lab / Micro Data Result Diagrams: 10/06/21 06:12 10/06/21 06:12 Labs: Laboratory Results - last 24 hr 10/05/21 09:18: APTT 61.8 H 10/05/21 11:10: POC Glucose 190 H 10/05/21 16:12: APTT 52.3 H 10/05/21 17:04: COVID-19 (PIETER) Negative 10/05/21 17:06: POC Glucose 379 H 10/05/21 22:31: POC Glucose 468 H* 10/06/21 00:10: APTT 63.1 H 10/06/21 06:12: WBC 6.4, RBC 3.68 L, Hgb 11.7 L, Hct 36.9 L, MCV 100.3 H, MCH 31.8, MCHC 31.7 L, RDW Std Deviation 46.8 H, RDW Coeff of Andrzej 12.6, Plt Count 155, MPV 11.7, Immature Gran % (Auto) 1.100 H, Neut % (Auto) 84.2 H, Lymph % (Auto) 11.1 L, [place] % (Auto) 3.3, Eos % (Auto) 0.0, Baso % (Auto) 0.3, Absolute Neuts (auto) 5.4, Absolute Lymphs (auto) 0.71 L, Nucleated RBC % 0, Differential Comment SCANNED, Atypical Lymphocytes RARE, Anisocytosis 1+, Macrocytosis 1+ 10/06/21 06:12: Sodium 134 L, Potassium 4.3, Chloride 99, Carbon Dioxide 25.0, Anion Gap 10, BUN 50 H, Creatinine 4.74 H, Estim Creat Clear Calc 8.61, Est GFR (MDRD) Af Amer 12 L, Est GFR (MDRD) Non-Af 10 L, BUN/Creatinine Ratio 10.5, Glucose 429 H, Calcium 7.2 L 10/06/21 06:12: APTT 84.8 H 10/06/21 06:12: Magnesium 2.0 Micro: Microbiology 10/05/21 10:24 Mucosa - Nose Respiratory Panel (PCR) - Final 10/03/21 11:55 Blood Culture (Wb) - Right Wrist Blood Culture - Preliminary No growth in 48 hours. 10/03/21 12:25 Blood Culture (Wb) #2 - Right Hand Bacteria Detection (PCR) - Final Coag Negative Staph 10/03/21 12:25 Blood Culture (Wb) #2 - Right Hand Blood Culture - Final Coag Negative Staph Coag Negative Staph#2 10/03/21 12:00 Nasal Secretion SARS-CoV-2 Antigen (Rapid) - Final 10/03/21 12:00 Mucosa - Nasopharyngeal Influenza Types A,B Direct FA (NIGEL) - Final Radiography Diagnostic Testing: Radiology Impression Chest CT 10/05/21 14:16 IMPRESSION: Diffuse bilateral pulmonary infiltrates worse in the left hemithorax. Enlarged left axillary lymph nodes. Electronically Signed: Vijay Emerson MD at 15:25 EST , Service support , Physical Exam Const alert, oriented x3 and no apparent distress Constitutional Narrative: Overweight middle-aged white female who appears much older than stated age, nontoxic appearing, sitting up in bed and appears comfortable General Appearance: cooperative Orientation / Consciousness: confused Exam Limitations: no limitations Nutritional Appearance: overweight HEENT head/scalp atraumatic and moist oral mucous membranes Head and Scalp: normocephalic Neck General: trachea midline Lymph Lymphatic: no lymphadenopathy noted Resp normal respiratory effort Resp Narrative: Bilateral rhonchi-improved some-right being greater than left, few scattered crackles, no signs of respiratory distress Effort and Inspection: able to speak in complete sentences and symmetric chest movement Cardio regular rate, regular rhythm, S1 normal heart sound, S2 normal heart sound, no murmurs, no rub, no gallops, no clicks, no JVD and peripheral pulses 2+ throughout GI normal to inspection, nondistended, normoactive bowel sounds, soft to palpation, non-tender and non-distended Extremity normal capillary refill and no clubbing, cyanosis or edema Extremity Narrative: AV fistula left upper arm General Extremity: no tenderness to palpation of joints or extremities Peripheral Pulses: Yes pulses 2+ throughout Skin General Skin Exam: no breakdown and turgor normal Lesions: no lesions Rashes: no rashes Neuro moves all extremities and no focal motor deficits Neuro Narrative: generalized weakness Sensorium / Orientation: awake and alert Speech: speech normal Psych cooperative Mood & Affect: flat affect Assessment & Plan Assessment/Plan (1) Non-ST elevation myocardial infarction (NSTEMI): (2) Atherosclerosis of coronary artery of [place] heart without angina pectoris: QUALIFIERS: Coronary Disease-Associated Artery/Lesion type: unspecified vessel or lesion type Qualified Code(s): I25.10 - Atherosclerotic heart disease of [place] coronary artery without angina pectoris (3) Ischemic cardiomyopathy: (4) End stage renal disease: (5) Essential hypertension: PLAN: Acute hypoxic respiratory failure secondary to aspiration pneumonia after emesis -Patient is on no oxygen at baseline pt remains on 2 L today with oxygen saturations in the mid 90s -Wean oxygen as able -Continue incentive spirometer -Continue Acapella -Continue Unasyn and would cover for total of 7 days -strep pneumo and Legionella urine antigens are neg -Covid is negative x2 -viral panel is negative -CT chest with diffuse B airspace disease -add pred 40 mg BID -monitor BS -Blood cultures 1 of 2+ for coag negative staph--> contaminant -if not improving may need to consider pulm consult NSTEMI -Patient remains on a heparin ggt -nitro off and pt pain free -Probable left heart cath Friday -Allergies following -Continue Plavix, aspirin, atorvastatin, carvedilol, isosorbide mononitrate -Patient with CABG remotely (2005)--> SIMS to LAD, sequential SVG to OM and posterior lateral circumflex, SVG to diagonal CAD -See above Hyperlipidemia -Continue statin Hypertension -Continue home medications including carvedilol and isosorbide mononitrate -Continue nitro drip End-stage renal disease on dialysis -Dialysis Friday at baseline -Missed HD yesterday -Neurology consulted -No current need for emergent dialysis Acute thrombocytopenia -Relatively stable since admission -Continue to monitor -Etiology unclear Chronic anemia secondary to renal disease -Hemoglobin is stable -Continue to monitor DM-1 -hemoglobin A1c 6.9 -Blood sugars are markedly elevated and suspect further increase with pred -Increase NPH to 16 units twice daily from 10 units bid -Continue SSI -Accu-Cheks as ordered Osteoporosis -Restart alendronate at discharge DVT prophylaxis -Heparin drip CODE STATUS -DNR no intubation confirmed on admission Charges/Coding Visit Charges Inpatient E&M: 85162 Subs Hosp L2
[2021-10-06 12:11] LABS: Bedside Glucose 319 mg/dL (70-110)
--- NOTE | 2021-10-06 12:24 | PCM.PN.HOSP ---
Documented by User: Javier MEDINA 10/06/21 12:41 Subjective Subjective Patient is a 65-year-old female comfortably resting in bed and being dialyzed, alert and orient x3. Patient denies development of any new symptoms overnight. Does not appear in acute distress. Objective Data Objective Data Vital Signs: Vital Signs Temp Pulse Resp BP Pulse Ox 97.2 F L 65 20 H 136/53 H 97 10/06/21 04:35 10/06/21 11:00 10/06/21 04:35 10/06/21 04:35 10/06/21 04:35 Oxygen Flow Rate (L/min) 3 Oxygen Delivery Method Nasal Cannula Weight: 131 lb 2.801 oz Body Mass Index (BMI) 24.7 Intake & Output: Intake and Output for Last 24 Hours 10/04/21 10/05/21 10/06/21 23:59 23:59 23:59 Intake Total 819.27 / 942.27 593.59 / 593.59 157.84 / 157.84 Output Total 1999 0 / 0 0 / 0 Balance -1180.73 / -1057.73 593.59 / 593.59 157.84 / 157.84 Lab / Micro Data Result Diagrams: 10/06/21 06:12 10/06/21 06:12 Labs: Laboratory Results - last 24 hr 10/05/21 16:12: APTT 52.3 H 10/05/21 17:04: COVID-19 (PIETER) Negative 10/05/21 17:06: POC Glucose 379 H 10/05/21 22:31: POC Glucose 468 H* 10/06/21 00:10: APTT 63.1 H 10/06/21 06:12: WBC 6.4, RBC 3.68 L, Hgb 11.7 L, Hct 36.9 L, MCV 100.3 H, MCH 31.8, MCHC 31.7 L, RDW Std Deviation 46.8 H, RDW Coeff of Andrzej 12.6, Plt Count 155, MPV 11.7, Immature Gran % (Auto) 1.100 H, Neut % (Auto) 84.2 H, Lymph % (Auto) 11.1 L, [place] % (Auto) 3.3, Eos % (Auto) 0.0, Baso % (Auto) 0.3, Absolute Neuts (auto) 5.4, Absolute Lymphs (auto) 0.71 L, Nucleated RBC % 0, Differential Comment SCANNED, Atypical Lymphocytes RARE, Anisocytosis 1+, Macrocytosis 1+ 10/06/21 06:12: Sodium 134 L, Potassium 4.3, Chloride 99, Carbon Dioxide 25.0, Anion Gap 10, BUN 50 H, Creatinine 4.74 H, Estim Creat Clear Calc 8.61, Est GFR (MDRD) Af Amer 12 L, Est GFR (MDRD) Non-Af 10 L, BUN/Creatinine Ratio 10.5, Glucose 429 H, Calcium 7.2 L 10/06/21 06:12: APTT 84.8 H 10/06/21 06:12: Magnesium 2.0 10/06/21 12:05: POC Glucose 319 H Micro: Microbiology 10/05/21 10:24 Mucosa - Nose Respiratory Panel (PCR) - Final 10/03/21 11:55 Blood Culture (Wb) - Right Wrist Blood Culture - Preliminary No growth in 48 hours. 10/03/21 12:25 Blood Culture (Wb) #2 - Right Hand Bacteria Detection (PCR) - Final Coag Negative Staph 10/03/21 12:25 Blood Culture (Wb) #2 - Right Hand Blood Culture - Final Coag Negative Staph Coag Negative Staph#2 10/03/21 12:00 Nasal Secretion SARS-CoV-2 Antigen (Rapid) - Final 10/03/21 12:00 Mucosa - Nasopharyngeal Influenza Types A,B Direct FA (NIGEL) - Final Radiography Diagnostic Testing: Radiology Impression Chest CT 10/05/21 14:16 IMPRESSION: Diffuse bilateral pulmonary infiltrates worse in the left hemithorax. Enlarged left axillary lymph nodes. Electronically Signed: Vijay Emerson MD at 15:25 EST , Service support , Physical Exam Const alert, oriented x3 and no apparent distress HEENT head/scalp atraumatic and moist oral mucous membranes Head and Scalp: normocephalic Eyes PERRL, EOMs intact bilaterally and conjunctivae normal Neck no lymphadenopathy, supple and no JVD Resp normal respiratory effort, no retractions, no use of accessory muscles and clear to auscultation bilaterally Cardio regular rate, regular rhythm, no murmurs and no JVD GI normal to inspection, nondistended, normoactive bowel sounds, soft to palpation and non-tender Extremity normal to inspection, full ROM and no clubbing, cyanosis or edema Skin no rashes or lesions noted, no wounds and skin turgor normal Neuro CN's II-XII intact bilaterally Psych affect normal Assessment & Plan Assessment/Plan (1) Non-ST elevation myocardial infarction (NSTEMI): (2) Atherosclerosis of coronary artery of [place] heart without angina pectoris: QUALIFIERS: Coronary Disease-Associated Artery/Lesion type: unspecified vessel or lesion type Qualified Code(s): I25.10 - Atherosclerotic heart disease of [place] coronary artery without angina pectoris PLAN: Day 3 Discharge planning: To be determined 1) acute hypoxic respiratory failure secondary to aspiration pneumonia Patient currently satting 97% on 3 L via nasal cannula, patient is not back to baseline room air oxygen. Strep pneumo and Legionella urinary antigens are negative. Covid is negative. Viral panel is negative. Blood cultures to go coagulase-negative staph, believe this is contaminant. We will continue Unasyn, on day 3 of 7 currently. 2) NSTEMI type II Patient remains on heparin, in anticipation for cardiac catheterization on Friday. Continue Plavix, aspirin, statin, Coreg and isosorbide mononitrate. 3) CAD status post CABG Prior CABG completed SIMS to LAD, sequential SVG to OM and posterior lateral circumflex, SVG to diagonal. As above. 4) hyperlipidemia Continue statin. 5) HTN Stable, continue Coreg and isosorbide. 6) ESRD Being dialyzed today (10/06/2021). Usual dialysis schedule is MWF, although dialysis schedule has been adjusted in anticipation for cardiac catheterization. Nephrology following. 7) acute thrombocytopenia Resolved, currently 155. Unclear etiology, will continue to monitor. 8) anemia of chronic disease Hemoglobin currently 11.7, which is around patient's baseline. Likely secondary to ESRD. Continue to monitor. 9) DM 1 Hemoglobin A1c was 6.9, although blood sugars were elevated on admission, and prednisone was initiated. NPH units increased to 16 units twice daily from home 10 units twice daily. Continue Accu-Cheks sliding scale insulin. 10) osteoporosis Alendronate on hold, will need to reinitiate at discharge. DVT prophylaxis - Heparin Patient seen by Javier Obregon PA-C, under the supervision of Dr. Vincent. Documented by User: Dr. Reno Vincent, 10/06/21 18:35 Objective Data Lab / Micro Data Result Diagrams: 10/06/21 06:12 10/06/21 06:12 Charges/Coding Addendum Addendum: Patient was seen and examined today independently of Javier Obregon, she was undergoing hemodialysis today and had no complaints of any shortness of breath or chest discomfort. On examination she appeared in good health and spirits, she does not appear to be in any distress. Vital signs as documented. Skin warm and dry and without overt rashes. Neck without JVD, thyroid appears normal, trachea is midline, neck is supple. Lungs clear, normal air movement was noted. Heart exam notable for regular rhythm, normal sounds and absence of murmurs, rubs or gallops. Abdomen unremarkable and without evidence of organomegaly, masses, or abdominal aortic enlargement, bowel sounds are present in all 4 quadrants, no abdominal tenderness was noted. Extremities nonedematous, no cyanosis was noted, no clubbing was noted. Neuro: Cranial nerves II through XII are grossly intact, no focal motor deficits were noted, sensation to light touch and pinprick is intact, motor exam 5/5 throughout. Psych: Patient is alert and oriented x3, she does not appear anxious or depressed, she does not appear agitated. At this time, patient's current medications will be continued, she will be set up for a cardiac catheterization on 10/08/2021. I have reviewed Javier Obregon's progress note including his medical assessment and plan of care and endorse it. Visit Charges Inpatient E&M: 33313 Subs Hosp L2
[2021-10-06] MEDS: Aspirin E.C. 81 MG Tablet PO (12:40)
[2021-10-06] MEDS: Carvedilol 6.25 MG Tablet PO (12:40)
[2021-10-06] MEDS: Ranolazine 500 MG Tablet PO ×2 (12:41→20:24)
[2021-10-06] MEDS: predniSONE 20 MG Tablet 40 MG PO ×2 (12:41→16:04)
[2021-10-06] MEDS: Clopidogrel Bisulfate 75 MG Tablet PO (12:41)
[2021-10-06] MEDS: Furosemide 40 MG Tablet PO (12:41)
[2021-10-06] MEDS: Insulin NPH Human 100 UNITS/ML PEN 16 UNITS SC ×2 (12:43→16:05)
[2021-10-06] MEDS: Insulin Lispro 100 UNIT/ML INSULN.PEN SC ×4 (12:49→21:41)
--- NOTE | 2021-10-06 13:17 | PCM.PN.CARD ---
Lab / Micro Data Result Diagrams: 10/08/21 04:18 10/08/21 04:18
--- NOTE | 2021-10-06 13:30 | PCM.PN.CARD ---
Subjective Subjective Seen and evaluated today at bedside along with the nursing staff Feeling better no symptoms of chest pain reported today Objective Data Vital Signs: Vital Signs Temp Pulse Resp BP Pulse Ox 97.8 F 65 18 131/48 H 97 10/06/21 10:35 10/06/21 11:00 10/06/21 10:35 10/06/21 10:35 10/06/21 10:35 Oxygen Flow Rate (L/min) 3 Oxygen Delivery Method Nasal Cannula Weight: 131 lb 2.801 oz Body Mass Index (BMI) 24.7 Intake & Output: Intake and Output for Last 24 Hours 10/04/21 10/05/21 10/06/21 23:59 23:59 23:59 Intake Total 819.27 / 942.27 593.59 / 593.59 157.84 / 157.84 Output Total 1999 0 / 0 0 / 0 Balance -1180.73 / -1057.73 593.59 / 593.59 157.84 / 157.84 Lab / Micro Data Result Diagrams: 10/06/21 06:12 10/06/21 06:12 Labs: Laboratory Results - last 24 hr 10/05/21 16:12: APTT 52.3 H 10/05/21 17:04: COVID-19 (PIETER) Negative 10/05/21 17:06: POC Glucose 379 H 10/05/21 22:31: POC Glucose 468 H* 10/06/21 00:10: APTT 63.1 H 10/06/21 06:12: WBC 6.4, RBC 3.68 L, Hgb 11.7 L, Hct 36.9 L, MCV 100.3 H, MCH 31.8, MCHC 31.7 L, RDW Std Deviation 46.8 H, RDW Coeff of Andrzej 12.6, Plt Count 155, MPV 11.7, Immature Gran % (Auto) 1.100 H, Neut % (Auto) 84.2 H, Lymph % (Auto) 11.1 L, [place] % (Auto) 3.3, Eos % (Auto) 0.0, Baso % (Auto) 0.3, Absolute Neuts (auto) 5.4, Absolute Lymphs (auto) 0.71 L, Nucleated RBC % 0, Differential Comment SCANNED, Atypical Lymphocytes RARE, Anisocytosis 1+, Macrocytosis 1+ 10/06/21 06:12: Sodium 134 L, Potassium 4.3, Chloride 99, Carbon Dioxide 25.0, Anion Gap 10, BUN 50 H, Creatinine 4.74 H, Estim Creat Clear Calc 8.61, Est GFR (MDRD) Af Amer 12 L, Est GFR (MDRD) Non-Af 10 L, BUN/Creatinine Ratio 10.5, Glucose 429 H, Calcium 7.2 L 10/06/21 06:12: APTT 84.8 H 10/06/21 06:12: Magnesium 2.0 10/06/21 12:05: POC Glucose 319 H Micro: Microbiology 10/05/21 10:24 Mucosa - Nose Respiratory Panel (PCR) - Final 10/03/21 11:55 Blood Culture (Wb) - Right Wrist Blood Culture - Preliminary No growth in 48 hours. 10/03/21 12:25 Blood Culture (Wb) #2 - Right Hand Bacteria Detection (PCR) - Final Coag Negative Staph 10/03/21 12:25 Blood Culture (Wb) #2 - Right Hand Blood Culture - Final Coag Negative Staph Coag Negative Staph#2 Cardiology Labs/Tests 10/05/21 16:12: APTT 52.3 H 10/06/21 00:10: APTT 63.1 H 10/06/21 06:12: WBC 6.4, RBC 3.68 L, Hgb 11.7 L, Hct 36.9 L, MCV 100.3 H, MCH 31.8, MCHC 31.7 L, Plt Count 155, MPV 11.7, Immature Gran % (Auto) 1.100 H, Neut % (Auto) 84.2 H, Lymph % (Auto) 11.1 L, [place] % (Auto) 3.3, Eos % (Auto) 0.0, Baso % (Auto) 0.3, Absolute Neuts (auto) 5.4, Nucleated RBC % 0 10/06/21 06:12: Sodium 134 L, Potassium 4.3, Chloride 99, Carbon Dioxide 25.0, Anion Gap 10, BUN 50 H, Creatinine 4.74 H, Est GFR (MDRD) Af Amer 12 L, Est GFR (MDRD) Non-Af 10 L, BUN/Creatinine Ratio 10.5, Glucose 429 H, Calcium 7.2 L 10/06/21 06:12: APTT 84.8 H 10/06/21 06:12: Magnesium 2.0 Rhythm: Normal sinus rhythm Radiography Diagnostic Testing: Radiology Impression Chest CT 10/05/21 14:16 IMPRESSION: Diffuse bilateral pulmonary infiltrates worse in the left hemithorax. Enlarged left axillary lymph nodes. Electronically Signed: Vijay Emerson MD at 15:25 EST , Service support , Physical Exam Narrative Seen and evaluated and examined at bedside today She reported no symptoms of chest pain and no event noted from last night Review of cardiac telemetry revealed underlying normal sinus rhythm Cardiovascular examination; S1-S2 regular, no systolic or diastolic murmur, no pericardial rub, no gallop rhythm Chest examination; She had coarse bilateral crackles with expiratory wheeze. Lower extremity exam no clubbing no cyanosis no lower extremity edema. Assessment & Plan Assessment/Plan (1) End stage renal disease: (2) Ischemic cardiomyopathy: (3) Non-ST elevation myocardial infarction (NSTEMI): PLAN: This patient with extensive cardiac history and multiple medical comorbidities This presentation she had clinical diagnosis of aspiration pneumonia with congestive heart failure She has CAD with CABG and ischemic cardiomyopathy 2005 with SIMS to LAD, sequential SVG graft to the OM1 and posterolateral branch As well she had SVG to diagonal In this presentation she had symptoms of chest pain. With current treatment with antibiotic and dialysis for end-stage renal disease her symptoms improved and his symptoms of chest pain resolved at rest. Her last cardiac catheterization in September 2020 showed severe [place] coronary atherosclerosis with patency of the graft Cardiac care plan and recommendations; 1. To continue the current medical treatment, I discussed in detail the treatment plan with patient and nursing staff 2. We will discuss plan of cardiac catheterization to assess progression of CAD and evaluate her bypass graft She has dialysis fistula on the left arm and also she has peripheral vascular disease with right external iliac artery 80% stenosis Approach will be from the left common femoral artery. (4) History of coronary artery bypass graft: (5) Atherosclerosis of coronary artery of [place] heart without angina pectoris: QUALIFIERS: Coronary Disease-Associated Artery/Lesion type: unspecified vessel or lesion type Qualified Code(s): I25.10 - Atherosclerotic heart disease of [place] coronary artery without angina pectoris (6) Essential hypertension: (7) Peripheral vascular disease: (8) Dialysis patient: (9) Diabetes mellitus type 1: QUALIFIERS: Diabetes mellitus complication status: without complication Qualified Code(s): E10.9 - Type 1 diabetes mellitus without complications (10) Chronic renal failure, stage 4 (severe):
[2021-10-06 13:45] LABS: Partial Thromboplast Time 48.8 Seconds (24.1-36.2)
[2021-10-06] MEDS: Heparin Injection (Vial) 5,000 UNIT/ML VIAL IV (14:40)
[2021-10-06 16:15] LABS: Bedside Glucose 404 mg/dL (70-110)
[2021-10-06] MEDS: Atorvastatin Calcium 40 MG Tablet PO (20:24)
[2021-10-06 20:46] LABS: Bedside Glucose > 500 mg/dL (70-110)
--- NOTE | 2021-10-06 21:14 | PCM.PN.BLA ---
Progress Note Patient continues to have persistently elevated blood glucose. Give extra short acting insulin. Escalate correction scale regimen. Give extra intermediate acting insulin and escalate intermediate regimen. Add prandial insulin.
[2021-10-06 21:30] LABS: Partial Thromboplast Time 61.8 Seconds (24.1-36.2)
[2021-10-06] MEDS: Insulin NPH Human 100 UNITS/ML PEN 8 UNITS SC (21:42)
[2021-10-07] VITALS (7 sets, daily range): BP systolic 117–163; BP diastolic 54–87; PULSE 69–81; RESP 14–18; TEMP 36.6–37; O2SAT 96–100
[2021-10-07 03:53] LABS: Absolute Lymphocyte Count 0.61 X10^3/uL (0.83-4.51); Absolute Neutrophil Count 11.3 X10^3/uL (2.0-7.7); Basophil# 0.02 X10^3/uL; Basophil% 0.2 % (0-1); Hematocrit 36.4 % (37-47); Hemoglobin 11.5 g/dL (12.0-15.0); Lymphocyte # 0.61 X10^3/ul (0.83-4.51); Lymphocyte % 4.9 % (19-41); Mean Corp Hgb Conc 31.6 g/dL (32-36); Mean Corpuscular Hgb 31.6 pg (27.0-32.0); Mean Platelet Vol. 11.7 fl (6.2-12.0); Monocyte# 0.37 X10^3/uL; NRBC Flagged by Analyzer 0 % (0-5); Neutrophil # 11.28 X10^3/uL (2.7-7.7); POSITIVE MORPHOLOGY YES; Platelet Count 181 K/mm3 (150-450); RBC Distribution Width CV 12.7 % (11.6-14.6); RBC Distribution Width SD 46.8 fl (35.1-43.9); Red Blood Count 3.64 M/mm3 (4.2-5.4); White Blood Count 12.4 K/mm3 (4.4-11.0)
[2021-10-07 04:13] LABS: Differential Indicated SCAN CRITERIA MET
[2021-10-07 04:15] LABS: Partial Thromboplast Time 54.1 Seconds (24.1-36.2)
[2021-10-07 04:34] LABS: Anion Gap 11 (5-15); BUN 45 mg/dL (7-18); BUN/Creat Ratio 10.3 RATIO (10-20); Calcium,Total 7.2 mg/dL (8.5-10.1); Chloride 98 mmol/L (98-107); Creatinine, Serum 4.38 mg/dL (0.55-1.02); EST Glomerular Filtration Rate 11 mL/min (>60); Est Glom Filt Rate - Afr Amer 13 mL/min (>60); Estimated Creatinine Clearance 9.32 ml/min; Glucose 492 mg/dL (74-106); Potassium 4.2 mmol/L (3.5-5.1); Sodium Level 134 mmol/L (136-145)
[2021-10-07] MEDS: Insulin Lispro 100 UNIT/ML INSULN.PEN 6 UNIT SC (04:57)
[2021-10-07] MEDS: Heparin Injection (Vial) 5,000 UNIT/ML VIAL IV ×2 (04:58→12:15)
[2021-10-07] MEDS: Aspirin E.C. 81 MG Tablet PO (08:31)
[2021-10-07] MEDS: Ranolazine 500 MG Tablet PO ×2 (08:32→21:34)
[2021-10-07] MEDS: predniSONE 20 MG Tablet 40 MG PO ×2 (08:32→17:43)
[2021-10-07] MEDS: Carvedilol 6.25 MG Tablet PO (08:32)
[2021-10-07] MEDS: Clopidogrel Bisulfate 75 MG Tablet PO (08:32)
[2021-10-07] MEDS: Furosemide 40 MG Tablet PO (08:32)
[2021-10-07] MEDS: Insulin Lispro 100 UNIT/ML INSULN.PEN SC ×7 (08:38→21:59)
[2021-10-07] MEDS: Insulin NPH Human 100 UNITS/ML PEN 24 UNITS SC ×2 (08:39→17:44)
[2021-10-07 09:16] LABS: Bedside Glucose 415 mg/dL (70-110)
[2021-10-07 11:30] LABS: Bedside Glucose 449 mg/dL (70-110)
[2021-10-07 11:44] LABS: Partial Thromboplast Time 47.1 Seconds (24.1-36.2)
--- NOTE | 2021-10-07 11:58 | PN.HOSP_ITS ---
Documented by User: Javier MEDINA 10/07/21 12:05 Subjective Subjective Patient is a 65-year-old female comfortably resting in a chair, alert and orient x3. Denies development of any new symptoms overnight. Does not appear in acute distress. Objective Data Objective Data Vital Signs: Vital Signs Temp Pulse Resp BP Pulse Ox 97.9 F 79 18 163/68 H 97 10/07/21 08:24 10/07/21 08:24 10/07/21 08:24 10/07/21 08:24 10/07/21 08:24 Oxygen Flow Rate (L/min) 3 Oxygen Delivery Method Nasal Cannula Weight: 129 lb 10.109 oz Body Mass Index (BMI) 24.7 Intake & Output: Intake and Output for Last 24 Hours 10/05/21 10/06/21 10/07/21 23:59 23:59 23:59 Intake Total 593.59 / 593.59 412.67 / 412.67 85.9 / 85.9 Output Total 0 / 0 0 / 0 Balance 593.59 / 593.59 412.67 / 412.67 85.9 / 85.9 Lab / Micro Data Result Diagrams: 10/07/21 03:15 10/07/21 03:15 Labs: Laboratory Results - last 24 hr 10/06/21 12:05: POC Glucose 319 H 10/06/21 13:25: APTT 48.8 H 10/06/21 16:02: POC Glucose 404 H 10/06/21 20:22: POC Glucose > 500 H* 10/06/21 20:50: APTT 61.8 H 10/07/21 03:15: WBC 12.4 H, RBC 3.64 L, Hgb 11.5 L, Hct 36.4 L, MCV 100.0 H, MCH 31.6, MCHC 31.6 L, RDW Std Deviation 46.8 H, RDW Coeff of Andrzej 12.7, Plt Count 18 1, MPV 11.7, Immature Gran % (Auto) 0.900, Neut % (Auto) 91.0 H, Lymph % (Auto) 4.9 L, [place] % (Auto) 3.0, Eos % (Auto) 0.0, Baso % (Auto) 0.2, Absolute Neuts (auto) 11.3 H, Absolute Lymphs (auto) 0.61 L, Nucleated RBC % 0 10/07/21 03:15: Sodium 134 L, Potassium 4.2, Chloride 98, Carbon Dioxide 25.0, Anion Gap 11, BUN 45 H, Creatinine 4.38 H, Estim Creat Clear Calc 9.32, Est GFR (MDRD) Af Amer 13 L, Est GFR (MDRD) Non-Af 11 L, BUN/Creatinine Ratio 10.3, G lucose 492 H*, Calcium 7.2 L 10/07/21 03:15: APTT 54.1 H 10/07/21 08:37: POC Glucose 415 H 10/07/21 11:18: POC Glucose 449 H 10/07/21 11:20: APTT 47.1 H Micro: Microbiology 10/05/21 10:24 Mucosa - Nose Respiratory Panel (PCR) - Final 10/03/21 11:55 Blood Culture (Wb) - Right Wrist Blood Culture - Preliminary No growth in 48 hours. 10/03/21 12:25 Blood Culture (Wb) #2 - Right Hand Bacteria Detection (PCR) - Final Coag Negative Staph 10/03/21 12:25 Blood Culture (Wb) #2 - Right Hand Blood Culture - Final Coag Negative Staph Coag Negative Staph#2 10/03/21 12:00 Nasal Secretion SARS-CoV-2 Antigen (Rapid) - Final 10/03/21 12:00 Mucosa - Nasopharyngeal Influenza Types A,B Direct FA (NIGEL) - Final Physical Exam Const alert, oriented x3 and no apparent distress HEENT head/scalp atraumatic and moist oral mucous membranes Head and Scalp: normocephalic Eyes PERRL, EOMs intact bilaterally and conjunctivae normal Neck no lymphadenopathy, supple and no JVD Resp normal respiratory effort, no retractions, no use of accessory muscles and clear to auscultation bilaterally Cardio regular rate, regular rhythm, no murmurs and no JVD GI normal to inspection, nondistended, normoactive bowel sounds, soft to palpation and non-tender Extremity normal to inspection, full ROM and no clubbing, cyanosis or edema Skin no rashes or lesions noted, no wounds, skin turgor normal and no jaundice Neuro CN's II-XII intact bilaterally Psych affect normal Assessment & Plan Assessment/Plan (1) Non-ST elevation myocardial infarction (NSTEMI): (2) Atherosclerosis of coronary artery of [place] heart without angina pectoris: QUALIFIERS: Coronary Disease-Associated Artery/Lesion type: unspecified vessel or lesion type Qualified Code(s): I25.10 - Atherosclerotic heart disease of [place] coronary artery without angina pectoris PLAN: Day 4 Discharge planning: To be determined 1) acute hypoxic respiratory failure secondary to aspiration pneumonia Patient currently satting 97% on 3 L via nasal cannula, patient is not back to baseline room air oxygen. Strep pneumo and Legionella urinary antigens are negative. Covid is negative. Viral panel is negative. Blood cultures to go coagulase-negative staph, believe this is contaminant. We will continue Unasyn, on day 4 of 7 currently. 2) NSTEMI type II Patient remains on heparin, in anticipation for cardiac catheterization on Friday. Continue Plavix, aspirin, statin, Coreg and isosorbide mononitrate. 3) CAD status post CABG Prior CABG completed SIMS to LAD, sequential SVG to OM and posterior lateral circumflex, SVG to diagonal. As above. 4) hyperlipidemia Continue statin. 5) HTN Stable, continue Coreg and isosorbide. 6) ESRD Being dialyzed today (10/06/2021). Usual dialysis schedule is MWF, although dialysis schedule has been adjusted in anticipation for cardiac catheterization. Nephrology following. 7) acute thrombocytopenia Resolved, currently 155. Unclear etiology, will continue to monitor. 8) anemia of chronic disease Hemoglobin currently 11.7, which is around patient's baseline. Likely secondary to ESRD. Continue to monitor. 9) DM 1 Hemoglobin A1c was 6.9, although blood sugars were elevated on admission, and prednisone was initiated. NPH units increased to 16 units twice daily from home 10 units twice daily. Continue Accu-Cheks sliding scale insulin. 10) osteoporosis Alendronate on hold, will need to reinitiate at discharge. DVT prophylaxis - Heparin Patient seen by Javier Obregon PA-C, under the supervision of Dr. Vincent. Documented by User: Dr. Reno Vincent, DO 10/07/21 18:18 Objective Data Lab / Micro Data Result Diagrams: 10/07/21 03:15 10/07/21 03:15 Charges/Coding Addendum Addendum: Patient was seen and examined today independently of Javier Orbegon, she is going to be undergoing a heart catheterization tomorrow. Patient does not complain of any chest pain or shortness of breath. On examination she appeared in good health and spirits, she does not appear to be in any distress. Vital signs as documented. Skin warm and dry and without overt rashes. Neck without JVD, thyroid appears normal, trachea is midline, neck is supple. Lungs clear, normal air movement was noted. Heart exam notable for regular rhythm, normal sounds and absence of murmurs, rubs or gallops. Abdomen unremarkable and without evidence of organomegaly, masses, or abdominal aortic enlargement, bowel sounds are present in all 4 quadrants, no abdominal tenderness was noted. Extremities nonedematous, no cyanosis was noted, no clubbing was noted. Neuro: Cranial nerves II through XII are grossly intact, no focal motor deficits were noted, sensation to light touch and pinprick is intact, motor exam 5/5 throughout. Psych: Patient is alert and oriented x3, her affect is flat I have reviewed Javier Obregon's progress note including his medical assessment and plan of care and endorse it. Visit Charges Inpatient E&M: 66663 Subs Hosp L2
--- NOTE | 2021-10-07 14:35 | PCM.PN.CARD ---
Subjective Subjective Patient seen and evaluated at bedside along with the nursing staff No symptoms of chest pain reported. He does not appear to be in acute distress sitting out in a chair Objective Data Vital Signs: Vital Signs Temp Pulse Resp BP Pulse Ox 97.9 F 79 18 163/68 H 97 10/07/21 08:24 10/07/21 08:24 10/07/21 08:24 10/07/21 08:24 10/07/21 08:24 Oxygen Flow Rate (L/min) 3 Oxygen Delivery Method Nasal Cannula Weight: 129 lb 10.109 oz Body Mass Index (BMI) 24.7 Intake & Output: Intake and Output for Last 24 Hours 10/05/21 10/06/21 10/07/21 23:59 23:59 23:59 Intake Total 593.59 / 593.59 412.67 / 412.67 622.48 / 622.48 Output Total 0 / 0 0 / 0 Balance 593.59 / 593.59 412.67 / 412.67 622.48 / 622.48 Lab / Micro Data Result Diagrams: 10/07/21 03:15 10/07/21 03:15 Labs: Laboratory Results - last 24 hr 10/06/21 16:02: POC Glucose 404 H 10/06/21 20:22: POC Glucose > 500 H* 10/06/21 20:50: APTT 61.8 H 10/07/21 03:15: WBC 12.4 H, RBC 3.64 L, Hgb 11.5 L, Hct 36.4 L, MCV 100.0 H, MCH 31.6, MCHC 31.6 L, RDW Std Deviation 46.8 H, RDW Coeff of Andrzej 12.7, Plt Count 181, MPV 11.7, Immature Gran % (Auto) 0.900, Neut % (Auto) 91.0 H, Lymph % (Auto) 4.9 L, [place] % (Auto) 3.0, Eos % (Auto) 0.0, Baso % (Auto) 0.2, Absolute Neuts (auto) 11.3 H, Absolute Lymphs (auto) 0.61 L, Nucleated RBC % 0 10/07/21 03:15: Sodium 134 L, Potassium 4.2, Chloride 98, Carbon Dioxide 25.0, Anion Gap 11, BUN 45 H, Creatinine 4.38 H, Estim Creat Clear Calc 9.32, Est GFR (MDRD) Af Amer 13 L, Est GFR (MDRD) Non-Af 11 L, BUN/Creatinine Ratio 10.3, Glucose 492 H*, Calcium 7.2 L 10/07/21 03:15: APTT 54.1 H 10/07/21 08:37: POC Glucose 415 H 10/07/21 11:18: POC Glucose 449 H 10/07/21 11:20: APTT 47.1 H Cardiology Labs/Tests 10/06/21 20:50: APTT 61.8 H 10/07/21 03:15: WBC 12.4 H, RBC 3.64 L, Hgb 11.5 L, Hct 36.4 L, MCV 100.0 H, MCH 31.6, MCHC 31.6 L, Plt Count 181, MPV 11.7, Immature Gran % (Auto) 0.900, Neut % (Auto) 91.0 H, Lymph % (Auto) 4.9 L, [place] % (Auto) 3.0, Eos % (Auto) 0.0, Baso % (Auto) 0.2, Absolute Neuts (auto) 11.3 H, Nucleated RBC % 0 10/07/21 03:15: Sodium 134 L, Potassium 4.2, Chloride 98, Carbon Dioxide 25.0, Anion Gap 11, BUN 45 H, Creatinine 4.38 H, Est GFR (MDRD) Af Amer 13 L, Est GFR (MDRD) Non-Af 11 L, BUN/Creatinine Ratio 10.3, Glucose 492 H*, Calcium 7.2 L 10/07/21 03:15: APTT 54.1 H 10/07/21 11:20: APTT 47.1 H Rhythm: Normal sinus Physical Exam Narrative Alert orientated x3 and no apparent distress. HEENT normal Cardiovascular examination; S1-S2 regular, no systolic or diastolic murmur, no pericardial rub or gallop Chest examination; coarse crackle bilateral. Examination referral extremity; no clubbing cyanosis or lower extremity edema Assessment & Plan Assessment/Plan (1) Chronic renal failure, stage 4 (severe): (2) Diabetes mellitus type 1: QUALIFIERS: Diabetes mellitus complication status: without complication Qualified Code(s): E10.9 - Type 1 diabetes mellitus without complications (3) History of coronary artery bypass graft: (4) History of arteriovenostomy for renal dialysis: (5) Peripheral vascular disease: (6) Dialysis patient: (7) CHF exacerbation: QUALIFIERS: Heart failure type: unspecified Qualified Code(s): I50.9 - Heart failure, unspecified (8) Atherosclerosis of coronary artery of [place] heart without angina pectoris: QUALIFIERS: Coronary Disease-Associated Artery/Lesion type: unspecified vessel or lesion type Qualified Code(s): I25.10 - Atherosclerotic heart disease of [place] coronary artery without angina pectoris (9) History of left heart catheterization: (10) Non-ST elevation myocardial infarction (NSTEMI): PLAN: This patient with the multiple medical comorbidities Has extensive cardiac history with a history of CAD, ischemic cardiomyopathy and CABG in 2005 She has severe three-vessel disease with occluded LAD, left circumflex and RCA and patent grafts on last cardiac catheterization in September 2020. Patient has peripheral vascular disease with the right external iliac artery 80% stenosis, also has history AV fistula on the left arm for renal dialysis In this admission she had symptoms of chest pain shortness of breath with a clinical diagnosis of pneumonia treated with medical therapy. Also patient has been on hemodialysis for end-stage renal disease Also has acute on chronic systolic heart failure with ejection fraction in the range of 30-35% Cardiac care plan recommendation; 1. She has symptoms of chest pain with elevated cardiac biomarkers/high sensitive troponin/non-ST elevation [place]. Her symptoms of chest pain improved significantly on medical therapy 2. Started on medical therapy and her symptoms improved she does not have any active chest pain today 3. I discussed the need of further evaluation by cardiac cath, approach possible left common femoral artery
[2021-10-07 16:11] LABS: Bedside Glucose 448 mg/dL (70-110)
[2021-10-07 19:18] LABS: Partial Thromboplast Time 109.7 Seconds (24.1-36.2)
[2021-10-07] MEDS: Atorvastatin Calcium 40 MG Tablet PO (21:34)
[2021-10-07 23:41] LABS: Bedside Glucose 355 mg/dL (70-110)
[2021-10-08] VITALS (17 sets, daily range): BP systolic 134–174; BP diastolic 60–81; PULSE 66–104; RESP 16–17; TEMP 36.3–37.1; O2SAT 95–100
[2021-10-08 05:12] LABS: Absolute Lymphocyte Count 0.61 X10^3/uL (0.83-4.51); Absolute Neutrophil Count 14.3 X10^3/uL (2.0-7.7); Basophil# 0.02 X10^3/uL; Basophil% 0.1 % (0-1); Hematocrit 35.1 % (37-47); Hemoglobin 11.8 g/dL (12.0-15.0); Lymphocyte # 0.61 X10^3/ul (0.83-4.51); Lymphocyte % 3.9 % (19-41); Mean Corp Hgb Conc 33.6 g/dL (32-36); Mean Corpuscular Hgb 31.7 pg (27.0-32.0); Mean Corpuscular Volume 94.4 fL (81-99); Mean Platelet Vol. 11.7 fl (6.2-12.0); Monocyte# 0.39 X10^3/uL; Monocyte% 2.5 % (0-10); NRBC Flagged by Analyzer 0 % (0-5); Neutrophil # 14.26 X10^3/uL (2.7-7.7); Neutrophil % 91.7 % (47-70); Platelet Count 192 K/mm3 (150-450); RBC Distribution Width CV 12.6 % (11.6-14.6); RBC Distribution Width SD 43.4 fl (35.1-43.9); Red Blood Count 3.72 M/mm3 (4.2-5.4); White Blood Count 15.6 K/mm3 (4.4-11.0)
[2021-10-08 05:15] LABS: Partial Thromboplast Time 31.8 Seconds (24.1-36.2)
--- NOTE | 2021-10-08 06:00 | EKG12_ITS ---
Test Reason : AM EKG Blood Pressure : / mmHG Vent. Rate : 078 BPM Atrial Rate : 078 BPM P-R Int : 152 ms QRS Dur : 114 ms QT Int : 424 ms P-R-T Axes : 062 019 090 degrees QTc Int : 483 ms Normal sinus rhythm Incomplete left bundle branch block Nonspecific T wave abnormality Prolonged QT Abnormal ECG When compared with ECG of 05-OCT-2021 03:43, Significant changes have occurred Confirmed by HOWARD CALDERA, ROCIO ([id number]), assignment desk editor LUIS VILLATORO ([id number]) on 10/09/2021 7:38:02 AM Referred By: SURESH Confirmed By:ROCIO LAWRENCE MD
[2021-10-08] MEDS: Clopidogrel Bisulfate 75 MG Tablet PO (06:51)
[2021-10-08] MEDS: Aspirin E.C. 81 MG Tablet PO (06:51)
[2021-10-08] MEDS: Carvedilol 6.25 MG Tablet PO (06:51)
[2021-10-08 06:57] LABS: Anion Gap 10 (5-15); BUN 66 mg/dL (7-18); BUN/Creat Ratio 12.5 RATIO (10-20); Calcium,Total 7.6 mg/dL (8.5-10.1); Chloride 102 mmol/L (98-107); Creatinine, Serum 5.28 mg/dL (0.55-1.02); EST Glomerular Filtration Rate 9 mL/min (>60); Est Glom Filt Rate - Afr Amer 11 mL/min (>60); Estimated Creatinine Clearance 7.73 ml/min; Glucose 213 mg/dL (74-106); Potassium 4.3 mmol/L (3.5-5.1); Sodium Level 137 mmol/L (136-145)
[2021-10-08] MEDS: Ranolazine 500 MG Tablet PO ×2 (09:46→20:33)
[2021-10-08] MEDS: predniSONE 20 MG Tablet 40 MG PO ×2 (09:46→18:22)
[2021-10-08 10:16] LABS: Bedside Glucose 173 mg/dL (70-110)
--- NOTE | 2021-10-08 10:47 | NURSING ---
Gave report to Art PATHAK in cardiac cath lab technologist
--- NOTE | 2021-10-08 12:13 | CL.D_ITS ---
Patient Name: KONRAD CAI Study Date: 10/08/2021 Performing: Rudy Mir MD Ht: 59.84 inches 152 cm : 1955 Wt: 130.07 lbs 59 kg Age: 65 Gender: female BSA: 1.55 PROCEDURE(S) PERFORMED [id number])LHC/COR/CABG CLINICAL PROFILE AND INDICATIONS Indications: Suspected CAD Heart Failure: None Stress/Imaging Stress/Image Study Performed: No CONCLUSIONS Severe [place] coronary artery disease with bypass grafts noted to be patent with a SIMS to the LAD, s aphenous vein graft to the diagonal vessel and saphenous vein graft to the obtuse marginal branch and posterior lateral branch. RECOMMENDATIONS Medical therapy DESCRIPTION OF PROCEDURE The patient arrived to the procedure lab. The risks and benefits of the procedure as well as a full d escription of our services here and current unavailability of surgical backup were fully explained to the patient and/or their significant other prior to the catheterization. The Timeout was completed, verifying the correct patient and procedure. The patient's procedural site was prepped and draped in the usual fashion. Local anesthetic was given subcutaneously to left groin region with Lidocaine 2%. Using a modified Seldinger technique, arterial access was obtained via the left femoral artery, a 5Fr sheath was inserted. Left Coronary Artery selective angiography was performed in multiple views usi ng a 5 Fr. JL4 catheter. Right Coronary Artery selective angiography was then performed in multiple v iews using a 5 Fr. 3DRC ([place]) catheter. Saphenous Vein graft to the Circumflex with sequential O M1 selective angiography was performed in multiple views using a 5 Fr. 3DRC ([place]) catheter. Saphenous Vein graft to the DIAG 1 selective angiography was performed in multiple views us ing a 5 Fr. 3DRC ([place]) catheter. Left internal mammary artery graft to the LAD selective angiogr aphy was performed in multiple views using a 5 Fr. IM catheter.The arterial sheath was pulled and man ual compression applied until hemostasis is achieved. CORONARY ANGIOGRAPHY DOMINANCE: Right Dominant LEFT HEART ASSESSMENT Left Ventricular Ejection Fraction: by Echo 40 % LEFT MAIN: Moderate calcification LEFT ANTERIOR DESCENDING ARTERY: MID LAD: is occluded CIRCUMFLEX ARTERY: PROX CIRC: is occluded RIGHT CORONARY ARTERY: Severe diffuse disease in a dominant vessel and then mid to distally totally o ccluded GRAFTS: SIMS graft to the Mid LAD is patent Sequential graft to the Left circumflex artery OM and the distal posterolateral vessel is patent Saphenous Vein graft to the 1st Diagonal Is noted to be a small vessel and moderately diffusely disea sed in the proximal segment but distally patent COMPLICATIONS No Complications PROCEDURE MEDICATIONS Versed 1 mg IV Oxygen: 2 L/min via nasal cannula Benadryl 25 mg IV @ 10/08/2021 11:03:02 Solu-cortef 100 mg IV 10/08/2021 11:03:08 SUMMARY OF HEMODYNAMIC DATA Time AIR REST ECG 11:00:11 AO 166/58 (104) SA 11:33:16 Signed By Rudy Mir MD On 10/08/2021 12:13:03 PM Rudy Mir MD
--- NOTE | 2021-10-08 12:16 | PN.CARD_ITS ---
Subjective Subjective Patient seen and evaluated. Underwent cardiac catheterization today. Objective Data Vital Signs: Vital Signs Temp Pulse Resp BP Pulse Ox 97.8 F 79 16 173/70 H 97 10/08/21 10:46 10/08/21 10:46 10/08/21 10:46 10/08/21 10:46 10/08/21 10:46 Oxygen Flow Rate (L/min) 2 Oxygen Delivery Method Nasal Cannula Weight: 130 lb 4.691 oz Body Mass Index (BMI) 24.7 Intake & Output: Intake and Output for Last 24 Hours 10/06/21 10/07/21 10/08/21 23:59 23:59 23:59 Intake Total 412.67 / 412.67 1200.88 / 1300.88 263.84 / 263.84 Output Total 0 / 0 Balance 412.67 / 412.67 1200.88 / 1300.88 263.84 / 263.84 Lab / Micro Data Result Diagrams: 10/08/21 04:18 10/08/21 04:18 Labs: Laboratory Results - last 24 hr 10/07/21 15:37: POC Glucose 448 H 10/07/21 18:34: APTT 109.7 H* 10/07/21 21:57: POC Glucose 355 H 10/08/21 04:18: WBC 15.6 H, RBC 3.72 L, Hgb 11.8 L, Hct 35.1 L, MCV 94.4 D, MCH 31.7, MCHC 33.6 D, RDW Std Deviation 43.4, RDW Coeff of Andrzej 12.6, Plt Count 192, MPV 11.7, Immature Gran % (Auto) 1.800 H, Neut % (Auto) 91.7 H, Lymph % (Auto) 3.9 L, [place] % (Auto) 2.5, Eos % (Auto) 0.0, Baso % (Auto) 0.1, Absolute Neuts (auto) 14.3 H, Absolute Lymphs (auto) 0.61 L, Nucleated RBC % 0 10/08/21 04:18: Sodium 137, Potassium 4.3, Chloride 102, Carbon Dioxide 25.0, Anion Gap 10, BUN 66 H, Creatinine 5.28 H, Estim Creat Clear Calc 7.73, Est GFR (MDRD) Af Amer 11 L, Est GFR (MDRD) Non-Af 9 L, BUN/Creatinine Ratio 12.5, Glucose 213 H, Calcium 7.6 L 10/08/21 04:18: APTT 31.8 10/08/21 08:16: POC Glucose 173 H Micro: Microbiology 10/08/21 10:30 Sputum, Expectorated/Coughed Gram Stain - Final Cardiology Labs/Tests 10/07/21 18:34: APTT 109.7 H* 10/08/21 04:18: WBC 15.6 H, RBC 3.72 L, Hgb 11.8 L, Hct 35.1 L, MCV 94.4 D, MCH 31.7, MCHC 33.6 D, Plt Count 192, MPV 11.7, Immature Gran % (Auto) 1.800 H, Neut % (Auto) 91.7 H, Lymph % (Auto) 3.9 L, [place] % (Auto) 2.5, Eos % (Auto) 0.0, Baso % (Auto) 0.1, Absolute Neuts (auto) 14.3 H, Nucleated RBC % 0 10/08/21 04:18: Sodium 137, Potassium 4.3, Chloride 102, Carbon Dioxide 25.0, Anion Gap 10, BUN 66 H, Creatinine 5.28 H, Est GFR (MDRD) Af Amer 11 L, Est GFR (MDRD) Non-Af 9 L, BUN/Creatinine Ratio 12.5, Glucose 213 H, Calcium 7.6 L 10/08/21 04:18: APTT 31.8 Rhythm: EKG: ECHO: Stress Test: Cardiac Cath: PCI: CT Surgery: Holter monitor: EPS: PPM: CXR: Chest CT Scan: Physical Exam Const alert, oriented x3 and no apparent distress General Appearance: cooperative HEENT hearing grossly normal bilaterally Head and Scalp: atraumatic Eyes EOMs intact bilaterally Neck General: normal visual inspection Chest inspection of chest normal and palpation of chest normal Resp normal respiratory effort Auscultation: clear to auscultation bilaterally Cardio regular rate, regular rhythm, S1 normal heart sound and S2 normal heart sound Jugular Venous Distention: JVD GI normal to inspection, nondistended, normoactive bowel sounds Extremity normal capillary refill and no pedal edema Peripheral Pulses: Yes pulses 2+ throughout and femoral pulses present Skin no rashes or lesions noted Neuro oriented x3 and CN's II-XII intact bilaterally Psych Appearance: grossly normal and appropriate Assessment & Plan Assessment/Plan (1) History of coronary artery bypass graft: PLAN: She does have a history of coronary artery bypass graft surgery. These bypass grafts were evaluated and noted to be patent at today's cardiac catheterization. The plan will be to continue the current medical therapy without any changes. Continue current dose of beta-rufus High intensity statin (2) Peripheral vascular disease: PLAN: Patient appears to have known peripheral vascular disease with severe stenosis of the right common femoral. She would need to see a vascular surgeon at some point. (3) CHF exacerbation: QUALIFIERS: Heart failure type: unspecified Qualified Code(s): I50.9 - Heart failure, unspecified PLAN: She does have mild congestive heart failure with mildly reduced left ventricular ejection fraction. Her fluid overload status would be taking care of by her dialysis. In the meantime she would continue with a beta-rufus. We will have to repeat her echocardiogram in a few months to assess her left ventricular function. (4) Atherosclerosis of coronary artery of [place] heart without angina pectoris: QUALIFIERS: Coronary Disease-Associated Artery/Lesion type: unspecified vessel or lesion type Qualified Code(s): I25.10 - Atherosclerotic heart disease of [place] coronary artery without angina pectoris PLAN: She did evidence of atherosclerotic cardiovascular disease as noted above. (5) Non-ST elevation myocardial infarction (NSTEMI): PLAN: This patient with the multiple medical comorbidities Has extensive cardiac history with a history of CAD, ischemic cardiomyopathy and CABG in 2005 She has severe three-vessel disease with occluded LAD, left circumflex and RCA and patent grafts on last cardiac catheterization in September 2020. Patient has peripheral vascular disease with the right external iliac artery 80% stenosis, also has history AV fistula on the left arm for renal dialysis Cardiac catheterization demonstrated the following: Normal left main coronary artery. Left anterior descending artery totally occluded. Left circumflex artery totally occluded. Right coronary artery diffusely diseased and totally occluded. Patent SIMS to the LAD. Patent saphenous vein graft to the circumflex artery and posterolateral vessel Patent saphenous vein graft to the diagonal vessel. The patient would be treated with medical therapy. She appears to be adequately revascularized. We will discontinue the clopidogrel
[2021-10-08 12:35] LABS: Bedside Glucose 172 mg/dL (70-110)
--- NOTE | 2021-10-08 12:42 | PCM.PN.REN ---
Objective Data Objective Data Vital Signs: Vital Signs Temp Pulse Resp BP Pulse Ox 97.8 F 79 16 173/70 H 97 10/08/21 10:46 10/08/21 10:46 10/08/21 10:46 10/08/21 10:46 10/08/21 10:46 Oxygen Flow Rate (L/min) 2 Oxygen Delivery Method Nasal Cannula Weight: 59.1 kg Body Mass Index (BMI) 24.7 Intake & Output: Intake and Output for Last 24 Hours 10/06/21 10/07/21 10/08/21 23:59 23:59 23:59 Intake Total 412.67 / 412.67 1200.88 / 1300.88 323.84 / 323.84 Output Total 0 / 0 Balance 412.67 / 412.67 1200.88 / 1300.88 323.84 / 323.84 Lab / Micro Data Result Diagrams: 10/08/21 04:18 10/08/21 04:18 Labs: Laboratory Results - last 24 hr 10/07/21 15:37: POC Glucose 448 H 10/07/21 18:34: APTT 109.7 H* 10/07/21 21:57: POC Glucose 355 H 10/08/21 04:18: WBC 15.6 H, RBC 3.72 L, Hgb 11.8 L, Hct 35.1 L, MCV 94.4 D, MCH 31.7, MCHC 33.6 D, RDW Std Deviation 43.4, RDW Coeff of Andrzej 12.6, Plt Count 192, MPV 11.7, Immature Gran % (Auto) 1.800 H, Neut % (Auto) 91.7 H, Lymph % (Auto) 3.9 L, [place] % (Auto) 2.5, Eos % (Auto) 0.0, Baso % (Auto) 0.1, Absolute Neuts (auto) 14.3 H, Absolute Lymphs (auto) 0.61 L, Nucleated RBC % 0 10/08/21 04:18: Sodium 137, Potassium 4.3, Chloride 102, Carbon Dioxide 25.0, Anion Gap 10, BUN 66 H, Creatinine 5.28 H, Estim Creat Clear Calc 7.73, Est GFR (MDRD) Af Amer 11 L, Est GFR (MDRD) Non-Af 9 L, BUN/Creatinine Ratio 12.5, Glucose 213 H, Calcium 7.6 L 12/13/21 04:18: APTT 31.8 10/08/21 08:16: POC Glucose 173 H 10/08/21 12:34: POC Glucose 172 H Micro: Microbiology 10/08/21 10:30 Sputum, Expectorated/Coughed Gram Stain - Final 10/05/21 10:24 Mucosa - Nose Respiratory Panel (PCR) - Final 10/03/21 11:55 Blood Culture (Wb) - Right Wrist Blood Culture - Preliminary No growth in 48 hours. 10/03/21 12:25 Blood Culture (Wb) #2 - Right Hand Bacteria Detection (PCR) - Final Coag Negative Staph 10/03/21 12:25 Blood Culture (Wb) #2 - Right Hand Blood Culture - Final Coag Negative Staph Coag Negative Staph#2 10/03/21 12:00 Nasal Secretion SARS-CoV-2 Antigen (Rapid) - Final 10/03/21 12:00 Mucosa - Nasopharyngeal Influenza Types A,B Direct FA (NIGEL) - Final Physical Exam Narrative Alert awake oriented x 3 no obvious distress no pallor no icterus no JVD s1s2 no murmurs lungs clear abdomen soft no organomegaly no edema no cyanosis Assessment & Plan Assessment/Plan (1) End stage renal disease: PLAN: Usually on dialysis Friday, Friday, Friday schedule.she will be off schedule for this week. for cath on friday (2) Aspiration pneumonia: QUALIFIERS: Aspiration pneumonia type: due to vomit Laterality: left Lung location: lower lobe of lung Qualified Code(s): J69.0 - Pneumonitis due to inhalation of food and vomit
[2021-10-08] MEDS: Furosemide 40 MG Tablet PO (13:02)
[2021-10-08] MEDS: Insulin Lispro 100 UNIT/ML INSULN.PEN SC ×5 (13:02→20:32)
[2021-10-08] MEDS: guaiFENesin 1,200 MG Tablet 1200 MG PO ×2 (16:41→20:33)
--- NOTE | 2021-10-08 17:08 | PCM.PN.HOSP ---
Documented by User: Javier MEDINA 10/08/21 17:15 Subjective Subjective Patient is a 65-year-old female comfortably resting in bed, alert and orient x3. Denies development of any new symptoms overnight. Does not appear in acute distress. Objective Data Objective Data Vital Signs: Vital Signs Temp Pulse Resp BP Pulse Ox 97.8 F 73 16 139/60 H 96 10/08/21 10:46 10/08/21 16:00 10/08/21 16:00 10/08/21 16:00 10/08/21 16:00 Oxygen Flow Rate (L/min) 2 Oxygen Delivery Method Nasal Cannula Weight: 130 lb 4.691 oz Body Mass Index (BMI) 24.7 Intake & Output: Intake and Output for Last 24 Hours 10/06/21 10/07/21 10/08/21 23:59 23:59 23:59 Intake Total 412.67 / 412.67 1200.88 / 1300.88 352.84 / 352.84 Output Total 0 / 0 Balance 412.67 / 412.67 1200.88 / 1300.88 352.84 / 352.84 Lab / Micro Data Result Diagrams: 10/08/21 04:18 10/08/21 04:18 Labs: Laboratory Results - last 24 hr 10/07/21 18:34: APTT 109.7 H* 10/07/21 21:57: POC Glucose 355 H 10/08/21 04:18: WBC 15.6 H, RBC 3.72 L, Hgb 11.8 L, Hct 35.1 L, MCV 94.4 D, MCH 31.7, MCHC 33.6 D, RDW Std Deviation 43.4, RDW Coeff of Andrzej 12.6, Plt Count 192, MPV 11.7, Immature Gran % (Auto) 1.800 H, Neut % (Auto) 91.7 H, Lymph % (Auto) 3.9 L, [place] % (Auto) 2.5, Eos % (Auto) 0.0, Baso % (Auto) 0.1, Absolute Neuts (auto) 14.3 H, Absolute Lymphs (auto) 0.61 L, Nucleated RBC % 0 10/08/21 04:18: Sodium 137, Potassium 4.3, Chloride 102, Carbon Dioxide 25.0, Anion Gap 10, BUN 66 H, Creatinine 5.28 H, Estim Creat Clear Calc 7.73, Est GFR (MDRD) Af Amer 11 L, Est GFR (MDRD) Non-Af 9 L, BUN/Creatinine Ratio 12.5, Glucose 213 H, Calcium 7.6 L 10/08/21 04:18: APTT 31.8 10/08/21 08:16: POC Glucose 173 H 10/08/21 12:34: POC Glucose 172 H Micro: Microbiology 10/03/21 11:55 Blood Culture (Wb) - Right Wrist Blood Culture - Final No growth in 5 days. 10/08/21 10:30 Sputum, Expectorated/Coughed Gram Stain - Final 10/05/21 10:24 Mucosa - Nose Respiratory Panel (PCR) - Final 10/03/21 12:25 Blood Culture (Wb) #2 - Right Hand Bacteria Detection (PCR) - Final Coag Negative Staph 10/03/21 12:25 Blood Culture (Wb) #2 - Right Hand Blood Culture - Final Coag Negative Staph Coag Negative Staph#2 10/03/21 12:00 Nasal Secretion SARS-CoV-2 Antigen (Rapid) - Final 10/03/21 12:00 Mucosa - Nasopharyngeal Influenza Types A,B Direct FA (NIGEL) - Final Physical Exam Const alert, oriented x3 and no apparent distress HEENT head/scalp atraumatic, moist oral mucous membranes and oropharynx normal Head and Scalp: normocephalic Eyes PERRL, EOMs intact bilaterally and conjunctivae normal Neck no lymphadenopathy, supple and no JVD Resp normal respiratory effort, no retractions, no use of accessory muscles and clear to auscultation bilaterally Cardio regular rate, regular rhythm, no murmurs and no JVD GI normal to inspection, nondistended, normoactive bowel sounds, soft to palpation and non-tender Extremity normal to inspection, full ROM and no clubbing, cyanosis or edema Skin no rashes or lesions noted, no wounds, skin turgor normal and no jaundice Neuro CN's II-XII intact bilaterally Psych affect normal Assessment & Plan Assessment/Plan (1) Non-ST elevation myocardial infarction (NSTEMI): (2) Atherosclerosis of coronary artery of [place] heart without angina pectoris: QUALIFIERS: Coronary Disease-Associated Artery/Lesion type: unspecified vessel or lesion type Qualified Code(s): I25.10 - Atherosclerotic heart disease of [place] coronary artery without angina pectoris PLAN: Day 5 Discharge planning: Patient to discharge home, 1) acute hypoxic respiratory failure secondary to aspiration pneumonia Patient currently satting 96% on 2 L via nasal cannula, patient is not back to baseline room air oxygen. Strep pneumo and Legionella urinary antigens are negative. Covid is negative. Viral panel is negative. Blood cultures to go coagulase-negative staph, believe this is contaminant. We will continue Unasyn through the evening and discontinue on 10/09/2021. 2) NSTEMI type II Cardiac catheterization on 10/08/2021 demonstrated severe [place] coronary artery disease with bypass graft noted to be patient with a SIMS to the LAD, saphenous vein graft to the diagonal vessel and saphenous vein graft to the obtuse marginal branch and posterior lateral branch. Recommendations per cardiology are to continue with medical management. 3) CAD status post CABG Prior CABG completed SIMS to LAD, sequential SVG to OM and posterior lateral circumflex, SVG to diagonal. As above. 4) hyperlipidemia Continue statin. 5) HTN Stable, continue Coreg and isosorbide. 6) ESRD Being dialyzed today (10/08/2021). Nephrology following. 7) acute thrombocytopenia Resolved, currently 155. Unclear etiology, will continue to monitor. 8) anemia of chronic disease Hemoglobin currently 11.7, which is around patient's baseline. Likely secondary to ESRD. Continue to monitor. 9) DM 1 Hemoglobin A1c was 6.9, although blood sugars were elevated on admission, and prednisone was initiated. NPH units increased to 16 units twice daily from home 10 units twice daily. Continue Accu-Cheks sliding scale insulin. 10) osteoporosis Alendronate on hold, will need to reinitiate at discharge. DVT prophylaxis - Heparin Patient seen by Javier Obregon PA-C, under the supervision of Dr. Mirelse. Documented by User: Dr. Nadeem Mireles MD 10/08/21 18:08 Subjective Subjective Seen and examined. Patient has cough and mild shortness of breath. Earlier had cardiac cath which showed patent graft. Discussed with warehouser. Objective Data Lab / Micro Data Result Diagrams: 10/08/21 04:18 10/08/21 04:18 Physical Exam Narrative General: Alert, Oriented x3, Cooperative HEENT: Atraumatic, PERRLA, EOMI, Normocephalic Oral: No Gingival or Mucosal Lesions/ Ulcerations Neck: Supple, No JVD, Negative Carotid Bruits Lungs: Air entry diminished in bilateral lung bases. Bilateral basilar crepitations. Cardiovascular: CABG scar. Regular rate, Regular Rhythm, Normal S1, Normal S2, No murmurs Abdomen: Bowel Sounds Present, Soft, Non Tender, Non-Distended : No renal angle tenderness. No suprapubic tenderness. Extremities: AV fistula. No edema, Capillary Refill Less than 3 Seconds Skin: No rashes, No breakdown Musculoskeletal: No Tenderness to Palpation of Joints or Extremities Neurological: Cranial nerves II-XII grossly intact, DTR 2+/4 and Symmetrical, Neuro grossly intact Psych/Mental Status: Normal Affect, Appropriate. Assessment & Plan Assessment/Plan (1) Atherosclerosis of coronary artery of [place] heart without angina pectoris: QUALIFIERS: Coronary Disease-Associated Artery/Lesion type: unspecified vessel or lesion type Qualified Code(s): I25.10 - Atherosclerotic heart disease of [place] coronary artery without angina pectoris PLAN: This patient was seen in conjunction with ADAM José. I have independently interviewed and examined the patient and reviewed pertinent history, examination findings, laboratory and plan of management. I have reviewed the note and agree with the documented findings with the few additional points. In brief, patient is admitted for acute hypoxic respiratory secondary to aspiration pneumonia. Patient noted fever since admission. Moist cough. Urinary antigens are negative. Viral panel and Covid negative. Blood culture shows a skin contamination: Negative staph. On Unasyn 5 days will be enough, completing on 10/09. Non-STEMI most likely type II. Cardiac cath showed patent grafts. Rest as documented above I have discussed my assessment with ADAM José and orders have been reviewed. Charges/Coding Visit Charges Inpatient E&M: 06547 Subs Hosp L2
[2021-10-08 17:35] LABS: Bedside Glucose 198 mg/dL (70-110)
[2021-10-08] MEDS: Insulin NPH Human 100 UNITS/ML PEN 24 UNITS SC (18:23)
[2021-10-08] MEDS: Atorvastatin Calcium 40 MG Tablet PO (20:33)
[2021-10-08 21:25] LABS: Bedside Glucose 318 mg/dL (70-110)
[2021-10-09] VITALS (7 sets, daily range): BP systolic 121–174; BP diastolic 46–76; PULSE 65–86; RESP 14–18; TEMP 36.3–36.4; O2SAT 93–98
[2021-10-09] MEDS: Carvedilol 6.25 MG Tablet PO (08:44)
[2021-10-09] MEDS: Aspirin E.C. 81 MG Tablet PO (08:44)
[2021-10-09] MEDS: guaiFENesin 1,200 MG Tablet 1200 MG PO (08:45)
[2021-10-09] MEDS: Furosemide 40 MG Tablet PO (08:45)
[2021-10-09] MEDS: Ranolazine 500 MG Tablet PO (08:45)
[2021-10-09] MEDS: predniSONE 20 MG Tablet 40 MG PO (08:45)
[2021-10-09] MEDS: Insulin Lispro 100 UNIT/ML INSULN.PEN SC ×2 (08:47)
[2021-10-09] MEDS: Insulin NPH Human 100 UNITS/ML PEN 24 UNITS SC (08:50)
[2021-10-09 09:12] LABS: Absolute Lymphocyte Count 0.48 X10^3/uL (0.83-4.51); Absolute Neutrophil Count 17.4 X10^3/uL (2.0-7.7); Basophil# 0.05 X10^3/uL; Basophil% 0.3 % (0-1); Eosinophil# 0.12 X10^3/uL; Eosinophils% 0.6 % (0-5); Hematocrit 37.6 % (37-47); Hemoglobin 12.7 g/dL (12.0-15.0); Lymphocyte # 0.48 X10^3/ul (0.83-4.51); Lymphocyte % 2.5 % (19-41); Mean Corp Hgb Conc 33.8 g/dL (32-36); Mean Corpuscular Hgb 31.2 pg (27.0-32.0); Mean Corpuscular Volume 92.4 fL (81-99); Mean Platelet Vol. 11.4 fl (6.2-12.0); Monocyte# 0.55 X10^3/uL; Monocyte% 2.9 % (0-10); NRBC Flagged by Analyzer 0 % (0-5); Neutrophil # 17.39 X10^3/uL (2.7-7.7); Neutrophil % 92.4 % (47-70); POSITIVE DIFFERENTIAL YES; Platelet Count 224 K/mm3 (150-450); RBC Distribution Width CV 12.6 % (11.6-14.6); Red Blood Count 4.07 M/mm3 (4.2-5.4); White Blood Count 18.8 K/mm3 (4.4-11.0)
[2021-10-09 09:19] LABS: Differential Indicated SCAN CRITERIA MET
[2021-10-09 09:54] LABS: Differential Comment SCANNED
--- NOTE | 2021-10-09 10:25 | PCM.DC ---
Discharge Instructions Diet Discharge Diet: No restrictions Activity Discharge Activity: Return to Normal Activity Weight Bearing Status: Weight bearing as tolerated Dressing / Incision Call your doctor if you observe: Fever of 101 or Higher, Numbness or Tingling, Shortness of breath, Dizziness, Chest pain, Increased palpitations (irregular heartbeat) and Calf discomfort Follow Up Care Please Follow Up With: Primary care provider When: Within the next two weeks. Test Results: Test results from this visit will be discussed in further detail at your follow-up appointment, if applicable. Discharge Plan Admission Admit Date/Time: 10/03/21 14:16 Primary Reason for Your Visit: Shortness of breath. Attending Provider: Nadeem Mireles Primary Care Provider: Sergio Maxwell Consulting Providers: Phoebe Snyder ; Judy Prescott Discharge Orders/Prescriptions Prescriptions: New ranolazine [Ranexa] 500 mg tablet extended release 12 hr 500 mg PO BID Qty: 60 RF: 0 Continued carvedilol 6.25 mg tablet 6.25 mg PO DAILY RF: 0 furosemide 40 mg tablet 40 mg PO DAILY Qty: 30 RF: 11 guaifenesin 1,200 mg tablet extended release 12hr 1,200 mg PO BID RF: 0 albuterol sulfate 90 mcg/actuation HFA aerosol inhaler 2 puff INHALATION Q6H PRN (Reason: Wheezing) RF: 0 aspirin [Adult Low Dose Aspirin] 81 mg tablet,delayed release (DR/EC) 81 mg PO DAILY RF: 0 trazodone 50 mg tablet 50 mg PO QHS PRN (Reason: Sleep) RF: 0 ondansetron 4 mg tablet,disintegrating 4 mg PO Q6H PRN (Reason: Nausea) RF: 0 alendronate 70 mg tablet 70 mg PO QWEEK RF: 0 insulin aspart U-100 100 UNITS/ML insulin pen 3 units SC LUNCH RF: 0 insulin NPH isoph U-100 human 100 UNIT/ML suspension 5 units SC QHS RF: 0 insulin aspart U-100 100 UNITS/ML insulin pen 15 units SC BREAKFAST RF: 0 atorvastatin 40 MG tablet 40 mg PO DAILY RF: 0 insulin aspart U-100 100 UNITS/ML insulin pen 5 units SC DINNER RF: 0 isosorbide mononitrate 60 mg tablet extended release 24 hr 30 mg PO DAILY RF: 0 Discontinued clopidogrel 75 MG tablet 75 mg PO DAILY Qty: 30 RF: 0 Referrals / Follow Up: Rudy Mir MD [STAFF PHYSICIAN] - Within 2 Weeks Sergio Maxwell DO [Primary Care Provider] - Within 2 Weeks Disposition Disposition (needs filled in before D/C Order can be placed): Home, Self Care
[2021-10-09 11:05] LABS: Bedside Glucose 266 mg/dL (70-110)
--- NOTE | 2021-10-09 11:21 | CASEMGMT ---
This RN CM to room and pt states no concerns with going home at time of discharge. Pt states no need for any therapy or DME. Pt states plans to discharge home with sisters and states 'I think I have everything I need. ' SStaten RN CM
[2021-10-09 12:05] LABS: Bedside Glucose 287 mg/dL (70-110)
--- NOTE | 2021-10-09 13:10 | DS.PCM_ITS ---
Documented by User: Javier MEDINA 10/09/21 13:17 Providers Date of Admission: 10/03/21 Primary Care Physician: Dr. Sergio Maxwell, Consultations 10/03/21 15:01 Consult: Nephrology Routine Consulting Provider: Phoebe Snyder Reason for Consult: Dialysis today EMERGENT Consult: No MD Notified: Yes Date Notified: 10/03/21 Time Notified: 14:23 Method of Notification: Answering Service 10/03/21 16:25 Consult: Cardiology Routine Consulting Provider: Judy Prescott Reason for Consult: Elevated troponin, no chest pain, on dialysis EMERGENT Consult: No MD Notified: Yes Date Notified: 10/04/21 Time Notified: 06:42 Method of Notification: Text Reason For Visit: ASPIRATION WITH ESRD Diagnosis Discharge Diagnosis (1) Atherosclerosis of coronary artery of [place] heart without angina pectoris: Status: Chronic Code(s): I25.10 - Atherosclerotic heart disease of [place] coronary artery without angina pectoris Qualifiers: Coronary Disease-Associated Artery/Lesion type: unspecified vessel or lesion type Qualified Code(s): I25.10 - Atherosclerotic heart disease of [place] coronary artery without angina pectoris Medications at Discharge Home Medications insulin aspart U-100 3 units SC LUNCH 03/20/18 insulin NPH isoph U-100 human 5 units SC QHS 10/28/18 insulin aspart U-100 15 units SC BREAKFAST 10/28/18 atorvastatin 40 mg PO DAILY 10/03/20 insulin aspart U-100 5 units SC DINNER 10/03/20 albuterol sulfate 90 mcg/actuation aerosol inhaler 2 puff INHALATION Q6H PRN 11/06/20 aspirin 81 mg tablet,delayed release 81 mg PO DAILY 11/06/20 ondansetron 4 mg disintegrating tablet 4 mg PO Q6H PRN 11/06/20 trazodone 50 mg tablet 50 mg PO QHS PRN 11/06/20 carvedilol 6.25 mg tablet 6.25 mg PO DAILY tab 11/07/20 furosemide 40 mg tablet 40 mg PO DAILY #30 tab 11/07/20 isosorbide mononitrate 60 mg tablet,extended release 24 hr 30 mg PO DAILY tablet 01/18/21 guaifenesin 1,200 mg tablet, extended release 12 hr 1,200 mg PO BID tablet 02/13/21 alendronate 70 mg tablet 70 mg PO QWEEK 09/25/21 ranolazine [Ranexa] 500 mg PO BID #60 tab 10/09/21 Hospital Course Summary of Care Provided Minutes Spent on Discharge: 35 Hospital Course: Disposition: Patient to discharge home. 1) acute hypoxic respiratory failure secondary to aspiration pneumonia Patient's respiratory status back to baseline as she is satting 93% on room air. Strep pneumo and Legionella urinary antigens are negative. Covid is negative. Viral panel is negative. Blood cultures to go coagulase-negative staph, believe this is contaminant. Unasyn was initiated on patient from admission and continued for 5 days. No antibiotics were given on discharge due to patient recovery and overall unremarkable work-up. Patient to follow-up with primary care provider within the next 2 weeks. 2) NSTEMI type II Cardiac catheterization on 10/08/2021 demonstrated severe [place] coronary artery disease with bypass graft noted to be patient with a SIMS to the LAD, saphenous vein graft to the diagonal vessel and saphenous vein graft to the obtuse marginal branch and posterior lateral branch. Recommendations per cardiology ar e to continue with medical management. Ranolazine was added to patient home medication regimen. Plavix was discontinued on recommendation from cardiology. All other home medications were continued. Patient is to follow-up with cardiology within the next 2 weeks. 3) CAD status post CABG Prior CABG completed SIMS to LAD, sequential SVG to OM and posterior lateral circumflex, SVG to diagonal. As above. 4) hyperlipidemia Continue statin. 5) HTN Stable, continue Coreg and isosorbide. 6) ESRD Patient was dialyzed in the hospital on 10/08/2021, is to resume regular MWF schedule on discharge. 7) acute thrombocytopenia Resolved, platelets currently 224. 8) anemia of chronic disease Hemoglobin currently 11.7, which is around patient's baseline. Likely secondary to ESRD. 9) DM 1 Hemoglobin A1c was 6.9, although blood sugars were elevated on admission, and prednisone was initiated. Home diabetic regimen was continued, to follow-up with primary care provider in the next 2 weeks. 10) osteoporosis Continue alendronate on discharge. Patient seen by Javier Obregon PA-C, under the supervision of Dr. Mireles. Physical Exam Narrative Patient is a 65-year-old female comfortably resting in bed, alert and orient x3. Patient denies development of any new symptoms overnight. Does not appear in acute distress. Const alert, oriented x3 and no apparent distress HEENT normocephalic, head/scalp atraumatic and hearing grossly normal bilaterally Eyes PERRL, EOMs intact bilaterally and conjunctivae normal Neck no lymphadenopathy, supple and no JVD Resp normal respiratory effort, no retractions, no use of accessory muscles and clear to auscultation bilaterally Resp Narrative: Currently satting 93% on room air. Cardio regular rate, regular rhythm, no murmurs and no JVD GI normal to inspection, nondistended, normoactive bowel sounds, soft to palpation and non-tender Extremity normal to inspection, full ROM and no clubbing, cyanosis or edema Skin no rashes or lesions noted, no wounds and skin turgor normal Neuro CN's II-XII intact bilaterally Psych affect normal Weight / BMI Weight Weight: 127 lb 6.835 oz Body Mass Index (BMI) 24.7 ABG / Lab / Microbiology Data Result Diagrams: 10/09/21 08:34 10/08/21 04:18 Laboratory: Laboratory Results - last 24 hr 10/08/21 17:21: POC Glucose 198 H 10/08/21 20:31: POC Glucose 318 H 10/09/21 08:30: POC Glucose 266 H 10/09/21 08:34: WBC 18.8 H, RBC 4.07 L, Hgb 12.7, Hct 37.6, MCV 92.4, MCH 31.2, MCHC 33.8, RDW Std Deviation 43.0, RDW Coeff of Andrzej 12.6, Plt Count 224, MPV 11.4, Immature Gran % (Auto) 1.300 H, Neut % (Auto) 92.4 H, Lymph % (Auto) 2.5 L , [place] % (Auto) 2.9, Eos % (Auto) 0.6, Baso % (Auto) 0.3, Absolute Neuts (auto) 17.4 H, Absolute Lymphs (auto) 0.48 L, Nucleated RBC % 0, Differential Comment SCANNED 10/09/21 11:59: POC Glucose 287 H Microbiology: Microbiology 10/08/21 10:30 Sputum, Expectorated/Coughed Gram Stain - Final 10/08/21 10:30 Sputum, Expectorated/Coughed Respiratory Culture - Preliminary Alpha Hemolytic Streptococcus 10/03/21 11:55 Blood Culture (Wb) - Right Wrist Blood Culture - Final No growth in 5 days. 10/05/21 10:24 Mucosa - Nose Respiratory Panel (PCR) - Final 10/03/21 12:25 Blood Culture (Wb) #2 - Right Hand Bacteria Detection (PCR) - Final Coag Negative Staph 10/03/21 12:25 Blood Culture (Wb) #2 - Right Hand Blood Culture - Final Coag Negative Staph Coag Negative Staph#2 10/03/21 12:00 Nasal Secretion SARS-CoV-2 Antigen (Rapid) - Final 10/03/21 12:00 Mucosa - Nasopharyngeal Influenza Types A,B Direct FA (NIGEL) - Final D/C Instructions Discharge Diet: No restrictions Weight Bearing Status: Weight bearing as tolerated Call your doctor if you observe: Fever of 101 or Higher, Numbness or Tingling, Shortness of breath, Dizziness, Chest pain, Increased palpitations (irregular heartbeat) and Calf discomfort Please Follow Up With: Primary care provider When: Within the next two weeks. Meaningful Use Info Meaningful Use Diagnoses (Choose all that apply): None applicable Discharge Plan Admission Admit Date/Time: 10/03/21 14:16 Primary Reason for Your Visit: Shortness of breath. Attending Provider: Nadeem Mireles Primary Care Provider: Sergio Maxwell Consulting Providers: Phoebe Snyder ; Judy Prescott Instructions Additional Instructions / Restrictions: Patient Problems: Altered Health Status related to Hospitalization Patient Goals: *Optimal Level of Health *Keep Appointments *Medication Compliance *Remain Safe Discharge Orders/Prescriptions Prescriptions: New ranolazine [Ranexa] 500 mg tablet extended release 12 hr 500 mg PO BID Qty: 60 RF: 0 Continued carvedilol 6.25 mg tablet 6.25 mg PO DAILY RF: 0 furosemide 40 mg tablet 40 mg PO DAILY Qty: 30 RF: 11 guaifenesin 1,200 mg tablet extended release 12hr 1,200 mg PO BID RF: 0 albuterol sulfate 90 mcg/actuation HFA aerosol inhaler 2 puff INHALATION Q6H PRN (Reason: Wheezing) RF: 0 aspirin [Adult Low Dose Aspirin] 81 mg tablet,delayed release (DR/EC) 81 mg PO DAILY RF: 0 trazodone 50 mg tablet 50 mg PO QHS PRN (Reason: Sleep) RF: 0 ondansetron 4 mg tablet,disintegrating 4 mg PO Q6H PRN (Reason: Nausea) RF: 0 alendronate 70 mg tablet 70 mg PO QWEEK RF: 0 insulin aspart U-100 100 UNITS/ML insulin pen 3 units SC LUNCH RF: 0 insulin NPH isoph U-100 human 100 UNIT/ML suspension 5 units SC QHS RF: 0 insulin aspart U-100 100 UNITS/ML insulin pen 15 units SC BREAKFAST RF: 0 atorvastatin 40 MG tablet 40 mg PO DAILY RF: 0 insulin aspart U-100 100 UNITS/ML insulin pen 5 units SC DINNER RF: 0 isosorbide mononitrate 60 mg tablet extended release 24 hr 30 mg PO DAILY RF: 0 Discontinued clopidogrel 75 MG tablet 75 mg PO DAILY Qty: 30 RF: 0 Referrals / Follow Up: Sergio Maxwell DO [Primary Care Provider] - 10/23/21 4:30 pm Javier Beck NP, [employer] TECHNICIAN-C [Nurse Practitioner] - 10/24/21 3:30 pm Disposition Disposition (needs filled in before D/C Order can be placed): Home, Self Care Documented by User: Dr. Nadeem Mireles MD 10/09/21 16:26 Providers Date of Admission: 10/03/21 Reason For Visit: ASPIRATION WITH ESRD Medications at Discharge Home Medications insulin aspart U-100 3 units SC LUNCH 03/20/18 insulin NPH isoph U-100 human 5 units SC QHS 10/28/18 insulin aspart U-100 15 units SC BREAKFAST 10/28/18 atorvastatin 40 mg PO DAILY 10/03/20 insulin aspart U-100 5 units SC DINNER 10/03/20 albuterol sulfate 90 mcg/actuation aerosol inhaler 2 puff INHALATION Q6H PRN 11/06/20 aspirin 81 mg tablet,delayed release 81 mg PO DAILY 11/06/20 ondansetron 4 mg disintegrating tablet 4 mg PO Q6H PRN 11/06/20 trazodone 50 mg tablet 50 mg PO QHS PRN 11/06/20 carvedilol 6.25 mg tablet 6.25 mg PO DAILY tab 11/07/20 furosemide 40 mg tablet 40 mg PO DAILY #30 tab 11/07/20 isosorbide mononitrate 60 mg tablet,extended release 24 hr 30 mg PO DAILY tablet 01/18/21 guaifenesin 1,200 mg tablet, extended release 12 hr 1,200 mg PO BID tablet 02/13/21 alendronate 70 mg tablet 70 mg PO QWEEK 09/25/21 ranolazine [Ranexa] 500 mg PO BID #60 tab 10/09/21 Hospital Course Summary of Care Provided Hospital Course: This patient was seen in conjunction with ADAM José. I have independently interviewed and examined the patient and reviewed pertinent history, examination findings, laboratory and plan of management. I have reviewed the note and agree with the documented findings with the few additional points. In brief, patient is admitted for acute hypoxic respiratory secondary to aspira tion pneumonia. Patient noted fever since admission. Moist cough. Urinary antigens are negative. Viral panel and Covid negative. Blood culture shows a skin contamination: Negative staph. On Unasyn 5 days will be enough, completed on 10/09. Non-STEMI most likely type II. Cardiac cath showed patent grafts. Patient was dialyzed yesterday. Rest as documented above Discharge medication reconciliation done. Discharge follow-up instructions completed. Discharge process discussed with the patient and all questions were answered to patient's satisfaction. Total time spent, exact 35 minutes on discharge meds reconciliation, examination, coordination of care with nurses and ancillary staff, review of imaging and blood test and discussion with the patient on follow-up instructions I have discussed my assessment with ADAM José and orders have been reviewed. Physical Exam Narrative Patient was dialyzed last evening. She feels better with no shortness of breath. General: Alert, Oriented x3, Cooperative HEENT: Atraumatic, PERRLA, EOMI, Normocephalic Oral: No Gingival or Mucosal Lesions/ Ulcerations Neck: Supple, No JVD, Negative Carotid Bruits Lungs: Air entry diminished in bilateral lung bases. Mild chronic crepitations. No signs of respiratory distress or dyspnea. Cardiovascular: CABG scar. Regular rate, Regular Rhythm, Normal S1, Normal S2, No murmurs Abdomen: Bowel Sounds Present, Soft, Non Tender, Non-Distended : No renal angle tenderness. No suprapubic tenderness. Extremities: AV fistula. No edema, Capillary Refill Less than 3 Seconds Skin: No rashes, No breakdown Musculoskeletal: No Tenderness to Palpation of Joints or Extremities Neurological: Cranial nerves II-XII grossly intact, DTR 2+/4 and Symmetrical, Neuro grossly intact Psych/Mental Status: Normal Affect, Appropriate. ABG / Lab / Microbiology Data Result Diagrams: 10/09/21 08:34 10/08/21 04:18 Discharge Plan Admission Admit Date/Time: 10/03/21 14:16 Primary Reason for Your Visit: Shortness of breath. Attending Provider: Nadeem Mireles Primary Care Provider: Sergio Maxwell Consulting Providers: Phoebe Snyder ; Judy Prescott Instructions Additional Instructions / Restrictions: Patient Problems: Altered Health Status related to Hospitalization Patient Goals: *Optimal Level of Health *Keep Appointments *Medication Compliance *Remain Safe Discharge Orders/Prescriptions Prescriptions: New ranolazine [Ranexa] 500 mg tablet extended release 12 hr 500 mg PO BID Qty: 60 RF: 0 Continued carvedilol 6.25 mg tablet 6.25 mg PO DAILY RF: 0 furosemide 40 mg tablet 40 mg PO DAILY Qty: 30 RF: 11 guaifenesin 1,200 mg tablet extended release 12hr 1,200 mg PO BID RF: 0 albuterol sulfate 90 mcg/actuation HFA aerosol inhaler 2 puff INHALATION Q6H PRN (Reason: Wheezing) RF: 0 aspirin [Adult Low Dose Aspirin] 81 mg tablet,delayed release (DR/EC) 81 mg PO DAILY RF: 0 trazodone 50 mg tablet 50 mg PO QHS PRN (Reason: Sleep) RF: 0 ondansetron 4 mg tablet,disintegrating 4 mg PO Q6H PRN (Reason: Nausea) RF: 0 alendronate 70 mg tablet 70 mg PO QWEEK RF: 0 insulin aspart U-100 100 UNITS/ML insulin pen 3 units SC LUNCH RF: 0 insulin NPH isoph U-100 human 100 UNIT/ML suspension 5 units SC QHS RF: 0 insulin aspart U-100 100 UNITS/ML insulin pen 15 units SC BREAKFAST RF: 0 atorvastatin 40 MG tablet 40 mg PO DAILY RF: 0 insulin aspart U-100 100 UNITS/ML insulin pen 5 units SC DINNER RF: 0 isosorbide mononitrate 60 mg tablet extended release 24 hr 30 mg PO DAILY RF: 0 Discontinued clopidogrel 75 MG tablet 75 mg PO DAILY Qty: 30 RF: 0 Referrals / Follow Up: Sergio Maxwell DO [Primary Care Provider] - 10/23/21 4:30 pm Javier Beck NP, [employer] TECHNICIAN-C [Nurse Practitioner] - 10/24/21 3:30 pm Disposition Disposition (needs filled in before D/C Order can be placed): Home, Self Care Charges/Coding Visit Charges Inpatient E&M: 08154 Disch Hosp
== END 2021-10-09 13:55 | disposition home or self-care (01) | DRG 177 ==
LOC: ED 14:15 → PCU 14:36
PROVIDERS: Hospitalist; Internal Medicine; Internal Medicine Interventional Cardiology; Internal Medicine Nephrology; Physician Assistant; Physician Assistant Medical; Admitting Provider Family Medicine; Emergency Provider Emergency Medicine; PCP Preventive Medicine Occupational Medicine; Visit Provider Internal Medicine
DX: J69.0 Pneumonitis due to inhalation of food and vomit (principal); N18.6 End stage renal disease; J96.01 Acute respiratory failure with hypoxia; I21.A1 Myocardial infarction type 2; I50.23 Acute on chronic systolic (congestive) heart failure; I13.2 Hypertensive heart and chronic kidney disease with heart failure and with stage 5 chronic kidney disease, or end stage renal disease; E87.1 Hypo-osmolality and hyponatremia; E10.22 Type 1 diabetes mellitus with diabetic chronic kidney disease; E10.65 Type 1 diabetes mellitus with hyperglycemia; D63.1 Anemia in chronic kidney disease; J84.9 Interstitial pulmonary disease, unspecified; Z20.822 Contact with and (suspected) exposure to COVID-19; I25.5 Ischemic cardiomyopathy; I25.10 Atherosclerotic heart disease of native coronary artery without angina pectoris; E10.51 Type 1 diabetes mellitus with diabetic peripheral angiopathy without gangrene; E78.5 Hyperlipidemia, unspecified; M81.0 Age-related osteoporosis without current pathological fracture; Z99.2 Dependence on renal dialysis; Z79.4 Long term (current) use of insulin; Z79.82 Long term (current) use of aspirin; Z79.83 Long term (current) use of bisphosphonates; Z79.899 Other long term (current) drug therapy; I25.2 Old myocardial infarction; Z95.1 Presence of aortocoronary bypass graft
CPT/HCPCS: 36415; 71045; 71250; 80048; 80053; 82962; 83036; 83605; 83735; 84484; 85025; 85610; 85730; 87040; 87070; 87149; 87205; 87340; 87426; 87633; 87635; 87804; 90937; 93005; 93306; 93455; 94640; 97110; 97162; 97166; 97530; 97535; 97802; 99152; 99153; 99285; J7030; J7050; Q9957; U0005; A4216; C1769; C8929; G0257; J0295; J1940; Q9967; U0003

== ENCOUNTER 2021-10-15 18:19 | Inpatient (IN) | payer MEDICARE, MEDICAID, SELFPAY ==
[2021-10-15] VITALS (10 sets, daily range): BP systolic 76–138; BP diastolic 34–110; PULSE 56–89; RESP 12–25; TEMP 36.5–37.3; O2SAT 95–100; BMI 26.1
--- NOTE | 2021-10-15 18:59 | RAD_ITS ---
STUDY: X-RAY CHEST REASON FOR EXAM: Female, 65 years old. PNEUMONIA TECHNIQUE: Single frontal view of the chest. COMPARISON: 10/03/2021 FINDINGS: There is partial resolution of the opacities within the left lung. There are residual ill-defined opacities within the right mid and lower lungs. Sternal cerclage wires are present from a prior sternotomy. The cardiac silhouette is within normal limits. Normal mediastinum and arlene. Normal visualized pulmonary arteries. Normal visualized aortic arch and descending thoracic aorta. Normal visualized thoracic spine. Normal visualized ribs, clavicles, and shoulders. There is no demonstrated abnormality of the visualized soft tissue structures of the upper abdomen. RAD/Chest 1 View (Portable) IMPRESSION: Partial resolution of ill-defined opacities suggestive of underlying pneumonia. Electronically Signed: Clare Avila MD at 21:19 EST Tel , Service support ,
--- NOTE | 2021-10-15 19:00 | EKG12_ITS ---
Test Reason : DYSRHYTHMIA Blood Pressure : / mmHG Vent. Rate : 068 BPM Atrial Rate : 068 BPM P-R Int : 156 ms QRS Dur : 162 ms QT Int : 504 ms P-R-T Axes : 072 245 106 degrees QTc Int : 535 ms Poor data quality, interpretation may be adversely affected Normal sinus rhythm Non-specific intra-ventricular conduction block Abnormal ECG Confirmed by NUBIA CALDERA, DAVIS ([id number]), purchasing expeditor LUIS VILLATORO ([id number]) on 10/17/2021 9:57:51 AM Referred By: Confirmed By:DAVIS DELACRUZ MD
[2021-10-15 19:41] LABS: Absolute Lymphocyte Count 0.49 X10^3/uL (0.83-4.51); Absolute Neutrophil Count 30.3 X10^3/uL (2.0-7.7); Basophil# 0.18 X10^3/uL; Basophil% 0.6 % (0-1); Eosinophil# 0.02 X10^3/uL; Eosinophils% 0.1 % (0-5); Hematocrit 35.7 % (37-47); Hemoglobin 11.3 g/dL (12.0-15.0); Lymphocyte # 0.49 X10^3/ul (0.83-4.51); Lymphocyte % 1.5 % (19-41); Mean Corp Hgb Conc 31.7 g/dL (32-36); Mean Corpuscular Hgb 31.2 pg (27.0-32.0); Mean Corpuscular Volume 98.6 fL (81-99); Mean Platelet Vol. 11.7 fl (6.2-12.0); Monocyte# 1.25 X10^3/uL; Monocyte% 3.8 % (0-10); NRBC Flagged by Analyzer 0 % (0-5); Neutrophil # 30.34 X10^3/uL (2.7-7.7); Neutrophil % 92.7 % (47-70); POSITIVE COUNT YES; POSITIVE DIFFERENTIAL YES; Platelet Count 192 K/mm3 (150-450); RBC Distribution Width CV 13.7 % (11.6-14.6); RBC Distribution Width SD 49.5 fl (35.1-43.9); Red Blood Count 3.62 M/mm3 (4.2-5.4)
[2021-10-15 19:45] LABS: International Normalized Ratio 1.1; Prothrombin Time (Protime)PT. 13.8 SECONDS (11.7-14.9)
[2021-10-15 19:47] LABS: Partial Thromboplast Time 27.9 Seconds (24.1-36.2)
[2021-10-15 19:55] LABS: Differential Indicated SCAN CRITERIA MET; White Blood Count 32.7 K/mm3 (4.4-11.0)
[2021-10-15 19:59] LABS: Lactic Acid 2.2 mmol/L (0.4-1.9)
--- NOTE | 2021-10-15 20:22 | CPS ---
Pt. transitioned to 2L; SpO2 = 98%
[2021-10-15 20:32] LABS: Platelet Estimate ADEQUATE (ADEQ); Red Cell Morphology NORM C+C NORMAL (NORM C&C)
[2021-10-15 20:39] LABS: ALB/GLOB Ratio 0.4 RATIO (0.9-2.4); AST(SGOT) 35 U/L (15-37); Alanine Aminotransfer ALT/SGPT 29 U/L (13-56); Albumin, Serum 1.8 g/dL (3.2-5.0); Alkaline Phosphatase 105 U/L (45-117); Anion Gap 10 (5-15); BUN 31 mg/dL (7-18); BUN/Creat Ratio 9.4 RATIO (10-20); Calcium,Total 7.6 mg/dL (8.5-10.1); Chloride 104 mmol/L (98-107); Creatinine, Serum 3.31 mg/dL (0.55-1.02); EST Glomerular Filtration Rate 15 mL/min (>60); Est Glom Filt Rate - Afr Amer 18 mL/min (>60); Estimated Creatinine Clearance 12.33 ml/min; Glucose 90 mg/dL (74-106); Potassium 3.9 mmol/L (3.5-5.1); Protein, Total 5.8 g/dL (6.4-8.2); Sodium Level 138 mmol/L (136-145); Troponin-I HS 2239 pg/mL (3.0-54.0)
[2021-10-15 21:20] LABS: Color, Urine Yellow (Yellow); Glucose, Dipstick Normal (Normal); Ketone-Dipstick Negative (Negative); Leukocyte Esterase-Dipstick 25 /ul (Negative); Mucous, Urine 0 SEEN /hpf (<or=2+); Nitrite-Dipstick Negative (Negative); Occult Blood-Urine 10 /ul (Negative); Protein-Dipstick 100 mg/dl (Negative); Squamous Epithelial Cells - UA 0 SEEN /hpf (5-10); Urine Clarity Sl. Cloudy (Clear); Urine Urobilinogen Normal (Normal)
[2021-10-15 21:27] LABS: Urine Bilirubin Dipstick 1 mg/dL (Negative)
[2021-10-15 21:29] LABS: Amorphous Sediment 1+; Bacteria RARE /hpf (None Seen); Red Blood Cells-Urine 0-5 SEEN /hpf (0-5); White Blood Cells 0-5 SEEN /hpf (0-5)
--- NOTE | 2021-10-15 22:36 | ED.RN ---
called for picc placement. access nurse states it will be around 0900 10/16/21
--- NOTE | 2021-10-15 22:48 | EX.ED.DYSGE1 ---
HPI History of Present Illness Chief Complaint: Alt LOC Informant: family and EMS Narrative Narrative: 65-year-old female with multiple medical problems including end-stage renal disease on dialysis, cardiac bypass surgery, peripheral vascular disease, diabetes, CHF presented to the emergency room with decreased mental status. Patient was recently admitted for aspiration pneumonia and discharged home. Family states she has continued to cough and seems to have deteriorated a little bit each day. Typically she is able to get up and walk to the car for dialysis but today they had to wheel her out. When she came back from dialysis she was found minimally responsive. EMS was called they found her in the mid 50s on room air. They also noted some hypotension. Patient recently underwent a heart catheterization during hospitalization due to an NSTEMI. This was felt that she needed to be medically managed. She was placed on ranolazine. Her sister states that she has had this before and had caused some confusion with her wonders if that was going on now. [facility] Medical History EMPERATRIZ (acute kidney injury) Anemia of chronic disease Atherosclerosis of coronary artery of [place] heart without angina pectoris CHF exacerbation Chronic renal failure, stage 4 (severe) Diabetes mellitus type 1 Dialysis patient Elevated troponin Essential hypertension Insomnia Interstitial lung disease Macrocytic anemia Non-ST elevation myocardial infarction (NSTEMI) Vitamin D deficiency Home Medications insulin aspart U-100 3 units SC LUNCH 03/20/18 [History Last Taken 10/02/20] insulin NPH isoph U-100 human 5 units SC QHS 10/28/18 [History Last Taken 10/02/20] insulin aspart U-100 15 units SC BREAKFAST 10/28/18 [History Last Taken 10/03/20] atorvastatin 40 mg PO DAILY 10/03/20 [History Last Taken 10/03/20] insulin aspart U-100 5 units SC DINNER 10/03/20 [History Last Taken 10/02/20] albuterol sulfate 90 mcg/actuation aerosol inhaler 2 puff INHALATION Q6H PRN 11/06/20 [History Last Taken Unknown] aspirin 81 mg tablet,delayed release 81 mg PO DAILY 11/06/20 [History Last Taken Unknown] ondansetron 4 mg disintegrating tablet 4 mg PO Q6H PRN 11/06/20 [History Last Taken Unknown] trazodone 50 mg tablet 50 mg PO QHS PRN 11/06/20 [History Last Taken Unknown] carvedilol 6.25 mg tablet 6.25 mg PO DAILY tab 11/07/20 [History Last Taken Unknown] furosemide 40 mg tablet 40 mg PO DAILY #30 tab 11/07/20 [Rx Last Taken Unknown] isosorbide mononitrate 60 mg tablet,extended release 24 hr 30 mg PO DAILY tablet 01/18/21 [History Last Taken Unknown] guaifenesin 1,200 mg tablet, extended release 12 hr 1,200 mg PO BID tablet 02/13/21 [History Last Taken Unknown] alendronate 70 mg tablet 70 mg PO QWEEK 09/25/21 [History Last Taken Unknown] Allergy/AdvReac Type Severity Reaction Status Date / Time levofloxacin [From Levaquin] Allergy Severe Other Verified 10/15/21 18:21 ranolazine [From Ranexa] AdvReac Severe Severe Verified 10/15/21 18:21 weakness Iodinated Contrast Media AdvReac Hives Verified 10/15/21 18:21 [CONTRASTS] Family History Mother Hypertension Cancer Father Hypertension CVA (cerebral vascular accident) Surgical History H/O coronary artery bypass surgery History of arteriovenostomy for renal dialysis History of left heart catheterization (10/08/21) Hx of carpal tunnel repair Social History Smoking Status: Never smoker second hand exposure: No alcohol intake: never substance use type: does not use caffeine: Yes Type: coffee what type of physical activity do you participate in: none frequency: does not exercise ROS ROS ED Constitutional Constitutional ED: Denies chills, fever(s) or weight loss Eyes Eyes: Denies change in vision or diplopia ENT ENT ED: Denies ear pain, rhinorrhea or sore throat Cardiovascular Cardiovascular: Denies chest pain, orthopnea, palpitations or racing heartbeat Respiratory/Chest Respiratory/Chest: Reports cough, dyspnea, dyspnea on exertion and sputum; Denies orthopnea Gastrointestinal Gastrointestinal: Denies abdominal pain, diarrhea, nausea or vomiting Genitourinary Genitourinary ED: Denies dysuria, hematuria or urinary frequency Musculoskeletal Musculoskeletal: Denies arthralgias or myalgias Integumentary Denies abscess or rash Neurologic Neurologic: Denies headache(s) or weakness Psychiatric Psychiatric: Denies anxiety, depression, suicidal ideation or suicidal thoughts Endocrine Endocrinology: Denies polydipsia, polyphagia or polyuria Allergic/Immunologic Allergic/Immunologic ED: Denies mouth swelling, tongue swelling or urticaria EXAM Physical Exam Const Vital Signs: 10/15/21 18:21 10/15/21 18:26 10/15/21 18:31 Temperature 97.7 F L 97.7 F L Temperature Source Temporal Temporal Pulse Rate 67 67 Respiratory Rate 12 12 Respiratory Pattern Blood Pressure 98/76 98/76 Blood Pressure Mean 83 83 Pulse Ox 100 100 97 Oxygen Delivery Method CPAP CPAP CPAP Oxygen Flow Rate (L/min) Fraction of Inspired Oxygen (FIO2) 10/15/21 19:00 10/15/21 20:07 10/15/21 21:10 Temperature 98.6 F 98.6 F Temperature Source Temporal Temporal Pulse Rate 68 89 69 Respiratory Rate 25 H 18 18 Respiratory Pattern Tachypnea Blood Pressure 138/110 H 90/34 L Blood Pressure Mean 119 52 Pulse Ox 97 99 99 Oxygen Delivery Method Bi-pap Nasal Cannula Oxygen Flow Rate (L/min) 2 Fraction of Inspired Oxygen (FIO2) 80 10/15/21 22:02 Temperature 98.9 F Temperature Source Temporal Pulse Rate 88 Respiratory Rate 18 Respiratory Pattern Blood Pressure 86/46 L Blood Pressure Mean 59 Pulse Ox 98 Oxygen Delivery Method Room Air Oxygen Flow Rate (L/min) Fraction of Inspired Oxygen (FIO2) Positive well nourished and well developed General Appearance ED: well developed HEENT Reports normocephalic, head/scalp atraumatic, TM's clear and moist mucous membranes Negative for trauma Tympanic Membrane ED: Yes TM's clear Eyes PERRL and EOMs intact bilaterally Neck no lymphadenopathy, supple and no JVD Resp Resp Narrative: Patient is on CPAP from EMS Cardio regular rate Rate: tachycardic and other Other Details: Systolic murmur GI normal to inspection, nondistended, normoactive bowel sounds and non-tender GI Narrative: There is a noted hematoma of the left lower quadrant of the abdominal wall Palpation: soft Back/Spine no CVA tenderness and normal ROM Extremity normal to inspection General Extremety ED: Negative for edema General Extremity: Negative for edema Neuro Neuro Narrative: Moves all extremities Sensorium / Orientation: lethargic Psych Mood & Affect: tearful Skin no rashes or lesions noted and no wounds MDM MDM MDM Narrative Medical decision making narrative: Nursing was unable to obtain a peripheral IV. I attempted an IJ and was able to advanced the guidewire only about 2 inches past the edge of the needle before it would no longer advance. The thickness and scarring of her neck was not conducive to placing a peripheral IV as evidenced by the peripheral IV bending as I tried to advance it. Her right chest has scarring from prior procedures as does the light femoral. Nursing was able to get bilateral feet IVs and one in the right wrist. I spoke with the sister at length. We reviewed the labs and her work-up. Her sister would like to make her a DNR Comfort Care arrest with no intubation. We contacted to get a PICC line but the PICC line would not be able to be placed until tomorrow. I asked the sister she would like me to continue to try for a central line and she would like to give her sister a rest tonight. We will continue to give fluids. Her white count is elevated at 32.7 with a lactic acid elevated at 2.2. Creatinine 3.31 which is chronic. Her troponin 2239 which most likely represents a type II troponin. She received vancomycin and Zosyn as well as some IV fluids. Her mean arterial pressures have consistently been below 65. Her sister tells me that normally does run low but not this low. We talked about that whether or not to give her pressors but given the lack of great access I think this may be more detrimental and we should continue with fluids though we need to be gentle given her CHF and CRD. Lab Data Attestation: I reviewed the patient's lab results. Labs: Laboratory Results - last 24 hr 10/15/21 10/15/21 10/15/21 19:00 19:00 19:00 WBC 32.7 H* RBC 3.62 L Hgb 11.3 L Hct 35.7 L MCV 98.6 MCH 31.2 MCHC 31.7 L RDW Std Deviation 49.5 H RDW Coeff of Andrzej 13.7 Plt Count 192 MPV 11.7 Immature Gran % (Auto) 1.300 H Neut % (Auto) 92.7 H Lymph % (Auto) 1.5 L [place] % (Auto) 3.8 Eos % (Auto) 0.1 Baso % (Auto) 0.6 Absolute Neuts (auto) 30.3 H Absolute Lymphs (auto) 0.49 L Nucleated RBC % 0 Differential Comment Diff Path Review May foll Platelet Estimate ADEQUATE RBC Morphology NORM C+C PT 13.8 INR 1.1 APTT 27.9 Sodium Cancelled Potassium Cancelled Chloride Cancelled Carbon Dioxide Cancelled Anion Gap Cancelled BUN Cancelled Creatinine Cancelled Estim Creat Clear Calc Cancelled Est GFR (MDRD) Af Amer Cancelled Est GFR (MDRD) Non-Af Cancelled BUN/Creatinine Ratio Cancelled Glucose Cancelled Lactic Acid Calcium Cancelled Total Bilirubin Cancelled AST Cancelled ALT Cancelled Alkaline Phosphatase Cancelled Troponin I High Sens Cancelled Total Protein Cancelled Albumin Cancelled Globulin Cancelled Albumin/Globulin Ratio Cancelled Urine Color Urine Clarity Urine pH Ur Specific [place] Urine Protein Urine Glucose (UA) Urine Ketones Urine Occult Blood Urine Nitrite Urine Bilirubin Urine Urobilinogen Ur Leukocyte Esterase Urine RBC Urine WBC Ur Squamous Epith Cells Amorphous Sediment Urine Bacteria Urine Mucus 10/15/21 10/15/21 10/15/21 19:00 19:50 21:10 WBC RBC Hgb Hct MCV MCH MCHC RDW Std Deviation RDW Coeff of Andrzej Plt Count MPV Immature Gran % (Auto) Neut % (Auto) Lymph % (Auto) [place] % (Auto) Eos % (Auto) Baso % (Auto) Absolute Neuts (auto) Absolute Lymphs (auto) Nucleated RBC % Differential Comment Diff Path Review Platelet Estimate RBC Morphology PT INR APTT Sodium 138 Potassium 3.9 Chloride 104 Carbon Dioxide 24.0 Anion Gap 10 BUN 31 H Creatinine 3.31 H Estim Creat Clear Calc 12.33 Est GFR (MDRD) Af Amer 18 L Est GFR (MDRD) Non-Af 15 L BUN/Creatinine Ratio 9.4 L Glucose 90 Lactic Acid 2.2 H* Calcium 7.6 L Total Bilirubin 0.70 AST 35 ALT 29 Alkaline Phosphatase 105 Troponin I High Sens 2239 H* Total Protein 5.8 L Albumin 1.8 L Globulin 4.0 Albumin/Globulin Ratio 0.4 L Urine Color Yellow Urine Clarity Sl. Cloudy Urine pH 6.0 Ur Specific [place] 1.020 Urine Protein 100 H Urine Glucose (UA) Normal Urine Ketones Negative Urine Occult Blood 10 H Urine Nitrite Negative Urine Bilirubin 1 H Urine Urobilinogen Normal Ur Leukocyte Esterase 25 H Urine RBC 0-5 SEEN Urine WBC 0-5 SEEN Ur Squamous Epith Cells 0 SEEN Amorphous Sediment 1+ Urine Bacteria RARE Urine Mucus 0 SEEN Radiography Diagnostic Testing: Clinical Impression(s) from Imaging Studies Chest X-Ray 10/15/21 18:59 IMPRESSION: Partial resolution of ill-defined opacities suggestive of underlying pneumonia. Electronically Signed: Clare Avila MD at 21:19 EST Tel , Service support , EKG Initial EKG: Attestation: I personally reviewed and interpreted this EKG as follows: Comments: Sinus rhythm with a ventricular rate of 68 bpm. Critical Care Time Critical Care Time: Yes Critical care time (excluding procedures): 30-74 minutes (34), Including time spent:, Discussing w/Patient &/or Family/Stator Connector, Discussing w/Consultants, Arranging Admission or Transfer and Performing Direct Patient Care at Bedside Discharge Plan Dx/Rx/DC Orders Clinical Impression: Pneumonia, Chronic renal failure, stage 4 (severe), Non-ST elevation myocardial infarction (NSTEMI), End stage renal disease, Sepsis, Encephalopathy acute Disposition Disposition: Acute Care Hospital [facility]
[2021-10-15 23:16] LABS: Reflex Lactate? Y
--- NOTE | 2021-10-15 23:29 | HP.PCM_ITS ---
HPI - General General Date of Admission: 10/15/21 HPI Narrative KONRAD CAI, is a 65 F who presents emergency room due to chief complaint of altered mental status. Patient had her dialysis today and following that she returned home and was unresponsive. Patient has a recent past medical history of admission to the hospital for aspiration pneumonia 1 week ago. Patient is unable to give me history as she is nonverbal at this time and the remaining history is from the ER physician in the chart. Patient has a history of end- stage renal disease, cardiac bypass surgery, peripheral vascular disease and diabetes along with congestive heart failure. Per report she has a normal baseline of being able to get up and walk to the car for dialysis but today they required a wheelchair and when she came back she was minimally responsive as above. The patient was hypoxic upon arrival of EMS with a 50% SPO2 and hypotensive. During her last admission she was also diagnosed with a non-STEMI and had a heart catheterization. She was restarted on ranolazine, however, the sister stated that this medication ranolazine had previously caused her to be confused. [facility] Medical History EMPERATRIZ (acute kidney injury) Anemia of chronic disease Atherosclerosis of coronary artery of [place] heart without angina pectoris CHF exacerbation Chronic renal failure, stage 4 (severe) Diabetes mellitus type 1 Dialysis patient Elevated troponin Essential hypertension Insomnia Interstitial lung disease Macrocytic anemia Non-ST elevation myocardial infarction (NSTEMI) Vitamin D deficiency Home Medications insulin aspart U-100 3 units SC LUNCH 03/20/18 [History Last Taken 10/02/20] insulin NPH isoph U-100 human 5 units SC QHS 10/28/18 [History Last Taken 10/02/20] insulin aspart U-100 15 units SC BREAKFAST 10/28/18 [History Last Taken 0] atorvastatin 40 mg PO DAILY 10/03/20 [History Last Taken 10/03/20] insulin aspart U-100 5 units SC DINNER 10/03/20 [History Last Taken 10/02/20] albuterol sulfate 90 mcg/actuation aerosol inhaler 2 puff INHALATION Q6H PRN 11/06/20 [History Last Taken Unknown] aspirin 81 mg tablet,delayed release 81 mg PO DAILY 11/06/20 [History Last Taken Unknown] ondansetron 4 mg disintegrating tablet 4 mg PO Q6H PRN 11/06/20 [History Last Taken Unknown] trazodone 50 mg tablet 50 mg PO QHS PRN 11/06/20 [History Last Taken Unknown] carvedilol 6.25 mg tablet 6.25 mg PO DAILY tab 11/07/20 [History Last Taken Unknown] furosemide 40 mg tablet 40 mg PO DAILY #30 tab 11/07/20 [Rx Last Taken Unknown] isosorbide mononitrate 60 mg tablet,extended release 24 hr 30 mg PO DAILY tablet 01/18/21 [History Last Taken Unknown] guaifenesin 1,200 mg tablet, extended release 12 hr 1,200 mg PO BID tablet 02/13/21 [History Last Taken Unknown] alendronate 70 mg tablet 70 mg PO QWEEK 09/25/21 [History Last Taken Unknown] Allergy/AdvReac Type Severity Reaction Status Date / Time levofloxacin [From Levaquin] Allergy Severe Other Verified 10/15/21 18:21 ranolazine [From Ranexa] AdvReac Severe Severe Verified 10/15/21 18:21 weakness Iodinated Contrast Media AdvReac Hives Verified 10/15/21 18:21 [CONTRASTS] Family History Mother Hypertension Cancer Father Hypertension CVA (cerebral vascular accident) Surgical History H/O coronary artery bypass surgery History of arteriovenostomy for renal dialysis History of left heart catheterization (10/08/21) Hx of carpal tunnel repair Social History Smoking Status: Never smoker second hand exposure: No alcohol intake: never substance use type: does not use caffeine: Yes Type: coffee what type of physical activity do you participate in: none frequency: does not exercise ROS Review of Systems ROS Unobtainable: due to encephalopathy Vital Signs Vital Signs Vital Signs: 10/15/21 18:21 10/15/21 18:26 10/15/21 18:31 Temperature 97.7 F L 97.7 F L Temperature Source Temporal Temporal Pulse Rate 67 67 Respiratory Rate 12 12 Respiratory Pattern Blood Pressure 98/76 98/76 Blood Pressure Mean 83 83 Pulse Ox 100 100 97 Oxygen Delivery Method CPAP CPAP CPAP Oxygen Flow Rate (L/min) Fraction of Inspired Oxygen (FIO2) 10/15/21 19:00 10/15/21 20:07 10/15/21 21:10 Temperature 98.6 F 98.6 F Temperature Source Temporal Temporal Pulse Rate 68 89 69 Respiratory Rate 25 H 18 18 Respiratory Pattern Tachypnea Blood Pressure 138/110 H 90/34 L Blood Pressure Mean 119 52 Pulse Ox 97 99 99 Oxygen Delivery Method Bi-pap Nasal Cannula Oxygen Flow Rate (L/min) 2 Fraction of Inspired Oxygen (FIO2) 80 10/15/21 22:02 10/15/21 22:54 10/15/21 23:02 Temperature 98.9 F 98.9 F 99.1 F Temperature Source Temporal Temporal Temporal Pulse Rate 88 67 77 Respiratory Rate 18 18 20 H Respiratory Pattern Blood Pressure 86/46 L 77/54 L 83/58 L Blood Pressure Mean 59 61 66 Pulse Ox 98 98 98 Oxygen Delivery Method Room Air Nasal Cannula Nasal Cannula Oxygen Flow Rate (L/min) 2 2 Fraction of Inspired Oxygen (FIO2) Weight Weight: 133 lb 13.129 oz Body Mass Index (BMI) 26.1 Physical Exam Const Orientation / Consciousness: lethargic HEENT normocephalic and head/scalp atraumatic Eyes PERRL Neck supple Lymph Lymphatic: no lymphedema noted Resp Auscultation: rhonchi throughout Cardio regular rate, regular rhythm, S1 normal heart sound and S2 normal heart sound GI normal to inspection, nondistended, normoactive bowel sounds Extremity normal capillary refill Skin General Skin Exam: turgor normal Psych Psych Narrative: non verbal Results Lab / Micro Data Result Diagrams: 10/15/21 19:00 10/15/21 19:50 Labs: Laboratory Results - last 24 hr 10/15/21 19:00: WBC 32.7 H*, RBC 3.62 L, Hgb 11.3 L, Hct 35.7 L, MCV 98.6, MCH 31.2, MCHC 31.7 L, RDW Std Deviation 49.5 H, RDW Coeff of Andrzej 13.7, Plt Count 192, MPV 11.7, Immature Gran % (Auto) 1.300 H, Neut % (Auto) 92.7 H, Lymph % (Auto) 1.5 L, [place] % (Auto) 3.8, Eos % (Auto) 0.1, Baso % (Auto) 0.6, Absolute Neuts (auto) 30.3 H, Absolute Lymphs (auto) 0.49 L, Nucleated RBC % 0, Differential Comment , Diff Path Review February, Platelet Estimate ADEQUATE, RBC Morphology NORM C+C 10/15/21 19:00: PT 13.8, INR 1.1, APTT 27.9 10/15/21 19:00: Sodium Cancelled, Potassium Cancelled, Chloride Cancelled, Carbon Dioxide Cancelled, Anion Gap Cancelled, BUN Cancelled, Creatinine Cancelled, Estim Creat Clear Calc Cancelled, Est GFR (MDRD) Af Amer Cancelled, Est GFR (MDRD) Non-Af Cancelled, BUN/Creatinine Ratio Cancelled, Glucose Cancelled, Calcium Cancelled, Total Bilirubin Cancelled, AST Cancelled, ALT Cancelled, Alkaline Phosphatase Cancelled, Troponin I High Sens Cancelled, Total Protein Cancelled, Albumin Cancelled, Globulin Cancelled, Albumin/Globulin Ra beverly Cancelled 10/15/21 19:00: Lactic Acid 2.2 H* 10/15/21 19:50: Sodium 138, Potassium 3.9, Chloride 104, Carbon Dioxide 24.0, Anion Gap 10, BUN 31 H, Creatinine 3.31 H, Estim Creat Clear Calc 12.33, Est GFR (MDRD) Af Amer 18 L, Est GFR (MDRD) Non-Af 15 L, BUN/Creatinine Ratio 9.4 L, Glucose 90, Calcium 7.6 L, Total Bilirubin 0.70, AST 35, ALT 29, Alkaline Phosphatase 105, Troponin I High Sens 2239 H*, Total Protein 5.8 L, Albumin 1.8 L, Globulin 4.0, Albumin/Globulin Ratio 0.4 L 10/15/21 21:10: Urine Color Yellow, Urine Clarity Sl. Cloudy, Urine pH 6.0, Ur Specific [place] 1.020, Urine Protein 100 H, Urine Glucose (UA) Normal, Urine Ketones Negative, Urine Occult Blood 10 H, Urine Nitrite Negative, Urine Bilir ubin 1 H, Urine Urobilinogen Normal, Ur Leukocyte Esterase 25 H, Urine RBC 0-5 SEEN, Urine WBC 0-5 SEEN, Ur Squamous Epith Cells 0 SEEN, Amorphous Sediment 1+, Urine Bacteria RARE, Urine Mucus 0 SEEN Micro: Microbiology 10/15/21 20:25 Nasal Secretion SARS-CoV-2 Antigen (Rapid) - Final Radiology Impression Chest X-Ray 10/15/21 18:59 IMPRESSION: Partial resolution of ill-defined opacities suggestive of underlying pneumonia. Electronically Signed: Clare Avila MD at 21:19 EST Tel , Service support , Assessment & Plan Assessment/Plan (1) Encephalopathy acute: (2) Aspiration pneumonia: QUALIFIERS: Aspiration pneumonia type: due to vomit Laterality: left Lung location: lower lobe of lung Qualified Code(s): J69.0 - Pneumonitis due to inhalation of food and vomit (3) End stage renal disease: (4) Dialysis patient: (5) Essential hypertension: (6) Diabetes mellitus type 1: QUALIFIERS: Diabetes mellitus complication status: without complication Qualified Code(s): E10.9 - Type 1 diabetes mellitus without complications PLAN: 1 acute encephalopathy following dialysis?admit patient to progressive care unit, patient is DNR Comfort Care arrest per sibling, IV hydration gentle overnight with repeat BMP in the morning 2. Aspiration pneumonia continues to have rhonchi we will continue antibiotics 3. End-stage renal disease/dialysis patient?patient had dialysis today we will not need to address this till Friday 4. Hypertension?continue to monitor and keep routine home medications 5. Diabetes?while n.p.o. we will cover patient with sliding scale insulin 6. DVT prophylaxis?SCDs Charges/Coding Visit Charges Inpatient E&M: 37642 Init Hosp L3
[2021-10-16] VITALS (7 sets, daily range): BP systolic 63–81; BP diastolic 28–40; PULSE 48–77; RESP 14–21; TEMP 36.1–36.6; O2SAT 92–95; BMI 25.2
[2021-10-16] MEDS: 0.9% Normal Saline 1,000 ML 100 ML IV (00:27)
--- NOTE | 2021-10-16 04:09 | NURSING ---
Patient's family was notified of patient's passing. States will be coming in to see her.
--- NOTE | 2021-10-16 05:15 | NURSING ---
Pt's family visited at bedside, belongings sent home with enrestina chris. Family states she had a hearing aide that she normally wore in her right ear. Informed family that the hearing aide was not seen on admission to the floor. Informed charge nurse. States that ER will be notified to look for it and it can be sent to the home if located. Pt's family is accepting of this states, it's fine, no one else will use it anyway.
--- NOTE | 2021-10-16 05:25 | NURSING ---
Pt's family went home with belongings.
--- NOTE | 2021-10-16 06:03 | NURSING ---
Pt's hearing aide was located during postmortem care, Kept with patient in transport bag. Charge nurse informed.
[2021-10-17 09:44] LABS: Pathologist Review Reviewed
--- NOTE | 2021-11-05 19:18 | PCM.DC.SUM ---
Providers Date of Admission: 10/15/21 Primary Care Physician: Dr. Sergio Maxwell DO Reason For Visit: ENCEPHALOPATHY Diagnosis Discharge Diagnosis (1) Encephalopathy acute: Status: Acute Code(s): G93.40 - Encephalopathy, unspecified (2) Aspiration pneumonia: Status: Resolved Code(s): J69.0 - Pneumonitis due to inhalation of food and vomit Qualifiers: Aspiration pneumonia type: due to vomit Laterality: left Lung location: lower lobe of lung Qualified Code(s): J69.0 - Pneumonitis due to inhalation of food and vomit (3) End stage renal disease: Code(s): N18.6 - End stage renal disease (4) Dialysis patient: Code(s): Z99.2 - Dependence on renal dialysis (5) Essential hypertension: Code(s): I10 - Essential (primary) hypertension (6) Diabetes mellitus type 1: Qualifiers: Diabetes mellitus complication status: without complication Qualified Code(s): E10.9 - Type 1 diabetes mellitus without complications Medications at Discharge Home Medications insulin aspart U-100 3 units SC LUNCH 03/20/18 insulin NPH isoph U-100 human 5 units SC QHS 10/28/18 insulin aspart U-100 15 units SC BREAKFAST 10/28/18 atorvastatin 40 mg PO DAILY 10/03/20 insulin aspart U-100 5 units SC DINNER 10/03/20 albuterol sulfate 90 mcg/actuation aerosol inhaler 2 puff INHALATION Q6H PRN 11/06/20 aspirin 81 mg tablet,delayed release 81 mg PO DAILY 11/06/20 ondansetron 4 mg disintegrating tablet 4 mg PO Q6H PRN 11/06/20 trazodone 50 mg tablet 50 mg PO QHS PRN 11/06/20 carvedilol 6.25 mg tablet 6.25 mg PO DAILY tab 11/07/20 furosemide 40 mg tablet 40 mg PO DAILY #30 tab 11/07/20 isosorbide mononitrate 60 mg tablet,extended release 24 hr 30 mg PO DAILY tablet 01/18/21 guaifenesin 1,200 mg tablet, extended release 12 hr 1,200 mg PO BID tablet 02/13/21 alendronate 70 mg tablet 70 mg PO QWEEK 09/25/21 Hospital Course Summary of Care Provided Minutes Spent on Discharge: 20 Hospital Course: Patient admitted due to altered mental status and renal failure. 2 hours post admission patient succumbed to her severe renal disease. Per wishes of family member patient had been made DNR comfort care only. Weight / BMI Weight Weight: 129 lb 3.054 oz Body Mass Index (BMI) 25.2 ABG / Lab / Microbiology Data Result Diagrams: 10/15/21 19:00 10/15/21 19:50 Microbiology: Microbiology 10/15/21 19:50 Blood Culture (Wb) - Right Wrist Blood Culture - Final No growth in 5 days. 10/16/21 00:45 Stool C. difficile GDH Antigen & Toxins - Final Toxigenic C. difficile 10/16/21 00:45 Stool C. difficile DNA Amplification - Final 10/15/21 20:25 Nasal Secretion SARS-CoV-2 Antigen (Rapid) - Final Meaningful Use Info Meaningful Use Diagnoses (Choose all that apply): None applicable Discharge Plan Admission Admit Date/Time: 10/15/21 23:35 Attending Provider: Harley Muhammad Primary Care Provider: Sergio Maxwell Disposition Disposition (needs filled in before D/C Order can be placed): Charges/Coding Visit Charges Inpatient E&M: 95440 Disch Hosp
== END 2021-10-16 06:07 | DRG 871 ==
LOC: ED 22:48 → PCU 23:43
PROVIDERS: Admitting Provider Family Medicine; Emergency Provider Emergency Medicine; PCP Preventive Medicine Occupational Medicine; Visit Provider Family Medicine
DX: A41.9 Sepsis, unspecified organism (principal); J69.0 Pneumonitis due to inhalation of food and vomit; I21.4 Non-ST elevation (NSTEMI) myocardial infarction; N18.6 End stage renal disease; G93.40 Encephalopathy, unspecified; I13.2 Hypertensive heart and chronic kidney disease with heart failure and with stage 5 chronic kidney disease, or end stage renal disease; E10.51 Type 1 diabetes mellitus with diabetic peripheral angiopathy without gangrene; D63.8 Anemia in other chronic diseases classified elsewhere; E10.22 Type 1 diabetes mellitus with diabetic chronic kidney disease; Z99.2 Dependence on renal dialysis; I50.9 Heart failure, unspecified; Z79.4 Long term (current) use of insulin; I25.2 Old myocardial infarction; I25.10 Atherosclerotic heart disease of native coronary artery without angina pectoris; Z20.822 Contact with and (suspected) exposure to COVID-19; Z79.82 Long term (current) use of aspirin; Z79.83 Long term (current) use of bisphosphonates; Z95.1 Presence of aortocoronary bypass graft
CPT/HCPCS: 36415; 51702; 71045; 80053; 81001; 83605; 84484; 85025; 85610; 85730; 87040; 87426; 87493; 93005; 94002; 99285; J7030; J7040; A4216; C1751